=== PATIENT | female | born 1950 | race Caucasian/White ===

== ENCOUNTER 2017-02-18 12:37 | Inpatient (IN) | payer OTHER ==
[~2017-02-18] VITALS: Ht 157.5 cm; Wt 62.0 kg
[2017-02-18 13:55] LABS: URINE APPEARANCE CLOUDY (CLEAR); URINE BILIRUBIN NEG (NEG); URINE COLOR YELLOW; URINE EPITHELIAL CELL AUTO 0-5 /lpf (0-5); URINE NITRITE NEG (NEG); URINE SPECIFIC GRAVITY 1.014 (1.000-1.030); UROBILINOGEN NEG (NEG)
[2017-02-18 13:56] LABS: MANUAL MICROSCOPIC REQUIRED? NO; REVIEW REQ? NO
[2017-02-18 14:12] LABS: BASO % 0.3 %; BASO ABS # 0.02 K/uL (0-0.2); COMPLETE YES; EOS % 0.8 %; HEMATOCRIT 42.9 % (37-47); IG% 0.2 %; LYMPH % 23.5 %; LYMPH ABS # 1.54 K/uL (1.2-3.4); MEAN CELL VOLUME 95.1 fL (80-100); MEAN CORPUSCULAR HEMOGLOBIN 31.3 pg (25-34); MEAN CORPUSCULAR HGB CONC 32.9 g/dl (32-36); MEAN PLATELET VOLUME 10.2 fL (7.4-10.4); MONO % 5.3 %; NEUT % 69.9 %; PLATELET COUNT 295 K/uL (130-400); RED BLOOD COUNT 4.51 M/uL (4.2-5.4); WHITE BLOOD COUNT 6.55 K/uL (4.8-10.8)
[2017-02-18] MEDS ORDERED: CEPHALEXIN MONOHYDRATE 250 MG CAP PO ONE (14:15)
--- NOTE | 2017-02-18 14:17 | DIAGNOSTIC IMAGING REPORT ---
CHEST ONE VIEW PORTABLE HISTORY: 66 years-old Female Mood Disorder no acute chest complaints reported. Initial exam. COMPARISON: None available TECHNIQUE: Portable upright AP view of the chest FINDINGS: There is increased lucency of the left chest, likely secondary to patient rotation to the left. Left lung apex is partially obscured by patient's chin. Cardiac silhouette is within normal limits. No pneumothorax, pleural effusion, focal airspace consolidation or overt pulmonary edema. Bones of the chest are grossly intact. IMPRESSION: 1. No acute cardiopulmonary process. 2. Increased lucency of the left hemithorax compared to the right is likely technical secondary to patient rotation. The above report was generated using voice recognition software. It may contain grammatical, syntax or spelling errors. Electronically signed by: Harvinder Browne M.D. 02/18/2017 2:16 PM Dictated Date/Time: 02/18/2017 2:13 PM
[2017-02-18] MEDS ORDERED: ZOLP5TAB PO (14:24)
[2017-02-18] MEDS ORDERED: CHOL2000 PO (14:24)
[2017-02-18] MEDS ORDERED: LAMO1TAB21 PO (14:24)
[2017-02-18] MEDS ORDERED: PRLSR20 PO (14:24)
[2017-02-18] MEDS ORDERED: CLON1TAB3 PO (14:24)
[2017-02-18] MEDS ORDERED: CARB25TA PO (14:24)
[2017-02-18] MEDS ORDERED: LEVO100T PO (14:24)
[2017-02-18] MEDS ORDERED: MIRT30TA2 PO (14:24)
[2017-02-18] MEDS ORDERED: SIMV20TA2 PO (14:24)
[2017-02-18 14:30] LABS: BENZODIAZEPINE, URINE NEG (NEG); COCAINE,URINE NEG (NEG); PHENCYCLIDINE, URINE NEG (NEG)
[2017-02-18 14:40] LABS: ALT/SGPT < 6 U/L (12-78); AST/SGOT 18 U/L (15-37); BLOOD UREA NITROGEN 8 mg/dl (7-18); BUN/CREATININE RATIO 9.3 (10-20); CALCIUM 10.9 mg/dl (8.5-10.1); CARBON DIOXIDE 27 mmol/L (21-32); CHLORIDE 104 mmol/L (98-107); CREATININE 0.83 mg/dl (0.60-1.20); GLUCOSE 86 mg/dl (70-99); POTASSIUM 3.1 mmol/L (3.5-5.1); SODIUM 141 mmol/L (136-145)
[2017-02-18 14:50] LABS: ALKALINE PHOSPHATASE 95 U/L (45-117); THYROID STIMULATING HORMONE 0.168 uIu/ml (0.300-4.500)
[2017-02-18] MEDS ORDERED: hydrOXYzine HCL 25 MG TAB PO PRN (16:30)
[2017-02-18] MEDS ORDERED: BISMUTH SUBSALICYLATE PER ML OMNICELL CHARGE PO PRN (16:30)
[2017-02-18] MEDS ORDERED: MAGNESIUM HYDROXIDE SUSP 30 ML UDC PO PRN (16:30)
[2017-02-18] MEDS ORDERED: SODIUM CHLORIDE 0.65% NA SOLN 45 ML (OCEAN) PRN (16:30)
[2017-02-18] MEDS ORDERED: ALUMINUM/MAGNESIUM SUSP 30 ML UDC PO PRN (16:30)
[2017-02-18] MEDS ORDERED: CLONAZEPAM 1 MG TAB PO ONE (17:00)
--- NOTE | 2017-02-18 17:24 | EMERGENCY ROOM VISIT NOTE ---
History Report prepared by Dena: Sami Magaña Under the Supervision of: Dr. Nash Mendez D.O. First contact with patient: 13:04 Chief Complaint: PSYCHIATRIC PROBLEMS Stated Complaint: PSYCHIATRIC EVALUATION, SENT BY History of Present Illness The patient is a 66 year old female who presents to the Emergency Room for a mental health evaluation due to constant auditory hallucinations and anxiety for the past week. The patient states that the voices are telling her to kill herself. The patient denies any current suicidal ideations, homicidal ideations , and visual hallucinations. The patient's states that the patient has been seen a [facility] two-three years ago and [facility], and she was getting shock therapy at [facility]. He states that the patient has been drinking well recently, though she has not been eating very well. The patient has a history of depression and anxiety. Pt denies headache, change in vision, fevers , chest pain, shortness of breath, nausea, vomiting, diarrhea, and pain with urination. Source of History: patient, spouse/significant other Onset: a week ago Position: other (global) Quality: other (hallucinations and anxiety) Timing: constant Review of Systems See HPI for pertinent positives & negatives. A total of 10 systems reviewed and were otherwise negative. Past Medical & Surgical Medical Problems: (1) Anxiety (2) Depression (3) Hallucinations Social History Smoking Status: Current Every Day Smoker Marital Status: Housing Status: lives with family Occupation Status: retired Current/Historical Medications Scheduled Carbidopa-Levodopa (Sinemet Cr 25MG/100MG), 1 TAB PO BID Cholecalciferol (Vitamin D3), 2,000 UNIT PO TID Lamotrigine (Lamotrigine), 100 MG PO HS Levothyroxine Sodium (Synthroid), 100 MCG PO DAILY Mirtazapine Soltab (Remeron Soltab), 30 MG PO HS Omeprazole (Prilosec), 20 MG PO DAILY Simvastatin (Zocor), 20 MG PO QAM Scheduled PRN Clonazepam (Klonopin), 1 MG PO TID PRN for Anxiety/Agitation Zolpidem Tartrate (Ambien), 5-10 MG PO HS PRN for Insomnia Allergies Coded Allergies: No Known Allergies (Unverified , 02/18/17) Physical Exam Vital Signs Date Time Temp Pulse Resp B/P (MAP) Pulse Ox O2 Delivery O2 Flow Rate FiO2 02/18/17 14:49 74 16 116/71 97 02/18/17 13:13 36.6 80 16 127/78 100 Room Air Physical Exam GENERAL: Sitting up in bed, disheveled, no acute distress EYE EXAM: normal conjunctiva OROPHARYNX: no exudate, no erythema, lips, buccal mucosa, and tongue normal and mucous membranes are moist NECK: supple, no nuchal rigidity, no adenopathy, non-tender LUNGS: Clear to auscultation. Normal chest wall mechanics HEART: no murmurs, S1 normal and S2 normal ABDOMEN: abdomen soft, non-tender, normo-active bowel sounds, no masses, no rebound or guarding. BACK: Back is symmetrical on inspection and there is no deformity, no midline tenderness, no CVA tenderness. SKIN: no rashes and no bruising UPPER EXTREMITIES: upper extremities are grossly normal. LOWER EXTREMITIES: No pitting edema. NEURO EXAM: Normal sensorium, cranial nerves II-XII grossly intact, normal speech, no gross weakness of arms, no gross weakness of legs. Gross sensation intact. PSYCH: No eye contact. Staring down at the floor. Flat affect. Admits to hearing voices instructing her to harm herself. Tearful when explaining. Medical Decision & Procedures ER Provider Diagnostic Interpretation: Radiology results as stated below per my review and the radiologist's interpretation: CHEST ONE VIEW PORTABLE HISTORY: 66 years-old Female Mood Disorder no acute chest complaints reported. Initial exam. COMPARISON: None available TECHNIQUE: Portable upright AP view of the chest FINDINGS: There is increased lucency of the left chest, likely secondary to patient rotation to the left. Left lung apex is partially obscured by patient's chin. Cardiac silhouette is within normal limits. No pneumothorax, pleural effusion, focal airspace consolidation or overt pulmonary edema. Bones of the chest are grossly intact. IMPRESSION: 1. No acute cardiopulmonary process. 2. Increased lucency of the left hemithorax compared to the right is likely technical secondary to patient rotation. The above report was generated using voice recognition software. It may contain grammatical, syntax or spelling errors. Electronically signed by: Harvinder Browne M.D. 02/18/2017 2:16 PM Dictated Date/Time: 02/18/2017 2:13 PM Laboratory Results 02/18/17 13:36 Red Blood Count 4.51, Mean Corpuscular Volume 95.1, Mean Corpuscular Hemoglobin 31.3, Mean Corpuscular Hemoglobin Concent 32.9, Mean Platelet Volume 10.2, Neutrophils (%) (Auto) 69.9, Lymphocytes (%) (Auto) 23.5, Monocytes (%) (Auto) 5.3, Eosinophils (%) (Auto) 0.8, Basophils (%) (Auto) 0.3, Neutrophils # (Auto) 4.58, Lymphocytes # (Auto) 1.54, Monocytes # (Auto) 0.35, Eosinophils # (Auto) 0.05, Basophils # (Auto) 0.02 02/18/17 13:36 Test 02/18/17 00:00 02/18/17 13:32 02/18/17 13:36 Urine Color YELLOW Urine Appearance CLOUDY (CLEAR) Urine pH 6.0 (4.5-7.5) Urine Specific [place] 1.014 (1.000-1.030) Urine Protein NEG (NEG) Urine Glucose (UA) NEG (NEG) Urine Ketones TRACE (NEG) Urine Occult Blood TRACE (NEG) Urine Nitrite NEG (NEG) Urine Bilirubin NEG (NEG) Urine Urobilinogen NEG (NEG) Urine Leukocyte Esterase LARGE (NEG) Urine WBC (Auto) >30 /hpf (0-5) Urine RBC (Auto) 5-10 /hpf (0-4) Urine Hyaline Casts (Auto) 1-5 /lpf (0-5) Urine Epithelial Cells (Auto) 0-5 /lpf (0-5) Urine Bacteria (Auto) 1+ (NEG) Urine Opiates Screen NEG (NEG) Urine Methadone, Qualitative NEG (NEG) Urine Barbiturates NEG (NEG) Urine Phencyclidine (PCP) Level NEG (NEG) Ur Amphetamine/Methamphetamine NEG (NEG) MDMA (Ecstasy) Screen NEG (NEG) Urine Benzodiazepines Screen NEG (NEG) Urine Cocaine Metabolite NEG (NEG) Urine Marijuana (THC) NEG (NEG) Bedside Glucose 82 mg/dl (70-90) White Blood Count 6.55 K/uL (4.8-10.8) Red Blood Count 4.51 M/uL (4.2-5.4) Hemoglobin 14.1 g/dL (12.0-16.0) Hematocrit 42.9 % (37-47) Mean Corpuscular Volume 95.1 fL (80-100) Mean Corpuscular Hemoglobin 31.3 pg (25-34) Mean Corpuscular Hemoglobin Concent 32.9 g/dl (32-36) Platelet Count 295 K/uL (130-400) Mean Platelet Volume 10.2 fL (7.4-10.4) Neutrophils (%) (Auto) 69.9 % Lymphocytes (%) (Auto) 23.5 % Monocytes (%) (Auto) 5.3 % Eosinophils (%) (Auto) 0.8 % Basophils (%) (Auto) 0.3 % Neutrophils # (Auto) 4.58 K/uL (1.4-6.5) Lymphocytes # (Auto) 1.54 K/uL (1.2-3.4) Monocytes # (Auto) 0.35 K/uL (0.11-0.59) Eosinophils # (Auto) 0.05 K/uL (0-0.5) Basophils # (Auto) 0.02 K/uL (0-0.2) RDW Standard Deviation 44.3 fL (36.4-46.3) RDW Coefficient of Variation 12.7 % (11.5-14.5) Immature Granulocyte % (Auto) 0.2 % Immature Granulocyte # (Auto) 0.01 K/uL (0.00-0.02) Anion Gap 10.0 mmol/L (3-11) Est Creatinine Clear Calc Drug Dose 57.0 ml/min Estimated GFR () 84.6 Estimated GFR (Non- 73.0 BUN/Creatinine Ratio 9.3 (10-20) Calcium Level 10.9 mg/dl (8.5-10.1) Total Bilirubin 0.5 mg/dl (0.2-1) Direct Bilirubin 0.2 mg/dl (0-0.2) Aspartate Amino Transf (AST/SGOT) 18 U/L (15-37) Alanine Aminotransferase (ALT/SGPT) < 6 U/L (12-78) Alkaline Phosphatase 95 U/L (45-117) Total Protein 7.1 gm/dl (6.4-8.2) Albumin 3.9 gm/dl (3.4-5.0) Thyroid Stimulating Hormone (TSH) 0.168 uIu/ml (0.300-4.500) Free Thyroxine 1.84 ng/dl (0.80-1.60) Ethyl Alcohol mg/dL < 3.0 mg/dl (0-3) Laboratory results per my review. Medications Administered Medications (Trade) Dose Ordered Sig/Jeison Route Start Time Stop Time Status Last Admin Dose Admin Cephalexin Monohydrate (Keflex Cap) 500 mg NOW ONCE PO 02/18/17 14:15 02/18/17 14:16 DC 02/18/17 14:12 500 MG ED Course ED COURSE: Vital signs were reviewed and showed normal vitals. The patients medical record was reviewed The above diagnostic studies were performed and reviewed. ED treatments and interventions as stated above. 1304: The patient was evaluated in room A6. A complete history and physical examination was performed. 1415: Keflex Cap 500mg PO 1600: [facility] has accepted the patient for further treatment. 1605: Upon reevaluation, the patient is resting comfortably.I discussed my findings with the patient and her , and they understand and agree with the treatment plan. Based on the patients age, coexisting illnesses, exam and lab findings the decision to treat as an inpatient was made. The patient remained stable while under my care. The patient will be evaluated for further management. Medical Decision Differential diagnosis: Etiologies such as mood disorder, infection, hypoglycemia, electrolyte abnormalities, cardiac sources, intracerebral event, toxicologic, neurologic, as well as others were entertained. Patient is a 66-year-old female who presents to ER for anxiety, not eating drinking and hearing voices in her head. These voices have been telling her to harm herself. She has been resisting search. CBC along with BMP, LFTs and TSH was remarkable for a slightly low TSH. Urine tox was negative. Patient was given Keflex for UA suggest a UTI. His x-ray was unremarkable. Patient was admitted to [address] [place] [address] with a UTI and mood disorder. Medication Reconcilliation Current Medication List: was personally reviewed by me Blood Pressure Screening Patient's blood pressure: Normal blood pressure Impression Primary Impression: Mood disorder Additional Impressions: Auditory hallucinations UTI (urinary tract infection) Thoughts of self harm Scribe Attestation The scribe's documentation has been prepared under my direction and personally reviewed by me in its entirety. I confirm that the note above accurately reflects all work, treatment, procedures, and medical decision making performed by me. Departure Information Dispostion Mental Health Acute Care Referrals Milind Barraza M.D. (PCP) Patient Instructions My [facility] Problem Qualifiers Additional Impressions: UTI (urinary tract infection) Urinary tract infection type: acute cystitis Hematuria presence: with hematuria Qualified Codes: N30.01 - Acute cystitis with hematuria
[2017-02-18 17:45] VITALS: O2SAT 97
[2017-02-18 18:29] VITALS: BP 116/76; PULSE 78; TEMP 36.8; BMI 25.0
[2017-02-18] MEDS ORDERED: NURSING VERBAL MED ORDER ONE ×3 (18:30→23:00)
[2017-02-18] MEDS ORDERED: ZOLPIDEM TARTRATE 5 MG TAB PO PRN (19:00)
[2017-02-18] MEDS ORDERED: CLONAZEPAM 1 MG TAB PO SCH (21:00)
[2017-02-18] MEDS: CEPHALEXIN MONOHYDRATE 500 MG CAP PO SCH (22:02)
[2017-02-18] MEDS: CHOLECALCIFEROL 1000 INTER.UNIT TAB PO SCH (22:03)
[2017-02-18] MEDS: MIRTAZAPINE TAB 15 MG TAB PO SCH (22:03)
[2017-02-18] MEDS: CARBIDOPA/LEVODOPA 25/100MG EXT REL TAB PO SCH (22:03)
[2017-02-18] MEDS ORDERED: OLANZAPINE 2.5 MG TAB PO STA (22:52)
[2017-02-19 07:07] VITALS: BP_SYST 122; BP_SYST 132; BP_DIAS 79; BP_DIAS 88; PULSE 87; PULSE 89; TEMP 36.8
[2017-02-19 07:12] VITALS: Ht 157.5 cm; Wt 62.0 kg
[2017-02-19] MEDS ORDERED: LEVOTHYROXINE 100 MCG TAB PO SCH (08:00)
[2017-02-19] MEDS: CARBIDOPA/LEVODOPA 25/100MG EXT REL TAB PO SCH ×2 (08:26→20:23)
[2017-02-19] MEDS: PANTOprazole SOD 40 MG TAB PO SCH (08:26)
[2017-02-19] MEDS: SIMVASTATIN 20 MG TAB PO SCH (08:26)
[2017-02-19] MEDS: CHOLECALCIFEROL 1000 INTER.UNIT TAB PO SCH ×3 (08:26→20:23)
[2017-02-19] MEDS: CEPHALEXIN MONOHYDRATE 500 MG CAP PO SCH ×3 (08:26→20:22)
[2017-02-19] MEDS: CLONAZEPAM 1 MG TAB PO PRN ×2 (08:47→20:34)
--- NOTE | 2017-02-19 09:59 | Psychiatric History & Physical ---
History Date of Service Feb 19, 2017. Identifying Data Shanna Hutson is a 66-year-old female who currently lives in [place] with her , has an unknown psychiatric history for which she sees Dr. Bashir, and presented with command auditory hallucinations to kill herself. She was admitted on a 201 voluntary commitment. Patient is admitted from home, and was brought to the ED by the family. Chief Complaint "Not good". History of Present Illness This is the patient's first episode of care at our facility. She presented to the emergency room yesterday with her , reporting worsening auditory hallucinations and anxiety for the past week, with voices telling her to kill herself. She was a limited historian, had thought blocking, and was unable to answer questions other than to shake or nod her head, so her provided much of the history. He said she has a history of depression and anxiety, but could not clarify any recent triggers. Sleep has been poor, 3-4 hours a night, with frequent awakening. She had been drinking fluids, but not eating very well. She was diagnosed with UTI and started on Keflex. She could not elaborate about what the voices were saying, or about her suicidal thoughts, but told staff on our unit that she was hearing both male and female voices telling her to kill herself. Her expressed concerns that she would act on these command hallucinations. Overnight, she reported feeling distraught about her auditory hallucinations, was trembling and tearful, reported feeling scared, and was given a one-time dose of olanzapine 2.5 mg. Today, the patient was seen with Micaela Kincaid MS3. She states she is "not good," saying "it's my insides...it's really hard to explain...it's really fast...feels like a ball." She says she feels a ball moving from side to side in her pelvis, it started at breakfast time. Cannot provide any further information about it, but feels distressed. Mood is "good," then says she has been depressed. She says she came in because "hearing voices," going on for 4 years, but worsening recently. Reports hearing "a lot" of different voices, both male and female, doesn't recognize them, which are telling her to hurt herself. The command hallucinations are new, started a couple months ago. She initially says she did not try a medication for hallucinations, then says she was given something in [place] 4 years ago. She doesn't know if she has had recent med changes. She expresses concern that she might act on the commands to hurt herself, but is not sure what she might do. She reports chronic insomnia, and thinks she takes something for sleep, but doesn't know the names of any of her meds. Her helps her with her meds. She is not sure what she has been diagnosed with, but denies a history of bipolar disorder or schizophrenia. She reports chronic anxiety, worries a lot, and has had panic; worse recently. She has been pacing a lot, says she likes to walk, but has had decreased interest recently. Past Psychiatric History Current OP Treatment: psychiatrist (Dr. Bashri in [place]; no therapist or case liner) Prior Psych Hospitalizations: [facility] (1 year ago), other ([facility] 2 years ago) Access to a Gun: Yes Suicide Attempts: No Past Medication Trials Patient cannot provide information about previous meds. H/o ECT at [facility]. Additional Notes Denies history of violence or self harm. Past Medical/Surgical History History of Concussion/Seizure: No (1) UTI (urinary tract infection) (2) Hypothyroid PCP Dr. Milind Barraza Allergies Allergies: Coded Allergies: No Known Allergies (Unverified , 02/18/17) Home Medications Scheduled Carbidopa-Levodopa (Sinemet Cr 25MG/100MG), 1 TAB PO BID Cholecalciferol (Vitamin D3), 2,000 UNIT PO TID Lamotrigine (Lamotrigine), 100 MG PO HS Levothyroxine Sodium (Synthroid), 100 MCG PO DAILY Mirtazapine Soltab (Remeron Soltab), 30 MG PO HS Omeprazole (Prilosec), 20 MG PO DAILY Simvastatin (Zocor), 20 MG PO QAM Scheduled PRN Clonazepam (Klonopin), 1 MG PO TID PRN for Anxiety/Agitation Zolpidem Tartrate (Ambien), 5-10 MG PO HS PRN for Insomnia Family History History of Suicide: No History of Substance Abuse: Yes (Father with drug and alcohol addiction) Psychiatric History: No Alcohol Use Alcohol Use In Past 12 Months: No AUDIT Total Score: 0 Smoking Use Smoking Status: Never Smoker Substance History Denies substance abuse. Personal History Lives in: [place] with Childhood: Grew up in [place], [place]. Youngest of 3 children, has 2 brothers. Father is , mother is still living. 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 Relationship History: (x 40 years) Children: one daughter who is , and living in [place]. Spiritual Affiliation: attends mosque and dial painter is supportive Legal History: none Psychological Trauma History: Denies Hx Traumatic Event Review of Systems 10 systems reviewed, positive for congestion, others negative except as stated above. Examination Physical Examination A physical exam was performed in the ER prior to admission to the unit by Dr. Mendez. I accept that physical as correct/medical clearance for the inpatient physical exam. Vital Signs Vital Signs Past 12 Hours Date Time Temp Pulse Resp B/P (MAP) Pulse Ox O2 Delivery O2 Flow Rate FiO2 02/19/17 07:07 36.8 87 18 122/79 89 132/88 Laboratory Results Last 24 Hours Test 02/18/17 13:32 02/18/17 13:36 Bedside Glucose 82 mg/dl White Blood Count 6.55 K/uL Red Blood Count 4.51 M/uL Hemoglobin 14.1 g/dL Hematocrit 42.9 % Mean Corpuscular Volume 95.1 fL Mean Corpuscular Hemoglobin 31.3 pg Mean Corpuscular Hemoglobin Concent 32.9 g/dl Platelet Count 295 K/uL Mean Platelet Volume 10.2 fL Neutrophils (%) (Auto) 69.9 % Lymphocytes (%) (Auto) 23.5 % Monocytes (%) (Auto) 5.3 % Eosinophils (%) (Auto) 0.8 % Basophils (%) (Auto) 0.3 % Neutrophils # (Auto) 4.58 K/uL Lymphocytes # (Auto) 1.54 K/uL Monocytes # (Auto) 0.35 K/uL Eosinophils # (Auto) 0.05 K/uL Basophils # (Auto) 0.02 K/uL RDW Standard Deviation 44.3 fL RDW Coefficient of Variation 12.7 % Immature Granulocyte % (Auto) 0.2 % Immature Granulocyte # (Auto) 0.01 K/uL Sodium Level 141 mmol/L Potassium Level 3.1 mmol/L Chloride Level 104 mmol/L Carbon Dioxide Level 27 mmol/L Anion Gap 10.0 mmol/L Blood Urea Nitrogen 8 mg/dl Creatinine 0.83 mg/dl Est Creatinine Clear Calc Drug Dose 57.0 ml/min Estimated GFR () 84.6 Estimated GFR (Non- 73.0 BUN/Creatinine Ratio 9.3 Random Glucose 86 mg/dl Calcium Level 10.9 mg/dl Total Bilirubin 0.5 mg/dl Direct Bilirubin 0.2 mg/dl Aspartate Amino Transf (AST/SGOT) 18 U/L Alanine Aminotransferase (ALT/SGPT) < 6 U/L Alkaline Phosphatase 95 U/L Total Protein 7.1 gm/dl Albumin 3.9 gm/dl Thyroid Stimulating Hormone (TSH) 0.168 uIu/ml Free Thyroxine 1.84 ng/dl Ethyl Alcohol mg/dL < 3.0 mg/dl Mental Examination During interview pt is: alert and oriented, cooperative Appearance: appropriately dressed, appropriately groomed Eye contact is: poor (looking down at floor) Motor behavior is: steady gait & station (slow), other (tremulous, wringing hands) Speech: normal in rate, rhythm & volume Affect: mood congruent, depressed, anxious, constricted Mood is: depressed, anxious Thought process: goal directed, blocking, concrete Thought content: reality based without delusions Suicidal thought are: present Homicidal thoughts are: denied Hallucinations: auditory (multiple voices telling her to harm herself) Cognition: language grossly intact, other (memory and attention impaired) Intelligence estimated to be: consistent with level of education Insight: impaired Judgement: impaired Impression / Recommendations Impression 66-year-old white female with a history of depression, anxiety, ? Parkinson's disease, and chronic auditory hallucinations who presents with worsening auditory hallucinations commanding her to harm herself. She had her expressed concerns for her safety, and she was admitted voluntarily. She is a very limited historian with respect to her medical and psychiatric history, past medications, and current medications, and we will need to get records from her PCP and psychiatrist to clarify her history and previous trials. She requires inpatient treatment due to the risk for suicide if discharged. Inventory Assets Strengths: Supportive , has psychiatrist, willing for treatment Risk Factors Assessment : Yes /single/: No Higher / Fall in social status: No Access to guns: Yes Health problems: Yes Mental Health Diagnoses: Yes Substance use disorders: No Previous attempt: No Family history of suicide: No Previous psychiatric stay: Yes Hopelessness: Yes Smoker: No Protective Factors Assessment Yazdanism beliefs: Yes : Yes Responsible for young children: No Employed: No Stable relationships: Yes Supportive family: Yes Good rapport with provider: Yes Recommendations (1) Depression - Continue home dose of lamotrigine 100 mg daily at bedtime, mirtazapine 30 mg daily at bedtime, and zolpidem 5 mg daily at bedtime when necessary for insomnia. - Patient reports that olanzapine 2.5 mg that she received last evening was helpful for the voices and for sleep, so will order this twice a day for now while obtaining records from her outpatient psychiatrist to clarify past medication trials. Will also order 2.5 mg every 8 hours when necessary psychosis. Reviewed risks, benefits, and side effects of the medication with the patient. Order fasting lipid profile and fasting glucose for tomorrow morning for monitoring on an atypical antipsychotic. - Get records from PCP regarding ? Parkinson's disease diagnosis, as she has Sinemet listed as a home medication. May need to consider a trial of quetiapine due to drug drug interactions with dopamine antagonists. - Encourage group attendance and participation. - Family meeting with . We'll review recommendations the guns be secured prior to discharge. (2) Anxiety - Continue home dose of clonazepam 1 mg 3 times a day when necessary anxiety. (3) Hypothyroid - Get PCP records, as TSH is low and free T4 is elevated. Hold levothyroxine, and get records from PCP to determine if the dose has been adjusted recently as she is currently hyperthyroid. (4) UTI (urinary tract infection) - Complete one week course of Keflex started in the emergency room. (5) Parkinson disease - Continue Sinemet for now, but get records from PCP to clarify diagnosis and treatment. If this medication was recently added or increased, this could account for worsening of her auditory hallucinations. CPT Code Initial Hospital Care: 81571 Problem Qualifiers (1) Depression: Depression Type: major depressive disorder Major depression recurrence: recurrent Major depression episode severity: severe Psychotic features: with psychotic features (2) UTI (urinary tract infection): Urinary tract infection type: acute cystitis Hematuria presence: with hematuria Qualified Codes: N30.01 - Acute cystitis with hematuria
[2017-02-19] MEDS ORDERED: OLANZAPINE ZYDIS 5 MG ORALLY DIS. TAB PO ONE (11:00)
[2017-02-19] MEDS ORDERED: ZOLP10TA6 PO (18:42)
[2017-02-19] MEDS ORDERED: KLN5 (18:42)
[2017-02-19] MEDS: MIRTAZAPINE TAB 15 MG TAB PO SCH (20:23)
[2017-02-19] MEDS: OLANZAPINE ZYDIS 5 MG ORALLY DIS. TAB PO SCH (20:24)
[2017-02-19] MEDS: ACETAMINOPHEN 325 MG TAB PO PRN (20:34)
[2017-02-20 06:48] VITALS: BP_SYST 103; BP_SYST 111; BP_DIAS 73; BP_DIAS 79; PULSE 76; PULSE 88; TEMP 36.6
[2017-02-20 07:50] LABS: CHOLESTEROL/HDL RATIO 2.4
--- NOTE | 2017-02-20 08:34 | Psychiatric Progress Notes ---
Progress Note Date of Service Feb 20, 2017. Interval History Shanna Hutson is a 66-year-old female who currently lives in [place] with her , has an unknown psychiatric history for which she sees Dr. Bashir, and presented with command auditory hallucinations to kill herself. She was admitted on a 201 voluntary commitment. Patient is admitted from home, and was brought to the ED by the family. Chief Complaint "Not good". Subjective Patient was seen & assessed interval progress reviewed with Treatment Team. Staff report she continues to hear voices, is responding to internal stimuli, and is very distraught and anxious. She has been thought blocked at times, and needed staff prompting to eat ice cream, as she would put the spoon up to her mouth, it did not seem to know what to do next. Her visited. She attended group, but had very limited participation, and left early. She received Tylenol for pain and Klonopin for anxiety. Today, the patient was seen with Micaela Kincaid MS3. She appears very anxious and distraught, states she is not doing well, but struggles to articulate that further. She states that she is in pain, as she has "something pushing me up," and indicates that there is something underneath her that feels as if it is bulging out and is painful. She rates her pain a 5 out of 10. She did receive Tylenol for this last evening , which was partially effective. On reviewing her PCP records, she was seen in October and they thought she had a vaginal prolapse, and she was referred to OB/ BIOLOGICAL SCIENCE AIDE. She cannot state if she followed up with ANIMAL CAREGIVER, or even who her ANIMAL CAREGIVER is. She denies auditory hallucinations today, and is very focused on her discomfort. At times, she is tearful and unable to answer questions, and they have to be repeated several times. Sleep Information Total Hours of Sleep: 6.00 Meal Information Percent of Breakfast Consumed: 100 Percent of Lunch Consumed: 75 Percent of Dinner Consumed: 90 Mental Status Exam During interview pt is: other (partially cooperative, but very distraught and a limited historian.) Appearance: appropriately dressed, appropriately groomed, other (appears older than stated age, sitting hunched over staring at the floor) Eye contact is: poor (looking down at floor) Motor behavior is: steady gait & station (slow), other (tremulous, wringing hands) Speech: other (minimal speech, nonspontaneous) Affect: mood congruent, depressed, anxious, constricted Mood is: depressed, anxious, other ("not good") Thought process: goal directed, blocking, concrete Thought content: preoccupation (with physical discomfort in her pelvic area), reality based without delusions Suicidal thought are: denied Homicidal thoughts are: denied Hallucinations: denies auditory Cognition: language grossly intact, other (memory and attention impaired) Intelligence estimated to be: consistent with level of education Insight: impaired Judgement: impaired Summary of Past History Records from her most recent PCP office visit were reviewed: She was seen Dr. Yolis Sanchez on 10/23/2016 for a routine exam. She reported worsening anxiety and depression, and her said her Ativan had been changed to Klonopin, and they were trying to discontinue Ambien. She complained of intermittent vaginal pain and pressure, and vaginal prolapse with suspected, so she was referred to ANIMAL CAREGIVER. Her Synthroid had been adjusted in April, and she was due for a repeat TSH. 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 Records from her outpatient psychiatrist, Dr. Bashir, were reviewed. He has diagnosed her with schizoaffective disorder, depressive type, panic disorder without agoraphobia, and insomnia. Past medication trials include benztropine, clonazepam, lamotrigine, mirtazapine, zolpidem, alprazolam, diazepam, lorazepam , Lunesta, gabapentin, hydroxyzine, citalopram, olanzapine (prescribed 5 mg daily at bedtime on 02/08/2017, but has been on up to 15 mg at bedtime within the past year), and trazodone up to 200 mg daily at bedtime. She was last seen on 02/08/2017, and reported she was having a very bad day and wanted to be seen before the weekend, but it does not appear that any medication changes were made, and she was instructed to follow-up in one month. There is no list of current medications in the note. Prior to that, she was seen on 01/25/2017, and reported she was doing well. She was continued on Lamictal, clonazepam, and olanzapine 5 mg daily at bedtime. Impression 66-year-old white female with a history of depression, anxiety, ? and chronic auditory hallucinations who presents with worsening auditory hallucinations commanding her to harm herself. She had her expressed concerns for her safety, and she was admitted voluntarily. She is a very limited historian with respect to her medical and psychiatric history, past medications, and current medications, and we have reviewed the most recent clinic note from her PCP, and are awaiting records from her outpatient psychiatrist to clarify her history and previous trials. She requires inpatient treatment due to the risk for suicide if discharged. Plan (1) Schizoaffective disorder, depressive type - Continue home dose of lamotrigine 100 mg daily at bedtime, mirtazapine 30 mg daily at bedtime, and zolpidem 5 mg daily at bedtime when necessary for insomnia. - Patient reports that olanzapine 2.5 mg that she received last evening was helpful for the voices and for sleep, so will order this twice a day for now while obtaining records from her outpatient psychiatrist to clarify past medication trials. Will also order 2.5 mg every 8 hours when necessary psychosis. Reviewed risks, benefits, and side effects of the medication with the patient. Order fasting lipid profile and fasting glucose for tomorrow morning for monitoring on an atypical antipsychotic. - Get records from PCP regarding ? Parkinson's disease diagnosis, as she has Sinemet listed as a home medication. May need to consider a trial of quetiapine due to drug drug interactions with dopamine antagonists. - Encourage group attendance and participation. - Family meeting with . We'll review recommendations the guns be secured prior to discharge. 02/20 - Records reviewed from Dr. Bashir's office, and staff contacted to clarify current medications, as admission medication reconciliation was incorrect. - Fasting lipid profile and glucose for monitoring on an atypical antipsychotic were performed today and results reviewed, and were normal. (2) Anxiety - Continue home dose of clonazepam 1 mg 3 times a day when necessary anxiety. (3) Hypothyroid - Get PCP records, as TSH is low and free T4 is elevated. Hold levothyroxine, and get records from PCP to determine if the dose has been adjusted recently as she is currently hyperthyroid. 02/20 - PCP records reviewed, per office staff her levothyroxine dose has not been adjusted since last April, and as she is over corrected on her current dose, we will decrease it to 88 g daily. This could be playing a role in her increased anxiety. She will need to follow-up with her PCP for ongoing monitoring. (4) UTI (urinary tract infection) - Complete one week course of Keflex started in the emergency room. (5) Vaginal pain 02/20 - patient continues to report pressure and pain in her pelvic area, and when she last saw her PCP, there was a concern for vaginal prolapse. As it is causing significant discomfort, and she cannot state if she ever followed up with her outpatient ANIMAL CAREGIVER, we will consult ANIMAL CAREGIVER here, and greatly appreciate any recommendations. Continue Tylenol as needed for pain and discomfort. (6) Hyperlipidemia Continue home dose of simvastatin. (7) GERD (gastroesophageal reflux disease) Continue home medication. Discharge / Aftercare Planning Primary Care Physician: Name: Dr Madi Layton office Psychiatrist: Name: Dr. Bashir Therapist: Name: None Field Recorder: Name: None Visit Code E&M Code: 32414 Inventory Assets Strengths: Supportive , has psychiatrist, willing for treatment Risk Factors Assessment : Yes /single/: No Higher / Fall in social status: No Health problems: Yes Mental Health Diagnoses: Yes Substance use disorders: No Previous attempt: No Family history of suicide: No Previous psychiatric stay: Yes Hopelessness: Yes Smoker: No Protective Factors Assessment Worship beliefs: Yes : Yes Responsible for young children: No Employed: No Stable relationships: Yes Supportive family: Yes Good rapport with provider: Yes Data Vital Signs Last 24 Hrs: Date Time Temp Pulse Resp B/P (MAP) Pulse Ox O2 Delivery O2 Flow Rate FiO2 02/20/17 06:48 36.6 76 16 103/73 88 111/79 Meds Administered Last 24 Hrs: Meds Administered (Past 24Hrs) Medications (Trade) Dose Ordered Sig/Jeison Route Start Time Stop Time Status Last Admin Dose Admin Cephalexin Monohydrate (Keflex Cap) 500 mg NOW ONCE PO 02/18/17 14:15 02/18/17 14:16 DC 02/18/17 14:12 500 MG Acetaminophen (Tylenol Tab) 650 mg Q4H PRN PO 02/18/17 16:30 03/20/17 16:29 02/19/17 20:34 650 MG Carbidopa/Levodopa (Sinemet Cr 25/ 100MG Tab) 1 tab BID PO 02/18/17 21:00 02/20/17 08:10 DC 02/19/17 20:23 1 TAB Levothyroxine Sodium (Synthroid Tab) 100 mcg DAILYBB PO 02/19/17 08:00 02/19/17 10:43 DC 02/19/17 07:49 100 MCG Simvastatin (Zocor Tab) 20 mg QAM PO 02/19/17 09:00 03/21/17 08:59 02/19/17 08:26 20 MG Cholecalciferol (Vitamin D Tab) 2,000 inter.unit TID PO 02/18/17 21:00 03/20/17 20:59 02/19/17 20:23 2,000 INTER.UNIT Pantoprazole Sodium (Protonix Tab) 40 mg QAM PO 02/19/17 09:00 03/21/17 08:59 02/19/17 08:26 40 MG Mirtazapine (Remeron Tab) 30 mg HS PO 02/18/17 21:00 03/20/17 20:59 02/19/17 20:23 30 MG Clonazepam (Klonopin Tab) 1 mg NOW ONCE PO 02/18/17 17:00 02/18/17 17:01 DC 02/18/17 17:03 1 MG Cephalexin Monohydrate (Keflex Cap) 500 mg TID PO 02/18/17 22:00 02/25/17 23:59 02/19/17 20:22 500 MG Clonazepam (Klonopin Tab) 1 mg TID PRN PO 02/18/17 19:00 03/20/17 18:59 02/19/17 20:34 1 MG Lamotrigine (Lamictal Tab) 100 mg HS PO 02/18/17 22:00 03/20/17 21:59 02/19/17 20:22 100 MG Olanzapine (Zyprexa Tab) 2.5 mg NOW STAT PO 02/18/17 22:52 02/18/17 22:53 DC 02/18/17 22:57 2.5 MG Olanzapine (Zyprexa Zydis Od Tab) 2.5 mg BID PO 02/19/17 22:00 03/21/17 21:59 02/19/17 20:24 2.5 MG Olanzapine (Zyprexa Zydis Od Tab) 2.5 mg NOW ONCE PO 02/19/17 11:00 02/19/17 11:01 DC 02/19/17 10:54 2.5 MG Lab Results Last 24 Hrs: Last 24 Hours Test 02/20/17 07:06 Fasting Glucose 92 mg/dl Triglycerides Level 79 mg/dl Cholesterol Level 133 mg/dl HDL Cholesterol 56 mg/dl LDL Cholesterol, Calculated 61 mg/dl VLDL Cholesterol, Calculated 16 mg/dl Cholesterol/HDL Ratio 2.4 Problem Qualifiers (1) UTI (urinary tract infection): Urinary tract infection type: acute cystitis Hematuria presence: with hematuria Qualified Codes: N30.01 - Acute cystitis with hematuria
[2017-02-20] MEDS: SIMVASTATIN 20 MG TAB PO SCH (08:45)
[2017-02-20] MEDS: PANTOprazole SOD 40 MG TAB PO SCH (08:45)
[2017-02-20] MEDS: CEPHALEXIN MONOHYDRATE 500 MG CAP PO SCH ×3 (08:45→20:27)
[2017-02-20] MEDS: CHOLECALCIFEROL 1000 INTER.UNIT TAB PO SCH ×3 (08:45→20:27)
[2017-02-20] MEDS: OLANZAPINE ZYDIS 5 MG ORALLY DIS. TAB PO SCH (08:46)
[2017-02-20] MEDS: CLONAZEPAM 1 MG TAB PO PRN (10:20)
[2017-02-20 10:22] VITALS: BP 112/77; PULSE 96
[2017-02-20] MEDS ORDERED: ZOLPIDEM TARTRATE 10 MG TAB PO PRN (11:45)
--- NOTE | 2017-02-20 13:03 | GYNECOLOGICAL CONSULTATION ---
DATE OF CONSULTATION: 02/20/2017 DATE OF CONSULTATION: 02/20/2017 REQUESTING PHYSICIAN: Dr. Rebecca Hahn. INDICATION: Pelvic pain. ADMISSION HISTORY: The patient is a 66-year-old G1, P1 postmenopausal female who has been admitted to the mental health unit for auditory hallucinations and suicidal watch. Apparently in the intake the patient was complaining of some pelvic pain or pressure and a gynecological consultation was requested. The patient states that she had 1 uneventful 37 years ago. No problems during that . She thinks she went through menopause somewhere in the last 10-15 years. She is not complaining of any vasomotor symptoms. When asked about any pelvic pain or pressure, the patient is nonresponsive and does not give any answers. PAST MEDICAL HISTORY: x1. DOG WARDEN as above. PHYSICAL EXAMINATION: Today deferred. IMPRESSION: A 66-year-old G1, P1 postmenopausal female with alleged pelvic pain. PLAN: Attempting to interview the patient today has been very difficult. The patient does not complain of any pelvic pressure or pain, but is somewhat nonresponsive in her answers. When asked about her and 1 delivery, the patient does give detailed answers, but anything gynecological after that there appears to be resistance. The patient just keeps saying, "I don't want to feel like this anymore" and when I asked her specifically, she says she does not want to feel anxious. At this point, I do not see any value in having the patient go through a pelvic examination. I am not sure informed consent is even possible at this time. However, I am happy to see the patient as an outpatient in my office once she has been discharged from the mental health unit. Gynecology will sign off for now, but if there are any other questions or concerns we can be contacted for reconsultation.
[2017-02-20] MEDS: CLONAZEPAM 0.5 MG TAB PO PRN ×2 (15:03→19:25)
[2017-02-20] MEDS: OLANZAPINE ZYDIS 5 MG ORALLY DIS. TAB PO PRN (18:20)
[2017-02-20] MEDS: MIRTAZAPINE TAB 15 MG TAB PO SCH (20:28)
[2017-02-20] MEDS ORDERED: OLANZAPINE 5 MG TAB PO SCH (22:00)
[2017-02-21 06:52] VITALS: BP_SYST 122; BP_SYST 126; BP_DIAS 80; BP_DIAS 85; PULSE 89; PULSE 96; TEMP 36.6
[2017-02-21] MEDS: CEPHALEXIN MONOHYDRATE 500 MG CAP PO SCH ×3 (08:55→21:12)
[2017-02-21] MEDS: LEVOTHYROXINE 88 MCG TAB PO SCH (08:55)
[2017-02-21] MEDS: CHOLECALCIFEROL 1000 INTER.UNIT TAB PO SCH ×3 (08:56→21:13)
[2017-02-21] MEDS: OLANZAPINE ZYDIS 5 MG ORALLY DIS. TAB PO SCH (08:56)
[2017-02-21] MEDS: SIMVASTATIN 20 MG TAB PO SCH (08:56)
[2017-02-21] MEDS: CLONAZEPAM 0.5 MG TAB PO PRN (08:56)
[2017-02-21] MEDS: PANTOprazole SOD 40 MG TAB PO SCH (08:56)
[2017-02-21] MEDS: OLANZAPINE ZYDIS 5 MG ORALLY DIS. TAB PO PRN (10:14)
[2017-02-21] MEDS ORDERED: RMR15 PO (10:23)
--- NOTE | 2017-02-21 10:26 | Psychiatric Progress Notes ---
Progress Note Date of Service Feb 21, 2017. Interval History Shanna Hutson is a 66-year-old female who currently lives in [place] with her , has an unknown psychiatric history for which she sees Dr. Bashir, and presented with command auditory hallucinations to kill herself. She was admitted on a 201 voluntary commitment. Patient is admitted from home, and was brought to the ED by the family. Chief Complaint "Not good". Subjective Patient was seen & assessed interval progress reviewed with Nursing. She told nursing staff she was hearing music in her head, "but it's not really music." Staff report Dr. Spicer came to see her yesterday, but she was very anxious and upset, and he did not feel she could consent to an exam. He recommended she follow up as an outpatient. Today she was seen with Susan Kincaid, MS3, and states she is "not good, something's moving down here in my vagina, feels like a ball. " She reports discomfort, pain at times, which she rates a 6/10. She says she feels "terrible, why do these things keep happening to me?" She often does not respond to questions, and they have to be repeated several times. She says her feet feel like they're moving back and forth, and like she is moving sideways, and feels dizzy and unsteady. She denies auditory hallucinations, HI, and SI. She is distraught. She endorses racing thoughts, feels confused, cannot express her thoughts well. When asked if anything she is doing here is helping to give her relief, she says "it keeps changing down here," gesturing to her vagina. Shortly after her assessment, she attempted to go to group therapy, but left early as she was reporting auditory hallucinations. She had already received a 2.5 mg dose of olanzapine within the past 4 hours, so a second dose was ordered. When nursing staff questioned her, she denied that she was having any vaginal symptoms. Sleep Information Total Hours of Sleep: 8.75 Meal Information Percent of Breakfast Consumed: 100 Percent of Lunch Consumed: 75 Percent of Dinner Consumed: 100 Mental Status Exam During interview pt is: cooperative, other (distraught and a limited historian. ) Appearance: appropriately dressed (dressed in jeans, a t-shirt, and sandals, same clothes as yesterday, but appear clean), appropriately groomed, other ( appears older than stated age, sitting hunched over staring at the floor) Eye contact is: poor (looking down at floor) Motor behavior is: steady gait & station (slow), psychomotor retardation (but feels like she is moving) Speech: other (minimal speech, nonspontaneous) Affect: mood congruent, depressed, anxious, constricted Mood is: depressed, anxious, other ("not good") Thought process: goal directed, blocking, looseness of associations, concrete Thought content: preoccupation (with physical discomfort/symptoms), reality based without delusions Suicidal thought are: denied Homicidal thoughts are: denied Hallucinations: denies auditory, other (tactile - feet moving, body moving sideways, sensations in vagina?) Cognition: language grossly intact, other (memory and attention impaired) Intelligence estimated to be: consistent with level of education Insight: impaired Judgement: impaired Summary of Past History Records from her most recent PCP office visit were reviewed: She was seen Dr. Yolis Sanchez on 10/23/2016 for a routine exam. She reported worsening anxiety and depression, and her said her Ativan had been changed to Klonopin, and they were trying to discontinue Ambien. She complained of intermittent vaginal pain and pressure, and vaginal prolapse with suspected, so she was referred to [facility]. Her Synthroid had been adjusted in April, and she was due for a repeat TSH. 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 Records from her outpatient psychiatrist, Dr. Bashir, were reviewed. He has diagnosed her with schizoaffective disorder, depressive type, panic disorder without agoraphobia, and insomnia. Past medication trials include benztropine, clonazepam, lamotrigine, mirtazapine, zolpidem, alprazolam, diazepam, lorazepam , Lunesta, gabapentin, hydroxyzine, citalopram, olanzapine (prescribed 5 mg daily at bedtime on 02/08/2017, but has been on up to 15 mg at bedtime within the past year), and trazodone up to 200 mg daily at bedtime. She was last seen on 02/08/2017, and reported she was having a very bad day and wanted to be seen before the weekend, but it does not appear that any medication changes were made, and she was instructed to follow-up in one month. There is no list of current medications in the note. Prior to that, she was seen on 01/25/2017, and reported she was doing well. She was continued on Lamictal, clonazepam, and olanzapine 5 mg daily at bedtime. Medication Trials (1) Past Psych Medications benztropine, clonazepam, lamotrigine, mirtazapine, zolpidem, alprazolam, diazepam, lorazepam, Lunesta, gabapentin, hydroxyzine, citalopram, olanzapine Last Edited By: Rebecca Hahn on Feb 21, 2017 10:26 Impression 66-year-old white female with a history of depression, anxiety, ? and chronic auditory hallucinations who presents with worsening auditory hallucinations commanding her to harm herself. She had her expressed concerns for her safety, and she was admitted voluntarily. She is a very limited historian with respect to her medical and psychiatric history, past medications, and current medications, and we have reviewed the most recent clinic note from her PCP, and are awaiting records from her outpatient psychiatrist to clarify her history and previous trials. She requires inpatient treatment due to the risk for suicide if discharged. Plan (1) Schizoaffective disorder, depressive type - Continue home dose of lamotrigine 100 mg daily at bedtime, mirtazapine 30 mg daily at bedtime, and zolpidem 5 mg daily at bedtime when necessary for insomnia. - Patient reports that olanzapine 2.5 mg that she received last evening was helpful for the voices and for sleep, so will order this twice a day for now while obtaining records from her outpatient psychiatrist to clarify past medication trials. Will also order 2.5 mg every 8 hours when necessary psychosis. Reviewed risks, benefits, and side effects of the medication with the patient. Order fasting lipid profile and fasting glucose for tomorrow morning for monitoring on an atypical antipsychotic. - Get records from PCP regarding ? Parkinson's disease diagnosis, as she has Sinemet listed as a home medication. May need to consider a trial of quetiapine due to drug drug interactions with dopamine antagonists. - Encourage group attendance and participation. - Family meeting with . We'll review recommendations the [facility] be secured prior to discharge. 02/20 - Records reviewed from Dr. Bashir's office, and staff contacted to clarify current medications, as admission medication reconciliation was incorrect. - Fasting lipid profile and glucose for monitoring on an atypical antipsychotic were performed today and results reviewed, and were normal. 02/21 - Decrease zolpidem to 5 mg daily at bedtime, which is her home dose, due to concerns for drug drug interactions, cognitive impairment, falls, and other negative side effects. - Increase olanzapine to 2.5 mg in the morning and 7.5 mg at bedtime to target racing thoughts and tactile hallucinations, and continue clonazepam 0.5 mg 3 times a day prn anxiety, lamotrigine 100 mg daily qhs, and mirtazapine 30 mg daily qhs. On reviewing her past medications from Dr. Bashir's records, she has been on up to 20 mg of olanzapine daily in the past, and his notes do not indicate why the dose was decreased. 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 - Attempt to get collateral information from her : Baseline, mental health history (when she first became ill, how she had responded to treatment over time, and when psychosis started), recent medications (there is some concern that she may not have been getting the correct medications at home), and gynecological history (has she seen her [facility] recently, been diagnosed with a gynecological problem, and who is her out patient [facility]?) (2) Anxiety 02/19 - Continue home dose of clonazepam 1 mg 3 times a day when necessary anxiety. 02/20 - Admission medication reconciliation was incorrect, and has been corrected to reflect home dose of clonazepam 0.5 mg 3 times a day when necessary. (3) Hypothyroid - Get PCP records, as TSH is low and free T4 is elevated. Hold levothyroxine, and get records from PCP to determine if the dose has been adjusted recently as she is currently hyperthyroid. 02/20 - PCP records reviewed, per office staff her levothyroxine dose has not been adjusted since last April, and as she is over corrected on her current dose, we will decrease it to 88 g daily. This could be playing a role in her increased anxiety. She will need to follow-up with her PCP for ongoing monitoring. (4) UTI (urinary tract infection) - Complete one week course of Keflex started in the emergency room. (5) Vaginal pain 02/20 - patient continues to report pressure and pain in her pelvic area, and when she last saw her PCP, there was a concern for vaginal prolapse. As it is causing significant discomfort, and she cannot state if she ever followed up with her outpatient [facility], we will consult [facility] here, and greatly appreciate any recommendations. Continue Tylenol as needed for pain and discomfort. 02/21 - appreciate Dr. Spicer seeing the patient. Unfortunately, she regressed, and was unable to consent for an exam. She continues to report vaginal symptoms , and we will need to ensure follow-up with her outpatient [facility]. (6) Hyperlipidemia Continue home dose of simvastatin. (7) GERD (gastroesophageal reflux disease) Continue home medication. Discharge / Aftercare Planning Primary Care Physician: Name: Dr Madi Layton office Psychiatrist: Name: Dr. Bashir Therapist: Name: None Livestock Nutritionist: Name: None Visit Code E&M Code: 52886 Inventory Assets Strengths: Supportive , has psychiatrist, willing for treatment Risk Factors Assessment : Yes /single/: No Higher / Fall in social status: No Access to guns: Yes Health problems: Yes Mental Health Diagnoses: Yes Substance use disorders: No Previous attempt: No Family history of suicide: No Previous psychiatric stay: Yes Hopelessness: Yes Smoker: No Protective Factors Assessment Jehovah'S Witness beliefs: Yes : Yes Responsible for young children: No Employed: No Stable relationships: Yes Supportive family: Yes Good rapport with provider: Yes Data Vital Signs Last 24 Hrs: Date Time Temp Pulse Resp B/P (MAP) Pulse Ox O2 Delivery O2 Flow Rate FiO2 02/21/17 06:52 36.6 89 16 126/80 96 122/85 Meds Administered Last 24 Hrs: Meds Administered (Past 24Hrs) Medications (Trade) Dose Ordered Sig/Jeison Route Start Time Stop Time Status Last Admin Dose Admin Olanzapine (Zyprexa Zydis Od Tab) 2.5 mg BID PO 02/19/17 22:00 02/20/17 11:40 DC 02/20/17 08:46 2.5 MG Olanzapine (Zyprexa Zydis Od Tab) 2.5 mg NOW ONCE PO 02/19/17 11:00 02/19/17 11:01 DC 02/19/17 10:54 2.5 MG Olanzapine (Zyprexa Zydis Od Tab) 2.5 mg Q8 PRN PO 02/19/17 10:45 03/21/17 10:44 02/21/17 10:14 2.5 MG Levothyroxine Sodium (Synthroid Tab) 88 mcg DAILYBB PO 02/21/17 08:00 03/23/17 07:59 02/21/17 08:55 88 MCG Olanzapine (Zyprexa Zydis Od Tab) 2.5 mg QAM PO 02/21/17 09:00 03/21/17 21:59 02/21/17 08:56 2.5 MG Clonazepam (Klonopin Tab) 0.5 mg TID PRN PO 02/20/17 11:45 03/22/17 11:44 02/21/17 08:56 0.5 MG Zolpidem Tartrate (Ambien Tab) 10 mg HS PRN PO 02/20/17 11:45 03/22/17 11:44 02/20/17 20:27 10 MG Olanzapine (Zyprexa Tab) 5 mg HS PO 02/20/17 22:00 03/22/17 21:59 02/20/17 20:29 5 MG Problem Qualifiers (1) UTI (urinary tract infection): Urinary tract infection type: acute cystitis Hematuria presence: with hematuria Qualified Codes: N30.01 - Acute cystitis with hematuria
[2017-02-21] MEDS ORDERED: ZOLP5TAB6 PO (10:30)
[2017-02-21] MEDS ORDERED: OLANZAPINE 2.5 MG TAB PO ONE (12:00)
[2017-02-21] MEDS ORDERED: OLAN10TA11 PO (12:06)
[2017-02-21] MEDS: ACETAMINOPHEN 325 MG TAB PO PRN (18:00)
[2017-02-21] MEDS ORDERED: NURSING VERBAL MED ORDER ONE ×2 (18:45→20:00)
[2017-02-21] MEDS ORDERED: QUETIAPINE FUMARATE 25 MG TAB PO ONE (19:00)
[2017-02-21] MEDS: LORAZEPAM 1 MG TAB PO ONE ×2 (20:12→20:49)
[2017-02-21] MEDS: QUETIAPINE FUMARATE 25 MG TAB PO ONE ×2 (20:12→20:49)
[2017-02-21] MEDS: ZOLPIDEM TARTRATE 5 MG TAB PO SCH (21:12)
[2017-02-21] MEDS: MIRTAZAPINE TAB 15 MG TAB PO SCH (21:13)
[2017-02-21] MEDS ORDERED: OLANZAPINE 5 MG TAB PO SCH (22:00)
[2017-02-22 06:47] VITALS: BP_SYST 106; BP_SYST 109; BP_DIAS 71; BP_DIAS 72; PULSE 73; PULSE 86; TEMP 36.4
[2017-02-22] MEDS: PANTOprazole SOD 40 MG TAB PO SCH (08:52)
[2017-02-22] MEDS: CLONAZEPAM 0.5 MG TAB PO PRN ×2 (08:52→14:17)
[2017-02-22] MEDS: CEPHALEXIN MONOHYDRATE 500 MG CAP PO SCH ×3 (08:52→21:05)
[2017-02-22] MEDS: LEVOTHYROXINE 88 MCG TAB PO SCH (08:52)
[2017-02-22] MEDS: OLANZAPINE ZYDIS 5 MG ORALLY DIS. TAB PO SCH (08:53)
[2017-02-22] MEDS: SIMVASTATIN 20 MG TAB PO SCH (08:53)
[2017-02-22] MEDS: CHOLECALCIFEROL 1000 INTER.UNIT TAB PO SCH ×3 (08:53→21:04)
[2017-02-22] MEDS: OLANZAPINE ZYDIS 5 MG ORALLY DIS. TAB PO PRN (10:52)
--- NOTE | 2017-02-22 12:07 | Psychiatric Progress Notes ---
Progress Note Date of Service Feb 22, 2017. Interval History Shanna Hutson is a 66-year-old female who currently lives in [place] with her , has an unknown psychiatric history for which she sees Dr. Bashir, and presented with command auditory hallucinations to kill herself. She was admitted on a 201 voluntary commitment. Patient is admitted from home, and was brought to the ED by the family. Chief Complaint "What's wrong with me?". Subjective Patient was seen & assessed interval progress reviewed with Treatment Team. She is struggling today with the questions "What's wrong with me?". She is focused on a physical sensation that there is something in her vaginal or very low abdomen area that is moving and today says that its moving faster and faster. She is sad, depressed, and still having thoughts of suicide. She rates her mood 2/10, and does not feel that the meds have been helpful. She took prns of both zyprexa and klonopin yesterday. She is denying that she is having aud or vis hallucinations today. She paces a lot during the day, looking to the ground with stooped posture. She does not think that she is any better than on admission, and says yes when we talk about her mental illness not being stable. She says that the last time she really felt good was about 4 years ago. She denies any side effects to meds. Review of Systems Constitutional: No fever, No chills, No sweats, No weight loss, No weakness, No fatigue, No problem reported ENT: No hearing loss, No unusual epistaxis, No nasal symptoms, No sore throat, No tinnitus, No dental problems, No trouble swallowing, No problem reported Respiratory: No cough, No sputum, No wheezing, No shortness of breath, No dyspnea on exertion, No dyspnea at rest, No hemoptysis, No problem reported Cardiovascular: No chest pain, No orthopnea, No PND, No edema, No claudication , No palpitations, No problem reported Abdomen: + problem reported (a sensation of something moving fast in her lower abd/vaginal area) Musculoskeletal: No joint pain, No muscle pain, No swelling, No calf pain, No problem reported Neurologic: No memory loss, No paralysis, No weakness, No numbness/tingling, No vertigo, No balance problems, No problem reported Psychiatric: + depression symptoms, + anxiety Integumentary: No rash, No itch, No new/changing skin lesions, No color change , No bleeding, No problem reported Sleep Information Total Hours of Sleep: 6.75 Meal Information Percent of Breakfast Consumed: 20 Percent of Lunch Consumed: 20 Percent of Dinner Consumed: 100 Mental Status Exam During interview pt is: cooperative, other (distraught and a limited historian. ) Appearance: appropriately dressed (dressed in jeans, a t-shirt, and sandals, same clothes as yesterday, but appear clean), appropriately groomed, other ( appears older than stated age, sitting hunched over staring at the floor) Eye contact is: poor (looking down at floor) Motor behavior is: steady gait & station, psychomotor retardation Speech: other (minimal speech, nonspontaneous) Affect: mood congruent, depressed, tearful, anxious Mood is: depressed, anxious, other ("not good") Thought process: goal directed, looseness of associations, concrete Thought content: preoccupation (with physical discomfort/symptoms), reality based without delusions Suicidal thought are: denied Homicidal thoughts are: denied Hallucinations: denies auditory, other (tactile - feet moving, body moving sideways, sensations in vagina?) Cognition: language grossly intact, other (memory and attention impaired) Intelligence estimated to be: consistent with level of education Insight: impaired Judgement: impaired Summary of Past History Records from her most recent PCP office visit were reviewed: She was seen Dr. Yolis Sanchez on 10/23/2016 for a routine exam. She reported worsening anxiety and depression, and her said her Ativan had been changed to Klonopin, and they were trying to discontinue Ambien. She complained of intermittent vaginal pain and pressure, and vaginal prolapse with suspected, so she was referred to [facility]. Her Synthroid had been adjusted in April, and she was due for a repeat TSH. 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 Records from her outpatient psychiatrist, Dr. Bashir, were reviewed. He has diagnosed her with schizoaffective disorder, depressive type, panic disorder without agoraphobia, and insomnia. Past medication trials include benztropine, clonazepam, lamotrigine, mirtazapine, zolpidem, alprazolam, diazepam, lorazepam , Lunesta, gabapentin, hydroxyzine, citalopram, olanzapine (prescribed 5 mg daily at bedtime on 02/08/2017, but has been on up to 15 mg at bedtime within the past year), and trazodone up to 200 mg daily at bedtime. She was last seen on 02/08/2017, and reported she was having a very bad day and wanted to be seen before the weekend, but it does not appear that any medication changes were made, and she was instructed to follow-up in one month. There is no list of current medications in the note. Prior to that, she was seen on 01/25/2017, and reported she was doing well. She was continued on Lamictal, clonazepam, and olanzapine 5 mg daily at bedtime. Medication Trials (1) Past Psych Medications benztropine, clonazepam, lamotrigine, mirtazapine, zolpidem, alprazolam, diazepam, lorazepam, Lunesta, gabapentin, hydroxyzine, citalopram, olanzapine Last Edited By: Rebecca Hahn on Feb 21, 2017 10:26 Impression Shanna remains focused on her abdominal symptoms. She is not clearly delusional about this, but is preoccupied. 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 Her mood remains depressed and her anxiety high. Her appetite is poor, but she reports good sleep. Will try using very low dose remeron 3.75 mg BID at 09 and 12 for its calming effects, in addition to her HS dose. If too sedating during the day will move to bedtime. She is utilizing zyprexa 2.5 mgprn daily so will increase her HS dose to 10 mg. Plan (1) Schizoaffective disorder, depressive type - Continue home dose of lamotrigine 100 mg daily at bedtime, mirtazapine 30 mg daily at bedtime, and zolpidem 5 mg daily at bedtime when necessary for insomnia. - Patient reports that olanzapine 2.5 mg that she received last evening was helpful for the voices and for sleep, so will order this twice a day for now while obtaining records from her outpatient psychiatrist to clarify past medication trials. Will also order 2.5 mg every 8 hours when necessary psychosis. Reviewed risks, benefits, and side effects of the medication with the patient. Order fasting lipid profile and fasting glucose for tomorrow morning for monitoring on an atypical antipsychotic. - Get records from PCP regarding ? Parkinson's disease diagnosis, as she has Sinemet listed as a home medication. May need to consider a trial of quetiapine due to drug drug interactions with dopamine antagonists. - Encourage group attendance and participation. - Family meeting with . We'll review recommendations the guns be secured prior to discharge. 02/20 - Records reviewed from Dr. Bashir's office, and staff contacted to clarify current medications, as admission medication reconciliation was incorrect. - Fasting lipid profile and glucose for monitoring on an atypical antipsychotic were performed today and results reviewed, and were normal. 02/21 - Decrease zolpidem to 5 mg daily at bedtime, which is her home dose, due to concerns for drug drug interactions, cognitive impairment, falls, and other negative side effects. - Increase olanzapine to 2.5 mg in the morning and 7.5 mg at bedtime to target racing thoughts and tactile hallucinations, and continue clonazepam 0.5 mg 3 times a day prn anxiety, lamotrigine 100 mg daily qhs, and mirtazapine 30 mg daily qhs. On reviewing her past medications from Dr. Bashir's records, she has been on up to 20 mg of olanzapine daily in the past, and his notes do not indicate why the dose was decreased. 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 - Attempt to get collateral information from her : Baseline, mental health history (when she first became ill, how she had responded to treatment over time, and when psychosis started), recent medications (there is some concern that she may not have been getting the correct medications at home), and gynecological history (has she seen her [facility] recently, been diagnosed with a gynecological problem, and who is her out patient [facility]?) 02/22 - Start Remeron 3.75 mg. BID - Increase Zyprexa to 10 mg. HS, and continue prn (2) Anxiety 02/19 - Continue home dose of clonazepam 1 mg 3 times a day when necessary anxiety. 02/20 - Admission medication reconciliation was incorrect, and has been corrected to reflect home dose of clonazepam 0.5 mg 3 times a day when necessary. (3) Hypothyroid - Get PCP records, as TSH is low and free T4 is elevated. Hold levothyroxine, and get records from PCP to determine if the dose has been adjusted recently as she is currently hyperthyroid. 02/20 - PCP records reviewed, per office staff her levothyroxine dose has not been adjusted since last April, and as she is over corrected on her current dose, we will decrease it to 88 g daily. This could be playing a role in her increased anxiety. She will need to follow-up with her PCP for ongoing monitoring. (4) UTI (urinary tract infection) - Complete one week course of Keflex started in the emergency room. (5) Vaginal pain 02/20 - patient continues to report pressure and pain in her pelvic area, and when she last saw her PCP, there was a concern for vaginal prolapse. As it is causing significant discomfort, and she cannot state if she ever followed up with her outpatient [facility], we will consult [facility] here, and greatly appreciate any recommendations. Continue Tylenol as needed for pain and discomfort. 02/21 - appreciate Dr. Spicer seeing the patient. Unfortunately, she regressed, and was unable to consent for an exam. She continues to report vaginal symptoms , and we will need to ensure follow-up with her outpatient [facility]. (6) Hyperlipidemia Continue home dose of simvastatin. (7) GERD (gastroesophageal reflux disease) Continue home medication. Discharge / Aftercare Planning Primary Care Physician: Name: Dr Madi Layton office Psychiatrist: Name: Dr. Bashir Therapist: Name: None Investment Banker: Name: None Visit Code E&M Code: 06564 Inventory Assets Strengths: Supportive , has psychiatrist, willing for treatment Risk Factors Assessment : Yes /single/: No Higher / Fall in social status: No Access to guns: Yes Health problems: Yes Mental Health Diagnoses: Yes Substance use disorders: No Previous attempt: No Family history of suicide: No Previous psychiatric stay: Yes Hopelessness: Yes Smoker: No Protective Factors Assessment Bahai beliefs: Yes : Yes Responsible for young children: No Employed: No Stable relationships: Yes Supportive family: Yes Good rapport with provider: Yes Data Vital Signs Last 24 Hrs: Date Time Temp Pulse Resp B/P (MAP) Pulse Ox O2 Delivery O2 Flow Rate FiO2 02/22/17 06:47 36.4 86 16 109/72 73 106/71 Meds Administered Last 24 Hrs: Meds Administered (Past 24Hrs) Medications (Trade) Dose Ordered Sig/Jeison Route Start Time Stop Time Status Last Admin Dose Admin Levothyroxine Sodium (Synthroid Tab) 88 mcg DAILYBB PO 02/21/17 08:00 03/23/17 07:59 02/22/17 08:52 88 MCG Olanzapine (Zyprexa Zydis Od Tab) 2.5 mg QAM PO 02/21/17 09:00 03/21/17 21:59 02/22/17 08:53 2.5 MG Olanzapine (Zyprexa Tab) 5 mg HS PO 02/20/17 22:00 02/21/17 12:07 DC 02/20/17 20:29 5 MG Zolpidem Tartrate (Ambien Tab) 5 mg HS PO 02/21/17 22:00 03/23/17 21:59 02/21/17 21:12 5 MG Olanzapine (Zyprexa Tab) 2.5 mg NOW ONCE PO 02/21/17 12:00 02/21/17 12:01 DC 02/21/17 11:36 2.5 MG Olanzapine (Zyprexa Tab) 7.5 mg HS PO 02/21/17 22:00 03/22/17 21:59 02/21/17 21:14 7.5 MG Quetiapine Fumarate (seroQUEL TAB) 50 mg ONE ONCE PO 02/21/17 19:00 02/21/17 19:01 DC 02/21/17 18:57 50 MG Quetiapine Fumarate (seroQUEL TAB) 25 mg 2030 ONCE PO 02/21/17 20:30 02/21/17 20:31 DC 02/21/17 20:49 25 MG Lorazepam (Ativan Tab) 1 mg 2030 ONCE PO 02/21/17 20:30 02/21/17 20:31 DC 02/21/17 20:49 1 MG Lab Results Last 24 Hrs: 02/18/17 13:36 Red Blood Count 4.51, Mean Corpuscular Volume 95.1, Mean Corpuscular Hemoglobin 31.3, Mean Corpuscular Hemoglobin Concent 32.9, Mean Platelet Volume 10.2, Neutrophils (%) (Auto) 69.9, Lymphocytes (%) (Auto) 23.5, Monocytes (%) (Auto) 5.3, Eosinophils (%) (Auto) 0.8, Basophils (%) (Auto) 0.3, Neutrophils # (Auto) 4.58, Lymphocytes # (Auto) 1.54, Monocytes # (Auto) 0.35, Eosinophils # (Auto) 0.05, Basophils # (Auto) 0.02 02/18/17 13:36 Test 02/18/17 00:00 02/18/17 13:32 02/18/17 13:36 02/20/17 07:06 Urine Color YELLOW Urine Appearance CLOUDY (CLEAR) Urine pH 6.0 (4.5-7.5) Urine Specific [place] 1.014 (1.000-1.030) Urine Protein NEG (NEG) Urine Glucose (UA) NEG (NEG) Urine Ketones TRACE (NEG) Urine Occult Blood TRACE (NEG) Urine Nitrite NEG (NEG) Urine Bilirubin NEG (NEG) Urine Urobilinogen NEG (NEG) Urine Leukocyte Esterase LARGE (NEG) Urine WBC (Auto) >30 /hpf (0-5) Urine RBC (Auto) 5-10 /hpf (0-4) Urine Hyaline Casts (Auto) 1-5 /lpf (0-5) Urine Epithelial Cells (Auto) 0-5 /lpf (0-5) Urine Bacteria (Auto) 1+ (NEG) Urine Opiates Screen NEG (NEG) Urine Methadone, Qualitative NEG (NEG) Urine Barbiturates NEG (NEG) Urine Phencyclidine (PCP) Level NEG (NEG) Ur Amphetamine/Methamphetamine NEG (NEG) MDMA (Ecstasy) Screen NEG (NEG) Urine Benzodiazepines Screen NEG (NEG) Urine Cocaine Metabolite NEG (NEG) Urine Marijuana (THC) NEG (NEG) Bedside Glucose 82 mg/dl (70-90) White Blood Count 6.55 K/uL (4.8-10.8) Red Blood Count 4.51 M/uL (4.2-5.4) Hemoglobin 14.1 g/dL (12.0-16.0) Hematocrit 42.9 % (37-47) Mean Corpuscular Volume 95.1 fL (80-100) Mean Corpuscular Hemoglobin 31.3 pg (25-34) Mean Corpuscular Hemoglobin Concent 32.9 g/dl (32-36) Platelet Count 295 K/uL (130-400) Mean Platelet Volume 10.2 fL (7.4-10.4) Neutrophils (%) (Auto) 69.9 % Lymphocytes (%) (Auto) 23.5 % Monocytes (%) (Auto) 5.3 % Eosinophils (%) (Auto) 0.8 % Basophils (%) (Auto) 0.3 % Neutrophils # (Auto) 4.58 K/uL (1.4-6.5) Lymphocytes # (Auto) 1.54 K/uL (1.2-3.4) Monocytes # (Auto) 0.35 K/uL (0.11-0.59) Eosinophils # (Auto) 0.05 K/uL (0-0.5) Basophils # (Auto) 0.02 K/uL (0-0.2) RDW Standard Deviation 44.3 fL (36.4-46.3) RDW Coefficient of Variation 12.7 % (11.5-14.5) Immature Granulocyte % (Auto) 0.2 % Immature Granulocyte # (Auto) 0.01 K/uL (0.00-0.02) Anion Gap 10.0 mmol/L (3-11) Est Creatinine Clear Calc Drug Dose 57.0 ml/min Estimated GFR () 84.6 Estimated GFR (Non- 73.0 BUN/Creatinine Ratio 9.3 (10-20) Calcium Level 10.9 mg/dl (8.5-10.1) Total Bilirubin 0.5 mg/dl (0.2-1) Direct Bilirubin 0.2 mg/dl (0-0.2) Aspartate Amino Transf (AST/SGOT) 18 U/L (15-37) Alanine Aminotransferase (ALT/SGPT) < 6 U/L (12-78) Alkaline Phosphatase 95 U/L (45-117) Total Protein 7.1 gm/dl (6.4-8.2) Albumin 3.9 gm/dl (3.4-5.0) Thyroid Stimulating Hormone (TSH) 0.168 uIu/ml (0.300-4.500) Free Thyroxine 1.84 ng/dl (0.80-1.60) Ethyl Alcohol mg/dL < 3.0 mg/dl (0-3) Fasting Glucose 92 mg/dl (70-99) Triglycerides Level 79 mg/dl (0-150) Cholesterol Level 133 mg/dl (0-200) HDL Cholesterol 56 mg/dl LDL Cholesterol, Calculated 61 mg/dl VLDL Cholesterol, Calculated 16 mg/dl Cholesterol/HDL Ratio 2.4 Problem Qualifiers (1) UTI (urinary tract infection): Urinary tract infection type: acute cystitis Hematuria presence: with hematuria Qualified Codes: N30.01 - Acute cystitis with hematuria
[2017-02-22] MEDS ORDERED: NURSING VERBAL MED ORDER ONE (17:15)
[2017-02-22] MEDS ORDERED: QUETIAPINE FUMARATE 25 MG TAB PO STA (18:06)
[2017-02-22] MEDS: MIRTAZAPINE TAB 15 MG TAB PO SCH (21:05)
[2017-02-22] MEDS: ZOLPIDEM TARTRATE 5 MG TAB PO SCH (21:06)
[2017-02-22] MEDS ORDERED: OLANZAPINE 10 MG TAB PO SCH (22:00)
[2017-02-23 07:00] VITALS: BP_SYST 110; BP_SYST 111; BP_DIAS 75; BP_DIAS 90; PULSE 105; PULSE 92; TEMP 36.6
[2017-02-23] MEDS: LEVOTHYROXINE 88 MCG TAB PO SCH (08:05)
[2017-02-23] MEDS: CEPHALEXIN MONOHYDRATE 500 MG CAP PO SCH ×3 (08:05→21:39)
[2017-02-23] MEDS: MIRTAZAPINE TAB 15 MG TAB PO SCH ×3 (08:06→21:40)
[2017-02-23] MEDS: PANTOprazole SOD 40 MG TAB PO SCH (08:06)
[2017-02-23] MEDS: SIMVASTATIN 20 MG TAB PO SCH (08:06)
[2017-02-23] MEDS: CHOLECALCIFEROL 1000 INTER.UNIT TAB PO SCH ×3 (08:06→21:40)
[2017-02-23] MEDS: OLANZAPINE ZYDIS 5 MG ORALLY DIS. TAB PO SCH (08:07)
[2017-02-23] MEDS: CLONAZEPAM 0.5 MG TAB PO PRN (08:10)
[2017-02-23 09:17] LABS: POTASSIUM 3.5 mmol/L (3.5-5.1)
[2017-02-23] MEDS: QUETIAPINE FUMARATE 25 MG TAB PO SCH ×2 (10:25→17:10)
[2017-02-23] MEDS: QUETIAPINE FUMARATE 25 MG TAB PO PRN (12:52)
--- NOTE | 2017-02-23 12:52 | Psychiatric Progress Notes ---
Progress Note Date of Service Feb 23, 2017. Interval History Shanna Hutson is a 66-year-old female who currently lives in [place] with her , has an unknown psychiatric history for which she sees Dr. Bashir, and presented with command auditory hallucinations to kill herself. She was admitted on a 201 voluntary commitment. Patient is admitted from home, and was brought to the ED by the family. Chief Complaint "Okay". Subjective Patient was seen & assessed interval progress reviewed with Nursing. Staff report she has been doing poorly, is frequently tearful, and was requesting when necessary's throughout the day yesterday for anxiety and hallucinations, receiving multiple doses of Klonopin and Zyprexa, which she did not think were helpful. In the evening, she was given Seroquel 50 mg, and reported that it was beneficial. She attempted to attend groups, but had to leave as she was restless and distraught. She rated her mood a 2 and said that she felt scared. She is willing to try quetiapine in place of olanzapine, and lorazepam in place of clonazepam, as she does not feel very helpful. Sleep Information Total Hours of Sleep: 6.75 Meal Information Percent of Breakfast Consumed: 50 Percent of Lunch Consumed: 90 Percent of Dinner Consumed: 30 Mental Status Exam During interview pt is: cooperative, other (distraught and a limited historian. ) Appearance: appropriately dressed, appropriately groomed, other (appears older than stated age, stands hunched over looking at the floor) Eye contact is: poor (looking down at floor) Motor behavior is: steady gait & station, psychomotor retardation Speech: other (minimal speech, nonspontaneous) Affect: mood congruent, depressed, anxious Mood is: depressed, anxious Thought process: goal directed, looseness of associations, concrete Thought content: preoccupation, reality based without delusions Suicidal thought are: denied Homicidal thoughts are: denied Hallucinations: denies auditory, other (tactile) Cognition: language grossly intact, other (memory and attention impaired) Intelligence estimated to be: consistent with level of education Insight: impaired Judgement: impaired Summary of Past History Records from her most recent PCP office visit were reviewed: She was seen Dr. Yolis Sanchez on 10/23/2016 for a routine exam. She reported worsening anxiety and depression, and her said her Ativan had been changed to Klonopin, and they were trying to discontinue Ambien. She complained of intermittent vaginal pain and pressure, and vaginal prolapse with suspected, so she was referred to [facility]. Her Synthroid had been adjusted in April, and she was due for a repeat TSH. 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 Records from her outpatient psychiatrist, Dr. Bashir, were reviewed. He has diagnosed her with schizoaffective disorder, depressive type, panic disorder without agoraphobia, and insomnia. Past medication trials include benztropine, clonazepam, lamotrigine, mirtazapine, zolpidem, alprazolam, diazepam, lorazepam , Lunesta, gabapentin, hydroxyzine, citalopram, olanzapine (prescribed 5 mg daily at bedtime on 02/08/2017, but has been on up to 15 mg at bedtime within the past year), and trazodone up to 200 mg daily at bedtime. She was last seen on 02/08/2017, and reported she was having a very bad day and wanted to be seen before the weekend, but it does not appear that any medication changes were made, and she was instructed to follow-up in one month. There is no list of current medications in the note. Prior to that, she was seen on 01/25/2017, and reported she was doing well. She was continued on Lamictal, clonazepam, and olanzapine 5 mg daily at bedtime. Medication Trials (1) Past Psych Medications benztropine, clonazepam, lamotrigine, mirtazapine, zolpidem, alprazolam, diazepam, lorazepam, Lunesta, gabapentin, hydroxyzine, citalopram, olanzapine Last Edited By: Rebecca Hahn on Feb 21, 2017 10:26 Impression Remains focused on her pelvic/abdominal symptoms. She is not clearly delusional about this, but is preoccupied. [facility] has said they will follow up as an OP, and will not proceed with physical exam while in the hospital. Her mood remains depressed and her anxiety high, with limited response to olanzapine and clonazepam. She had better response to lorazepam and quetiapine, so will change agents. Remeron was added 02/22 at 3.75 mg BID at 09 and 12 for its calming effects, in addition to her HS dose. If too sedating during the day will move to bedtime. Plan (1) Schizoaffective disorder, depressive type - Continue home dose of lamotrigine 100 mg daily at bedtime, mirtazapine 30 mg daily at bedtime, and zolpidem 5 mg daily at bedtime when necessary for insomnia. - Patient reports that olanzapine 2.5 mg that she received last evening was helpful for the voices and for sleep, so will order this twice a day for now while obtaining records from her outpatient psychiatrist to clarify past medication trials. Will also order 2.5 mg every 8 hours when necessary psychosis. Reviewed risks, benefits, and side effects of the medication with the patient. Order fasting lipid profile and fasting glucose for tomorrow morning for monitoring on an atypical antipsychotic. - Get records from PCP regarding ? Parkinson's disease diagnosis, as she has Sinemet listed as a home medication. May need to consider a trial of quetiapine due to drug drug interactions with dopamine antagonists. - Encourage group attendance and participation. - Family meeting with . We'll review recommendations the guns be secured prior to discharge. 02/20 - Records reviewed from Dr. Bashir's office, and staff contacted to clarify current medications, as admission medication reconciliation was incorrect. - Fasting lipid profile and glucose for monitoring on an atypical antipsychotic were performed today and results reviewed, and were normal. 02/21 - Decrease zolpidem to 5 mg daily at bedtime, which is her home dose, due to concerns for drug drug interactions, cognitive impairment, falls, and other negative side effects. - Increase olanzapine to 2.5 mg in the morning and 7.5 mg at bedtime to target racing thoughts and tactile hallucinations, and continue clonazepam 0.5 mg 3 times a day prn anxiety, lamotrigine 100 mg daily qhs, and mirtazapine 30 mg daily qhs. On reviewing her past medications from Dr. Bashir's records, she has been on up to 20 mg of olanzapine daily in the past, and his notes do not indicate why the dose was decreased. 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 - Attempt to get collateral information from her : Baseline, mental health history (when she first became ill, how she had responded to treatment over time, and when psychosis started), recent medications (there is some concern that she may not have been getting the correct medications at home), and gynecological history (has she seen her [facility] recently, been diagnosed with a gynecological problem, and who is her out patient [facility]?) 02/22 - Start Remeron 3.75 mg. BID - Increase Zyprexa to 10 mg. HS, and continue prn 02/23 - Poor response to olanzapine, so we will switch to quetiapine, which she has shown some response to. Taper olanzapine over the next 2 days. Start quetiapine 100 mg at bedtime tonight, and titrated up over the next couple of days to 300 mg. I will also order 25 mg twice a day, and 50 mg when necessary. - Try lorazepam 0.5 mg every 4 hours when necessary anxiety in place of clonazepam, which the patient states has not been very effective. (2) Anxiety 02/19 - Continue home dose of clonazepam 1 mg 3 times a day when necessary anxiety. 02/20 - Admission medication reconciliation was incorrect, and has been corrected to reflect home dose of clonazepam 0.5 mg 3 times a day when necessary. (3) Hypothyroid - Get PCP records, as TSH is low and free T4 is elevated. Hold levothyroxine, and get records from PCP to determine if the dose has been adjusted recently as she is currently hyperthyroid. 02/20 - PCP records reviewed, per office staff her levothyroxine dose has not been adjusted since last April, and as she is over corrected on her current dose, we will decrease it to 88 g daily. This could be playing a role in her increased anxiety. She will need to follow-up with her PCP for ongoing monitoring. (4) UTI (urinary tract infection) - Complete one week course of Keflex started in the emergency room. (5) Vaginal pain 02/20 - patient continues to report pressure and pain in her pelvic area, and when she last saw her PCP, there was a concern for vaginal prolapse. As it is causing significant discomfort, and she cannot state if she ever followed up with her outpatient [facility], we will consult [facility] here, and greatly appreciate any recommendations. Continue Tylenol as needed for pain and discomfort. 02/21 - appreciate Dr. Spicer seeing the patient. Unfortunately, she regressed, and was unable to consent for an exam. She continues to report vaginal symptoms , and we will need to ensure follow-up with her outpatient [facility]. (6) Hyperlipidemia Continue home dose of simvastatin. (7) GERD (gastroesophageal reflux disease) Continue home medication. Discharge / Aftercare Planning Primary Care Physician: Name: Dr Madi Layton office Psychiatrist: Name: Dr. Bashir Therapist: Name: None Platform Power Technician: Name: None Visit Code E&M Code: 51434 Inventory Assets Strengths: Supportive , has psychiatrist, willing for treatment Risk Factors Assessment : Yes /single/: No Higher / Fall in social status: No Access to guns: Yes Health problems: Yes Mental Health Diagnoses: Yes Substance use disorders: No Previous attempt: No Family history of suicide: No Previous psychiatric stay: Yes Hopelessness: Yes Smoker: No Protective Factors Assessment Buddhism beliefs: Yes : Yes Responsible for young children: No Employed: No Stable relationships: Yes Supportive family: Yes Good rapport with provider: Yes Data Vital Signs Last 24 Hrs: Date Time Temp Pulse Resp B/P (MAP) Pulse Ox O2 Delivery O2 Flow Rate FiO2 02/23/17 07:00 36.6 92 16 110/90 105 111/75 Meds Administered Last 24 Hrs: Meds Administered (Past 24Hrs) Medications (Trade) Dose Ordered Sig/Jeison Route Start Time Stop Time Status Last Admin Dose Admin Zolpidem Tartrate (Ambien Tab) 5 mg HS PO 02/21/17 22:00 03/23/17 21:59 02/22/17 21:06 5 MG Olanzapine (Zyprexa Tab) 7.5 mg HS PO 02/21/17 22:00 02/22/17 12:09 DC 02/21/17 21:14 7.5 MG Quetiapine Fumarate (seroQUEL TAB) 50 mg ONE ONCE PO 02/21/17 19:00 02/21/17 19:01 DC 02/21/17 18:57 50 MG Quetiapine Fumarate (seroQUEL TAB) 25 mg 2030 ONCE PO 02/21/17 20:30 02/21/17 20:31 DC 02/21/17 20:49 25 MG Lorazepam (Ativan Tab) 1 mg 2030 ONCE PO 02/21/17 20:30 02/21/17 20:31 DC 02/21/17 20:49 1 MG Mirtazapine (Remeron Tab) 3.75 mg BID@0900,1200 PO 02/23/17 09:00 03/25/17 08:59 02/23/17 08:06 3.75 MG Olanzapine (Zyprexa Tab) 10 mg HS PO 02/22/17 22:00 02/23/17 08:28 DC 02/22/17 21:06 10 MG Quetiapine Fumarate (seroQUEL TAB) 50 mg NOW STAT PO 02/22/17 18:06 02/22/17 18:07 DC 02/22/17 18:27 50 MG Quetiapine Fumarate (seroQUEL TAB) 25 mg BID17 PO 02/23/17 09:00 03/25/17 08:59 02/23/17 10:25 25 MG Lab Results Last 24 Hrs: Last 24 Hours Test 02/23/17 08:33 Sodium Level 145 mmol/L Potassium Level 3.5 mmol/L Chloride Level 108 mmol/L Carbon Dioxide Level 31 mmol/L Anion Gap 5.0 mmol/L Problem Qualifiers (1) UTI (urinary tract infection): Urinary tract infection type: acute cystitis Hematuria presence: with hematuria Qualified Codes: N30.01 - Acute cystitis with hematuria
[2017-02-23] MEDS: LORAZEPAM 0.5 MG TAB PO PRN (15:05)
[2017-02-23] MEDS: QUETIAPINE FUMARATE 100 MG TAB PO SCH (21:39)
[2017-02-23] MEDS: ZOLPIDEM TARTRATE 5 MG TAB PO SCH (21:39)
[2017-02-23] MEDS: OLANZAPINE 5 MG TAB PO SCH (21:41)
[2017-02-24 06:59] VITALS: BP_SYST 114; BP_SYST 115; BP_DIAS 70; BP_DIAS 71; PULSE 91; PULSE 98; TEMP 36.8
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
[2017-02-24] MEDS: LEVOTHYROXINE 88 MCG TAB PO SCH (08:29)
[2017-02-24] MEDS: QUETIAPINE FUMARATE 25 MG TAB PO SCH ×2 (08:30→17:25)
[2017-02-24] MEDS: CHOLECALCIFEROL 1000 INTER.UNIT TAB PO SCH ×3 (08:30→21:16)
[2017-02-24] MEDS: CEPHALEXIN MONOHYDRATE 500 MG CAP PO SCH ×3 (08:30→21:16)
[2017-02-24] MEDS: PANTOprazole SOD 40 MG TAB PO SCH (08:30)
[2017-02-24] MEDS: SIMVASTATIN 20 MG TAB PO SCH (08:30)
[2017-02-24] MEDS: MIRTAZAPINE TAB 15 MG TAB PO SCH ×3 (08:30→21:16)
[2017-02-24] MEDS: LORAZEPAM 0.5 MG TAB PO PRN (08:30)
[2017-02-24] MEDS: QUETIAPINE FUMARATE 25 MG TAB PO PRN (14:28)
[2017-02-24] MEDS: ZOLPIDEM TARTRATE 5 MG TAB PO SCH (21:16)
[2017-02-24] MEDS: QUETIAPINE FUMARATE 100 MG TAB PO SCH (21:17)
[2017-02-24] MEDS: OLANZAPINE 5 MG TAB PO SCH (21:17)
[2017-02-25 07:00] VITALS: BP_SYST 103; BP_SYST 96; BP_DIAS 61; BP_DIAS 68; PULSE 101; PULSE 93; TEMP 36.6
[2017-02-25] MEDS: LEVOTHYROXINE 88 MCG TAB PO SCH (08:38)
[2017-02-25] MEDS: CEPHALEXIN MONOHYDRATE 500 MG CAP PO SCH ×3 (08:38→21:46)
[2017-02-25] MEDS: PANTOprazole SOD 40 MG TAB PO SCH (08:38)
[2017-02-25] MEDS: MIRTAZAPINE TAB 15 MG TAB PO SCH ×3 (08:39→21:46)
[2017-02-25] MEDS: QUETIAPINE FUMARATE 25 MG TAB PO SCH ×2 (08:40→17:31)
[2017-02-25] MEDS: CHOLECALCIFEROL 1000 INTER.UNIT TAB PO SCH ×3 (08:40→21:45)
[2017-02-25] MEDS: SIMVASTATIN 20 MG TAB PO SCH (08:40)
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
[2017-02-25] MEDS: LORAZEPAM 0.5 MG TAB PO PRN (14:34)
[2017-02-25] MEDS: ZOLPIDEM TARTRATE 5 MG TAB PO SCH (21:45)
[2017-02-25] MEDS: QUETIAPINE FUMARATE 100 MG TAB PO SCH (21:46)
[2017-02-26 06:58] VITALS: BP_SYST 105; BP_SYST 123; BP_DIAS 63; BP_DIAS 72; PULSE 105; PULSE 94; TEMP 36.8
[2017-02-26] MEDS: LEVOTHYROXINE 88 MCG TAB PO SCH (08:24)
[2017-02-26] MEDS: PANTOprazole SOD 40 MG TAB PO SCH (08:24)
[2017-02-26] MEDS: MIRTAZAPINE TAB 15 MG TAB PO SCH ×3 (08:25→21:54)
[2017-02-26] MEDS: QUETIAPINE FUMARATE 25 MG TAB PO SCH ×2 (08:26→17:13)
[2017-02-26] MEDS: SIMVASTATIN 20 MG TAB PO SCH (08:27)
[2017-02-26] MEDS: CHOLECALCIFEROL 1000 INTER.UNIT TAB PO SCH ×3 (08:27→21:54)
[2017-02-26] MEDS: LORAZEPAM 0.5 MG TAB PO PRN ×3 (08:28→18:09)
--- NOTE | 2017-02-26 11:48 | Psychiatric Progress Notes ---
Progress Note Date of Service Feb 26, 2017. Interval History Shanna Hutson is a 66-year-old female who currently lives in [place] with her , has an unknown psychiatric history for which she sees Dr. Bashir, and presented with command auditory hallucinations to kill herself. She was admitted on a 201 voluntary commitment. Patient is admitted from home, and was brought to the ED by the family. Chief Complaint "A little better". Subjective Patient was seen & assessed interval progress reviewed with Nursing. Staff report she reported a slight improvement in mood yesterday, and she continues to endorse that today. She reports poor sleep however, stating her roommate was up all night making noise, and it kept her up. She continues to hear auditory hallucinations of a high-pitched sound which is distressing to her, and also continues to feel there is something "moving around down below my stomach." She denies suicidal thoughts and thoughts of harming others, and denies pain and GI symptoms. Her appetite has been poor, and she has to force herself to eat. She continues to feel very anxious and distraught. Sleep Information Total Hours of Sleep: 7.25 Meal Information Percent of Breakfast Consumed: 100 Percent of Lunch Consumed: 25 Percent of Dinner Consumed: 50 Mental Status Exam During interview pt is: cooperative Appearance: appropriately dressed, appropriately groomed, other (appears older than stated age, stands hunched over looking at the floor) Eye contact is: poor (but improved over last week, with brief moments of eye contact) Motor behavior is: steady gait & station, psychomotor retardation Speech: normal in rate, rhythm & volume (more spontaneous than last week. ) Affect: mood congruent, depressed, anxious, constricted Mood is: depressed, anxious Thought process: goal directed, concrete Thought content: preoccupation, delusions (? somatic) Suicidal thought are: denied Homicidal thoughts are: denied Hallucinations: auditory, other (tactile) Cognition: language grossly intact, other (impaired) Intelligence estimated to be: consistent with level of education Insight: impaired Judgement: impaired Summary of Past History Records from her most recent PCP office visit were reviewed: She was seen Dr. Yolis Sanchez on 10/23/2016 for a routine exam. She reported worsening anxiety and depression, and her said her Ativan had been changed to Klonopin, and they were trying to discontinue Ambien. She complained of intermittent vaginal pain and pressure, and vaginal prolapse with suspected, so she was referred to [facility]. Her Synthroid had been adjusted in April, and she was due for a repeat TSH. 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 Records from her outpatient psychiatrist, Dr. Bashir, were reviewed. He has diagnosed her with schizoaffective disorder, depressive type, panic disorder without agoraphobia, and insomnia. Past medication trials include benztropine, clonazepam, lamotrigine, mirtazapine, zolpidem, alprazolam, diazepam, lorazepam , Lunesta, gabapentin, hydroxyzine, citalopram, olanzapine (prescribed 5 mg daily at bedtime on 02/08/2017, but has been on up to 15 mg at bedtime within the past year), and trazodone up to 200 mg daily at bedtime. She was last seen on 02/08/2017, and reported she was having a very bad day and wanted to be seen before the weekend, but it does not appear that any medication changes were made, and she was instructed to follow-up in one month. There is no list of current medications in the note. Prior to that, she was seen on 01/25/2017, and reported she was doing well. She was continued on Lamictal, clonazepam, and olanzapine 5 mg daily at bedtime. Records from her psychiatric admission to [facility] in [place] were reviewed: Patient was admitted there in February 2015 on transfer from the [facility] for ECT. She had been admitted to the [facility] for psychotic depression , and despite multiple medication changes, continued to be symptomatic. Her psychiatric condition have been worsening for about 6 months, and she was hearing voices that were swearing. Sleep and appetite were decreased, and she lost 30 pounds. At the time of admission to the [facility], she was on Celexa 40 mg daily, trazodone, Valium, Lunesta, and Seroquel. While there, she was tried on Xanax, Zyprexa, Luvox, oxazepam, mirtazapine, and olanzapine. She also had prior medication trials of paroxetine, clonazepam, lorazepam, and alprazolam. She had reportedly been on benzodiazepines for about 20 years. She received 8 ECT treatments, right unilateral, and was discharged from the hospital on 2014. She was diagnosed with recurrent major depression with psychosis and generalized anxiety disorder. Outpatient neurology records reviewed: Seen at [facility] in [place] by Dr. Estefani Sauceda on referral from her PCP. The initial assessment was performed 10/06/2014 for headache. She reported history of headaches for many years, worsening since the fall of 2013. She was a poor historian, and reported taking butalbital about 40 times a month. She was diagnosed with drug- induced parkinsonism, and recommendations with the perphenazine be tapered off, as she was taking 8 mg daily at bedtime. They recommended a brain MRI, which was apparently done when she was hospitalized, the results were reviewed, and there were no infarctions or lesions, but the actual results are not included in only summarized in the next progress note. She was started on Topamax, and followed up in November 2016. She reported she only taken 1 dose of the Topamax, and then felt short of breath so went to the emergency room, where she was tachycardic, so the medication was discontinued. She had been tapered off of the butalbital and perphenazine, and her headaches had improved. She had more facial expression was less bradykinetic, but was still bradyphrenic, and head was drooping downward laboratory and plain films of the C-spine were ordered to look for fracture and instability. They showed a grade 1 subluxation of C4 on C5 and a limited range of flexion/extension motion, degenerative disc base narrowing at C5 to 6, and straightening or reversal of the normal cervical lordosis. She was seen again in December 2014, and she continued to do better, had not had recent falls, and gait was improved, no longer needing a cane. She was having upset stomach, and had been taken off of a PPI and H2 josey due to side effects and polypharmacy. Her exam was unchanged, and there were no new recommendations she was seen July 2016 due to an abnormal sensation in her chest, abdomen, and pelvis, that she described as rolling. She had an MRI of the cervical and thoracic spine which showed cervical stenosis without abnormal signal. Exam revealed mild facial masking, increased reflexes in the upper extremities, and mildly brisk reflexes in the lower extremities. They could not determine a neurological cause for the sensations in her abdomen. They noted cervical stenosis, which was asymptomatic, but with brisk reflexes. They discussed signs and symptoms of cervical myelopathy, including change in gait, strength, and sensation, and recommended a cervical flexion and extension series to rule out instability. Medication Trials (1) Past Psych Medications lamotrigine Luvox mirtazapine citalopram paroxetine alprazolam diazepam lorazepam clonazepam oxazepam Lunesta zolpidem gabapentin hydroxyzine olanzapine quetiapine trazodone benztropine Perphenazine/amitriptyline-on 8/100 mg daily at bedtime in 2014 Last Edited By : Rebecca Hahn on Feb 26, 2017 11:35 Impression Remains focused on her pelvic/abdominal symptoms. She is not clearly delusional about this, but is somatically preoccupied, thought blocked, and hallucinating. [employer] has said they will follow up as an OP, and will not proceed with physical exam while in the hospital. Her mood remains depressed and her anxiety high, with limited response to olanzapine and clonazepam. She had better response to lorazepam and quetiapine, so started a cross taper on 02/23. Remeron was added 02/22 at 3.75 mg BID at 09 and 12 for its calming effects, in addition to her HS dose. Overall seems less anxious, but only minimal improvement, and still distraught and unable to function. The questions is how much of her symptomatology can be attributed to a progressive dementing condition versus pseudo dementia 2/2 depression. Plan (1) Schizoaffective disorder, depressive type - Continue home dose of lamotrigine 100 mg daily at bedtime, mirtazapine 30 mg daily at bedtime, and zolpidem 5 mg daily at bedtime when necessary for insomnia. - Patient reports that olanzapine 2.5 mg that she received last evening was helpful for the voices and for sleep, so will order this twice a day for now while obtaining records from her outpatient psychiatrist to clarify past medication trials. Will also order 2.5 mg every 8 hours when necessary psychosis. Reviewed risks, benefits, and side effects of the medication with the patient. Order fasting lipid profile and fasting glucose for tomorrow morning for monitoring on an atypical antipsychotic. - Get records from PCP regarding ? Parkinson's disease diagnosis, as she has Sinemet listed as a home medication. May need to consider a trial of quetiapine due to drug drug interactions with dopamine antagonists. - Encourage group attendance and participation. - Family meeting with . We'll review recommendations the guns be secured prior to discharge. 02/20 - Records reviewed from Dr. Bashir's office, and staff contacted to clarify current medications, as admission medication reconciliation was incorrect. - Fasting lipid profile and glucose for monitoring on an atypical antipsychotic were performed today and results reviewed, and were normal. 02/21 - Decrease zolpidem to 5 mg daily at bedtime, which is her home dose, due to concerns for drug drug interactions, cognitive impairment, falls, and other negative side effects. - Increase olanzapine to 2.5 mg in the morning and 7.5 mg at bedtime to target racing thoughts and tactile hallucinations, and continue clonazepam 0.5 mg 3 times a day prn anxiety, lamotrigine 100 mg daily qhs, and mirtazapine 30 mg daily qhs. On reviewing her past medications from Dr. Bashir's records, she has been on up to 20 mg of olanzapine daily in the past, and his notes do not indicate why the dose was decreased. 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 - Attempt to get collateral information from her : Baseline, mental health history (when she first became ill, how she had responded to treatment over time, and when psychosis started), recent medications (there is some concern that she may not have been getting the correct medications at home), and gynecological history (has she seen her [facility] recently, been diagnosed with a gynecological problem, and who is her out patient [facility]?) 02/22 - Start Remeron 3.75 mg. BID - Increase Zyprexa to 10 mg. HS, and continue prn 02/23 - Poor response to olanzapine, so we will switch to quetiapine, which she has shown some response to. Taper olanzapine over the next 2 days. Start quetiapine 100 mg at bedtime tonight, and titrated up over the next couple of days to 300 mg. I will also order 25 mg twice a day, and 50 mg when necessary. - Try lorazepam 0.5 mg every 4 hours when necessary anxiety in place of clonazepam, which the patient states has not been very effective. 02/24 - Continue cross taper from olanzapine to quetiapine. - Contact for collateral information. - I am concerned that there could be a neurological process involved, given the late age of onset and clinical symptoms of dementia, such as LBD. Discussed with neurology as she has been seen by Dr. Saldana in the past in [place]. 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 02/25 - Continue cross over from zyprexa to Seroquel 02/26 - Off olanzapine, and on quetiapine 25mg bid, 300mg qhs, and 50mg prn. Last prn was 02/24. Continue for now and consider increasing qhs dose. - Neuro records reviewed as above. (2) Anxiety 02/19 - Continue home dose of clonazepam 1 mg 3 times a day when necessary anxiety. 02/20 - Admission medication reconciliation was incorrect, and has been corrected to reflect home dose of clonazepam 0.5 mg 3 times a day when necessary. (3) Hypothyroid - Get PCP records, as TSH is low and free T4 is elevated. Hold levothyroxine, and get records from PCP to determine if the dose has been adjusted recently as she is currently hyperthyroid. 02/20 - PCP records reviewed, per office staff her levothyroxine dose has not been adjusted since last April, and as she is over corrected on her current dose, we will decrease it to 88 g daily. This could be playing a role in her increased anxiety. She will need to follow-up with her PCP for ongoing monitoring. (4) UTI (urinary tract infection) - Complete one week course of Keflex started in the emergency room. (5) Vaginal pain 02/20 - patient continues to report pressure and pain in her pelvic area, and when she last saw her PCP, there was a concern for vaginal prolapse. As it is causing significant discomfort, and she cannot state if she ever followed up with her outpatient [facility], we will consult [facility] here, and greatly appreciate any recommendations. Continue Tylenol as needed for pain and discomfort. 02/21 - appreciate Dr. Spicer seeing the patient. Unfortunately, she regressed, and was unable to consent for an exam. She continues to report vaginal symptoms , and we will need to ensure follow-up with her outpatient [facility]. (6) Hyperlipidemia Continue home dose of simvastatin. (7) GERD (gastroesophageal reflux disease) Continue home medication. Discharge / Aftercare Planning Primary Care Physician: Name: Dr Madi Layton office Psychiatrist: Name: Dr. Bashir Therapist: Name: None Eclectic Doctor: Name: None Neurologist: Name: Young Saldana Visit Code E&M Code: 94566 Inventory Assets Strengths: Supportive , has psychiatrist, willing for treatment Risk Factors Assessment : Yes /single/: No Higher / Fall in social status: No Access to guns: Yes Health problems: Yes Mental Health Diagnoses: Yes Substance use disorders: No Previous attempt: No Family history of suicide: No Previous psychiatric stay: Yes Hopelessness: Yes Smoker: No Protective Factors Assessment Moravian beliefs: Yes : Yes Responsible for young children: No Employed: No Stable relationships: Yes Supportive family: Yes Good rapport with provider: Yes Data Vital Signs Last 24 Hrs: Date Time Temp Pulse Resp B/P (MAP) Pulse Ox O2 Delivery O2 Flow Rate FiO2 02/26/17 06:58 36.8 94 16 105/63 105 123/72 Problem Qualifiers (1) UTI (urinary tract infection): Urinary tract infection type: acute cystitis Hematuria presence: with hematuria Qualified Codes: N30.01 - Acute cystitis with hematuria
[2017-02-26] MEDS: QUETIAPINE FUMARATE 25 MG TAB PO PRN (12:29)
[2017-02-26] MEDS: ZOLPIDEM TARTRATE 5 MG TAB PO SCH (21:54)
[2017-02-26] MEDS: QUETIAPINE FUMARATE 100 MG TAB PO SCH (21:54)
[2017-02-27 06:47] VITALS: BP_SYST 101; BP_SYST 112; BP_DIAS 64; BP_DIAS 72; PULSE 83; PULSE 97; TEMP 36.9
[2017-02-27] MEDS: MIRTAZAPINE TAB 15 MG TAB PO SCH ×3 (08:51→21:59)
[2017-02-27] MEDS: PANTOprazole SOD 40 MG TAB PO SCH (08:51)
[2017-02-27] MEDS: LEVOTHYROXINE 88 MCG TAB PO SCH (08:51)
[2017-02-27] MEDS: QUETIAPINE FUMARATE 25 MG TAB PO SCH ×2 (08:52→17:03)
[2017-02-27] MEDS: SIMVASTATIN 20 MG TAB PO SCH (08:53)
[2017-02-27] MEDS: LORAZEPAM 0.5 MG TAB PO PRN ×3 (08:53→18:28)
[2017-02-27] MEDS: CHOLECALCIFEROL 1000 INTER.UNIT TAB PO SCH ×3 (08:53→22:00)
--- NOTE | 2017-02-27 11:09 | Psychiatric Progress Notes ---
Progress Note Date of Service Feb 27, 2017. Interval History Shanna Hutson is a 66-year-old female who currently lives in [place] with her , has an unknown psychiatric history for which she sees Dr. Bashir, and presented with command auditory hallucinations to kill herself. She was admitted on a 201 voluntary commitment. Patient is admitted from home, and was brought to the ED by the family. Chief Complaint "OK". Subjective Patient was seen & assessed interval progress reviewed with Treatment Team. The patient says that she did not have a good day yesterday, and today is only a little better. She remains worried about her physical sensations, and rates her mood only a 3/10. She denies hearing voices or having visual experiences, but says that she is hearing a high pitched noise in both ears, a noise she hears before when getting shock treatments. 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 When asked if she has things she wants to discuss today, she looks to the floor and doesn't answer. I ask again and there is a long delay but says "I guess not.". She says that her sleep is good, but remains anxious during the day. Review of Systems Constitutional: No fever, No chills, No sweats, No weight loss, No weakness, No fatigue, No problem reported ENT: No hearing loss, No unusual epistaxis, No nasal symptoms, No sore throat, No tinnitus, No dental problems, No trouble swallowing, No problem reported Respiratory: No cough, No sputum, No wheezing, No shortness of breath, No dyspnea on exertion, No dyspnea at rest, No hemoptysis, No problem reported Cardiovascular: No chest pain, No orthopnea, No PND, No edema, No claudication , No palpitations, No problem reported Abdomen: + problem reported (reports moving sensations in lower abd) Musculoskeletal: + problem reported (stooped posture) Neurologic: No memory loss, No paralysis, No weakness, No numbness/tingling, No vertigo, No balance problems, No problem reported Psychiatric: + anxiety, + problem reported (hears high pitched ringing noise) Integumentary: No rash, No itch, No new/changing skin lesions, No color change , No bleeding, No problem reported Sleep Information Total Hours of Sleep: 6.00 Meal Information Percent of Breakfast Consumed: 100 Percent of Lunch Consumed: 100 Percent of Dinner Consumed: 90 Mental Status Exam During interview pt is: cooperative Appearance: appropriately dressed, appropriately groomed, other (appears older than stated age, stands hunched over looking at the floor) Eye contact is: poor (but improved over last week, with brief moments of eye contact) Motor behavior is: steady gait & station, psychomotor retardation Speech: normal in rate, rhythm & volume (more spontaneous than last week. ) Affect: mood congruent, depressed, flat, anxious Mood is: depressed, anxious Thought process: goal directed, concrete Thought content: preoccupation, delusions (? somatic) Suicidal thought are: denied Homicidal thoughts are: denied Hallucinations: auditory, other (tactile) Cognition: language grossly intact, other (impaired) Intelligence estimated to be: consistent with level of education Insight: impaired Judgement: impaired Summary of Past History Records from her most recent PCP office visit were reviewed: She was seen Dr. Yolis Sanchez on 10/23/2016 for a routine exam. She reported worsening anxiety and depression, and her said her Ativan had been changed to Klonopin, and they were trying to discontinue Ambien. She complained of intermittent vaginal pain and pressure, and vaginal prolapse with suspected, so she was referred to [facility]. Her Synthroid had been adjusted in April, and she was due for a repeat TSH. 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 Records from her outpatient psychiatrist, Dr. Bashir, were reviewed. He has diagnosed her with schizoaffective disorder, depressive type, panic disorder without agoraphobia, and insomnia. Past medication trials include benztropine, clonazepam, lamotrigine, mirtazapine, zolpidem, alprazolam, diazepam, lorazepam , Lunesta, gabapentin, hydroxyzine, citalopram, olanzapine (prescribed 5 mg daily at bedtime on 02/08/2017, but has been on up to 15 mg at bedtime within the past year), and trazodone up to 200 mg daily at bedtime. She was last seen on 02/08/2017, and reported she was having a very bad day and wanted to be seen before the weekend, but it does not appear that any medication changes were made, and she was instructed to follow-up in one month. There is no list of current medications in the note. Prior to that, she was seen on 01/25/2017, and reported she was doing well. She was continued on Lamictal, clonazepam, and olanzapine 5 mg daily at bedtime. Records from her psychiatric admission to [facility] in [place] were reviewed: Patient was admitted there in February 2015 on transfer from the [facility] for ECT. She had been admitted to the [facility] for psychotic depression , and despite multiple medication changes, continued to be symptomatic. Her psychiatric condition have been worsening for about 6 months, and she was hearing voices that were swearing. Sleep and appetite were decreased, and she lost 30 pounds. At the time of admission to the [facility], she was on Celexa 40 mg daily, trazodone, Valium, Lunesta, and Seroquel. While there, she was tried on Xanax, Zyprexa, Luvox, oxazepam, mirtazapine, and olanzapine. She also had prior medication trials of paroxetine, clonazepam, lorazepam, and alprazolam. She had reportedly been on benzodiazepines for about 20 years. She received 8 ECT treatments, right unilateral, and was discharged from the hospital on 2014. She was diagnosed with recurrent major depression with psychosis and generalized anxiety disorder. Outpatient neurology records reviewed: Seen at [facility] in [place] by Dr. Estefani Sauceda on referral from her PCP. The initial assessment was performed 10/06/2014 for headache. She reported history of headaches for many years, worsening since the fall of 2013. She was a poor historian, and reported taking butalbital about 40 times a month. She was diagnosed with drug- induced parkinsonism, and recommendations with the perphenazine be tapered off, as she was taking 8 mg daily at bedtime. They recommended a brain MRI, which was apparently done when she was hospitalized, the results were reviewed, and there were no infarctions or lesions, but the actual results are not included in only summarized in the next progress note. She was started on Topamax, and followed up in November 2016. She reported she only taken 1 dose of the Topamax, and then felt short of breath so went to the emergency room, where she was tachycardic, so the medication was discontinued. She had been tapered off of the butalbital and perphenazine, and her headaches had improved. She had more facial expression was less bradykinetic, but was still bradyphrenic, and head was drooping downward laboratory and plain films of the C-spine were ordered to look for fracture and instability. They showed a grade 1 subluxation of C4 on C5 and a limited range of flexion/extension motion, degenerative disc base narrowing at C5 to 6, and straightening or reversal of the normal cervical lordosis. She was seen again in December 2014, and she continued to do better, had not had recent falls, and gait was improved, no longer needing a cane. She was having upset stomach, and had been taken off of a PPI and H2 josey due to side effects and polypharmacy. Her exam was unchanged, and there were no new recommendations she was seen July 2016 due to an abnormal sensation in her chest, abdomen, and pelvis, that she described as rolling. She had an MRI of the cervical and thoracic spine which showed cervical stenosis without abnormal signal. Exam revealed mild facial masking, increased reflexes in the upper extremities, and mildly brisk reflexes in the lower extremities. They could not determine a neurological cause for the sensations in her abdomen. They noted cervical stenosis, which was asymptomatic, but with brisk reflexes. They discussed signs and symptoms of cervical myelopathy, including change in gait, strength, and sensation, and recommended a cervical flexion and extension series to rule out instability. Medication Trials (1) Past Psych Medications lamotrigine Luvox mirtazapine citalopram paroxetine alprazolam diazepam lorazepam clonazepam oxazepam Lunesta zolpidem gabapentin hydroxyzine olanzapine quetiapine trazodone benztropine Perphenazine/amitriptyline-on 8/100 mg daily at bedtime in 2014 Last Edited By : Rebecca Hahn on Feb 26, 2017 11:35 Impression Remains focused on her pelvic/abdominal symptoms. She is not clearly delusional about this, but is somatically preoccupied, thought blocked, and hallucinating. [employer] has said they will follow up as an OP, and will not proceed with physical exam while in the hospital. Her mood remains depressed and her anxiety high, but with mild improvement on Seroquel and Remeron. I am concerned about the patient being on Ambien and her age and she agrees to try sleeping without it, so will DC. Will plan on having a meeting with she and her . Plan (1) Schizoaffective disorder, depressive type - Continue home dose of lamotrigine 100 mg daily at bedtime, mirtazapine 30 mg daily at bedtime, and zolpidem 5 mg daily at bedtime when necessary for insomnia. - Patient reports that olanzapine 2.5 mg that she received last evening was helpful for the voices and for sleep, so will order this twice a day for now while obtaining records from her outpatient psychiatrist to clarify past medication trials. Will also order 2.5 mg every 8 hours when necessary psychosis. Reviewed risks, benefits, and side effects of the medication with the patient. Order fasting lipid profile and fasting glucose for tomorrow morning for monitoring on an atypical antipsychotic. - Get records from PCP regarding ? Parkinson's disease diagnosis, as she has Sinemet listed as a home medication. May need to consider a trial of quetiapine due to drug drug interactions with dopamine antagonists. - Encourage group attendance and participation. - Family meeting with . We'll review recommendations the guns be secured prior to discharge. 02/20 - Records reviewed from Dr. Bashir's office, and staff contacted to clarify current medications, as admission medication reconciliation was incorrect. - Fasting lipid profile and glucose for monitoring on an atypical antipsychotic were performed today and results reviewed, and were normal. 02/21 - Decrease zolpidem to 5 mg daily at bedtime, which is her home dose, due to concerns for drug drug interactions, cognitive impairment, falls, and other negative side effects. - Increase olanzapine to 2.5 mg in the morning and 7.5 mg at bedtime to target racing thoughts and tactile hallucinations, and continue clonazepam 0.5 mg 3 times a day prn anxiety, lamotrigine 100 mg daily qhs, and mirtazapine 30 mg daily qhs. On reviewing her past medications from Dr. Bashir's records, she has been on up to 20 mg of olanzapine daily in the past, and his notes do not indicate why the dose was decreased. 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 - Attempt to get collateral information from her : Baseline, mental health history (when she first became ill, how she had responded to treatment over time, and when psychosis started), recent medications (there is some concern that she may not have been getting the correct medications at home), and gynecological history (has she seen her [facility] recently, been diagnosed with a gynecological problem, and who is her out patient [facility]?) 02/22 - Start Remeron 3.75 mg. BID - Increase Zyprexa to 10 mg. HS, and continue prn 02/23 - Poor response to olanzapine, so we will switch to quetiapine, which she has shown some response to. Taper olanzapine over the next 2 days. Start quetiapine 100 mg at bedtime tonight, and titrated up over the next couple of days to 300 mg. I will also order 25 mg twice a day, and 50 mg when necessary. - Try lorazepam 0.5 mg every 4 hours when necessary anxiety in place of clonazepam, which the patient states has not been very effective. 02/24 - Continue cross taper from olanzapine to quetiapine. - Contact for collateral information. - I am concerned that there could be a neurological process involved, given the late age of onset and clinical symptoms of dementia, such as LBD. Discussed with neurology as she has been seen by Dr. Saldana in the past in [place]. 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 02/25 - Continue cross over from zyprexa to Seroquel 02/26 - Off olanzapine, and on quetiapine 25mg bid, 300mg qhs, and 50mg prn. Last prn was 02/24. Continue for now and consider increasing qhs dose. - Neuro records reviewed as above. 02/27 - DC Ambien due to concerns for cognitive impairment - Will obtain a MoCA for baseline (2) Anxiety 02/19 - Continue home dose of clonazepam 1 mg 3 times a day when necessary anxiety. 02/20 - Admission medication reconciliation was incorrect, and has been corrected to reflect home dose of clonazepam 0.5 mg 3 times a day when necessary. (3) Hypothyroid - Get PCP records, as TSH is low and free T4 is elevated. Hold levothyroxine, and get records from PCP to determine if the dose has been adjusted recently as she is currently hyperthyroid. 02/20 - PCP records reviewed, per office staff her levothyroxine dose has not been adjusted since last April, and as she is over corrected on her current dose, we will decrease it to 88 g daily. This could be playing a role in her increased anxiety. She will need to follow-up with her PCP for ongoing monitoring. (4) UTI (urinary tract infection) - Complete one week course of Keflex started in the emergency room. (5) Vaginal pain 02/20 - patient continues to report pressure and pain in her pelvic area, and when she last saw her PCP, there was a concern for vaginal prolapse. As it is causing significant discomfort, and she cannot state if she ever followed up with her outpatient [facility], we will consult [facility] here, and greatly appreciate any recommendations. Continue Tylenol as needed for pain and discomfort. 02/21 - appreciate Dr. Spicer seeing the patient. Unfortunately, she regressed, and was unable to consent for an exam. She continues to report vaginal symptoms , and we will need to ensure follow-up with her outpatient [facility]. (6) Hyperlipidemia Continue home dose of simvastatin. (7) GERD (gastroesophageal reflux disease) Continue home medication. Discharge / Aftercare Planning Primary Care Physician: Name: Dr Madi Vidal [place] office Psychiatrist: Name: Dr. Bashir Therapist: Name: None [employer] Former: Name: None Neurologist: Name: [place] Visit Code E&M Code: 37404 Inventory Assets Strengths: Supportive , has psychiatrist, willing for treatment Risk Factors Assessment : Yes /single/: No Higher / Fall in social status: No Access to guns: Yes Health problems: Yes Mental Health Diagnoses: Yes Substance use disorders: No Previous attempt: No Family history of suicide: No Previous psychiatric stay: Yes Hopelessness: Yes Smoker: No Protective Factors Assessment Druze beliefs: Yes : Yes Responsible for young children: No Employed: No Stable relationships: Yes Supportive family: Yes Good rapport with provider: Yes Data Vital Signs Last 24 Hrs: Date Time Temp Pulse Resp B/P (MAP) Pulse Ox O2 Delivery O2 Flow Rate FiO2 02/27/17 06:47 36.9 83 16 101/64 97 112/72 Meds Administered Last 24 Hrs: Current Inpatient Medications Medications (Trade) Dose Ordered Sig/Jeison Route Start Time Stop Time Status Last Admin Dose Admin Acetaminophen (Tylenol Tab) 650 mg Q4H PRN PO 02/18/17 16:30 03/20/17 16:29 02/21/17 18:00 650 MG Bismuth Subsalicylate (Kaopectate Liqd) 15 ml PRN PRN PO 02/18/17 16:30 03/20/17 16:29 Al Hydroxide/Mg Hydroxide (Maalox Susp) 30 ml Q4H PRN PO 02/18/17 16:30 03/20/17 16:29 Magnesium Hydroxide (Milk Of Magnesia Susp) 30 ml DAILY PRN PO 02/18/17 16:30 03/20/17 16:29 Sodium Chloride ([place] Nasal [place]) PRN PRN NA 02/18/17 16:30 03/20/17 16:29 Hydroxyzine HCl (Vistaril Tab) 50 mg HSZ PRN PO 02/18/17 16:30 03/20/17 16:29 Hydroxyzine HCl (Vistaril Tab) 25 mg Q4H PRN PO 02/18/17 16:30 03/20/17 16:29 Simvastatin (Zocor Tab) 20 mg QAM PO 02/19/17 09:00 03/21/17 08:59 02/27/17 08:53 20 MG Cholecalciferol (Vitamin D Tab) 2,000 inter.unit TID PO 02/18/17 21:00 03/20/17 20:59 02/27/17 08:53 2,000 INTER.UNIT Pantoprazole Sodium (Protonix Tab) 40 mg QAM PO 02/19/17 09:00 03/21/17 08:59 02/27/17 08:51 40 MG Mirtazapine (Remeron Tab) 30 mg HS PO 02/18/17 21:00 03/20/17 20:59 02/26/17 21:54 30 MG Lamotrigine (Lamictal Tab) 100 mg HS PO 02/18/17 22:00 03/20/17 21:59 02/26/17 21:54 100 MG Levothyroxine Sodium (Synthroid Tab) 88 mcg DAILYBB PO 02/21/17 08:00 03/23/17 07:59 02/27/17 08:51 88 MCG Zolpidem Tartrate (Ambien Tab) 5 mg HS PO 02/21/17 22:00 03/23/17 21:59 02/26/17 21:54 5 MG Mirtazapine (Remeron Tab) 3.75 mg BID@0900,1200 PO 02/23/17 09:00 03/25/17 08:59 02/27/17 08:51 3.75 MG Quetiapine Fumarate (seroQUEL TAB) 25 mg BID17 PO 02/23/17 09:00 03/25/17 08:59 02/27/17 08:52 25 MG Quetiapine Fumarate (seroQUEL TAB) 50 mg Q4 PRN PO 02/23/17 08:30 03/25/17 08:29 02/26/17 12:29 50 MG Quetiapine Fumarate (seroQUEL TAB) 300 mg Taper HS PO 02/23/17 22:00 03/25/17 21:59 02/26/17 21:54 300 MG Lorazepam (Ativan Tab) 0.5 mg Q4 PRN PO 02/23/17 08:30 03/25/17 08:29 02/27/17 08:53 0.5 MG Lab Results Last 24 Hrs: 02/18/17 13:36 Red Blood Count 4.51, Mean Corpuscular Volume 95.1, Mean Corpuscular Hemoglobin 31.3, Mean Corpuscular Hemoglobin Concent 32.9, Mean Platelet Volume 10.2, Neutrophils (%) (Auto) 69.9, Lymphocytes (%) (Auto) 23.5, Monocytes (%) (Auto) 5.3, Eosinophils (%) (Auto) 0.8, Basophils (%) (Auto) 0.3, Neutrophils # (Auto) 4.58, Lymphocytes # (Auto) 1.54, Monocytes # (Auto) 0.35, Eosinophils # (Auto) 0.05, Basophils # (Auto) 0.02 02/18/17 13:36 02/23/17 08:33 Test 02/18/17 00:00 02/18/17 13:32 02/18/17 13:36 02/20/17 07:06 Urine Color YELLOW Urine Appearance CLOUDY (CLEAR) Urine pH 6.0 (4.5-7.5) Urine Specific [place] 1.014 (1.000-1.030) Urine Protein NEG (NEG) Urine Glucose (UA) NEG (NEG) Urine Ketones TRACE (NEG) Urine Occult Blood TRACE (NEG) Urine Nitrite NEG (NEG) Urine Bilirubin NEG (NEG) Urine Urobilinogen NEG (NEG) Urine Leukocyte Esterase LARGE (NEG) Urine WBC (Auto) >30 /hpf (0-5) Urine RBC (Auto) 5-10 /hpf (0-4) Urine Hyaline Casts (Auto) 1-5 /lpf (0-5) Urine Epithelial Cells (Auto) 0-5 /lpf (0-5) Urine Bacteria (Auto) 1+ (NEG) Urine Opiates Screen NEG (NEG) Urine Methadone, Qualitative NEG (NEG) Urine Barbiturates NEG (NEG) Urine Phencyclidine (PCP) Level NEG (NEG) Ur Amphetamine/Methamphetamine NEG (NEG) MDMA (Ecstasy) Screen NEG (NEG) Urine Benzodiazepines Screen NEG (NEG) Urine Cocaine Metabolite NEG (NEG) Urine Marijuana (THC) NEG (NEG) Bedside Glucose 82 mg/dl (70-90) White Blood Count 6.55 K/uL (4.8-10.8) Red Blood Count 4.51 M/uL (4.2-5.4) Hemoglobin 14.1 g/dL (12.0-16.0) Hematocrit 42.9 % (37-47) Mean Corpuscular Volume 95.1 fL (80-100) Mean Corpuscular Hemoglobin 31.3 pg (25-34) Mean Corpuscular Hemoglobin Concent 32.9 g/dl (32-36) Platelet Count 295 K/uL (130-400) Mean Platelet Volume 10.2 fL (7.4-10.4) Neutrophils (%) (Auto) 69.9 % Lymphocytes (%) (Auto) 23.5 % Monocytes (%) (Auto) 5.3 % Eosinophils (%) (Auto) 0.8 % Basophils (%) (Auto) 0.3 % Neutrophils # (Auto) 4.58 K/uL (1.4-6.5) Lymphocytes # (Auto) 1.54 K/uL (1.2-3.4) Monocytes # (Auto) 0.35 K/uL (0.11-0.59) Eosinophils # (Auto) 0.05 K/uL (0-0.5) Basophils # (Auto) 0.02 K/uL (0-0.2) RDW Standard Deviation 44.3 fL (36.4-46.3) RDW Coefficient of Variation 12.7 % (11.5-14.5) Immature Granulocyte % (Auto) 0.2 % Immature Granulocyte # (Auto) 0.01 K/uL (0.00-0.02) Est Creatinine Clear Calc Drug Dose 57.0 ml/min Estimated GFR () 84.6 Estimated GFR (Non- 73.0 BUN/Creatinine Ratio 9.3 (10-20) Calcium Level 10.9 mg/dl (8.5-10.1) Total Bilirubin 0.5 mg/dl (0.2-1) Direct Bilirubin 0.2 mg/dl (0-0.2) Aspartate Amino Transf (AST/SGOT) 18 U/L (15-37) Alanine Aminotransferase (ALT/SGPT) < 6 U/L (12-78) Alkaline Phosphatase 95 U/L (45-117) Total Protein 7.1 gm/dl (6.4-8.2) Albumin 3.9 gm/dl (3.4-5.0) Thyroid Stimulating Hormone (TSH) 0.168 uIu/ml (0.300-4.500) Free Thyroxine 1.84 ng/dl (0.80-1.60) Ethyl Alcohol mg/dL < 3.0 mg/dl (0-3) Fasting Glucose 92 mg/dl (70-99) Triglycerides Level 79 mg/dl (0-150) Cholesterol Level 133 mg/dl (0-200) HDL Cholesterol 56 mg/dl LDL Cholesterol, Calculated 61 mg/dl VLDL Cholesterol, Calculated 16 mg/dl Cholesterol/HDL Ratio 2.4 Test 02/23/17 08:33 Anion Gap 5.0 mmol/L (3-11) Problem Qualifiers (1) UTI (urinary tract infection): Urinary tract infection type: acute cystitis Hematuria presence: with hematuria Qualified Codes: N30.01 - Acute cystitis with hematuria
[2017-02-27] MEDS: QUETIAPINE FUMARATE 25 MG TAB PO PRN (16:19)
[2017-02-27] MEDS: QUETIAPINE FUMARATE 100 MG TAB PO SCH (22:00)
[2017-02-28 06:55] VITALS: BP_SYST 101; BP_SYST 116; BP_DIAS 64; BP_DIAS 80; PULSE 86; PULSE 94; TEMP 36.7
[2017-02-28] MEDS: PANTOprazole SOD 40 MG TAB PO SCH (08:25)
[2017-02-28] MEDS: CHOLECALCIFEROL 1000 INTER.UNIT TAB PO SCH ×3 (08:25→21:25)
[2017-02-28] MEDS: QUETIAPINE FUMARATE 25 MG TAB PO SCH ×2 (08:25→13:44)
[2017-02-28] MEDS: LEVOTHYROXINE 88 MCG TAB PO SCH (08:25)
[2017-02-28] MEDS: SIMVASTATIN 20 MG TAB PO SCH (08:25)
[2017-02-28] MEDS: MIRTAZAPINE TAB 15 MG TAB PO SCH ×3 (08:26→21:26)
--- NOTE | 2017-02-28 10:41 | Psychiatric Progress Notes ---
Progress Note Date of Service Feb 28, 2017. Interval History Shanna Hutson is a 66-year-old female who currently lives in [place] with her , has an unknown psychiatric history for which she sees Dr. Bashir, and presented with command auditory hallucinations to kill herself. She was admitted on a 201 voluntary commitment. Patient is admitted from home, and was brought to the ED by the family. Chief Complaint "These feeling started early this morning.". Subjective Patient was seen & assessed interval progress reviewed with Treatment Team. Shanna is worrying about her bodily sensations. She says that they began early this AM waking her from sleep, preventing her from falling back to sleep. She describes them as sometimes painful, worst when she is sitting still. She also says that she is having other tactile experiences in which she feels the couch and chair in the dayroom moving up and down when she is in them, and felt the the table she was sitting at with her yesterday was also moving up and down. She denies having any visual experiences here in the hospital but did while she was still at home (previously described big birds flying around her bedroom). Her mood is low again today, rated 3/10, although is attending and participating in groups. She slept for 8 hours last night despite Ambien being DC'd. Review of Systems Constitutional: + fatigue ENT: No hearing loss, No unusual epistaxis, No nasal symptoms, No sore throat, No tinnitus, No dental problems, No trouble swallowing, No problem reported Respiratory: No cough, No sputum, No wheezing, No shortness of breath, No dyspnea on exertion, No dyspnea at rest, No hemoptysis, No problem reported Cardiovascular: No chest pain, No orthopnea, No PND, No edema, No claudication , No palpitations, No problem reported Abdomen: + problem reported (something moving in her low abdomen) Musculoskeletal: + problem reported (walks with stooped posture) Neurologic: No memory loss, No paralysis, No weakness, No numbness/tingling, No vertigo, No balance problems, No problem reported Psychiatric: + depression symptoms, + anxiety Integumentary: No rash, No itch, No new/changing skin lesions, No color change , No bleeding, No problem reported Sleep Information Total Hours of Sleep: 8.00 Meal Information Percent of Breakfast Consumed: 100 Percent of Lunch Consumed: 90 Percent of Dinner Consumed: 90 Mental Status Exam During interview pt is: cooperative Appearance: appropriately dressed, appropriately groomed, other (appears older than stated age, stands hunched over looking at the floor) Eye contact is: poor (but improved over last week, with brief moments of eye contact) Motor behavior is: steady gait & station, psychomotor retardation Speech: normal in rate, rhythm & volume (more spontaneous than last week. ) Affect: mood congruent, depressed, flat, anxious Mood is: depressed, anxious Thought process: goal directed, concrete Thought content: preoccupation, delusions (? somatic) Suicidal thought are: denied Homicidal thoughts are: denied Hallucinations: auditory, other (tactile) Cognition: language grossly intact, other (impaired) Intelligence estimated to be: consistent with level of education Insight: impaired Judgement: impaired Summary of Past History Records from her most recent PCP office visit were reviewed: She was seen Dr. Yolis Sanchez on 10/23/2016 for a routine exam. She reported worsening anxiety and depression, and her said her Ativan had been changed to Klonopin, and they were trying to discontinue Ambien. She complained of intermittent vaginal pain and pressure, and vaginal prolapse with suspected, so she was referred to [facility]. Her Synthroid had been adjusted in April, and she was due for a repeat TSH. 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 Records from her outpatient psychiatrist, Dr. Bashir, were reviewed. He has diagnosed her with schizoaffective disorder, depressive type, panic disorder without agoraphobia, and insomnia. Past medication trials include benztropine, clonazepam, lamotrigine, mirtazapine, zolpidem, alprazolam, diazepam, lorazepam , Lunesta, gabapentin, hydroxyzine, citalopram, olanzapine (prescribed 5 mg daily at bedtime on 02/08/2017, but has been on up to 15 mg at bedtime within the past year), and trazodone up to 200 mg daily at bedtime. She was last seen on 02/08/2017, and reported she was having a very bad day and wanted to be seen before the weekend, but it does not appear that any medication changes were made, and she was instructed to follow-up in one month. There is no list of current medications in the note. Prior to that, she was seen on 01/25/2017, and reported she was doing well. She was continued on Lamictal, clonazepam, and olanzapine 5 mg daily at bedtime. Records from her psychiatric admission to [facility] in [place] were reviewed: Patient was admitted there in February 2015 on transfer from the [facility] for ECT. She had been admitted to the [facility] for psychotic depression , and despite multiple medication changes, continued to be symptomatic. Her psychiatric condition have been worsening for about 6 months, and she was hearing voices that were swearing. Sleep and appetite were decreased, and she lost 30 pounds. At the time of admission to the [facility], she was on Celexa 40 mg daily, trazodone, Valium, Lunesta, and Seroquel. While there, she was tried on Xanax, Zyprexa, Luvox, oxazepam, mirtazapine, and olanzapine. She also had prior medication trials of paroxetine, clonazepam, lorazepam, and alprazolam. She had reportedly been on benzodiazepines for about 20 years. She received 8 ECT treatments, right unilateral, and was discharged from the hospital on 2014. She was diagnosed with recurrent major depression with psychosis and generalized anxiety disorder. Outpatient neurology records reviewed: Seen at [facility] in [place] by Dr. Estefani Sauceda on referral from her PCP. The initial assessment was performed 10/06/2014 for headache. She reported history of headaches for many years, worsening since the fall of 2013. She was a poor historian, and reported taking butalbital about 40 times a month. She was diagnosed with drug- induced parkinsonism, and recommendations with the perphenazine be tapered off, as she was taking 8 mg daily at bedtime. They recommended a brain MRI, which was apparently done when she was hospitalized, the results were reviewed, and there were no infarctions or lesions, but the actual results are not included in only summarized in the next progress note. She was started on Topamax, and followed up in November 2016. She reported she only taken 1 dose of the Topamax, and then felt short of breath so went to the emergency room, where she was tachycardic, so the medication was discontinued. She had been tapered off of the butalbital and perphenazine, and her headaches had improved. She had more facial expression was less bradykinetic, but was still bradyphrenic, and head was drooping downward laboratory and plain films of the C-spine were ordered to look for fracture and instability. They showed a grade 1 subluxation of C4 on C5 and a limited range of flexion/extension motion, degenerative disc base narrowing at C5 to 6, and straightening or reversal of the normal cervical lordosis. She was seen again in December 2014, and she continued to do better, had not had recent falls, and gait was improved, no longer needing a cane. She was having upset stomach, and had been taken off of a PPI and H2 josey due to side effects and polypharmacy. Her exam was unchanged, and there were no new recommendations she was seen July 2016 due to an abnormal sensation in her chest, abdomen, and pelvis, that she described as rolling. She had an MRI of the cervical and thoracic spine which showed cervical stenosis without abnormal signal. Exam revealed mild facial masking, increased reflexes in the upper extremities, and mildly brisk reflexes in the lower extremities. They could not determine a neurological cause for the sensations in her abdomen. They noted cervical stenosis, which was asymptomatic, but with brisk reflexes. They discussed signs and symptoms of cervical myelopathy, including change in gait, strength, and sensation, and recommended a cervical flexion and extension series to rule out instability. 02/27 MoCA performed, scoring 9/30 with deficits in most areas except naming. Medication Trials (1) Past Psych Medications lamotrigine Luvox mirtazapine citalopram paroxetine alprazolam diazepam lorazepam clonazepam oxazepam Lunesta zolpidem gabapentin hydroxyzine olanzapine quetiapine trazodone benztropine Perphenazine/amitriptyline-on 8/100 mg daily at bedtime in 2014 Last Edited By : Rebecca Hahn on Feb 26, 2017 11:35 Impression Remains focused on her pelvic/abdominal symptoms. Having multiple tactile hallucinations including the furniture under her moving up and down. Previous MRI of the brain done at another facility was without structural abnormalities. If her symptoms were limited to her lower abd sensations, then I might encourage her to accept a medication specialist exam here to rule out a prolapse, but since her symptoms extend beyond that, we will pursue this after discharge. She tolerated DC of Ambien and would also like to see her off of BZD's. She is using a prn of Seroquel every afternoon and so will increase her scheduled dose to to 25-50 at noon- 300. Willl DC prn ativan. Is scheduled to have a meeting with her tomorrow. Plan (1) Schizoaffective disorder, depressive type - Continue home dose of lamotrigine 100 mg daily at bedtime, mirtazapine 30 mg daily at bedtime, and zolpidem 5 mg daily at bedtime when necessary for insomnia. - Patient reports that olanzapine 2.5 mg that she received last evening was helpful for the voices and for sleep, so will order this twice a day for now while obtaining records from her outpatient psychiatrist to clarify past medication trials. Will also order 2.5 mg every 8 hours when necessary psychosis. Reviewed risks, benefits, and side effects of the medication with the patient. Order fasting lipid profile and fasting glucose for tomorrow morning for monitoring on an atypical antipsychotic. - Get records from PCP regarding ? Parkinson's disease diagnosis, as she has Sinemet listed as a home medication. May need to consider a trial of quetiapine due to drug drug interactions with dopamine antagonists. - Encourage group attendance and participation. - Family meeting with . We'll review recommendations the guns be secured prior to discharge. 02/20 - Records reviewed from Dr. Bashir's office, and staff contacted to clarify current medications, as admission medication reconciliation was incorrect. - Fasting lipid profile and glucose for monitoring on an atypical antipsychotic were performed today and results reviewed, and were normal. 02/21 - Decrease zolpidem to 5 mg daily at bedtime, which is her home dose, due to concerns for drug drug interactions, cognitive impairment, falls, and other negative side effects. - Increase olanzapine to 2.5 mg in the morning and 7.5 mg at bedtime to target racing thoughts and tactile hallucinations, and continue clonazepam 0.5 mg 3 times a day prn anxiety, lamotrigine 100 mg daily qhs, and mirtazapine 30 mg daily qhs. On reviewing her past medications from Dr. Bashir's records, she has been on up to 20 mg of olanzapine daily in the past, and his notes do not indicate why the dose was decreased. 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 - Attempt to get collateral information from her : Baseline, mental health history (when she first became ill, how she had responded to treatment over time, and when psychosis started), recent medications (there is some concern that she may not have been getting the correct medications at home), and gynecological history (has she seen her [facility] recently, been diagnosed with a gynecological problem, and who is her out patient [facility]?) 02/22 - Start Remeron 3.75 mg. BID - Increase Zyprexa to 10 mg. HS, and continue prn 02/23 - Poor response to olanzapine, so we will switch to quetiapine, which she has shown some response to. Taper olanzapine over the next 2 days. Start quetiapine 100 mg at bedtime tonight, and titrated up over the next couple of days to 300 mg. I will also order 25 mg twice a day, and 50 mg when necessary. - Try lorazepam 0.5 mg every 4 hours when necessary anxiety in place of clonazepam, which the patient states has not been very effective. 02/24 - Continue cross taper from olanzapine to quetiapine. - Contact for collateral information. - I am concerned that there could be a neurological process involved, given the late age of onset and clinical symptoms of dementia, such as LBD. Discussed with neurology as she has been seen by Dr. Saldana in the past in [place]. 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 02/25 - Continue cross over from zyprexa to Seroquel 02/26 - Off olanzapine, and on quetiapine 25mg bid, 300mg qhs, and 50mg prn. Last prn was 02/24. Continue for now and consider increasing qhs dose. - Neuro records reviewed as above. 02/27 - DC Ambien due to concerns for cognitive impairment - Will obtain a MoCA for baseline 02/28 - MoCA 02/16 - Will DC all BZD - Increase Seroquel to 25-50-300 (2) Anxiety 02/19 - Continue home dose of clonazepam 1 mg 3 times a day when necessary anxiety. 02/20 - Admission medication reconciliation was incorrect, and has been corrected to reflect home dose of clonazepam 0.5 mg 3 times a day when necessary. 02/28 - DC BZD - Use prn Seroquel (3) Hypothyroid - Get PCP records, as TSH is low and free T4 is elevated. Hold levothyroxine, and get records from PCP to determine if the dose has been adjusted recently as she is currently hyperthyroid. 02/20 - PCP records reviewed, per office staff her levothyroxine dose has not been adjusted since last April, and as she is over corrected on her current dose, we will decrease it to 88 g daily. This could be playing a role in her increased anxiety. She will need to follow-up with her PCP for ongoing monitoring. (4) UTI (urinary tract infection) - Complete one week course of Keflex started in the emergency room. (5) Vaginal pain 02/20 - patient continues to report pressure and pain in her pelvic area, and when she last saw her PCP, there was a concern for vaginal prolapse. As it is causing significant discomfort, and she cannot state if she ever followed up with her outpatient [facility], we will consult [facility] here, and greatly appreciate any recommendations. Continue Tylenol as needed for pain and discomfort. 02/21 - appreciate Dr. Spicer seeing the patient. Unfortunately, she regressed, and was unable to consent for an exam. She continues to report vaginal symptoms , and we will need to ensure follow-up with her outpatient [facility]. (6) Hyperlipidemia Continue home dose of simvastatin. (7) GERD (gastroesophageal reflux disease) Continue home medication. Discharge / Aftercare Planning Primary Care Physician: Name: Dr Madi Layton office Psychiatrist: Name: Dr. Bashir Therapist: Name: None Computer Engineer: Name: None Neurologist: Name: Young Saldana Visit Code E&M Code: 34791 Inventory Assets Strengths: Supportive , has psychiatrist, willing for treatment Risk Factors Assessment : Yes /single/: No Higher / Fall in social status: No Access to guns: Yes Health problems: Yes Mental Health Diagnoses: Yes Substance use disorders: No Previous attempt: No Family history of suicide: No Previous psychiatric stay: Yes Hopelessness: Yes Smoker: No Protective Factors Assessment Yarsani beliefs: Yes : Yes Responsible for young children: No Employed: No Stable relationships: Yes Supportive family: Yes Good rapport with provider: Yes Data Vital Signs Last 24 Hrs: Date Time Temp Pulse Resp B/P (MAP) Pulse Ox O2 Delivery O2 Flow Rate FiO2 02/28/17 06:55 36.7 86 18 101/64 94 116/80 Meds Administered Last 24 Hrs: Current Inpatient Medications Medications (Trade) Dose Ordered Sig/Jeison Route Start Time Stop Time Status Last Admin Dose Admin Acetaminophen (Tylenol Tab) 650 mg Q4H PRN PO 02/18/17 16:30 03/20/17 16:29 02/21/17 18:00 650 MG Bismuth Subsalicylate (Kaopectate Liqd) 15 ml PRN PRN PO 02/18/17 16:30 03/20/17 16:29 Al Hydroxide/Mg Hydroxide (Maalox Susp) 30 ml Q4H PRN PO 02/18/17 16:30 03/20/17 16:29 Magnesium Hydroxide (Milk Of Magnesia Susp) 30 ml DAILY PRN PO 02/18/17 16:30 03/20/17 16:29 Sodium Chloride ([place] Nasal [place]) PRN PRN NA 02/18/17 16:30 03/20/17 16:29 Hydroxyzine HCl (Vistaril Tab) 50 mg HSZ PRN PO 02/18/17 16:30 03/20/17 16:29 Hydroxyzine HCl (Vistaril Tab) 25 mg Q4H PRN PO 02/18/17 16:30 03/20/17 16:29 Simvastatin (Zocor Tab) 20 mg QAM PO 02/19/17 09:00 03/21/17 08:59 02/28/17 08:25 20 MG Cholecalciferol (Vitamin D Tab) 2,000 inter.unit TID PO 02/18/17 21:00 03/20/17 20:59 02/28/17 08:25 2,000 INTER.UNIT Pantoprazole Sodium (Protonix Tab) 40 mg QAM PO 02/19/17 09:00 03/21/17 08:59 02/28/17 08:25 40 MG Mirtazapine (Remeron Tab) 30 mg HS PO 02/18/17 21:00 03/20/17 20:59 02/27/17 21:59 30 MG Lamotrigine (Lamictal Tab) 100 mg HS PO 02/18/17 22:00 03/20/17 21:59 02/27/17 21:59 100 MG Levothyroxine Sodium (Synthroid Tab) 88 mcg DAILYBB PO 02/21/17 08:00 03/23/17 07:59 02/28/17 08:25 88 MCG Mirtazapine (Remeron Tab) 3.75 mg BID@0900,1200 PO 02/23/17 09:00 03/25/17 08:59 02/28/17 08:26 3.75 MG Quetiapine Fumarate (seroQUEL TAB) 25 mg BID17 PO 02/23/17 09:00 03/25/17 08:59 02/28/17 08:25 25 MG Quetiapine Fumarate (seroQUEL TAB) 50 mg Q4 PRN PO 02/23/17 08:30 03/25/17 08:29 02/27/17 16:19 50 MG Quetiapine Fumarate (seroQUEL TAB) 300 mg Taper HS PO 02/23/17 22:00 03/25/17 21:59 02/27/17 22:00 300 MG Lab Results Last 24 Hrs: 02/18/17 13:36 Red Blood Count 4.51, Mean Corpuscular Volume 95.1, Mean Corpuscular Hemoglobin 31.3, Mean Corpuscular Hemoglobin Concent 32.9, Mean Platelet Volume 10.2, Neutrophils (%) (Auto) 69.9, Lymphocytes (%) (Auto) 23.5, Monocytes (%) (Auto) 5.3, Eosinophils (%) (Auto) 0.8, Basophils (%) (Auto) 0.3, Neutrophils # (Auto) 4.58, Lymphocytes # (Auto) 1.54, Monocytes # (Auto) 0.35, Eosinophils # (Auto) 0.05, Basophils # (Auto) 0.02 02/18/17 13:36 02/23/17 08:33 Test 02/18/17 00:00 02/18/17 13:32 02/18/17 13:36 02/20/17 07:06 Urine Color YELLOW Urine Appearance CLOUDY (CLEAR) Urine pH 6.0 (4.5-7.5) Urine Specific [place] 1.014 (1.000-1.030) Urine Protein NEG (NEG) Urine Glucose (UA) NEG (NEG) Urine Ketones TRACE (NEG) Urine Occult Blood TRACE (NEG) Urine Nitrite NEG (NEG) Urine Bilirubin NEG (NEG) Urine Urobilinogen NEG (NEG) Urine Leukocyte Esterase LARGE (NEG) Urine WBC (Auto) >30 /hpf (0-5) Urine RBC (Auto) 5-10 /hpf (0-4) Urine Hyaline Casts (Auto) 1-5 /lpf (0-5) Urine Epithelial Cells (Auto) 0-5 /lpf (0-5) Urine Bacteria (Auto) 1+ (NEG) Urine Opiates Screen NEG (NEG) Urine Methadone, Qualitative NEG (NEG) Urine Barbiturates NEG (NEG) Urine Phencyclidine (PCP) Level NEG (NEG) Ur Amphetamine/Methamphetamine NEG (NEG) MDMA (Ecstasy) Screen NEG (NEG) Urine Benzodiazepines Screen NEG (NEG) Urine Cocaine Metabolite NEG (NEG) Urine Marijuana (THC) NEG (NEG) Bedside Glucose 82 mg/dl (70-90) White Blood Count 6.55 K/uL (4.8-10.8) Red Blood Count 4.51 M/uL (4.2-5.4) Hemoglobin 14.1 g/dL (12.0-16.0) Hematocrit 42.9 % (37-47) Mean Corpuscular Volume 95.1 fL (80-100) Mean Corpuscular Hemoglobin 31.3 pg (25-34) Mean Corpuscular Hemoglobin Concent 32.9 g/dl (32-36) Platelet Count 295 K/uL (130-400) Mean Platelet Volume 10.2 fL (7.4-10.4) Neutrophils (%) (Auto) 69.9 % Lymphocytes (%) (Auto) 23.5 % Monocytes (%) (Auto) 5.3 % Eosinophils (%) (Auto) 0.8 % Basophils (%) (Auto) 0.3 % Neutrophils # (Auto) 4.58 K/uL (1.4-6.5) Lymphocytes # (Auto) 1.54 K/uL (1.2-3.4) Monocytes # (Auto) 0.35 K/uL (0.11-0.59) Eosinophils # (Auto) 0.05 K/uL (0-0.5) Basophils # (Auto) 0.02 K/uL (0-0.2) RDW Standard Deviation 44.3 fL (36.4-46.3) RDW Coefficient of Variation 12.7 % (11.5-14.5) Immature Granulocyte % (Auto) 0.2 % Immature Granulocyte # (Auto) 0.01 K/uL (0.00-0.02) Est Creatinine Clear Calc Drug Dose 57.0 ml/min Estimated GFR () 84.6 Estimated GFR (Non- 73.0 BUN/Creatinine Ratio 9.3 (10-20) Calcium Level 10.9 mg/dl (8.5-10.1) Total Bilirubin 0.5 mg/dl (0.2-1) Direct Bilirubin 0.2 mg/dl (0-0.2) Aspartate Amino Transf (AST/SGOT) 18 U/L (15-37) Alanine Aminotransferase (ALT/SGPT) < 6 U/L (12-78) Alkaline Phosphatase 95 U/L (45-117) Total Protein 7.1 gm/dl (6.4-8.2) Albumin 3.9 gm/dl (3.4-5.0) Thyroid Stimulating Hormone (TSH) 0.168 uIu/ml (0.300-4.500) Free Thyroxine 1.84 ng/dl (0.80-1.60) Ethyl Alcohol mg/dL < 3.0 mg/dl (0-3) Fasting Glucose 92 mg/dl (70-99) Triglycerides Level 79 mg/dl (0-150) Cholesterol Level 133 mg/dl (0-200) HDL Cholesterol 56 mg/dl LDL Cholesterol, Calculated 61 mg/dl VLDL Cholesterol, Calculated 16 mg/dl Cholesterol/HDL Ratio 2.4 Test 02/23/17 08:33 Anion Gap 5.0 mmol/L (3-11) Problem Qualifiers (1) UTI (urinary tract infection): Urinary tract infection type: acute cystitis Hematuria presence: with hematuria Qualified Codes: N30.01 - Acute cystitis with hematuria
[2017-02-28] MEDS: QUETIAPINE FUMARATE 25 MG TAB PO PRN ×2 (10:57→16:06)
[2017-02-28] MEDS: ACETAMINOPHEN 325 MG TAB PO PRN (15:51)
[2017-02-28] MEDS: QUETIAPINE FUMARATE 100 MG TAB PO SCH (21:26)
[2017-03-01 06:52] VITALS: BP_SYST 107; BP_SYST 99; BP_DIAS 63; PULSE 96; PULSE 99; TEMP 36.8
[2017-03-01] MEDS: LEVOTHYROXINE 88 MCG TAB PO SCH (08:30)
[2017-03-01] MEDS: PANTOprazole SOD 40 MG TAB PO SCH (08:47)
[2017-03-01] MEDS: MIRTAZAPINE TAB 15 MG TAB PO SCH ×3 (08:48→21:20)
[2017-03-01] MEDS: QUETIAPINE FUMARATE 25 MG TAB PO SCH ×2 (08:51→11:48)
[2017-03-01] MEDS: SIMVASTATIN 20 MG TAB PO SCH (08:52)
[2017-03-01] MEDS: CHOLECALCIFEROL 1000 INTER.UNIT TAB PO SCH ×3 (08:52→21:20)
[2017-03-01] MEDS: hydrOXYzine HCL 25 MG TAB PO PRN ×2 (08:56→16:07)
--- NOTE | 2017-03-01 13:49 | Psychiatric Progress Notes ---
Progress Note Date of Service Mar 01, 2017. Interval History Shanna Hutson is a 66-year-old female who currently lives in [place] with her , has an unknown psychiatric history for which she sees Dr. Bashir, and presented with command auditory hallucinations to kill herself. She was admitted on a 201 voluntary commitment. Patient is admitted from home, and was brought to the ED by the family. Chief Complaint "I don't feel good down there.". Subjective Patient was seen & assessed interval progress reviewed with Treatment Team. the patient is having another difficult day worrying about her multiple bodily sensations. She says that the sensations in her lower abd/genital area are "bad " today and she is constantly focused on them. She also says that she still perceives the furniture to be moving underneath her. She denies that the increase in Seroquel yesterday was helpful to her in any way, and still took 2 doses of prn seroquel. She denies having any SI. At night she says that when her eyes are closed she "sees people who are spinning.", but denies voices when no one is in the room. Her was in for a family meeting and I met with him briefly to address his medical concerns. Shanna thinks that the meeting went well and calls her "a great yue". Review of Systems Constitutional: No fever, No chills, No sweats, No weight loss, No weakness, No fatigue, No problem reported ENT: No hearing loss, No unusual epistaxis, No nasal symptoms, No sore throat, No tinnitus, No dental problems, No trouble swallowing, No problem reported Respiratory: No cough, No sputum, No wheezing, No shortness of breath, No dyspnea on exertion, No dyspnea at rest, No hemoptysis, No problem reported Cardiovascular: No chest pain, No orthopnea, No PND, No edema, No claudication , No palpitations, No problem reported Abdomen: + problem reported (complains of a moving sensation in lower abd/ genital area) Musculoskeletal: + problem reported (walks with stooped posture) Neurologic: No memory loss, No paralysis, No weakness, No numbness/tingling, No vertigo, No balance problems, No problem reported Psychiatric: + depression symptoms, + anxiety, + problem reported (tactile hallucinations) Integumentary: No rash, No itch, No new/changing skin lesions, No color change , No bleeding, No problem reported Sleep Information Total Hours of Sleep: 8.00 Meal Information Percent of Breakfast Consumed: 50 Percent of Lunch Consumed: 50 Percent of Dinner Consumed: 80 Mental Status Exam During interview pt is: cooperative Appearance: appropriately dressed, appropriately groomed, other (appears older than stated age, stands hunched over looking at the floor) Eye contact is: poor (but improved over last week, with brief moments of eye contact) Motor behavior is: steady gait & station, psychomotor agitation (can only sit for short periods, then getting up to move around) Speech: normal in rate, rhythm & volume Affect: mood congruent, depressed, flat, anxious Mood is: depressed, anxious Thought process: goal directed, concrete Thought content: preoccupation, delusions (? somatic) Suicidal thought are: denied Homicidal thoughts are: denied Hallucinations: tactile (of furniture moving and something in her body moving) Cognition: language grossly intact Intelligence estimated to be: consistent with level of education Insight: impaired Judgement: impaired Summary of Past History Records from her most recent PCP office visit were reviewed: She was seen Dr. Yolis Sanchez on 10/23/2016 for a routine exam. She reported worsening anxiety and depression, and her said her Ativan had been changed to Klonopin, and they were trying to discontinue Ambien. She complained of intermittent vaginal pain and pressure, and vaginal prolapse with suspected, so she was referred to [facility]. Her Synthroid had been adjusted in April, and she was due for a repeat TSH. 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 Records from her outpatient psychiatrist, Dr. Bashir, were reviewed. He has diagnosed her with schizoaffective disorder, depressive type, panic disorder without agoraphobia, and insomnia. Past medication trials include benztropine, clonazepam, lamotrigine, mirtazapine, zolpidem, alprazolam, diazepam, lorazepam , Lunesta, gabapentin, hydroxyzine, citalopram, olanzapine (prescribed 5 mg daily at bedtime on 02/08/2017, but has been on up to 15 mg at bedtime within the past year), and trazodone up to 200 mg daily at bedtime. She was last seen on 02/08/2017, and reported she was having a very bad day and wanted to be seen before the weekend, but it does not appear that any medication changes were made, and she was instructed to follow-up in one month. There is no list of current medications in the note. Prior to that, she was seen on 01/25/2017, and reported she was doing well. She was continued on Lamictal, clonazepam, and olanzapine 5 mg daily at bedtime. Records from her psychiatric admission to [facility] in [place] were reviewed: Patient was admitted there in February 2015 on transfer from the [facility] for ECT. She had been admitted to the [facility] for psychotic depression , and despite multiple medication changes, continued to be symptomatic. Her psychiatric condition have been worsening for about 6 months, and she was hearing voices that were swearing. Sleep and appetite were decreased, and she lost 30 pounds. At the time of admission to the [facility], she was on Celexa 40 mg daily, trazodone, Valium, Lunesta, and Seroquel. While there, she was tried on Xanax, Zyprexa, Luvox, oxazepam, mirtazapine, and olanzapine. She also had prior medication trials of paroxetine, clonazepam, lorazepam, and alprazolam. She had reportedly been on benzodiazepines for about 20 years. She received 8 ECT treatments, right unilateral, and was discharged from the hospital on 2014. She was diagnosed with recurrent major depression with psychosis and generalized anxiety disorder. Outpatient neurology records reviewed: Seen at [facility] in [place] by Dr. Estefani Sauceda on referral from her PCP. The initial assessment was performed 10/06/2014 for headache. She reported history of headaches for many years, worsening since the fall of 2013. She was a poor historian, and reported taking butalbital about 40 times a month. She was diagnosed with drug- induced parkinsonism, and recommendations with the perphenazine be tapered off, as she was taking 8 mg daily at bedtime. They recommended a brain MRI, which was apparently done when she was hospitalized, the results were reviewed, and there were no infarctions or lesions, but the actual results are not included in only summarized in the next progress note. She was started on Topamax, and followed up in November 2016. She reported she only taken 1 dose of the Topamax, and then felt short of breath so went to the emergency room, where she was tachycardic, so the medication was discontinued. She had been tapered off of the butalbital and perphenazine, and her headaches had improved. She had more facial expression was less bradykinetic, but was still bradyphrenic, and head was drooping downward laboratory and plain films of the C-spine were ordered to look for fracture and instability. They showed a grade 1 subluxation of C4 on C5 and a limited range of flexion/extension motion, degenerative disc base narrowing at C5 to 6, and straightening or reversal of the normal cervical lordosis. She was seen again in December 2014, and she continued to do better, had not had recent falls, and gait was improved, no longer needing a cane. She was having upset stomach, and had been taken off of a PPI and H2 josey due to side effects and polypharmacy. Her exam was unchanged, and there were no new recommendations she was seen July 2016 due to an abnormal sensation in her chest, abdomen, and pelvis, that she described as rolling. She had an MRI of the cervical and thoracic spine which showed cervical stenosis without abnormal signal. Exam revealed mild facial masking, increased reflexes in the upper extremities, and mildly brisk reflexes in the lower extremities. They could not determine a neurological cause for the sensations in her abdomen. They noted cervical stenosis, which was asymptomatic, but with brisk reflexes. They discussed signs and symptoms of cervical myelopathy, including change in gait, strength, and sensation, and recommended a cervical flexion and extension series to rule out instability. 02/27 MoCA performed, scoring 9/30 with deficits in most areas except naming. Medication Trials (1) Past Psych Medications lamotrigine Luvox mirtazapine citalopram paroxetine alprazolam diazepam lorazepam clonazepam oxazepam Lunesta zolpidem gabapentin hydroxyzine olanzapine quetiapine trazodone benztropine Perphenazine/amitriptyline-on 8/100 mg daily at bedtime in 2014 Last Edited By : Rebecca Hahn on Feb 26, 2017 11:35 Impression Remains focused on her pelvic/abdominal symptoms. Having multiple tactile hallucinations including the furniture under her moving up and down. Previous MRI of the brain done at another facility was without structural abnormalities. If her symptoms were limited to her lower abd sensations, then I might encourage her to accept a staffing executive exam here to rule out a prolapse, but since her symptoms extend beyond that, we will pursue this after discharge. Increase in Seroquel no effective, still requiring prns. I am concerned that Seroquel may not be potent enough to address her symptoms, but has had trials of zyprexa, risperdal in the past. Dr. Jacobs, geropsychiatrist, is electronics scale tester this weekend and will ask his opinion of current treatment plan. Plan (1) Schizoaffective disorder, depressive type - Continue home dose of lamotrigine 100 mg daily at bedtime, mirtazapine 30 mg daily at bedtime, and zolpidem 5 mg daily at bedtime when necessary for insomnia. - Patient reports that olanzapine 2.5 mg that she received last evening was helpful for the voices and for sleep, so will order this twice a day for now while obtaining records from her outpatient psychiatrist to clarify past medication trials. Will also order 2.5 mg every 8 hours when necessary psychosis. Reviewed risks, benefits, and side effects of the medication with the patient. Order fasting lipid profile and fasting glucose for tomorrow morning for monitoring on an atypical antipsychotic. - Get records from PCP regarding ? Parkinson's disease diagnosis, as she has Sinemet listed as a home medication. May need to consider a trial of quetiapine due to drug drug interactions with dopamine antagonists. - Encourage group attendance and participation. - Family meeting with . We'll review recommendations the guns be secured prior to discharge. 02/20 - Records reviewed from Dr. Bashir's office, and staff contacted to clarify current medications, as admission medication reconciliation was incorrect. - Fasting lipid profile and glucose for monitoring on an atypical antipsychotic were performed today and results reviewed, and were normal. 02/21 - Decrease zolpidem to 5 mg daily at bedtime, which is her home dose, due to concerns for drug drug interactions, cognitive impairment, falls, and other negative side effects. - Increase olanzapine to 2.5 mg in the morning and 7.5 mg at bedtime to target racing thoughts and tactile hallucinations, and continue clonazepam 0.5 mg 3 times a day prn anxiety, lamotrigine 100 mg daily qhs, and mirtazapine 30 mg daily qhs. On reviewing her past medications from Dr. Bashir's records, she has been on up to 20 mg of olanzapine daily in the past, and his notes do not indicate why the dose was decreased. 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 - Attempt to get collateral information from her : Baseline, mental health history (when she first became ill, how she had responded to treatment over time, and when psychosis started), recent medications (there is some concern that she may not have been getting the correct medications at home), and gynecological history (has she seen her [facility] recently, been diagnosed with a gynecological problem, and who is her out patient [facility]?) 02/22 - Start Remeron 3.75 mg. BID - Increase Zyprexa to 10 mg. HS, and continue prn 02/23 - Poor response to olanzapine, so we will switch to quetiapine, which she has shown some response to. Taper olanzapine over the next 2 days. Start quetiapine 100 mg at bedtime tonight, and titrated up over the next couple of days to 300 mg. I will also order 25 mg twice a day, and 50 mg when necessary. - Try lorazepam 0.5 mg every 4 hours when necessary anxiety in place of clonazepam, which the patient states has not been very effective. 02/24 - Continue cross taper from olanzapine to quetiapine. - Contact for collateral information. - I am concerned that there could be a neurological process involved, given the late age of onset and clinical symptoms of dementia, such as LBD. Discussed with neurology as she has been seen by Dr. Saldana in the past in [place]. 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 02/25 - Continue cross over from zyprexa to Seroquel 02/26 - Off olanzapine, and on quetiapine 25mg bid, 300mg qhs, and 50mg prn. Last prn was 02/24. Continue for now and consider increasing qhs dose. - Neuro records reviewed as above. 02/27 - MARY Perera due to concerns for cognitive impairment - Will obtain a MoCA for baseline 02/28 - MoCA 02/16 - Will DC all BZD - Increase Seroquel to 25-50-300 03/01 - Continue current meds for now (2) Anxiety 02/19 - Continue home dose of clonazepam 1 mg 3 times a day when necessary anxiety. 02/20 - Admission medication reconciliation was incorrect, and has been corrected to reflect home dose of clonazepam 0.5 mg 3 times a day when necessary. 02/28 - DC BZD - Use prn Seroquel (3) Hypothyroid - Get PCP records, as TSH is low and free T4 is elevated. Hold levothyroxine, and get records from PCP to determine if the dose has been adjusted recently as she is currently hyperthyroid. 02/20 - PCP records reviewed, per office staff her levothyroxine dose has not been adjusted since last April, and as she is over corrected on her current dose, we will decrease it to 88 g daily. This could be playing a role in her increased anxiety. She will need to follow-up with her PCP for ongoing monitoring. (4) UTI (urinary tract infection) - Complete one week course of Keflex started in the emergency room. (5) Vaginal pain 02/20 - patient continues to report pressure and pain in her pelvic area, and when she last saw her PCP, there was a concern for vaginal prolapse. As it is causing significant discomfort, and she cannot state if she ever followed up with her outpatient [facility], we will consult [facility] here, and greatly appreciate any recommendations. Continue Tylenol as needed for pain and discomfort. 02/21 - appreciate Dr. Spicer seeing the patient. Unfortunately, she regressed, and was unable to consent for an exam. She continues to report vaginal symptoms , and we will need to ensure follow-up with her outpatient [facility]. (6) Hyperlipidemia Continue home dose of simvastatin. (7) GERD (gastroesophageal reflux disease) Continue home medication. Discharge / Aftercare Planning Primary Care Physician: Name: Dr Madi Layton office Psychiatrist: Name: Dr. Bashir Therapist: Name: None Coin Machine Operator: Name: None Neurologist: Name: Young Saldana Visit Code E&M Code: 79243 Inventory Assets Strengths: Supportive , has psychiatrist, willing for treatment Risk Factors Assessment : Yes /single/: No Higher / Fall in social status: No Access to guns: Yes Health problems: Yes Mental Health Diagnoses: Yes Substance use disorders: No Previous attempt: No Family history of suicide: No Previous psychiatric stay: Yes Hopelessness: Yes Smoker: No Protective Factors Assessment Presybeterian beliefs: Yes : Yes Responsible for young children: No Employed: No Stable relationships: Yes Supportive family: Yes Good rapport with provider: Yes Data Vital Signs Last 24 Hrs: Date Time Temp Pulse Resp B/P (MAP) Pulse Ox O2 Delivery O2 Flow Rate FiO2 03/01/17 06:52 36.8 96 18 99/63 99 107/63 Meds Administered Last 24 Hrs: Meds Administered (Past 24Hrs) Medications (Trade) Dose Ordered Sig/Jeison Route Start Time Stop Time Status Last Admin Dose Admin Quetiapine Fumarate (seroQUEL TAB) 25 mg QAM PO 03/01/17 09:00 03/31/17 08:59 03/01/17 08:51 25 MG Quetiapine Fumarate (seroQUEL TAB) 50 mg DAILY@1200 PO 02/28/17 12:00 03/30/17 11:59 03/01/17 11:48 50 MG Lab Results Last 24 Hrs: 02/18/17 13:36 Red Blood Count 4.51, Mean Corpuscular Volume 95.1, Mean Corpuscular Hemoglobin 31.3, Mean Corpuscular Hemoglobin Concent 32.9, Mean Platelet Volume 10.2, Neutrophils (%) (Auto) 69.9, Lymphocytes (%) (Auto) 23.5, Monocytes (%) (Auto) 5.3, Eosinophils (%) (Auto) 0.8, Basophils (%) (Auto) 0.3, Neutrophils # (Auto) 4.58, Lymphocytes # (Auto) 1.54, Monocytes # (Auto) 0.35, Eosinophils # (Auto) 0.05, Basophils # (Auto) 0.02 02/18/17 13:36 02/23/17 08:33 Test 02/18/17 00:00 02/18/17 13:32 02/18/17 13:36 02/20/17 07:06 Urine Color YELLOW Urine Appearance CLOUDY (CLEAR) Urine pH 6.0 (4.5-7.5) Urine Specific [place] 1.014 (1.000-1.030) Urine Protein NEG (NEG) Urine Glucose (UA) NEG (NEG) Urine Ketones TRACE (NEG) Urine Occult Blood TRACE (NEG) Urine Nitrite NEG (NEG) Urine Bilirubin NEG (NEG) Urine Urobilinogen NEG (NEG) Urine Leukocyte Esterase LARGE (NEG) Urine WBC (Auto) >30 /hpf (0-5) Urine RBC (Auto) 5-10 /hpf (0-4) Urine Hyaline Casts (Auto) 1-5 /lpf (0-5) Urine Epithelial Cells (Auto) 0-5 /lpf (0-5) Urine Bacteria (Auto) 1+ (NEG) Urine Opiates Screen NEG (NEG) Urine Methadone, Qualitative NEG (NEG) Urine Barbiturates NEG (NEG) Urine Phencyclidine (PCP) Level NEG (NEG) Ur Amphetamine/Methamphetamine NEG (NEG) MDMA (Ecstasy) Screen NEG (NEG) Urine Benzodiazepines Screen NEG (NEG) Urine Cocaine Metabolite NEG (NEG) Urine Marijuana (THC) NEG (NEG) Bedside Glucose 82 mg/dl (70-90) White Blood Count 6.55 K/uL (4.8-10.8) Red Blood Count 4.51 M/uL (4.2-5.4) Hemoglobin 14.1 g/dL (12.0-16.0) Hematocrit 42.9 % (37-47) Mean Corpuscular Volume 95.1 fL (80-100) Mean Corpuscular Hemoglobin 31.3 pg (25-34) Mean Corpuscular Hemoglobin Concent 32.9 g/dl (32-36) Platelet Count 295 K/uL (130-400) Mean Platelet Volume 10.2 fL (7.4-10.4) Neutrophils (%) (Auto) 69.9 % Lymphocytes (%) (Auto) 23.5 % Monocytes (%) (Auto) 5.3 % Eosinophils (%) (Auto) 0.8 % Basophils (%) (Auto) 0.3 % Neutrophils # (Auto) 4.58 K/uL (1.4-6.5) Lymphocytes # (Auto) 1.54 K/uL (1.2-3.4) Monocytes # (Auto) 0.35 K/uL (0.11-0.59) Eosinophils # (Auto) 0.05 K/uL (0-0.5) Basophils # (Auto) 0.02 K/uL (0-0.2) RDW Standard Deviation 44.3 fL (36.4-46.3) RDW Coefficient of Variation 12.7 % (11.5-14.5) Immature Granulocyte % (Auto) 0.2 % Immature Granulocyte # (Auto) 0.01 K/uL (0.00-0.02) Est Creatinine Clear Calc Drug Dose 57.0 ml/min Estimated GFR () 84.6 Estimated GFR (Non- 73.0 BUN/Creatinine Ratio 9.3 (10-20) Calcium Level 10.9 mg/dl (8.5-10.1) Total Bilirubin 0.5 mg/dl (0.2-1) Direct Bilirubin 0.2 mg/dl (0-0.2) Aspartate Amino Transf (AST/SGOT) 18 U/L (15-37) Alanine Aminotransferase (ALT/SGPT) < 6 U/L (12-78) Alkaline Phosphatase 95 U/L (45-117) Total Protein 7.1 gm/dl (6.4-8.2) Albumin 3.9 gm/dl (3.4-5.0) Thyroid Stimulating Hormone (TSH) 0.168 uIu/ml (0.300-4.500) Free Thyroxine 1.84 ng/dl (0.80-1.60) Ethyl Alcohol mg/dL < 3.0 mg/dl (0-3) Fasting Glucose 92 mg/dl (70-99) Triglycerides Level 79 mg/dl (0-150) Cholesterol Level 133 mg/dl (0-200) HDL Cholesterol 56 mg/dl LDL Cholesterol, Calculated 61 mg/dl VLDL Cholesterol, Calculated 16 mg/dl Cholesterol/HDL Ratio 2.4 Test 02/23/17 08:33 Anion Gap 5.0 mmol/L (3-11) Problem Qualifiers (1) UTI (urinary tract infection): Urinary tract infection type: acute cystitis Hematuria presence: with hematuria Qualified Codes: N30.01 - Acute cystitis with hematuria
[2017-03-01] MEDS: QUETIAPINE FUMARATE 25 MG TAB PO PRN (17:04)
[2017-03-01] MEDS: QUETIAPINE FUMARATE 100 MG TAB PO SCH (21:20)
[2017-03-02 06:51] VITALS: BP_SYST 100; BP_SYST 95; BP_DIAS 57; BP_DIAS 61; PULSE 87; PULSE 96; TEMP 37
[2017-03-02] MEDS: LEVOTHYROXINE 88 MCG TAB PO SCH (07:55)
[2017-03-02] MEDS: MIRTAZAPINE TAB 15 MG TAB PO SCH ×3 (08:04→21:07)
[2017-03-02] MEDS: PANTOprazole SOD 40 MG TAB PO SCH (08:04)
[2017-03-02] MEDS: CHOLECALCIFEROL 1000 INTER.UNIT TAB PO SCH ×2 (08:06→13:36)
[2017-03-02] MEDS: hydrOXYzine HCL 25 MG TAB PO PRN ×2 (08:06→19:41)
[2017-03-02] MEDS: QUETIAPINE FUMARATE 25 MG TAB PO SCH ×2 (08:06→11:46)
[2017-03-02] MEDS: SIMVASTATIN 20 MG TAB PO SCH (08:06)
--- NOTE | 2017-03-02 11:03 | Psychiatric Progress Notes ---
Progress Note Date of Service Mar 02, 2017. Interval History Shanna Hutson is a 66-year-old female who currently lives in [place] with her , has an unknown psychiatric history for which she sees Dr. Bashir, and presented with command auditory hallucinations to kill herself. She was admitted on a 201 voluntary commitment. Patient is admitted from home, and was brought to the ED by the family. Chief Complaint "I guess it's a little better than it was". Subjective Patient was seen & assessed interval progress reviewed with Treatment Team. This is a complicated patient. Reviewed treatment course with nursing staff and hospital records were reviewed. She filled recent olanzapine retrial and appears she has previously been treated with up to 20 mg in the past. Appearing a little less anxious with upward titration of Seroquel but remains highly somatically preoccupied with complaints that sound likely psychotically driven. Ativan when necessary was recently discontinued in favor of the Seroquel. Sinemet has been discontinued. She does appear less nervous and she is able to appreciate some improvement in that regard. She does remain quite restless and has difficulty sitting still for the interview. She complains of nonspecific feelings throughout her body, primarily in her abdomen, suprapubic, and genital area which she describes as both sharpened all, like something is moving. She reports she experiences the same quality of pain in her head. The pain has not been as active today. She reports screeching noises in her head but denies auditory hallucinations the form of voices or command hallucinations which she had previously experienced. She describes her mood as "sort of depressed." She is oriented to the fact that she is in the hospital, has been here for about 2 weeks. Review of Systems Neurologic: + problem reported (denies dizziness) Psychiatric: + problem reported (somatic complaints persist) Sleep Information Total Hours of Sleep: 7.00 Meal Information Percent of Breakfast Consumed: 100 Percent of Lunch Consumed: 50 Percent of Dinner Consumed: 90 Mental Status Exam During interview pt is: cooperative Appearance: appropriately dressed, appropriately groomed, other (appears older than stated age, stands hunched over looking at the floor) Eye contact is: fair Motor behavior is: steady gait & station, psychomotor agitation (can only sit for short periods, then getting up to move around) Speech: normal in rate, rhythm & volume Affect: mood congruent, depressed, blunted, anxious Mood is: depressed, anxious Thought process: goal directed, concrete Thought content: preoccupation, delusions (? somatic) Suicidal thought are: denied Homicidal thoughts are: denied Hallucinations: tactile (of floor/furniture moving and something in her body moving) Cognition: language grossly intact Intelligence estimated to be: consistent with level of education Insight: impaired Judgement: impaired Summary of Past History Records from her most recent PCP office visit were reviewed: She was seen Dr. Yolis Sanchez on 10/23/2016 for a routine exam. She reported worsening anxiety and depression, and her said her Ativan had been changed to Klonopin, and they were trying to discontinue Ambien. She complained of intermittent vaginal pain and pressure, and vaginal prolapse with suspected, so she was referred to [facility]. Her Synthroid had been adjusted in April, and she was due for a repeat TSH. 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 Records from her outpatient psychiatrist, Dr. Bashir, were reviewed. He has diagnosed her with schizoaffective disorder, depressive type, panic disorder without agoraphobia, and insomnia. Past medication trials include benztropine, clonazepam, lamotrigine, mirtazapine, zolpidem, alprazolam, diazepam, lorazepam , Lunesta, gabapentin, hydroxyzine, citalopram, olanzapine (prescribed 5 mg daily at bedtime on 02/08/2017, but has been on up to 15 mg at bedtime within the past year), and trazodone up to 200 mg daily at bedtime. She was last seen on 02/08/2017, and reported she was having a very bad day and wanted to be seen before the weekend, but it does not appear that any medication changes were made, and she was instructed to follow-up in one month. There is no list of current medications in the note. Prior to that, she was seen on 01/25/2017, and reported she was doing well. She was continued on Lamictal, clonazepam, and olanzapine 5 mg daily at bedtime. Records from her psychiatric admission to [facility] in [place] were reviewed: Patient was admitted there in February 2015 on transfer from the [facility] for ECT. She had been admitted to the [facility] for psychotic depression , and despite multiple medication changes, continued to be symptomatic. Her psychiatric condition have been worsening for about 6 months, and she was hearing voices that were swearing. Sleep and appetite were decreased, and she lost 30 pounds. At the time of admission to the [facility], she was on Celexa 40 mg daily, trazodone, Valium, Lunesta, and Seroquel. While there, she was tried on Xanax, Zyprexa, Luvox, oxazepam, mirtazapine, and olanzapine. She also had prior medication trials of paroxetine, clonazepam, lorazepam, and alprazolam. She had reportedly been on benzodiazepines for about 20 years. She received 8 ECT treatments, right unilateral, and was discharged from the hospital on 2014. She was diagnosed with recurrent major depression with psychosis and generalized anxiety disorder. Outpatient neurology records reviewed: Seen at [facility] in [place] by Dr. Estefani Sauceda on referral from her PCP. The initial assessment was performed 10/06/2014 for headache. She reported history of headaches for many years, worsening since the fall of 2013. She was a poor historian, and reported taking butalbital about 40 times a month. She was diagnosed with drug- induced parkinsonism, and recommendations with the perphenazine be tapered off, as she was taking 8 mg daily at bedtime. They recommended a brain MRI, which was apparently done when she was hospitalized, the results were reviewed, and there were no infarctions or lesions, but the actual results are not included in only summarized in the next progress note. She was started on Topamax, and followed up in November 2016. She reported she only taken 1 dose of the Topamax, and then felt short of breath so went to the emergency room, where she was tachycardic, so the medication was discontinued. She had been tapered off of the butalbital and perphenazine, and her headaches had improved. She had more facial expression was less bradykinetic, but was still bradyphrenic, and head was drooping downward laboratory and plain films of the C-spine were ordered to look for fracture and instability. They showed a grade 1 subluxation of C4 on C5 and a limited range of flexion/extension motion, degenerative disc base narrowing at C5 to 6, and straightening or reversal of the normal cervical lordosis. She was seen again in December 2014, and she continued to do better, had not had recent falls, and gait was improved, no longer needing a cane. She was having upset stomach, and had been taken off of a PPI and H2 josey due to side effects and polypharmacy. Her exam was unchanged, and there were no new recommendations she was seen July 2016 due to an abnormal sensation in her chest, abdomen, and pelvis, that she described as rolling. She had an MRI of the cervical and thoracic spine which showed cervical stenosis without abnormal signal. Exam revealed mild facial masking, increased reflexes in the upper extremities, and mildly brisk reflexes in the lower extremities. They could not determine a neurological cause for the sensations in her abdomen. They noted cervical stenosis, which was asymptomatic, but with brisk reflexes. They discussed signs and symptoms of cervical myelopathy, including change in gait, strength, and sensation, and recommended a cervical flexion and extension series to rule out instability. 02/27 MoCA performed, scoring 9/30 with deficits in most areas except naming. Medication Trials (1) Past Psych Medications lamotrigine Luvox mirtazapine citalopram paroxetine alprazolam diazepam lorazepam clonazepam oxazepam Lunesta zolpidem gabapentin hydroxyzine olanzapine quetiapine trazodone benztropine Perphenazine/amitriptyline-on 8/100 mg daily at bedtime in 2014 Last Edited By : Rebecca Hahn on Feb 26, 2017 11:35 Plan (1) Schizoaffective disorder, depressive type - Continue home dose of lamotrigine 100 mg daily at bedtime, mirtazapine 30 mg daily at bedtime, and zolpidem 5 mg daily at bedtime when necessary for insomnia. - Patient reports that olanzapine 2.5 mg that she received last evening was helpful for the voices and for sleep, so will order this twice a day for now while obtaining records from her outpatient psychiatrist to clarify past medication trials. Will also order 2.5 mg every 8 hours when necessary psychosis. Reviewed risks, benefits, and side effects of the medication with the patient. Order fasting lipid profile and fasting glucose for tomorrow morning for monitoring on an atypical antipsychotic. - Get records from PCP regarding ? Parkinson's disease diagnosis, as she has Sinemet listed as a home medication. May need to consider a trial of quetiapine due to drug drug interactions with dopamine antagonists. - Encourage group attendance and participation. - Family meeting with . We'll review recommendations the guns be secured prior to discharge. 02/20 - Records reviewed from Dr. Bashir's office, and staff contacted to clarify current medications, as admission medication reconciliation was incorrect. - Fasting lipid profile and glucose for monitoring on an atypical antipsychotic were performed today and results reviewed, and were normal. 02/21 - Decrease zolpidem to 5 mg daily at bedtime, which is her home dose, due to concerns for drug drug interactions, cognitive impairment, falls, and other negative side effects. - Increase olanzapine to 2.5 mg in the morning and 7.5 mg at bedtime to target racing thoughts and tactile hallucinations, and continue clonazepam 0.5 mg 3 times a day prn anxiety, lamotrigine 100 mg daily qhs, and mirtazapine 30 mg daily qhs. On reviewing her past medications from Dr. Bashir's records, she has been on up to 20 mg of olanzapine daily in the past, and his notes do not indicate why the dose was decreased. 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 - Attempt to get collateral information from her : Baseline, mental health history (when she first became ill, how she had responded to treatment over time, and when psychosis started), recent medications (there is some concern that she may not have been getting the correct medications at home), and gynecological history (has she seen her BE[facility] recently, been diagnosed with a gynecological problem, and who is her out patient BEH[facility]IOR[facility] HEALTH PROFESSIONAL?) 02/22 - Start Remeron 3.75 mg. BID - Increase Zyprexa to 10 mg. HS, and continue prn 02/23 - Poor response to olanzapine, so we will switch to quetiapine, which she has shown some response to. Taper olanzapine over the next 2 days. Start quetiapine 100 mg at bedtime tonight, and titrated up over the next couple of days to 300 mg. I will also order 25 mg twice a day, and 50 mg when necessary. - Try lorazepam 0.5 mg every 4 hours when necessary anxiety in place of clonazepam, which the patient states has not been very effective. 02/24 - Continue cross taper from olanzapine to quetiapine. - Contact for collateral information. - I am concerned that there could be a neurological process involved, given the late age of onset and clinical symptoms of dementia, such as LBD. Discussed with neurology as she has been seen by Dr. Saldana in the past in [place]. 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 02/25 - Continue cross over from zyprexa to Seroquel 02/26 - Off olanzapine, and on quetiapine 25mg bid, 300mg qhs, and 50mg prn. Last prn was 02/24. Continue for now and consider increasing qhs dose. - Neuro records reviewed as above. 02/27 - DC Ambien due to concerns for cognitive impairment - Will obtain a MoCA for baseline 02/28 - MoCA 02/16 - Will DC all BZD - Increase Seroquel to 25-50-300 03/01 - Continue current meds for now 03/02 - Somatic symptoms and associated anxiety have been difficult to treat and possibly driven by underlying psychosis. Question underlying mood d/o as origin of psychosis. Parkinson's spectrum d/o felt to be unlikely root cause. She appears to be tolerating the Seroquel and further upward titration could be considered, however in the absence of significant bradykinesia, a retrial of a more potent D2 josey at low dose in combination with the Seroquel may be of quicker benefit, such as adding low dose Risperdal. Unfortunately she is already akathetic and this may get worse with that type of intervention which may also further decompensate or anxiety. We could also consider a clozapine trial as an alternative to the Seroquel if she fails to respond adequately which would be lower risk for exacerbating parkinsonism. Secondary to history of depression responsive to ECT which suggests possible benefit from more aggressive antidepressant tx, will first attempt to utilize an snri, Cymbalta 30 mg daily to start with plan to titrate as tolerated, chosen for therapeutic effect regarding potential neuropathic component of her somatic complaints and is noradrenergic at low doses. If this intervention fails, a retrial of gabapentin or Lyrica may also be considered. Will watch for s/o serotonin excess in combination with Remeron. (2) Anxiety 02/19 - Continue home dose of clonazepam 1 mg 3 times a day when necessary anxiety. 02/20 - Admission medication reconciliation was incorrect, and has been corrected to reflect home dose of clonazepam 0.5 mg 3 times a day when necessary. 02/28 - DC BZD - Use prn Seroquel 03/02 - We'll need to watch for rebound anxiety or increased restlessness off of the benzodiazepine. So far she appears to be tolerating adequately. (3) Hypothyroid - Get PCP records, as TSH is low and free T4 is elevated. Hold levothyroxine, and get records from PCP to determine if the dose has been adjusted recently as she is currently hyperthyroid. 02/20 - PCP records reviewed, per office staff her levothyroxine dose has not been adjusted since last April, and as she is over corrected on her current dose, we will decrease it to 88 g daily. This could be playing a role in her increased anxiety. She will need to follow-up with her PCP for ongoing monitoring. (4) UTI (urinary tract infection) - Complete one week course of Keflex started in the emergency room. (5) Vaginal pain 02/20 - patient continues to report pressure and pain in her pelvic area, and when she last saw her PCP, there was a concern for vaginal prolapse. As it is causing significant discomfort, and she cannot state if she ever followed up with her outpatient [facility], we will consult BEH[facility]IOR[facility] HEALTH PROFESSION[facility] here, and greatly appreciate any recommendations. Continue Tylenol as needed for pain and discomfort. 02/21 - appreciate Dr. Spicer seeing the patient. Unfortunately, she regressed, and was unable to consent for an exam. She continues to report vaginal symptoms , and we will need to ensure follow-up with her outpatient [facility]. (6) Hyperlipidemia Continue home dose of simvastatin. (7) GERD (gastroesophageal reflux disease) Continue home medication. Discharge / Aftercare Planning Primary Care Physician: Name: Dr Madi Layton office Psychiatrist: Name: Dr. Bashir Therapist: Name: None Service Sprinkler Helper: Name: None Neurologist: Name: Young Saldana Visit Code E&M Code: 44844 Inventory Assets Strengths: Supportive , has psychiatrist, willing for treatment Risk Factors Assessment : Yes /single/: No Higher / Fall in social status: No Access to guns: Yes Health problems: Yes Mental Health Diagnoses: Yes Substance use disorders: No Previous attempt: No Family history of suicide: No Previous psychiatric stay: Yes Hopelessness: Yes Smoker: No Protective Factors Assessment Sabianist beliefs: Yes : Yes Responsible for young children: No Employed: No Stable relationships: Yes Supportive family: Yes Good rapport with provider: Yes Data Vital Signs Last 24 Hrs: Date Time Temp Pulse Resp B/P (MAP) Pulse Ox O2 Delivery O2 Flow Rate FiO2 03/02/17 06:51 37.0 87 16 95/61 96 100/57 Meds Administered Last 24 Hrs: Meds Administered (Past 24Hrs) Medications (Trade) Dose Ordered Sig/Jeison Route Start Time Stop Time Status Last Admin Dose Admin Quetiapine Fumarate (seroQUEL TAB) 25 mg QAM PO 03/01/17 09:00 03/31/17 08:59 03/02/17 08:06 25 MG Quetiapine Fumarate (seroQUEL TAB) 50 mg DAILY@1200 PO 02/28/17 12:00 03/30/17 11:59 03/01/17 11:48 50 MG Problem Qualifiers (1) UTI (urinary tract infection): Urinary tract infection type: acute cystitis Hematuria presence: with hematuria Qualified Codes: N30.01 - Acute cystitis with hematuria
[2017-03-02] MEDS: QUETIAPINE FUMARATE 25 MG TAB PO PRN (16:17)
[2017-03-02] MEDS ORDERED: DULOXETINE (CYMBALTA) 30 MG CAP PO ONE (17:00)
[2017-03-02 19:39] VITALS: BP 130/72; PULSE 87
[2017-03-02] MEDS: QUETIAPINE FUMARATE 100 MG TAB PO SCH (21:07)
[2017-03-03 07:01] VITALS: BP_SYST 105; BP_SYST 112; BP_DIAS 65; BP_DIAS 70; PULSE 93; PULSE 98; TEMP 37.1
[2017-03-03] MEDS: PANTOprazole SOD 40 MG TAB PO SCH (08:49)
[2017-03-03] MEDS: LEVOTHYROXINE 88 MCG TAB PO SCH (08:49)
[2017-03-03] MEDS: DULOXETINE (CYMBALTA) 30 MG CAP PO SCH (08:49)
[2017-03-03] MEDS: MIRTAZAPINE TAB 15 MG TAB PO SCH ×3 (08:51→21:33)
[2017-03-03] MEDS: SIMVASTATIN 20 MG TAB PO SCH (08:51)
[2017-03-03] MEDS: QUETIAPINE FUMARATE 25 MG TAB PO SCH ×2 (08:51→12:13)
--- NOTE | 2017-03-03 12:20 | Psychiatric Progress Notes ---
Progress Note Date of Service Mar 03, 2017. Interval History Shanna Hutson is a 66-year-old female who currently lives in [place] with her , has an unknown psychiatric history for which she sees Dr. Bashir, and presented with command auditory hallucinations to kill herself. She was admitted on a 201 voluntary commitment. Patient is admitted from home, and was brought to the ED by the family. Chief Complaint "I think I feel a little better today". Subjective Patient was seen & assessed interval progress reviewed with Treatment Team. Per staff, no acute events overnight. Patient signed a release for Dr. Van from neurology and records are being pursued. Yesterday, after discussion with nursing staff, considered possibility that high dose vitamin D supplementation may be contributing to some of her restless complaints and it was discontinued. Vitamin D level was checked and found to be well within the normal range at 68.7. This morning on interview, the patient reports feeling a little less restless and a little less anxious. She denies feeling more lightheaded. She acknowledges that her mood is slowly improving here. Review of Systems Denies feeling more lightheaded or dizzy. Denies increased tremor Sleep Information Total Hours of Sleep: 7.00 Meal Information Percent of Breakfast Consumed: 75 Percent of Lunch Consumed: 100 Percent of Dinner Consumed: 50 Mental Status Exam During interview pt is: cooperative Appearance: appropriately dressed, appropriately groomed Eye contact is: fair Motor behavior is: steady gait & station, psychomotor agitation (psychomotor restlessness less evident this morning however she was interviewed following a period of exercise) Speech: normal in rate, rhythm & volume Affect: depressed, anxious Mood is: other (maybe a little better) Thought process: goal directed, concrete Thought content: preoccupation, delusions (? somatic) Suicidal thought are: denied Homicidal thoughts are: denied Hallucinations: tactile (of floor/furniture moving and something in her body moving) Cognition: language grossly intact Intelligence estimated to be: consistent with level of education Insight: impaired Judgement: impaired Summary of Past History Records from her most recent PCP office visit were reviewed: She was seen Dr. Yolis Sanchez on 10/23/2016 for a routine exam. She reported worsening anxiety and depression, and her said her Ativan had been changed to Klonopin, and they were trying to discontinue Ambien. She complained of intermittent vaginal pain and pressure, and vaginal prolapse with suspected, so she was referred to [facility]. Her Synthroid had been adjusted in April, and she was due for a repeat TSH. 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 Records from her outpatient psychiatrist, Dr. Bashir, were reviewed. He has diagnosed her with schizoaffective disorder, depressive type, panic disorder without agoraphobia, and insomnia. Past medication trials include benztropine, clonazepam, lamotrigine, mirtazapine, zolpidem, alprazolam, diazepam, lorazepam , Lunesta, gabapentin, hydroxyzine, citalopram, olanzapine (prescribed 5 mg daily at bedtime on 02/08/2017, but has been on up to 15 mg at bedtime within the past year), and trazodone up to 200 mg daily at bedtime. She was last seen on 02/08/2017, and reported she was having a very bad day and wanted to be seen before the weekend, but it does not appear that any medication changes were made, and she was instructed to follow-up in one month. There is no list of current medications in the note. Prior to that, she was seen on 01/25/2017, and reported she was doing well. She was continued on Lamictal, clonazepam, and olanzapine 5 mg daily at bedtime. Records from her psychiatric admission to [facility] in [place] were reviewed: Patient was admitted there in February [address] the [facility] for ECT. She had been admitted to the [facility] for psychotic depression , and despite multiple medication changes, continued to be symptomatic. Her psychiatric condition have been worsening for about 6 months, and she was hearing voices that were swearing. Sleep and appetite were decreased, and she lost 30 pounds. At the time of admission to the [facility], she was on Celexa 40 mg daily, trazodone, Valium, Lunesta, and Seroquel. While there, she was tried on Xanax, Zyprexa, Luvox, oxazepam, mirtazapine, and olanzapine. She also had prior medication trials of paroxetine, clonazepam, lorazepam, and alprazolam. She had reportedly been on benzodiazepines for about 20 years. She received 8 ECT treatments, right unilateral, and was discharged from the hospital on 2014. She was diagnosed with recurrent major depression with psychosis and generalized anxiety disorder. Outpatient neurology records reviewed: Seen at [facility] in [place] by Dr. Estefani Sauceda on referral from her PCP. The initial assessment was performed 10/06/2014 for headache. She reported history of headaches for many years, worsening since the fall of 2013. She was a poor historian, and reported taking butalbital about 40 times a month. She was diagnosed with drug- induced parkinsonism, and recommendations with the perphenazine be tapered off, as she was taking 8 mg daily at bedtime. They recommended a brain MRI, which was apparently done when she was hospitalized, the results were reviewed, and there were no infarctions or lesions, but the actual results are not included in only summarized in the next progress note. She was started on Topamax, and followed up in November 2016. She reported she only taken 1 dose of the Topamax, and then felt short of breath so went to the emergency room, where she was tachycardic, so the medication was discontinued. She had been tapered off of the butalbital and perphenazine, and her headaches had improved. She had more facial expression was less bradykinetic, but was still bradyphrenic, and head was drooping downward laboratory and plain films of the C-spine were ordered to look for fracture and instability. They showed a grade 1 subluxation of C4 on C5 and a limited range of flexion/extension motion, degenerative disc base narrowing at C5 to 6, and straightening or reversal of the normal cervical lordosis. She was seen again in December 2014, and she continued to do better, had not had recent falls, and gait was improved, no longer needing a cane. She was having upset stomach, and had been taken off of a PPI and H2 josey due to side effects and polypharmacy. Her exam was unchanged, and there were no new recommendations she was seen July 2016 due to an abnormal sensation in her chest, abdomen, and pelvis, that she described as rolling. She had an MRI of the cervical and thoracic spine which showed cervical stenosis without abnormal signal. Exam revealed mild facial masking, increased reflexes in the upper extremities, and mildly brisk reflexes in the lower extremities. They could not determine a neurological cause for the sensations in her abdomen. They noted cervical stenosis, which was asymptomatic, but with brisk reflexes. They discussed signs and symptoms of cervical myelopathy, including change in gait, strength, and sensation, and recommended a cervical flexion and extension series to rule out instability. 02/27 MoCA performed, scoring 9/30 with deficits in most areas except naming. Medication Trials (1) Past Psych Medications lamotrigine Luvox mirtazapine citalopram paroxetine alprazolam diazepam lorazepam clonazepam oxazepam Lunesta zolpidem gabapentin hydroxyzine olanzapine quetiapine trazodone benztropine Perphenazine/amitriptyline-on 8/100 mg daily at bedtime in 2014 Last Edited By : Rebecca Hahn on Feb 26, 2017 11:35 Plan (1) Schizoaffective disorder, depressive type - Continue home dose of lamotrigine 100 mg daily at bedtime, mirtazapine 30 mg daily at bedtime, and zolpidem 5 mg daily at bedtime when necessary for insomnia. - Patient reports that olanzapine 2.5 mg that she received last evening was helpful for the voices and for sleep, so will order this twice a day for now while obtaining records from her outpatient psychiatrist to clarify past medication trials. Will also order 2.5 mg every 8 hours when necessary psychosis. Reviewed risks, benefits, and side effects of the medication with the patient. Order fasting lipid profile and fasting glucose for tomorrow morning for monitoring on an atypical antipsychotic. - Get records from PCP regarding ? Parkinson's disease diagnosis, as she has Sinemet listed as a home medication. May need to consider a trial of quetiapine due to drug drug interactions with dopamine antagonists. - Encourage group attendance and participation. - Family meeting with . We'll review recommendations the guns be secured prior to discharge. 02/20 - Records reviewed from Dr. Bashir's office, and staff contacted to clarify current medications, as admission medication reconciliation was incorrect. - Fasting lipid profile and glucose for monitoring on an atypical antipsychotic were performed today and results reviewed, and were normal. 02/21 - Decrease zolpidem to 5 mg daily at bedtime, which is her home dose, due to concerns for drug drug interactions, cognitive impairment, falls, and other negative side effects. - Increase olanzapine to 2.5 mg in the morning and 7.5 mg at bedtime to target racing thoughts and tactile hallucinations, and continue clonazepam 0.5 mg 3 times a day prn anxiety, lamotrigine 100 mg daily qhs, and mirtazapine 30 mg daily qhs. On reviewing her past medications from Dr. Bashir's records, she has been on up to 20 mg of olanzapine daily in the past, and his notes do not indicate why the dose was decreased. 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 - Attempt to get collateral information from her : Baseline, mental health history (when she first became ill, how she had responded to treatment over time, and when psychosis started), recent medications (there is some concern that she may not have been getting the correct medications at home), and gynecological history (has she seen her [facility]ULT [facility] CLINICAL NURSE SPECIALIST recently, been diagnosed with a gynecological problem, and who is her out patient ADULT HEALTH CLINICAL NURSE SPECIALIST?) 02/22 - Start Remeron 3.75 mg. BID - Increase Zyprexa to 10 mg. HS, and continue prn 02/23 - Poor response to olanzapine, so we will switch to quetiapine, which she has shown some response to. Taper olanzapine over the next 2 days. Start quetiapine 100 mg at bedtime tonight, and titrated up over the next couple of days to 300 mg. I will also order 25 mg twice a day, and 50 mg when necessary. - Try lorazepam 0.5 mg every 4 hours when necessary anxiety in place of clonazepam, which the patient states has not been very effective. 02/24 - Continue cross taper from olanzapine to quetiapine. - Contact for collateral information. - I am concerned that there could be a neurological process involved, given the late age of onset and clinical symptoms of dementia, such as LBD. Discussed with neurology as she has been seen by Dr. Saldana in the past in [place]. 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 02/25 - Continue cross over from zyprexa to Seroquel 02/26 - Off olanzapine, and on quetiapine 25mg bid, 300mg qhs, and 50mg prn. Last prn was 02/24. Continue for now and consider increasing qhs dose. - Neuro records reviewed as above. 02/27 - DC Ambien due to concerns for cognitive impairment - Will obtain a MoCA for baseline 02/28 - MoCA 02/16 - Will DC all BZD - Increase Seroquel to 25-50-300 03/01 - Continue current meds for now 03/02 - Somatic symptoms and associated anxiety have been difficult to treat and possibly driven by underlying psychosis. Question underlying mood d/o as origin of psychosis. Parkinson's spectrum d/o felt to be unlikely root cause. She appears to be tolerating the Seroquel and further upward titration could be considered, however in the absence of significant bradykinesia, a retrial of a more potent D2 josey at low dose in combination with the Seroquel may be of quicker benefit, such as adding low dose Risperdal. Unfortunately she is already akathetic and this may get worse with that type of intervention which may also further decompensate or anxiety. We could also consider a clozapine trial as an alternative to the Seroquel if she fails to respond adequately which would be lower risk for exacerbating parkinsonism. Secondary to history of depression responsive to ECT which suggests possible benefit from more aggressive antidepressant tx, will first attempt to utilize an snri, Cymbalta 30 mg daily to start with plan to titrate as tolerated, chosen for therapeutic effect regarding potential neuropathic component of her somatic complaints and is noradrenergic at low doses. If this intervention fails, a retrial of gabapentin or Lyrica may also be considered. Will watch for s/o serotonin excess in combination with Remeron. 03/03 - Appears to be tolerating the Cymbalta adequately so far and describing a little interval improvement in anxiety and restlessness. We'll defer further medication changes today and watch. (2) Anxiety 02/19 - Continue home dose of clonazepam 1 mg 3 times a day when necessary anxiety. 02/20 - Admission medication reconciliation was incorrect, and has been corrected to reflect home dose of clonazepam 0.5 mg 3 times a day when necessary. 02/28 - DC BZD - Use prn Seroquel 03/02 - We'll need to watch for rebound anxiety or increased restlessness off of the benzodiazepine. So far she appears to be tolerating adequately. (3) Hypothyroid - Get PCP records, as TSH is low and free T4 is elevated. Hold levothyroxine, and get records from PCP to determine if the dose has been adjusted recently as she is currently hyperthyroid. 02/20 - PCP records reviewed, per office staff her levothyroxine dose has not been adjusted since last April, and as she is over corrected on her current dose, we will decrease it to 88 g daily. This could be playing a role in her increased anxiety. She will need to follow-up with her PCP for ongoing monitoring. (4) UTI (urinary tract infection) - Complete one week course of Keflex started in the emergency room. (5) Vaginal pain 02/20 - patient continues to report pressure and pain in her pelvic area, and when she last saw her PCP, there was a concern for vaginal prolapse. As it is causing significant discomfort, and she cannot state if she ever followed up with her outpatient [facility]INICAL NURSE SPECIALIST, we will consult ADULT HEALTH CLINICAL NURSE SPECIALIST here, and greatly appreciate any recommendations. Continue Tylenol as needed for pain and discomfort. 02/21 - appreciate Dr. Spicer seeing the patient. Unfortunately, she regressed, and was unable to consent for an exam. She continues to report vaginal symptoms , and we will need to ensure follow-up with her outpatient [facility] HE[facility] CLINICAL NURSE SPECIALIST. (6) Hyperlipidemia Continue home dose of simvastatin. (7) GERD (gastroesophageal reflux disease) Continue home medication. Discharge / Aftercare Planning Primary Care Physician: Name: Dr Madi Vidal [place] office Psychiatrist: Name: Dr. Bashir Therapist: Name: None Project Management Professional: Name: None Neurologist: Name: Young Saldana Visit Code E&M Code: 12113 Inventory Assets Strengths: Supportive , has psychiatrist, willing for treatment Risk Factors Assessment : Yes /single/: No Higher / Fall in social status: No Access to guns: Yes Health problems: Yes Mental Health Diagnoses: Yes Substance use disorders: No Previous attempt: No Family history of suicide: No Previous psychiatric stay: Yes Hopelessness: Yes Smoker: No Protective Factors Assessment Muslim beliefs: Yes : Yes Responsible for young children: No Employed: No Stable relationships: Yes Supportive family: Yes Good rapport with provider: Yes Data Vital Signs Last 24 Hrs: Date Time Temp Pulse Resp B/P (MAP) Pulse Ox O2 Delivery O2 Flow Rate FiO2 03/03/17 07:01 37.1 93 16 112/70 98 105/65 03/02/17 19:39 87 18 130/72 Meds Administered Last 24 Hrs: Meds Administered (Past 24Hrs) Medications (Trade) Dose Ordered Sig/Jeison Route Start Time Stop Time Status Last Admin Dose Admin Duloxetine HCl (Cymbalta Cap) 30 mg QAM PO 03/03/17 09:00 04/02/17 08:59 03/03/17 08:49 30 MG Duloxetine HCl (Cymbalta Cap) 30 mg 1700 ONCE PO 03/02/17 17:00 03/02/17 17:01 DC 03/02/17 16:33 30 MG Lab Results Last 24 Hrs: Last 24 Hours Test 03/02/17 16:58 25-Hydroxy Vitamin D Total 68.7 ng/ml Problem Qualifiers (1) UTI (urinary tract infection): Urinary tract infection type: acute cystitis Hematuria presence: with hematuria Qualified Codes: N30.01 - Acute cystitis with hematuria
[2017-03-03] MEDS: hydrOXYzine HCL 25 MG TAB PO PRN (21:03)
[2017-03-03] MEDS: QUETIAPINE FUMARATE 100 MG TAB PO SCH (21:34)
[2017-03-04 06:22] VITALS: BP_SYST 124; BP_SYST 96; BP_DIAS 65; BP_DIAS 75; PULSE 80; PULSE 87; TEMP 36.8
[2017-03-04] MEDS: LEVOTHYROXINE 88 MCG TAB PO SCH (08:13)
[2017-03-04] MEDS: SIMVASTATIN 20 MG TAB PO SCH (08:46)
[2017-03-04] MEDS: DULOXETINE (CYMBALTA) 30 MG CAP PO SCH (08:46)
[2017-03-04] MEDS: PANTOprazole SOD 40 MG TAB PO SCH (08:46)
[2017-03-04] MEDS: QUETIAPINE FUMARATE 25 MG TAB PO SCH ×2 (08:46→12:16)
[2017-03-04] MEDS: MIRTAZAPINE TAB 15 MG TAB PO SCH ×3 (08:46→21:41)
--- NOTE | 2017-03-04 10:23 | Psychiatric Progress Notes ---
Progress Note Date of Service Mar 04, 2017. Interval History Shanna Hutson is a 66-year-old female who currently lives in [place] with her , has an unknown psychiatric history for which she sees Dr. Bashir, and presented with command auditory hallucinations to kill herself. She was admitted on a 201 voluntary commitment. Patient is admitted from home, and was brought to the ED by the family. Chief Complaint "OK". Subjective Patient was seen & assessed interval progress reviewed with Treatment Team. The patient says that she is having a good day so far today. She denies experiences that moving sensations in her abd. She slept well although woke early today agian, but NOT because of the bodily sensations. She had visitors last evening, her and brother. She agreed that her brother thought she looked better than when he last saw her several months ago. She denies any side effects to the cymbalta started over the weekend. She moves her legs frequently during the interview, but denies that she is experiencing pain or restlessness. She believes that she might feel ready to go home in the next several days. Review of Systems Constitutional: No fever, No chills, No sweats, No weight loss, No weakness, No fatigue, No problem reported ENT: No hearing loss, No unusual epistaxis, No nasal symptoms, No sore throat, No tinnitus, No dental problems, No trouble swallowing, No problem reported Respiratory: No cough, No sputum, No wheezing, No shortness of breath, No dyspnea on exertion, No dyspnea at rest, No hemoptysis, No problem reported Cardiovascular: No chest pain, No orthopnea, No PND, No edema, No claudication , No palpitations, No problem reported Abdomen: No pain, No nausea, No vomiting, No diarrhea, No constipation, No GI bleeding, No problem reported Musculoskeletal: No joint pain, No muscle pain, No swelling, No calf pain, No problem reported Neurologic: No memory loss, No paralysis, No weakness, No numbness/tingling, No vertigo, No balance problems, No problem reported Psychiatric: + anxiety (improved today) Integumentary: No rash, No itch, No new/changing skin lesions, No color change , No bleeding, No problem reported Sleep Information Total Hours of Sleep: 6.75 Meal Information Percent of Breakfast Consumed: 100 Percent of Lunch Consumed: 100 Percent of Dinner Consumed: 100 Mental Status Exam During interview pt is: cooperative Appearance: appropriately dressed, appropriately groomed Eye contact is: fair Motor behavior is: steady gait & station, psychomotor agitation (psychomotor restlessness less evident this morning however she was interviewed following a period of exercise) Speech: normal in rate, rhythm & volume Affect: depressed, anxious Mood is: other ("OK") Thought process: goal directed, concrete Thought content: preoccupation, delusions (? somatic) Suicidal thought are: denied Homicidal thoughts are: denied Hallucinations: tactile (of floor/furniture moving and something in her body moving) Cognition: language grossly intact Intelligence estimated to be: consistent with level of education Insight: impaired Judgement: impaired Summary of Past History Records from her most recent PCP office visit were reviewed: She was seen Dr. Yolis Sanchez on 10/23/2016 for a routine exam. She reported worsening anxiety and depression, and her said her Ativan had been changed to Klonopin, and they were trying to discontinue Ambien. She complained of intermittent vaginal pain and pressure, and vaginal prolapse with suspected, so she was referred to LEARNING ADMINISTRATOR. Her Synthroid had been adjusted in April, and she was due for a repeat TSH. 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 Records from her outpatient psychiatrist, Dr. Bashir, were reviewed. He has diagnosed her with schizoaffective disorder, depressive type, panic disorder without agoraphobia, and insomnia. Past medication trials include benztropine, clonazepam, lamotrigine, mirtazapine, zolpidem, alprazolam, diazepam, lorazepam , Lunesta, gabapentin, hydroxyzine, citalopram, olanzapine (prescribed 5 mg daily at bedtime on 02/08/2017, but has been on up to 15 mg at bedtime within the past year), and trazodone up to 200 mg daily at bedtime. She was last seen on 02/08/2017, and reported she was having a very bad day and wanted to be seen before the weekend, but it does not appear that any medication changes were made, and she was instructed to follow-up in one month. There is no list of current medications in the note. Prior to that, she was seen on 01/25/2017, and reported she was doing well. She was continued on Lamictal, clonazepam, and olanzapine 5 mg daily at bedtime. Records from her psychiatric admission to [facility] in [place] were reviewed: Patient was admitted there in February 2015 on transfer from [facility] for ECT. She had been admitted to the [facility] for psychotic depression , and despite multiple medication changes, continued to be symptomatic. Her psychiatric condition have been worsening for about 6 months, and she was hearing voices that were swearing. Sleep and appetite were decreased, and she lost 30 pounds. At the time of admission to the [facility], she was on Celexa 40 mg daily, trazodone, Valium, Lunesta, and Seroquel. While there, she was tried on Xanax, Zyprexa, Luvox, oxazepam, mirtazapine, and olanzapine. She also had prior medication trials of paroxetine, clonazepam, lorazepam, and alprazolam. She had reportedly been on benzodiazepines for about 20 years. She received 8 ECT treatments, right unilateral, and was discharged from the hospital on 2014. She was diagnosed with recurrent major depression with psychosis and generalized anxiety disorder. Outpatient neurology records reviewed: Seen at [facility] in [place] by Dr. Estefani Sauceda on referral from her PCP. The initial assessment was performed 10/06/2014 for headache. She reported history of headaches for many years, worsening since the fall of 2013. She was a poor historian, and reported taking butalbital about 40 times a month. She was diagnosed with drug- induced parkinsonism, and recommendations with the perphenazine be tapered off, as she was taking 8 mg daily at bedtime. They recommended a brain MRI, which was apparently done when she was hospitalized, the results were reviewed, and there were no infarctions or lesions, but the actual results are not included in only summarized in the next progress note. She was started on Topamax, and followed up in November 2016. She reported she only taken 1 dose of the Topamax, and then felt short of breath so went to the emergency room, where she was tachycardic, so the medication was discontinued. She had been tapered off of the butalbital and perphenazine, and her headaches had improved. She had more facial expression was less bradykinetic, but was still bradyphrenic, and head was drooping downward laboratory and plain films of the C-spine were ordered to look for fracture and instability. They showed a grade 1 subluxation of C4 on C5 and a limited range of flexion/extension motion, degenerative disc base narrowing at C5 to 6, and straightening or reversal of the normal cervical lordosis. She was seen again in December 2014, and she continued to do better, had not had recent falls, and gait was improved, no longer needing a cane. She was having upset stomach, and had been taken off of a PPI and H2 josey due to side effects and polypharmacy. Her exam was unchanged, and there were no new recommendations she was seen July 2016 due to an abnormal sensation in her chest, abdomen, and pelvis, that she described as rolling. She had an MRI of the cervical and thoracic spine which showed cervical stenosis without abnormal signal. Exam revealed mild facial masking, increased reflexes in the upper extremities, and mildly brisk reflexes in the lower extremities. They could not determine a neurological cause for the sensations in her abdomen. They noted cervical stenosis, which was asymptomatic, but with brisk reflexes. They discussed signs and symptoms of cervical myelopathy, including change in gait, strength, and sensation, and recommended a cervical flexion and extension series to rule out instability. 02/27 MoCA performed, scoring 9/30 with deficits in most areas except naming. Medication Trials (1) Past Psych Medications lamotrigine Luvox mirtazapine citalopram paroxetine alprazolam diazepam lorazepam clonazepam oxazepam Lunesta zolpidem gabapentin hydroxyzine olanzapine quetiapine trazodone benztropine Perphenazine/amitriptyline-on 8/100 mg daily at bedtime in 2014 Last Edited By : Rebecca Hahn on Feb 26, 2017 11:35 Impression Having a good day so far today. Cymbalta ordered over the weekend, and has had 2 doses. If tolerated will increase to 60 mg. in the next day or two. Dr. Jacobs has suggested considering a trial of neurontin or lyrica if cymbalta ineffective to target possible neuropathic origins to sensations. Today she looks better so will continue with meds as they are. Plan (1) Schizoaffective disorder, depressive type - Continue home dose of lamotrigine 100 mg daily at bedtime, mirtazapine 30 mg daily at bedtime, and zolpidem 5 mg daily at bedtime when necessary for insomnia. - Patient reports that olanzapine 2.5 mg that she received last evening was helpful for the voices and for sleep, so will order this twice a day for now while obtaining records from her outpatient psychiatrist to clarify past medication trials. Will also order 2.5 mg every 8 hours when necessary psychosis. Reviewed risks, benefits, and side effects of the medication with the patient. Order fasting lipid profile and fasting glucose for tomorrow morning for monitoring on an atypical antipsychotic. - Get records from PCP regarding ? Parkinson's disease diagnosis, as she has Sinemet listed as a home medication. May need to consider a trial of quetiapine due to drug drug interactions with dopamine antagonists. - Encourage group attendance and participation. - Family meeting with . We'll review recommendations the guns be secured prior to discharge. 02/20 - Records reviewed from Dr. Bashir's office, and staff contacted to clarify current medications, as admission medication reconciliation was incorrect. - Fasting lipid profile and glucose for monitoring on an atypical antipsychotic were performed today and results reviewed, and were normal. 02/21 - Decrease zolpidem to 5 mg daily at bedtime, which is her home dose, due to concerns for drug drug interactions, cognitive impairment, falls, and other negative side effects. - Increase olanzapine to 2.5 mg in the morning and 7.5 mg at bedtime to target racing thoughts and tactile hallucinations, and continue clonazepam 0.5 mg 3 times a day prn anxiety, lamotrigine 100 mg daily qhs, and mirtazapine 30 mg daily qhs. On reviewing her past medications from Dr. Bashir's records, she has been on up to 20 mg of olanzapine daily in the past, and his notes do not indicate why the dose was decreased. 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 - Attempt to get collateral information from her : Baseline, mental health history (when she first became ill, how she had responded to treatment over time, and when psychosis started), recent medications (there is some concern that she may not have been getting the correct medications at home), and gynecological history (has she seen her LEARNING ADMINISTRATOR recently, been diagnosed with a gynecological problem, and who is her out patient LEARNING ADMINISTRATOR?) 02/22 - Start Remeron 3.75 mg. BID - Increase Zyprexa to 10 mg. HS, and continue prn 02/23 - Poor response to olanzapine, so we will switch to quetiapine, which she has shown some response to. Taper olanzapine over the next 2 days. Start quetiapine 100 mg at bedtime tonight, and titrated up over the next couple of days to 300 mg. I will also order 25 mg twice a day, and 50 mg when necessary. - Try lorazepam 0.5 mg every 4 hours when necessary anxiety in place of clonazepam, which the patient states has not been very effective. 02/24 - Continue cross taper from olanzapine to quetiapine. - Contact for collateral information. - I am concerned that there could be a neurological process involved, given the late age of onset and clinical symptoms of dementia, such as LBD. Discussed with neurology as she has been seen by Dr. Saldana in the past in [place]. 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 02/25 - Continue cross over from zyprexa to Seroquel 02/26 - Off olanzapine, and on quetiapine 25mg bid, 300mg qhs, and 50mg prn. Last prn was 02/24. Continue for now and consider increasing qhs dose. - Neuro records reviewed as above. 02/27 - DC Ambien due to concerns for cognitive impairment - Will obtain a MoCA for baseline 02/28 - MoCA 02/16 - Will DC all BZD - Increase Seroquel to 25-50-300 03/01 - Continue current meds for now 03/02 - Somatic symptoms and associated anxiety have been difficult to treat and possibly driven by underlying psychosis. Question underlying mood d/o as origin of psychosis. Parkinson's spectrum d/o felt to be unlikely root cause. She appears to be tolerating the Seroquel and further upward titration could be considered, however in the absence of significant bradykinesia, a retrial of a more potent D2 josey at low dose in combination with the Seroquel may be of quicker benefit, such as adding low dose Risperdal. Unfortunately she is already akathetic and this may get worse with that type of intervention which may also further decompensate or anxiety. We could also consider a clozapine trial as an alternative to the Seroquel if she fails to respond adequately which would be lower risk for exacerbating parkinsonism. Secondary to history of depression responsive to ECT which suggests possible benefit from more aggressive antidepressant tx, will first attempt to utilize an snri, Cymbalta 30 mg daily to start with plan to titrate as tolerated, chosen for therapeutic effect regarding potential neuropathic component of her somatic complaints and is noradrenergic at low doses. If this intervention fails, a retrial of gabapentin or Lyrica may also be considered. Will watch for s/o serotonin excess in combination with Remeron. 03/03 - Appears to be tolerating the Cymbalta adequately so far and describing a little interval improvement in anxiety and restlessness. We'll defer further medication changes today and watch. 03/04 - Continue current meds. - As per Dr. Jacobs's suggestions, consider trial of neurontin or lyrica if no response. (2) Anxiety 02/19 - Continue home dose of clonazepam 1 mg 3 times a day when necessary anxiety. 02/20 - Admission medication reconciliation was incorrect, and has been corrected to reflect home dose of clonazepam 0.5 mg 3 times a day when necessary. 02/28 - DC BZD - Use prn Seroquel 03/02 - We'll need to watch for rebound anxiety or increased restlessness off of the benzodiazepine. So far she appears to be tolerating adequately. (3) Hypothyroid - Get PCP records, as TSH is low and free T4 is elevated. Hold levothyroxine, and get records from PCP to determine if the dose has been adjusted recently as she is currently hyperthyroid. 02/20 - PCP records reviewed, per office staff her levothyroxine dose has not been adjusted since last April, and as she is over corrected on her current dose, we will decrease it to 88 g daily. This could be playing a role in her increased anxiety. She will need to follow-up with her PCP for ongoing monitoring. (4) UTI (urinary tract infection) - Complete one week course of Keflex started in the emergency room. (5) Vaginal pain 02/20 - patient continues to report pressure and pain in her pelvic area, and when she last saw her PCP, there was a concern for vaginal prolapse. As it is causing significant discomfort, and she cannot state if she ever followed up with her outpatient LEARNING ADMINISTRATOR, we will consult LEARNING ADMINISTRATOR here, and greatly appreciate any recommendations. Continue Tylenol as needed for pain and discomfort. 02/21 - appreciate Dr. Spicer seeing the patient. Unfortunately, she regressed, and was unable to consent for an exam. She continues to report vaginal symptoms , and we will need to ensure follow-up with her outpatient LEARNING ADMINISTRATOR. (6) Hyperlipidemia Continue home dose of simvastatin. (7) GERD (gastroesophageal reflux disease) Continue home medication. Discharge / Aftercare Planning Primary Care Physician: Name: Dr Madi Layton office Psychiatrist: Name: Dr. Bashir Therapist: Name: None Drug Purchaser: Name: None Neurologist: Name: Young Saldana Visit Code E&M Code: 85112 Inventory Assets Strengths: Supportive , has psychiatrist, willing for treatment Risk Factors Assessment : Yes /single/: No Higher / Fall in social status: No Access to guns: Yes Health problems: Yes Mental Health Diagnoses: Yes Substance use disorders: No Previous attempt: No Family history of suicide: No Previous psychiatric stay: Yes Hopelessness: Yes Smoker: No Protective Factors Assessment Roman Catholic beliefs: Yes : Yes Responsible for young children: No Employed: No Stable relationships: Yes Supportive family: Yes Good rapport with provider: Yes Data Vital Signs Last 24 Hrs: Date Time Temp Pulse Resp B/P (MAP) Pulse Ox O2 Delivery O2 Flow Rate FiO2 03/04/17 06:22 36.8 80 17 124/75 87 96/65 Meds Administered Last 24 Hrs: Meds Administered (Past 24Hrs) Medications (Trade) Dose Ordered Sig/Jeison Route Start Time Stop Time Status Last Admin Dose Admin Duloxetine HCl (Cymbalta Cap) 30 mg QAM PO 03/03/17 09:00 04/02/17 08:59 03/04/17 08:46 30 MG Duloxetine HCl (Cymbalta Cap) 30 mg 1700 ONCE PO 03/02/17 17:00 03/02/17 17:01 DC 03/02/17 16:33 30 MG Lab Results Last 24 Hrs: 02/18/17 13:36 Red Blood Count 4.51, Mean Corpuscular Volume 95.1, Mean Corpuscular Hemoglobin 31.3, Mean Corpuscular Hemoglobin Concent 32.9, Mean Platelet Volume 10.2, Neutrophils (%) (Auto) 69.9, Lymphocytes (%) (Auto) 23.5, Monocytes (%) (Auto) 5.3, Eosinophils (%) (Auto) 0.8, Basophils (%) (Auto) 0.3, Neutrophils # (Auto) 4.58, Lymphocytes # (Auto) 1.54, Monocytes # (Auto) 0.35, Eosinophils # (Auto) 0.05, Basophils # (Auto) 0.02 02/18/17 13:36 02/23/17 08:33 Test 02/18/17 00:00 02/18/17 13:32 02/18/17 13:36 02/20/17 07:06 Urine Color YELLOW Urine Appearance CLOUDY (CLEAR) Urine pH 6.0 (4.5-7.5) Urine Specific [place] 1.014 (1.000-1.030) Urine Protein NEG (NEG) Urine Glucose (UA) NEG (NEG) Urine Ketones TRACE (NEG) Urine Occult Blood TRACE (NEG) Urine Nitrite NEG (NEG) Urine Bilirubin NEG (NEG) Urine Urobilinogen NEG (NEG) Urine Leukocyte Esterase LARGE (NEG) Urine WBC (Auto) >30 /hpf (0-5) Urine RBC (Auto) 5-10 /hpf (0-4) Urine Hyaline Casts (Auto) 1-5 /lpf (0-5) Urine Epithelial Cells (Auto) 0-5 /lpf (0-5) Urine Bacteria (Auto) 1+ (NEG) Urine Opiates Screen NEG (NEG) Urine Methadone, Qualitative NEG (NEG) Urine Barbiturates NEG (NEG) Urine Phencyclidine (PCP) Level NEG (NEG) Ur Amphetamine/Methamphetamine NEG (NEG) MDMA (Ecstasy) Screen NEG (NEG) Urine Benzodiazepines Screen NEG (NEG) Urine Cocaine Metabolite NEG (NEG) Urine Marijuana (THC) NEG (NEG) Bedside Glucose 82 mg/dl (70-90) White Blood Count 6.55 K/uL (4.8-10.8) Red Blood Count 4.51 M/uL (4.2-5.4) Hemoglobin 14.1 g/dL (12.0-16.0) Hematocrit 42.9 % (37-47) Mean Corpuscular Volume 95.1 fL (80-100) Mean Corpuscular Hemoglobin 31.3 pg (25-34) Mean Corpuscular Hemoglobin Concent 32.9 g/dl (32-36) Platelet Count 295 K/uL (130-400) Mean Platelet Volume 10.2 fL (7.4-10.4) Neutrophils (%) (Auto) 69.9 % Lymphocytes (%) (Auto) 23.5 % Monocytes (%) (Auto) 5.3 % Eosinophils (%) (Auto) 0.8 % Basophils (%) (Auto) 0.3 % Neutrophils # (Auto) 4.58 K/uL (1.4-6.5) Lymphocytes # (Auto) 1.54 K/uL (1.2-3.4) Monocytes # (Auto) 0.35 K/uL (0.11-0.59) Eosinophils # (Auto) 0.05 K/uL (0-0.5) Basophils # (Auto) 0.02 K/uL (0-0.2) RDW Standard Deviation 44.3 fL (36.4-46.3) RDW Coefficient of Variation 12.7 % (11.5-14.5) Immature Granulocyte % (Auto) 0.2 % Immature Granulocyte # (Auto) 0.01 K/uL (0.00-0.02) Est Creatinine Clear Calc Drug Dose 57.0 ml/min Estimated GFR () 84.6 Estimated GFR (Non- 73.0 BUN/Creatinine Ratio 9.3 (10-20) Calcium Level 10.9 mg/dl (8.5-10.1) Total Bilirubin 0.5 mg/dl (0.2-1) Direct Bilirubin 0.2 mg/dl (0-0.2) Aspartate Amino Transf (AST/SGOT) 18 U/L (15-37) Alanine Aminotransferase (ALT/SGPT) < 6 U/L (12-78) Alkaline Phosphatase 95 U/L (45-117) Total Protein 7.1 gm/dl (6.4-8.2) Albumin 3.9 gm/dl (3.4-5.0) Thyroid Stimulating Hormone (TSH) 0.168 uIu/ml (0.300-4.500) Free Thyroxine 1.84 ng/dl (0.80-1.60) Ethyl Alcohol mg/dL < 3.0 mg/dl (0-3) Fasting Glucose 92 mg/dl (70-99) Triglycerides Level 79 mg/dl (0-150) Cholesterol Level 133 mg/dl (0-200) HDL Cholesterol 56 mg/dl LDL Cholesterol, Calculated 61 mg/dl VLDL Cholesterol, Calculated 16 mg/dl Cholesterol/HDL Ratio 2.4 Test 02/23/17 08:33 03/02/17 16:58 Anion Gap 5.0 mmol/L (3-11) 25-Hydroxy Vitamin D Total 68.7 ng/ml (30-100) Problem Qualifiers (1) UTI (urinary tract infection): Urinary tract infection type: acute cystitis Hematuria presence: with hematuria Qualified Codes: N30.01 - Acute cystitis with hematuria
[2017-03-04] MEDS: hydrOXYzine HCL 25 MG TAB PO PRN (12:16)
[2017-03-04] MEDS: QUETIAPINE FUMARATE 100 MG TAB PO SCH (21:41)
[2017-03-05 06:26] VITALS: BP_SYST 101; BP_SYST 140; BP_DIAS 67; BP_DIAS 86; PULSE 101; PULSE 99; TEMP 36.9
[2017-03-05] MEDS: QUETIAPINE FUMARATE 25 MG TAB PO SCH ×2 (08:41→12:59)
[2017-03-05] MEDS: SIMVASTATIN 20 MG TAB PO SCH (08:41)
[2017-03-05] MEDS: LEVOTHYROXINE 88 MCG TAB PO SCH (08:41)
[2017-03-05] MEDS: PANTOprazole SOD 40 MG TAB PO SCH (08:41)
[2017-03-05] MEDS: DULOXETINE (CYMBALTA) 30 MG CAP PO SCH (08:42)
[2017-03-05] MEDS: MIRTAZAPINE TAB 15 MG TAB PO SCH ×3 (08:42→21:51)
[2017-03-05] MEDS ORDERED: TRIHEXYPHENIDYL HCL 2 MG TAB PO ONE (13:45)
--- NOTE | 2017-03-05 14:05 | Psychiatric Progress Notes ---
Progress Note Date of Service Mar 05, 2017. Interval History Shanna Hutson is a 66-year-old female who currently lives in [place] with her , has an unknown psychiatric history for which she sees Dr. Bashir, and presented with command auditory hallucinations to kill herself. She was admitted on a 201 voluntary commitment. Patient is admitted from home, and was brought to the ED by the family. Chief Complaint "OK". Subjective Patient was seen & assessed interval progress reviewed with Treatment Team. Sharlene Leroy PA-C observes with patient permission. The patient says that so far today she is "OK". She reports that she is "getting better" but is hard for her to express how. Today there are long latencies to most question responses and when we explore what's going on she says that she is thinking, and that she gets nervous making it hard for her to express herself. She also moves her legs back and forth more during these periods of silence/thinking. She denies any SI. Today she denies hearing any voices or having any visual experiences. She also denies having the physical experiences of something in her abd moving or furniture moving under her. Nursing reports that she had a good day yesterday, but in the evening was more visibly anxious, pacing, worse after her left. She also reported to nursing staff that she heard music in the hallway when there was none. Review of Systems Constitutional: No fever, No chills, No sweats, No weight loss, No weakness, No fatigue, No problem reported ENT: No hearing loss, No unusual epistaxis, No nasal symptoms, No sore throat, No tinnitus, No dental problems, No trouble swallowing, No problem reported Respiratory: No cough, No sputum, No wheezing, No shortness of breath, No dyspnea on exertion, No dyspnea at rest, No hemoptysis, No problem reported Cardiovascular: No chest pain, No orthopnea, No PND, No edema, No claudication , No palpitations, No problem reported Abdomen: No pain, No nausea, No vomiting, No diarrhea, No constipation, No GI bleeding, No problem reported Sleep Information Total Hours of Sleep: 4.75 Meal Information Percent of Breakfast Consumed: 100 Percent of Lunch Consumed: 100 Percent of Dinner Consumed: 75 Mental Status Exam During interview pt is: cooperative Appearance: appropriately dressed, appropriately groomed Eye contact is: fair Motor behavior is: steady gait & station, psychomotor agitation (psychomotor restlessness less evident this morning however she was interviewed following a period of exercise) Speech: normal in rate, rhythm & volume Affect: depressed, anxious Mood is: other ("OK") Thought process: goal directed, concrete Thought content: reality based without delusions Suicidal thought are: denied Homicidal thoughts are: denied Hallucinations: denies auditory, denies visual Cognition: language grossly intact Intelligence estimated to be: consistent with level of education Insight: limited Judgement: limited Summary of Past History Records from her most recent PCP office visit were reviewed: She was seen Dr. Yolis Sanchez on 10/23/2016 for a routine exam. She reported worsening anxiety and depression, and her said her Ativan had been changed to Klonopin, and they were trying to discontinue Ambien. She complained of intermittent vaginal pain and pressure, and vaginal prolapse with suspected, so she was referred to [facility]. Her Synthroid had been adjusted in April, and she was due for a repeat TSH. 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 Records from her outpatient psychiatrist, Dr. Bashir, were reviewed. He has diagnosed her with schizoaffective disorder, depressive type, panic disorder without agoraphobia, and insomnia. Past medication trials include benztropine, clonazepam, lamotrigine, mirtazapine, zolpidem, alprazolam, diazepam, lorazepam , Lunesta, gabapentin, hydroxyzine, citalopram, olanzapine (prescribed 5 mg daily at bedtime on 02/08/2017, but has been on up to 15 mg at bedtime within the past year), and trazodone up to 200 mg daily at bedtime. She was last seen on 02/08/2017, and reported she was having a very bad day and wanted to be seen before the weekend, but it does not appear that any medication changes were made, and she was instructed to follow-up in one month. There is no list of current medications in the note. Prior to that, she was seen on 01/25/2017, and reported she was doing well. She was continued on Lamictal, clonazepam, and olanzapine 5 mg daily at bedtime. Records from her psychiatric admission to [facility] in [place] were reviewed: Patient was admitted there in February 2015 on transfer from the [facility] for ECT. She had been admitted to the [facility] for psychotic depression , and despite multiple medication changes, continued to be symptomatic. Her psychiatric condition have been worsening for about 6 months, and she was hearing voices that were swearing. Sleep and appetite were decreased, and she lost 30 pounds. At the time of admission to the [facility], she was on Celexa 40 mg daily, trazodone, Valium, Lunesta, and Seroquel. While there, she was tried on Xanax, Zyprexa, Luvox, oxazepam, mirtazapine, and olanzapine. She also had prior medication trials of paroxetine, clonazepam, lorazepam, and alprazolam. She had reportedly been on benzodiazepines for about 20 years. She received 8 ECT treatments, right unilateral, and was discharged from the hospital on 2014. She was diagnosed with recurrent major depression with psychosis and generalized anxiety disorder. Outpatient neurology records reviewed: Seen at [facility] in [place] by Dr. Estefani Sauceda on referral from her PCP. The initial assessment was performed 10/06/2014 for headache. She reported history of headaches for many years, worsening since the fall of 2013. She was a poor historian, and reported taking butalbital about 40 times a month. She was diagnosed with drug- induced parkinsonism, and recommendations with the perphenazine be tapered off, as she was taking 8 mg daily at bedtime. They recommended a brain MRI, which was apparently done when she was hospitalized, the results were reviewed, and there were no infarctions or lesions, but the actual results are not included in only summarized in the next progress note. She was started on Topamax, and followed up in November 2016. She reported she only taken 1 dose of the Topamax, and then felt short of breath so went to the emergency room, where she was tachycardic, so the medication was discontinued. She had been tapered off of the butalbital and perphenazine, and her headaches had improved. She had more facial expression was less bradykinetic, but was still bradyphrenic, and head was drooping downward laboratory and plain films of the C-spine were ordered to look for fracture and instability. They showed a grade 1 subluxation of C4 on C5 and a limited range of flexion/extension motion, degenerative disc base narrowing at C5 to 6, and straightening or reversal of the normal cervical lordosis. She was seen again in December 2014, and she continued to do better, had not had recent falls, and gait was improved, no longer needing a cane. She was having upset stomach, and had been taken off of a PPI and H2 josey due to side effects and polypharmacy. Her exam was unchanged, and there were no new recommendations she was seen July 2016 due to an abnormal sensation in her chest, abdomen, and pelvis, that she described as rolling. She had an MRI of the cervical and thoracic spine which showed cervical stenosis without abnormal signal. Exam revealed mild facial masking, increased reflexes in the upper extremities, and mildly brisk reflexes in the lower extremities. They could not determine a neurological cause for the sensations in her abdomen. They noted cervical stenosis, which was asymptomatic, but with brisk reflexes. They discussed signs and symptoms of cervical myelopathy, including change in gait, strength, and sensation, and recommended a cervical flexion and extension series to rule out instability. 02/27 MoCA performed, scoring 9/30 with deficits in most areas except naming. Medication Trials (1) Past Psych Medications lamotrigine Luvox mirtazapine citalopram paroxetine alprazolam diazepam lorazepam clonazepam oxazepam Lunesta zolpidem gabapentin hydroxyzine olanzapine quetiapine trazodone benztropine Perphenazine/amitriptyline-on 8/100 mg daily at bedtime in 2014 Last Edited By : Rebecca Hahn on Feb 26, 2017 11:35 Impression Pattern emerging in which she does better in the day and worse in the evening. Today denies the tactile hallucinations, and mood is good again. Although she says her leg movements are anxiety related, we wonder about akathisia so will give a one time dose of Artane to see if it helps. She also demonstrated a more prominent pattern of mouth movements today than seen previously, leading me to wonder about TD. Will prepare that she will likely be considered ready for discharge within the next few days. Plan (1) Schizoaffective disorder, depressive type - Continue home dose of lamotrigine 100 mg daily at bedtime, mirtazapine 30 mg daily at bedtime, and zolpidem 5 mg daily at bedtime when necessary for insomnia. - Patient reports that olanzapine 2.5 mg that she received last evening was helpful for the voices and for sleep, so will order this twice a day for now while obtaining records from her outpatient psychiatrist to clarify past medication trials. Will also order 2.5 mg every 8 hours when necessary psychosis. Reviewed risks, benefits, and side effects of the medication with the patient. Order fasting lipid profile and fasting glucose for tomorrow morning for monitoring on an atypical antipsychotic. - Get records from PCP regarding ? Parkinson's disease diagnosis, as she has Sinemet listed as a home medication. May need to consider a trial of quetiapine due to drug drug interactions with dopamine antagonists. - Encourage group attendance and participation. - Family meeting with . We'll review recommendations the guns be secured prior to discharge. 02/20 - Records reviewed from Dr. Bashir's office, and staff contacted to clarify current medications, as admission medication reconciliation was incorrect. - Fasting lipid profile and glucose for monitoring on an atypical antipsychotic were performed today and results reviewed, and were normal. 02/21 - Decrease zolpidem to 5 mg daily at bedtime, which is her home dose, due to concerns for drug drug interactions, cognitive impairment, falls, and other negative side effects. - Increase olanzapine to 2.5 mg in the morning and 7.5 mg at bedtime to target racing thoughts and tactile hallucinations, and continue clonazepam 0.5 mg 3 times a day prn anxiety, lamotrigine 100 mg daily qhs, and mirtazapine 30 mg daily qhs. On reviewing her past medications from Dr. Bashir's records, she has been on up to 20 mg of olanzapine daily in the past, and his notes do not indicate why the dose was decreased. 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 - Attempt to get collateral information from her : Baseline, mental health history (when she first became ill, how she had responded to treatment over time, and when psychosis started), recent medications (there is some concern that she may not have been getting the correct medications at home), and gynecological history (has she seen her [facility] recently, been diagnosed with a gynecological problem, and who is her out patient [facility]?) 02/22 - Start Remeron 3.75 mg. BID - Increase Zyprexa to 10 mg. HS, and continue prn 02/23 - Poor response to olanzapine, so we will switch to quetiapine, which she has shown some response to. Taper olanzapine over the next 2 days. Start quetiapine 100 mg at bedtime tonight, and titrated up over the next couple of days to 300 mg. I will also order 25 mg twice a day, and 50 mg when necessary. - Try lorazepam 0.5 mg every 4 hours when necessary anxiety in place of clonazepam, which the patient states has not been very effective. 02/24 - Continue cross taper from olanzapine to quetiapine. - Contact for collateral information. - I am concerned that there could be a neurological process involved, given the late age of onset and clinical symptoms of dementia, such as LBD. Discussed with neurology as she has been seen by Dr. Saldana in the past in [place]. 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 02/25 - Continue cross over from zyprexa to Seroquel 02/26 - Off olanzapine, and on quetiapine 25mg bid, 300mg qhs, and 50mg prn. Last prn was 02/24. Continue for now and consider increasing qhs dose. - Neuro records reviewed as above. 02/27 - DC Ambien due to concerns for cognitive impairment - Will obtain a MoCA for baseline 02/28 - MoCA 02/16 - Will DC all BZD - Increase Seroquel to 25-50-300 03/01 - Continue current meds for now 03/02 - Somatic symptoms and associated anxiety have been difficult to treat and possibly driven by underlying psychosis. Question underlying mood d/o as origin of psychosis. Parkinson's spectrum d/o felt to be unlikely root cause. She appears to be tolerating the Seroquel and further upward titration could be considered, however in the absence of significant bradykinesia, a retrial of a more potent D2 josey at low dose in combination with the Seroquel may be of quicker benefit, such as adding low dose Risperdal. Unfortunately she is already akathetic and this may get worse with that type of intervention which may also further decompensate or anxiety. We could also consider a clozapine trial as an alternative to the Seroquel if she fails to respond adequately which would be lower risk for exacerbating parkinsonism. Secondary to history of depression responsive to ECT which suggests possible benefit from more aggressive antidepressant tx, will first attempt to utilize an snri, Cymbalta 30 mg daily to start with plan to titrate as tolerated, chosen for therapeutic effect regarding potential neuropathic component of her somatic complaints and is noradrenergic at low doses. If this intervention fails, a retrial of gabapentin or Lyrica may also be considered. Will watch for s/o serotonin excess in combination with Remeron. 03/03 - Appears to be tolerating the Cymbalta adequately so far and describing a little interval improvement in anxiety and restlessness. We'll defer further medication changes today and watch. 03/04 - Continue current meds. - As per Dr. Jacobs's suggestions, consider trial of neurontin or lyrica if no response. 03/05 - Increase Cymbalta to 60 mg. daily - Trial Artance 5 mg. X 1 to see if improves restlessness (2) Anxiety 02/19 - Continue home dose of clonazepam 1 mg 3 times a day when necessary anxiety. 02/20 - Admission medication reconciliation was incorrect, and has been corrected to reflect home dose of clonazepam 0.5 mg 3 times a day when necessary. 02/28 - DC BZD - Use prn Seroquel 03/02 - We'll need to watch for rebound anxiety or increased restlessness off of the benzodiazepine. So far she appears to be tolerating adequately. (3) Hypothyroid - Get PCP records, as TSH is low and free T4 is elevated. Hold levothyroxine, and get records from PCP to determine if the dose has been adjusted recently as she is currently hyperthyroid. 02/20 - PCP records reviewed, per office staff her levothyroxine dose has not been adjusted since last April, and as she is over corrected on her current dose, we will decrease it to 88 g daily. This could be playing a role in her increased anxiety. She will need to follow-up with her PCP for ongoing monitoring. (4) UTI (urinary tract infection) - Complete one week course of Keflex started in the emergency room. (5) Vaginal pain 02/20 - patient continues to report pressure and pain in her pelvic area, and when she last saw her PCP, there was a concern for vaginal prolapse. As it is causing significant discomfort, and she cannot state if she ever followed up with her outpatient [facility], we will consult [facility] here, and greatly appreciate any recommendations. Continue Tylenol as needed for pain and discomfort. 02/21 - appreciate Dr. Spicer seeing the patient. Unfortunately, she regressed, and was unable to consent for an exam. She continues to report vaginal symptoms , and we will need to ensure follow-up with her outpatient [facility]. (6) Hyperlipidemia Continue home dose of simvastatin. (7) GERD (gastroesophageal reflux disease) Continue home medication. Discharge / Aftercare Planning Primary Care Physician: Name: Dr Madi Layton office Psychiatrist: Name: Dr. Bashir Therapist: Name: None Business Continuity Consultant: Name: None Neurologist: Name: Young Saldana Visit Code E&M Code: 65501 Inventory Assets Strengths: Supportive , has psychiatrist, willing for treatment Risk Factors Assessment : Yes /single/: No Higher / Fall in social status: No Access to guns: Yes Health problems: Yes Mental Health Diagnoses: Yes Substance use disorders: No Previous attempt: No Family history of suicide: No Previous psychiatric stay: Yes Hopelessness: Yes Smoker: No Protective Factors Assessment Congregational beliefs: Yes : Yes Responsible for young children: No Employed: No Stable relationships: Yes Supportive family: Yes Good rapport with provider: Yes Data Vital Signs Last 24 Hrs: Date Time Temp Pulse Resp B/P (MAP) Pulse Ox O2 Delivery O2 Flow Rate FiO2 03/05/17 06:26 36.9 99 16 140/86 101 101/67 Meds Administered Last 24 Hrs: Current Inpatient Medications Medications (Trade) Dose Ordered Sig/Jeison Route Start Time Stop Time Status Last Admin Dose Admin Acetaminophen (Tylenol Tab) 650 mg Q4H PRN PO 02/18/17 16:30 03/20/17 16:29 02/28/17 15:51 650 MG Bismuth Subsalicylate (Kaopectate Liqd) 15 ml PRN PRN PO 02/18/17 16:30 03/20/17 16:29 Al Hydroxide/Mg Hydroxide (Maalox Susp) 30 ml Q4H PRN PO 02/18/17 16:30 03/20/17 16:29 Magnesium Hydroxide (Milk Of Magnesia Susp) 30 ml DAILY PRN PO 02/18/17 16:30 03/20/17 16:29 Sodium Chloride ([place] Nasal [place]) PRN PRN NA 02/18/17 16:30 03/20/17 16:29 Hydroxyzine HCl (Vistaril Tab) 50 mg HSZ PRN PO 02/18/17 16:30 03/20/17 16:29 Hydroxyzine HCl (Vistaril Tab) 25 mg Q4H PRN PO 02/18/17 16:30 03/20/17 16:29 03/04/17 12:16 25 MG Simvastatin (Zocor Tab) 20 mg QAM PO 02/19/17 09:00 03/21/17 08:59 03/05/17 08:41 20 MG Pantoprazole Sodium (Protonix Tab) 40 mg QAM PO 02/19/17 09:00 03/21/17 08:59 03/05/17 08:41 40 MG Mirtazapine (Remeron Tab) 30 mg HS PO 02/18/17 21:00 03/20/17 20:59 03/04/17 21:41 30 MG Lamotrigine (Lamictal Tab) 100 mg HS PO 02/18/17 22:00 03/20/17 21:59 03/04/17 21:41 100 MG Levothyroxine Sodium (Synthroid Tab) 88 mcg DAILYBB PO 02/21/17 08:00 03/23/17 07:59 03/05/17 08:41 88 MCG Mirtazapine (Remeron Tab) 3.75 mg BID@0900,1200 PO 02/23/17 09:00 03/25/17 08:59 03/05/17 13:00 3.75 MG Quetiapine Fumarate (seroQUEL TAB) 50 mg Q4 PRN PO 02/23/17 08:30 03/25/17 08:29 03/02/17 16:17 50 MG Quetiapine Fumarate (seroQUEL TAB) 300 mg Taper HS PO 02/23/17 22:00 03/25/17 21:59 03/04/17 21:41 300 MG Quetiapine Fumarate (seroQUEL TAB) 25 mg QAM PO 03/01/17 09:00 03/31/17 08:59 03/05/17 08:41 25 MG Quetiapine Fumarate (seroQUEL TAB) 50 mg DAILY@1200 PO 02/28/17 12:00 03/30/17 11:59 03/05/17 12:59 50 MG Duloxetine HCl (Cymbalta Cap) 30 mg QAM PO 03/03/17 09:00 04/02/17 08:59 03/05/17 08:42 30 MG Lab Results Last 24 Hrs: 02/18/17 13:36 Red Blood Count 4.51, Mean Corpuscular Volume 95.1, Mean Corpuscular Hemoglobin 31.3, Mean Corpuscular Hemoglobin Concent 32.9, Mean Platelet Volume 10.2, Neutrophils (%) (Auto) 69.9, Lymphocytes (%) (Auto) 23.5, Monocytes (%) (Auto) 5.3, Eosinophils (%) (Auto) 0.8, Basophils (%) (Auto) 0.3, Neutrophils # (Auto) 4.58, Lymphocytes # (Auto) 1.54, Monocytes # (Auto) 0.35, Eosinophils # (Auto) 0.05, Basophils # (Auto) 0.02 02/18/17 13:36 02/23/17 08:33 Test 02/18/17 00:00 02/18/17 13:32 02/18/17 13:36 02/20/17 07:06 Urine Color YELLOW Urine Appearance CLOUDY (CLEAR) Urine pH 6.0 (4.5-7.5) Urine Specific Alpha 1.014 (1.000-1.030) Urine Protein NEG (NEG) Urine Glucose (UA) NEG (NEG) Urine Ketones TRACE (NEG) Urine Occult Blood TRACE (NEG) Urine Nitrite NEG (NEG) Urine Bilirubin NEG (NEG) Urine Urobilinogen NEG (NEG) Urine Leukocyte Esterase LARGE (NEG) Urine WBC (Auto) >30 /hpf (0-5) Urine RBC (Auto) 5-10 /hpf (0-4) Urine Hyaline Casts (Auto) 1-5 /lpf (0-5) Urine Epithelial Cells (Auto) 0-5 /lpf (0-5) Urine Bacteria (Auto) 1+ (NEG) Urine Opiates Screen NEG (NEG) Urine Methadone, Qualitative NEG (NEG) Urine Barbiturates NEG (NEG) Urine Phencyclidine (PCP) Level NEG (NEG) Ur Amphetamine/Methamphetamine NEG (NEG) MDMA (Ecstasy) Screen NEG (NEG) Urine Benzodiazepines Screen NEG (NEG) Urine Cocaine Metabolite NEG (NEG) Urine Marijuana (THC) NEG (NEG) Bedside Glucose 82 mg/dl (70-90) White Blood Count 6.55 K/uL (4.8-10.8) Red Blood Count 4.51 M/uL (4.2-5.4) Hemoglobin 14.1 g/dL (12.0-16.0) Hematocrit 42.9 % (37-47) Mean Corpuscular Volume 95.1 fL (80-100) Mean Corpuscular Hemoglobin 31.3 pg (25-34) Mean Corpuscular Hemoglobin Concent 32.9 g/dl (32-36) Platelet Count 295 K/uL (130-400) Mean Platelet Volume 10.2 fL (7.4-10.4) Neutrophils (%) (Auto) 69.9 % Lymphocytes (%) (Auto) 23.5 % Monocytes (%) (Auto) 5.3 % Eosinophils (%) (Auto) 0.8 % Basophils (%) (Auto) 0.3 % Neutrophils # (Auto) 4.58 K/uL (1.4-6.5) Lymphocytes # (Auto) 1.54 K/uL (1.2-3.4) Monocytes # (Auto) 0.35 K/uL (0.11-0.59) Eosinophils # (Auto) 0.05 K/uL (0-0.5) Basophils # (Auto) 0.02 K/uL (0-0.2) RDW Standard Deviation 44.3 fL (36.4-46.3) RDW Coefficient of Variation 12.7 % (11.5-14.5) Immature Granulocyte % (Auto) 0.2 % Immature Granulocyte # (Auto) 0.01 K/uL (0.00-0.02) Est Creatinine Clear Calc Drug Dose 57.0 ml/min Estimated GFR () 84.6 Estimated GFR (Non- 73.0 BUN/Creatinine Ratio 9.3 (10-20) Calcium Level 10.9 mg/dl (8.5-10.1) Total Bilirubin 0.5 mg/dl (0.2-1) Direct Bilirubin 0.2 mg/dl (0-0.2) Aspartate Amino Transf (AST/SGOT) 18 U/L (15-37) Alanine Aminotransferase (ALT/SGPT) < 6 U/L (12-78) Alkaline Phosphatase 95 U/L (45-117) Total Protein 7.1 gm/dl (6.4-8.2) Albumin 3.9 gm/dl (3.4-5.0) Thyroid Stimulating Hormone (TSH) 0.168 uIu/ml (0.300-4.500) Free Thyroxine 1.84 ng/dl (0.80-1.60) Ethyl Alcohol mg/dL < 3.0 mg/dl (0-3) Fasting Glucose 92 mg/dl (70-99) Triglycerides Level 79 mg/dl (0-150) Cholesterol Level 133 mg/dl (0-200) HDL Cholesterol 56 mg/dl LDL Cholesterol, Calculated 61 mg/dl VLDL Cholesterol, Calculated 16 mg/dl Cholesterol/HDL Ratio 2.4 Test 02/23/17 08:33 03/02/17 16:58 Anion Gap 5.0 mmol/L (3-11) 25-Hydroxy Vitamin D Total 68.7 ng/ml (30-100) Problem Qualifiers (1) UTI (urinary tract infection): Urinary tract infection type: acute cystitis Hematuria presence: with hematuria Qualified Codes: N30.01 - Acute cystitis with hematuria
[2017-03-05] MEDS: TRIHEXYPHENIDYL HCL 2 MG TAB PO SCH (21:50)
[2017-03-05] MEDS: QUETIAPINE FUMARATE 100 MG TAB PO SCH (21:52)
[2017-03-06 07:00] VITALS: BP_SYST 108; BP_SYST 121; BP_DIAS 59; BP_DIAS 71; PULSE 103; PULSE 93; TEMP 37.2
[2017-03-06] MEDS: LEVOTHYROXINE 88 MCG TAB PO SCH (08:22)
[2017-03-06] MEDS: PANTOprazole SOD 40 MG TAB PO SCH (08:22)
[2017-03-06] MEDS: DULOXETINE HCL 60 MG CAP PO SCH (08:22)
[2017-03-06] MEDS: TRIHEXYPHENIDYL HCL 2 MG TAB PO SCH ×2 (08:22→21:59)
[2017-03-06] MEDS: MIRTAZAPINE TAB 15 MG TAB PO SCH ×3 (08:23→21:58)
[2017-03-06] MEDS: SIMVASTATIN 20 MG TAB PO SCH (08:23)
[2017-03-06] MEDS: QUETIAPINE FUMARATE 25 MG TAB PO SCH ×2 (08:23→12:02)
[2017-03-06] MEDS: hydrOXYzine HCL 25 MG TAB PO PRN (12:37)
--- NOTE | 2017-03-06 13:12 | Psychiatric Progress Notes ---
Progress Note Date of Service Mar 06, 2017. Interval History Shanna Hutson is a 66-year-old female who currently lives in [place] with her , has an unknown psychiatric history for which she sees Dr. Bashir, and presented with command auditory hallucinations to kill herself. She was admitted on a 201 voluntary commitment. Patient is admitted from home, and was brought to the ED by the family. Chief Complaint "Okay". Subjective Patient was seen & assessed interval progress reviewed with Treatment Team. The patient reports she continues to improve, mood and anxiety are better, although sleep is "not too good." She says she wakes up and cannot fall back asleep. Appetite is improving. She denies SI and AH, and is hopeful she will be able to go home later this week. Sleep Information Total Hours of Sleep: 6.50 Meal Information Percent of Breakfast Consumed: 100 Percent of Lunch Consumed: 100 Percent of Dinner Consumed: 100 Mental Status Exam During interview pt is: alert and oriented, cooperative Appearance: appropriately dressed, appropriately groomed, other (posture improved - sitting straight up and looking ahead, rather than down as previously ) Eye contact is: fair Motor behavior is: steady gait & station, psychomotor agitation (psychomotor restlessness less evident this morning however she was interviewed following a period of exercise) Speech: normal in rate, rhythm & volume Affect: mood congruent, euthymic, other (brighter, reactive) Mood is: other ("OK") Thought process: goal directed, concrete Thought content: reality based without delusions Suicidal thought are: denied Homicidal thoughts are: denied Hallucinations: denies auditory, denies visual Cognition: language grossly intact Intelligence estimated to be: consistent with level of education Insight: limited Judgement: limited Summary of Past History Records from her most recent PCP office visit were reviewed: She was seen Dr. Yolis Sanchez on 10/23/2016 for a routine exam. She reported worsening anxiety and depression, and her said her Ativan had been changed to Klonopin, and they were trying to discontinue Ambien. She complained of intermittent vaginal pain and pressure, and vaginal prolapse with suspected, so she was referred to TRA[facility]IC [facility]ERATOR. Her Synthroid had been adjusted in April, and she was due for a repeat TSH. 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 Records from her outpatient psychiatrist, Dr. Bashir, were reviewed. He has diagnosed her with schizoaffective disorder, depressive type, panic disorder without agoraphobia, and insomnia. Past medication trials include benztropine, clonazepam, lamotrigine, mirtazapine, zolpidem, alprazolam, diazepam, lorazepam , Lunesta, gabapentin, hydroxyzine, citalopram, olanzapine (prescribed 5 mg daily at bedtime on 02/08/2017, but has been on up to 15 mg at bedtime within the past year), and trazodone up to 200 mg daily at bedtime. She was last seen on 02/08/2017, and reported she was having a very bad day and wanted to be seen before the weekend, but it does not appear that any medication changes were made, and she was instructed to follow-up in one month. There is no list of current medications in the note. Prior to that, she was seen on 01/25/2017, and reported she was doing well. She was continued on Lamictal, clonazepam, and olanzapine 5 mg daily at bedtime. Records from her psychiatric admission to [facility] in [place] were reviewed: Patient was admitted there in February 2015 on transfer from the [facility] for ECT. She had been admitted to the [facility] for psychotic depression , and despite multiple medication changes, continued to be symptomatic. Her psychiatric condition have been worsening for about 6 months, and she was hearing voices that were swearing. Sleep and appetite were decreased, and she lost 30 pounds. At the time of admission to the [facility], she was on Celexa 40 mg daily, trazodone, Valium, Lunesta, and Seroquel. While there, she was tried on Xanax, Zyprexa, Luvox, oxazepam, mirtazapine, and olanzapine. She also had prior medication trials of paroxetine, clonazepam, lorazepam, and alprazolam. She had reportedly been on benzodiazepines for about 20 years. She received 8 ECT treatments, right unilateral, and was discharged from the hospital on 2014. She was diagnosed with recurrent major depression with psychosis and generalized anxiety disorder. Outpatient neurology records reviewed: Seen at [facility] in [place] by Dr. Estefani Sauceda on referral from her PCP. The initial assessment was performed 10/06/2014 for headache. She reported history of headaches for many years, worsening since the fall of 2013. She was a poor historian, and reported taking butalbital about 40 times a month. She was diagnosed with drug- induced parkinsonism, and recommendations with the perphenazine be tapered off, as she was taking 8 mg daily at bedtime. They recommended a brain MRI, which was apparently done when she was hospitalized, the results were reviewed, and there were no infarctions or lesions, but the actual results are not included in only summarized in the next progress note. She was started on Topamax, and followed up in November 2016. She reported she only taken 1 dose of the Topamax, and then felt short of breath so went to the emergency room, where she was tachycardic, so the medication was discontinued. She had been tapered off of the butalbital and perphenazine, and her headaches had improved. She had more facial expression was less bradykinetic, but was still bradyphrenic, and head was drooping downward laboratory and plain films of the C-spine were ordered to look for fracture and instability. They showed a grade 1 subluxation of C4 on C5 and a limited range of flexion/extension motion, degenerative disc base narrowing at C5 to 6, and straightening or reversal of the normal cervical lordosis. She was seen again in December 2014, and she continued to do better, had not had recent falls, and gait was improved, no longer needing a cane. She was having upset stomach, and had been taken off of a PPI and H2 josey due to side effects and polypharmacy. Her exam was unchanged, and there were no new recommendations she was seen July 2016 due to an abnormal sensation in her chest, abdomen, and pelvis, that she described as rolling. She had an MRI of the cervical and thoracic spine which showed cervical stenosis without abnormal signal. Exam revealed mild facial masking, increased reflexes in the upper extremities, and mildly brisk reflexes in the lower extremities. They could not determine a neurological cause for the sensations in her abdomen. They noted cervical stenosis, which was asymptomatic, but with brisk reflexes. They discussed signs and symptoms of cervical myelopathy, including change in gait, strength, and sensation, and recommended a cervical flexion and extension series to rule out instability. 02/27 MoCA performed, scoring 9/30 with deficits in most areas except naming. Medication Trials (1) Past Psych Medications lamotrigine Luvox mirtazapine citalopram paroxetine alprazolam diazepam lorazepam clonazepam oxazepam Lunesta zolpidem gabapentin hydroxyzine olanzapine quetiapine trazodone benztropine Perphenazine/amitriptyline-on 8/100 mg daily at bedtime in 2014 Last Edited By : Rebecca Hahn on Feb 26, 2017 11:35 Impression Pattern emerging in which she does better in the day and worse in the evening. Mood, anxiety and SI are improving. Will prepare that she will likely be considered ready for discharge within the next few days. Plan (1) Schizoaffective disorder, depressive type - Continue home dose of lamotrigine 100 mg daily at bedtime, mirtazapine 30 mg daily at bedtime, and zolpidem 5 mg daily at bedtime when necessary for insomnia. - Patient reports that olanzapine 2.5 mg that she received last evening was helpful for the voices and for sleep, so will order this twice a day for now while obtaining records from her outpatient psychiatrist to clarify past medication trials. Will also order 2.5 mg every 8 hours when necessary psychosis. Reviewed risks, benefits, and side effects of the medication with the patient. Order fasting lipid profile and fasting glucose for tomorrow morning for monitoring on an atypical antipsychotic. - Get records from PCP regarding ? Parkinson's disease diagnosis, as she has Sinemet listed as a home medication. May need to consider a trial of quetiapine due to drug drug interactions with dopamine antagonists. - Encourage group attendance and participation. - Family meeting with . We'll review recommendations the guns be secured prior to discharge. 02/20 - Records reviewed from Dr. Bashir's office, and staff contacted to clarify current medications, as admission medication reconciliation was incorrect. - Fasting lipid profile and glucose for monitoring on an atypical antipsychotic were performed today and results reviewed, and were normal. 02/21 - Decrease zolpidem to 5 mg daily at bedtime, which is her home dose, due to concerns for drug drug interactions, cognitive impairment, falls, and other negative side effects. - Increase olanzapine to 2.5 mg in the morning and 7.5 mg at bedtime to target racing thoughts and tactile hallucinations, and continue clonazepam 0.5 mg 3 times a day prn anxiety, lamotrigine 100 mg daily qhs, and mirtazapine 30 mg daily qhs. On reviewing her past medications from Dr. Bashir's records, she has been on up to 20 mg of olanzapine daily in the past, and his notes do not indicate why the dose was decreased. 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 - Attempt to get collateral information from her : Baseline, mental health history (when she first became ill, how she had responded to treatment over time, and when psychosis started), recent medications (there is some concern that she may not have been getting the correct medications at home), and gynecological history (has she seen her TRAFFIC ENUMERATOR recently, been diagnosed with a gynecological problem, and who is her out patient TRAFFIC ENUMERATOR?) 02/22 - Start Remeron 3.75 mg. BID - Increase Zyprexa to 10 mg. HS, and continue prn 02/23 - Poor response to olanzapine, so we will switch to quetiapine, which she has shown some response to. Taper olanzapine over the next 2 days. Start quetiapine 100 mg at bedtime tonight, and titrated up over the next couple of days to 300 mg. I will also order 25 mg twice a day, and 50 mg when necessary. - Try lorazepam 0.5 mg every 4 hours when necessary anxiety in place of clonazepam, which the patient states has not been very effective. 02/24 - Continue cross taper from olanzapine to quetiapine. - Contact for collateral information. - I am concerned that there could be a neurological process involved, given the late age of onset and clinical symptoms of dementia, such as LBD. Discussed with neurology as she has been seen by Dr. Saldana in the past in [place]. 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 02/25 - Continue cross over from zyprexa to Seroquel 02/26 - Off olanzapine, and on quetiapine 25mg bid, 300mg qhs, and 50mg prn. Last prn was 02/24. Continue for now and consider increasing qhs dose. - Neuro records reviewed as above. 02/27 - DC Ambien due to concerns for cognitive impairment - Will obtain a MoCA for baseline 02/28 - MoCA 02/16 - Will DC all BZD - Increase Seroquel to 25-50-300 03/01 - Continue current meds for now 03/02 - Somatic symptoms and associated anxiety have been difficult to treat and possibly driven by underlying psychosis. Question underlying mood d/o as origin of psychosis. Parkinson's spectrum d/o felt to be unlikely root cause. She appears to be tolerating the Seroquel and further upward titration could be considered, however in the absence of significant bradykinesia, a retrial of a more potent D2 josey at low dose in combination with the Seroquel may be of quicker benefit, such as adding low dose Risperdal. Unfortunately she is already akathetic and this may get worse with that type of intervention which may also further decompensate or anxiety. We could also consider a clozapine trial as an alternative to the Seroquel if she fails to respond adequately which would be lower risk for exacerbating parkinsonism. Secondary to history of depression responsive to ECT which suggests possible benefit from more aggressive antidepressant tx, will first attempt to utilize an snri, Cymbalta 30 mg daily to start with plan to titrate as tolerated, chosen for therapeutic effect regarding potential neuropathic component of her somatic complaints and is noradrenergic at low doses. If this intervention fails, a retrial of gabapentin or Lyrica may also be considered. Will watch for s/o serotonin excess in combination with Remeron. 03/03 - Appears to be tolerating the Cymbalta adequately so far and describing a little interval improvement in anxiety and restlessness. We'll defer further medication changes today and watch. 03/04 - Continue current meds. - As per Dr. Jacobs's suggestions, consider trial of neurontin or lyrica if no response. 03/05 - Increase Cymbalta to 60 mg. daily - Trial Artance 5 mg. X 1 to see if improves restlessness (2) Anxiety 02/19 - Continue home dose of clonazepam 1 mg 3 times a day when necessary anxiety. 02/20 - Admission medication reconciliation was incorrect, and has been corrected to reflect home dose of clonazepam 0.5 mg 3 times a day when necessary. 02/28 - DC BZD - Use prn Seroquel 03/02 - We'll need to watch for rebound anxiety or increased restlessness off of the benzodiazepine. So far she appears to be tolerating adequately. (3) Hypothyroid - Get PCP records, as TSH is low and free T4 is elevated. Hold levothyroxine, and get records from PCP to determine if the dose has been adjusted recently as she is currently hyperthyroid. 02/20 - PCP records reviewed, per office staff her levothyroxine dose has not been adjusted since last April, and as she is over corrected on her current dose, we will decrease it to 88 g daily. This could be playing a role in her increased anxiety. She will need to follow-up with her PCP for ongoing monitoring. (4) UTI (urinary tract infection) - Complete one week course of Keflex started in the emergency room. (5) Vaginal pain 02/20 - patient continues to report pressure and pain in her pelvic area, and when she last saw her PCP, there was a concern for vaginal prolapse. As it is causing significant discomfort, and she cannot state if she ever followed up with her outpatient TRAFFIC ENUMERATOR, we will consult TRAFFIC ENUMERATOR here, and greatly appreciate any recommendations. Continue Tylenol as needed for pain and discomfort. 02/21 - appreciate Dr. Spicer seeing the patient. Unfortunately, she regressed, and was unable to consent for an exam. She continues to report vaginal symptoms , and we will need to ensure follow-up with her outpatient TRAFFIC ENUMERATOR. (6) Hyperlipidemia Continue home dose of simvastatin. (7) GERD (gastroesophageal reflux disease) Continue home medication. Discharge / Aftercare Planning Primary Care Physician: Name: Dr Madi Vidal [place] office Psychiatrist: Name: Dr. Bashir Therapist: Name: None Racing Secretary And Handicapper: Name: None Neurologist: Name: Young Saldana Visit Code E&M Code: 30224 Inventory Assets Strengths: Supportive , has psychiatrist, willing for treatment Risk Factors Assessment : Yes /single/: No Higher / Fall in social status: No Access to guns: Yes Health problems: Yes Mental Health Diagnoses: Yes Substance use disorders: No Previous attempt: No Family history of suicide: No Previous psychiatric stay: Yes Hopelessness: Yes Smoker: No Protective Factors Assessment Taoism beliefs: Yes : Yes Responsible for young children: No Employed: No Stable relationships: Yes Supportive family: Yes Good rapport with provider: Yes Data Vital Signs Last 24 Hrs: Date Time Temp Pulse Resp B/P (MAP) Pulse Ox O2 Delivery O2 Flow Rate FiO2 03/06/17 07:00 37.2 93 16 108/59 103 121/71 Meds Administered Last 24 Hrs: Meds Administered (Past 24Hrs) Medications (Trade) Dose Ordered Sig/Jeison Route Start Time Stop Time Status Last Admin Dose Admin Trihexyphenidyl HCl (Artane Tab) 5 mg ONE ONCE PO 03/05/17 13:45 03/05/17 13:46 DC 03/05/17 14:20 5 MG Duloxetine HCl (Cymbalta Cap) 60 mg QAM PO 03/06/17 09:00 04/05/17 08:59 03/06/17 08:22 60 MG Trihexyphenidyl HCl (Artane Tab) 2 mg BID PO 03/05/17 22:00 04/04/17 21:59 03/06/17 08:22 2 MG Problem Qualifiers (1) UTI (urinary tract infection): Urinary tract infection type: acute cystitis Hematuria presence: with hematuria Qualified Codes: N30.01 - Acute cystitis with hematuria
[2017-03-06] MEDS: QUETIAPINE FUMARATE 100 MG TAB PO SCH (21:57)
[2017-03-07 07:11] VITALS: BP_SYST 123; BP_SYST 127; BP_DIAS 67; BP_DIAS 72; PULSE 102; PULSE 110; TEMP 36.8
[2017-03-07] MEDS: DULOXETINE HCL 60 MG CAP PO SCH (08:37)
[2017-03-07] MEDS: TRIHEXYPHENIDYL HCL 2 MG TAB PO SCH (08:37)
[2017-03-07] MEDS: LEVOTHYROXINE 88 MCG TAB PO SCH (08:37)
[2017-03-07] MEDS: QUETIAPINE FUMARATE 25 MG TAB PO SCH (08:38)
[2017-03-07] MEDS: PANTOprazole SOD 40 MG TAB PO SCH (08:38)
[2017-03-07] MEDS: MIRTAZAPINE TAB 15 MG TAB PO SCH (08:39)
[2017-03-07] MEDS: SIMVASTATIN 20 MG TAB PO SCH (08:39)
[2017-03-07] MEDS ORDERED: RMR15 PO (08:43)
[2017-03-07] MEDS ORDERED: QUET1TAB11 PO (08:43)
[2017-03-07] MEDS ORDERED: TRIH2TAB3 PO (08:43)
[2017-03-07] MEDS ORDERED: LEVO88TA PO (08:43)
[2017-03-07] MEDS ORDERED: CYM60 PO (08:43)
[2017-03-07] MEDS ORDERED: SRQ25 PO (08:43)
--- NOTE | 2017-03-07 09:14 | Discharge Instructions ---
Discharge Information Report Includes Report will include the: Discharge Instructions & Summary Admission Admission Date / Time: Feb 18, 2017 at 16:23 Reason for Admission: Hallucinations Discharge Discharge Diagnosis / Problem: schizoaffective disorder, depressed type. Anxiety Condition at Discharge: Fair Discharge Goals Goal(s): Decrease discomfort, Improve function, Prevent Disease Progression Activity Recommendations Activity Limitations: resume your previous activity . Instructions / Follow-Up Instructions / Follow-Up . SPECIAL CARE INSTRUCTIONS: 1. Follow through with your scheduled aftercare appointments. If unable to keep an appointment, please call to reschedule. 2. Take your medication only as prescribed. Medication should not be changed or stopped without the approval of your doctor. In the event of worsening symptoms or concerns about side effects, contact your doctor immediately. 3. Utilize new healthy coping skills, anger management skills, and stress management skills learned during your hospitalization. Journal feelings and process them with a support person. Identify stressors or situations that may result in relapse, deterioration or inappropriate behaviors and develop a plan to deal with those issues. 4. If your coping skills are ineffective and you are in crisis, contact your outpatient providers for direction. If unable to reach your providers, please call the CAN HELP LINE AT or go to the closest Emergency Room. 5. Avoid alcohol and un-prescribed drugs. 6. You have been provided with the Mental Health Advance Directives Pamphlet for your review. AFTERCARE APPOINTMENTS: * Please call your insurance company prior to your scheduled appointment to confirm your aftercare providers are covered. Take your insurance information to your appointments. . Discharge / Aftercare Planning Primary Care Physician: Name: Dr Madi Vidal [place] office Date of Appointment: Mar 14, 2017 Time of Appointment: 12:45 Psychiatrist: Name: Dr. Bashir Date of Appointment: Mar 13, 2017 Time of Appointment: 3:30 pm Appointment Notes: they are aware that you have an appt at 2:[address] Van Therapist: Name Of Therapist: None Rail Switchman: Name: None Home Health Services: Home Health Services: none Neurologist: Name: Young Saldana Date of Appointment: Mar 13, 2017 Time of Appointment: 2:00 pm . Follow-Up Care Plan for Follow-Up Care: Will have prompt follow up with her OP psychiatrist, neurologist and her PCP Current Hospital Diet Patient's current hospital diet: Regular Diet Discharge Diet Recommended Diet: Regular Diet Procedures Procedures Performed: No Pending Studies Pending Studies at Discharge: No Medical Emergencies . Who to Call and When: Medical Emergencies: For questions or emergencies related to your hospital stay, please contact the Inpatient Behavioral Health Unit at [phone]. A substance abuse clinician is on-call 10/12 for the Behavioral Health Unit for emergencies At any time you feel your situation is an emergency, you may also call 911 immediately. . Non-Emergent Contact Non-Emergency issues call your: Primary Care Provider, Psychiatrist Advance Directives Existing Advance Directive: No Do You Have an Existing Mental: No Existing Living Will: No Existing Power of Soap Mixer: No Advance Directives Info Given: To Pt/S.O. Advance Directives Reason: Declines as Mental Health Visit. Discharge Summary Admission HPI Per the Admitting provider: This is the patient's first episode of care at our facility. She presented to the emergency room yesterday with her , reporting worsening auditory hallucinations and anxiety for the past week, with voices telling her to kill herself. She was a limited historian, had thought blocking, and was unable to answer questions other than to shake or nod her head, so her provided much of the history. He said she has a history of depression and anxiety, but could not clarify any recent triggers. Sleep has been poor, 3-4 hours a night, with frequent awakening. She had been drinking fluids, but not eating very well. She was diagnosed with UTI and started on Keflex. She could not elaborate about what the voices were saying, or about her suicidal thoughts, but told staff on our unit that she was hearing both male and female voices telling her to kill herself. Her expressed concerns that she would act on these command hallucinations. Overnight, she reported feeling distraught about her auditory hallucinations, was trembling and tearful, reported feeling scared, and was given a one-time dose of olanzapine 2.5 mg. Today, the patient was seen with Micaela Kincaid, MS3. She states she is "not good," saying "it's my insides...it's really hard to explain...it's really fast...feels like a ball." She says she feels a ball moving from side to side in her pelvis, it started at breakfast time. Cannot provide any further information about it, but feels distressed. Mood is "good," then says she has been depressed. She says she came in because "hearing voices," going on for 4 years, but worsening recently. Reports hearing "a lot" of different voices, both male and female, doesn't recognize them, which are telling her to hurt herself. The command hallucinations are new, started a couple months ago. She initially says she did not try a medication for hallucinations, then says she was given something in [place] 4 years ago. She doesn't know if she has had recent med changes. She expresses concern that she might act on the commands to hurt herself, but is not sure what she might do. She reports chronic insomnia, and thinks she takes something for sleep, but doesn't know the names of any of her meds. Her helps her with her meds. She is not sure what she has been diagnosed with, but denies a history of bipolar disorder or schizophrenia. She reports chronic anxiety, worries a lot, and has had panic; worse recently. She has been pacing a lot, says she likes to walk, but has had decreased interest recently. Hospital Course (1) Schizoaffective disorder, depressive type - Continue home dose of lamotrigine 100 mg daily at bedtime, mirtazapine 30 mg daily at bedtime, and zolpidem 5 mg daily at bedtime when necessary for insomnia. - Patient reports that olanzapine 2.5 mg that she received last evening was helpful for the voices and for sleep, so will order this twice a day for now while obtaining records from her outpatient psychiatrist to clarify past medication trials. Will also order 2.5 mg every 8 hours when necessary psychosis. Reviewed risks, benefits, and side effects of the medication with the patient. Order fasting lipid profile and fasting glucose for tomorrow morning for monitoring on an atypical antipsychotic. - Get records from PCP regarding ? Parkinson's disease diagnosis, as she has Sinemet listed as a home medication. May need to consider a trial of quetiapine due to drug drug interactions with dopamine antagonists. - Encourage group attendance and participation. - Family meeting with . We'll review recommendations the guns be secured prior to discharge. 02/20 - Records reviewed from Dr. Bashir's office, and staff contacted to clarify current medications, as admission medication reconciliation was incorrect. - Fasting lipid profile and glucose for monitoring on an atypical antipsychotic were performed today and results reviewed, and were normal. 02/21 - Decrease zolpidem to 5 mg daily at bedtime, which is her home dose, due to concerns for drug drug interactions, cognitive impairment, falls, and other negative side effects. - Increase olanzapine to 2.5 mg in the morning and 7.5 mg at bedtime to target racing thoughts and tactile hallucinations, and continue clonazepam 0.5 mg 3 times a day prn anxiety, lamotrigine 100 mg daily qhs, and mirtazapine 30 mg daily qhs. On reviewing her past medications from Dr. Bashir's records, she has been on up to 20 mg of olanzapine daily in the past, and his notes do not indicate why the dose was decreased. 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 - Attempt to get collateral information from her : Baseline, mental health history (when she first became ill, how she had responded to treatment over time, and when psychosis started), recent medications (there is some concern that she may not have been getting the correct medications at home), and gynecological history (has she seen her MANUFACTURING QUALITY MANAGER recently, been diagnosed with a gynecological problem, and who is her out patient MANUFACTURING QUALITY MANAGER?) 02/22 - Start Remeron 3.75 mg. BID - Increase Zyprexa to 10 mg. HS, and continue prn 02/23 - Poor response to olanzapine, so we will switch to quetiapine, which she has shown some response to. Taper olanzapine over the next 2 days. Start quetiapine 100 mg at bedtime tonight, and titrated up over the next couple of days to 300 mg. I will also order 25 mg twice a day, and 50 mg when necessary. - Try lorazepam 0.5 mg every 4 hours when necessary anxiety in place of clonazepam, which the patient states has not been very effective. 02/24 - Continue cross taper from olanzapine to quetiapine. - Contact for collateral information. - I am concerned that there could be a neurological process involved, given the late age of onset and clinical symptoms of dementia, such as LBD. Discussed with neurology as she has been seen by Dr. Saldana in the past in [place]. 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 02/25 - Continue cross over from zyprexa to Seroquel 02/26 - Off olanzapine, and on quetiapine 25mg bid, 300mg qhs, and 50mg prn. Last prn was 02/24. Continue for now and consider increasing qhs dose. - Neuro records reviewed as above. 02/27 - DC Ambien due to concerns for cognitive impairment - Will obtain a MoCA for baseline 02/28 - MoCA 02/16 - Will DC all BZD - Increase Seroquel to 25-50-300 03/01 - Continue current meds for now 03/02 - Somatic symptoms and associated anxiety have been difficult to treat and possibly driven by underlying psychosis. Question underlying mood d/o as origin of psychosis. Parkinson's spectrum d/o felt to be unlikely root cause. She appears to be tolerating the Seroquel and further upward titration could be considered, however in the absence of significant bradykinesia, a retrial of a more potent D2 josey at low dose in combination with the Seroquel may be of quicker benefit, such as adding low dose Risperdal. Unfortunately she is already akathetic and this may get worse with that type of intervention which may also further decompensate or anxiety. We could also consider a clozapine trial as an alternative to the Seroquel if she fails to respond adequately which would be lower risk for exacerbating parkinsonism. Secondary to history of depression responsive to ECT which suggests possible benefit from more aggressive antidepressant tx, will first attempt to utilize an snri, Cymbalta 30 mg daily to start with plan to titrate as tolerated, chosen for therapeutic effect regarding potential neuropathic component of her somatic complaints and is noradrenergic at low doses. If this intervention fails, a retrial of gabapentin or Lyrica may also be considered. Will watch for s/o serotonin excess in combination with Remeron. 03/03 - Appears to be tolerating the Cymbalta adequately so far and describing a little interval improvement in anxiety and restlessness. We'll defer further medication changes today and watch. 03/04 - Continue current meds. - As per Dr. Jacobs's suggestions, consider trial of neurontin or lyrica if no response. 03/05 - Increase Cymbalta to 60 mg. daily - Trial Artance 5 mg. X 1 to see if improves restlessness (2) Anxiety 02/19 - Continue home dose of clonazepam 1 mg 3 times a day when necessary anxiety. 02/20 - Admission medication reconciliation was incorrect, and has been corrected to reflect home dose of clonazepam 0.5 mg 3 times a day when necessary. 02/28 - DC BZD - Use prn Seroquel 03/02 - We'll need to watch for rebound anxiety or increased restlessness off of the benzodiazepine. So far she appears to be tolerating adequately. (3) Hypothyroid - Get PCP records, as TSH is low and free T4 is elevated. Hold levothyroxine, and get records from PCP to determine if the dose has been adjusted recently as she is currently hyperthyroid. 02/20 - PCP records reviewed, per office staff her levothyroxine dose has not been adjusted since last April, and as she is over corrected on her current dose, we will decrease it to 88 g daily. This could be playing a role in her increased anxiety. She will need to follow-up with her PCP for ongoing monitoring. (4) UTI (urinary tract infection) - Complete one week course of Keflex started in the emergency room. (5) Vaginal pain 02/20 - patient continues to report pressure and pain in her pelvic area, and when she last saw her PCP, there was a concern for vaginal prolapse. As it is causing significant discomfort, and she cannot state if she ever followed up with her outpatient MANUFACTURING QUALITY MANAGER, we will consult MANUFACTURING QUALITY MANAGER here, and greatly appreciate any recommendations. Continue Tylenol as needed for pain and discomfort. 02/21 - appreciate Dr. Spicer seeing the patient. Unfortunately, she regressed, and was unable to consent for an exam. She continues to report vaginal symptoms , and we will need to ensure follow-up with her outpatient MANUFACTURING QUALITY MANAGER. (6) Hyperlipidemia Continue home dose of simvastatin. (7) GERD (gastroesophageal reflux disease) Continue home medication. Risk Factors Assessment : Yes /single/: No Higher / Fall in social status: No Access to guns: Yes Health problems: Yes Mental Health Diagnoses: Yes Substance use disorders: No Previous attempt: No Family history of suicide: No Previous psychiatric stay: Yes Hopelessness: Yes Smoker: No Protective Factors Assessment Muslim beliefs: Yes : Yes Responsible for young children: No Employed: No Stable relationships: Yes Supportive family: Yes Good rapport with provider: Yes Day of Discharge Assessment COURSE OF HOSPITALIZATION: The patient was on our unit for 17 days. She was admitted voluntarily after her family brought her to our emergency department with complaints of depression, auditory hallucinations of multiple voices telling her to kill herself. She also had multiple tactile hallucinations including a sensation in her lower abdomen/pelvic area that something was moving. She also felt furniture such as chairs and tables moving underneath her. During her stay she was started on Zyprexa but showed very little benefit and so was switched to Seroquel. We had little information in the beginning about diagnosis and past treatment as the patient was thought blocked and unable to participate in conversation. We did obtain outpatient records from her neurologist and psychiatrist. We eventually switched her from Zyprexa to Seroquel after which she did it appear to be more relaxed and more affective. She did intermittently continue to experience the sensation of chairs moving underneath her and tables moving but these became less frequent by day of discharge. We had consulted MANUFACTURING QUALITY MANAGER, Dr. Spicer to rule out a uterine prolapse as the origin of her pelvic sensations. He did consult but felt due to her psychiatric condition, this was not the time to pursue a pelvic exam and so she has been deferred to outpatient. Throughout her stay she experience periods of thought blocking. There were be long latencies to her responses to questions during which she describes feeling anxious thinking about the answer. She also demonstrated some mouth movements, more pronounced when she was anxious. These appeared as opening and closing movements of her mouth. She experienced some leg movements predictably ends says that she associated it with anxiety. We gave her a trial of Artane which she felt was helpful leading us to the conclusion she was experiencing some degree of akathisia. She was started on Artane 2 mg twice a day with some degree of relief. Her was actively involved in her treatment, attending meetings and visiting regularly. He had high concern for her level of anxiety interfering with her ability to manage herself outside of the hospital. She was also started on low-dose Cymbalta during her stay at the suggestion of our geropsychiatric psychiatrist. This got to 60 mg which she felt didn't help to improve her mood and anxiety. He also suggested consideration of a trial of Neurontin or lyrica if no benefit. Consideration was given to a diagnosis of Lewy body dementia in view of her hallucinations as well. DAY OF DISCHARGE ASSESSMENT: Today the patient feels that she is ready for discharge. She reports that her anxiety and restlessness is improved although she remains anxious about whether or not her progress will continue at home. She will return to her regular outpatient providers and will have prompt follow- up with her outpatient psychiatrist and PCP. She plans to return to [place] where she has felt comfortable and enjoyed the group activities. Today she is denying any auditory or visual hallucinations and she is also denying any bodily sensations. She denies suicidal or homicidal ideation and wishes to be discharged. Her visited last night and is agreeable to picking her up today. Today she is casually and appropriately dressed in her steal her pajamas. Gait and station are within normal limits. Eye contact is good, had been not staring at the floor. Affect is anxious. Speech is limited but with less thought blocking then last week. Thoughts are organized, goal directed in response to questions. Recent and remote memory is intact per conversation. Intelligence is estimated average. Insight and judgment are improved over admission. Laboratory Test 02/18/17 00:00 02/18/17 13:32 02/18/17 13:36 02/20/17 07:06 Urine Color YELLOW Urine Appearance CLOUDY Urine pH 6.0 Urine Specific [place] 1.014 Urine Protein NEG Urine Glucose (UA) NEG Urine Ketones TRACE Urine Occult Blood TRACE Urine Nitrite NEG Urine Bilirubin NEG Urine Urobilinogen NEG Urine Leukocyte Esterase LARGE Urine WBC (Auto) >30 Urine RBC (Auto) 5-10 Urine Hyaline Casts (Auto) 1-5 Urine Epithelial Cells (Auto) 0-5 Urine Bacteria (Auto) 1+ Urine Opiates Screen NEG Urine Methadone, Qualitative NEG Urine Barbiturates NEG Urine Phencyclidine (PCP) Level NEG Ur Amphetamine/Methamphetamine NEG MDMA (Ecstasy) Screen NEG Urine Benzodiazepines Screen NEG Urine Cocaine Metabolite NEG Urine Marijuana (THC) NEG POC Glucose 82 White Blood Count 6.55 Red Blood Count 4.51 Hemoglobin 14.1 Hematocrit 42.9 Mean Corpuscular Volume 95.1 Mean Corpuscular Hemoglobin 31.3 Mean Corpuscular Hemoglobin Concent 32.9 Platelet Count 295 Mean Platelet Volume 10.2 Neutrophils (%) (Auto) 69.9 Lymphocytes (%) (Auto) 23.5 Monocytes (%) (Auto) 5.3 Eosinophils (%) (Auto) 0.8 Basophils (%) (Auto) 0.3 Neutrophils # (Auto) 4.58 Lymphocytes # (Auto) 1.54 Monocytes # (Auto) 0.35 Eosinophils # (Auto) 0.05 Basophils # (Auto) 0.02 RDW Standard Deviation 44.3 RDW Coefficient of Variation 12.7 Immature Granulocyte % (Auto) 0.2 Immature Granulocyte # (Auto) 0.01 Sodium Level 141 Potassium Level 3.1 Chloride Level 104 Carbon Dioxide Level 27 Anion Gap 10.0 Blood Urea Nitrogen 8 Creatinine 0.83 Est Creatinine Clear Calc Drug Dose 57.0 Estimated GFR () 84.6 Estimated GFR (Non- 73.0 BUN/Creatinine Ratio 9.3 Random Glucose 86 Calcium Level 10.9 Total Bilirubin 0.5 Direct Bilirubin 0.2 Aspartate Amino Transferase (AST) 18 Alanine Aminotransferase (ALT) < 6 Alkaline Phosphatase 95 Total Protein 7.1 Albumin 3.9 Thyroid Stimulating Hormone (TSH) 0.168 Free Thyroxine 1.84 Ethyl Alcohol mg/dL < 3.0 Fasting Glucose 92 Triglycerides Level 79 Cholesterol Level 133 HDL Cholesterol 56 LDL Cholesterol, Calculated 61 VLDL Cholesterol, Calculated 16 Cholesterol/HDL Ratio 2.4 Test 02/23/17 08:33 03/02/17 16:58 Sodium Level 145 Potassium Level 3.5 Chloride Level 108 Carbon Dioxide Level 31 Anion Gap 5.0 25-Hydroxy Vitamin D Total 68.7 Total Time Total Time Spent (min): Greater than 30 minutes Total Time Included: examination of the patient, discharge planning, medication reconciliation, communication with other providers Tobacco Cessation at Discharge Smoking Status: Never Smoker FDA approved Prescription: non-smoker Problem Qualifiers (1) UTI (urinary tract infection): Urinary tract infection type: acute cystitis Hematuria presence: with hematuria Qualified Codes: N30.01 - Acute cystitis with hematuria
[2017-03-07] MEDS ORDERED: DESTROY THIS MEDICATION ONE ×2 (10:00→12:30)
== END 2017-03-07 11:19 | disposition home or self-care (01) | DRG 885 ==
LOC: C.EDB 12:39 → C.MHU 16:23 → ENRESERV 16:53 → C.MHU 03-06 14:15
PROVIDERS: ADMIT Psychiatry & Neurology Psychiatry; ATTEND Psychiatry & Neurology Psychiatry
DX: F25.1 Schizoaffective disorder, depressive type (principal); N30.01 Acute cystitis with hematuria; F17.200 Nicotine dependence, unspecified, uncomplicated; E03.9 Hypothyroidism, unspecified; G20 Parkinson's disease; F41.9 Anxiety disorder, unspecified; E78.5 Hyperlipidemia, unspecified

== ENCOUNTER 2017-04-12 14:58 | Inpatient (IN) | payer OTHER ==
[~2017-04-12] VITALS: Ht 157.5 cm; Wt 61.1 kg
[~2017-04-12 14:58] MED LIST: CYM60 PO; LAMO1TAB21 PO; LEVO88TA PO; PRLSR20 PO; RMR15 PO; SIMV20TA2 PO; SRQ25 PO; TRIH2TAB3 PO
[2017-04-12] MEDS ORDERED: LORAZEPAM 0.5 MG TAB SL STA (15:38)
[2017-04-12 16:09] LABS: HEMATOCRIT 40.5 % (37-47); MEAN CELL VOLUME 93.8 fL (80-100); MEAN CORPUSCULAR HEMOGLOBIN 32.2 pg (25-34); MEAN CORPUSCULAR HGB CONC 34.3 g/dl (32-36); MEAN PLATELET VOLUME 10.4 fL (7.4-10.4); PLATELET COUNT 236 K/uL (130-400); RED BLOOD COUNT 4.32 M/uL (4.2-5.4); WHITE BLOOD COUNT 8.78 K/uL (4.8-10.8)
[2017-04-12 16:32] LABS: CALCIUM 10.1 mg/dl (8.5-10.1); CREATININE 0.98 mg/dl (0.60-1.20); POTASSIUM 2.9 mmol/L (3.5-5.1)
[2017-04-12 16:37] LABS: ACETAMINOPHEN < 2 ug/ml (10-30)
[2017-04-12 16:43] LABS: THYROID STIMULATING HORMONE 3.63 uIu/ml (0.300-4.500)
[2017-04-12] MEDS ORDERED: POTASSIUM CHLORIDE 10 MEQ TABCR PO STA (16:51)
[2017-04-12] MEDS ORDERED: QUET1TAB30 PO (16:57)
[2017-04-12] MEDS ORDERED: CHOL2000 PO (16:57)
[2017-04-12] MEDS ORDERED: MIRT15TA2 PO (16:57)
[2017-04-12] MEDS ORDERED: CLON0.5T3 PO (16:57)
[2017-04-12] MEDS ORDERED: ZOLP10TA PO (16:57)
[2017-04-12] MEDS ORDERED: QUET1TAB37 PO (16:57)
[2017-04-12 17:12] LABS: URINE APPEARANCE CLEAR (CLEAR); URINE BILIRUBIN NEG (NEG); URINE COLOR YELLOW; URINE NITRITE NEG (NEG); URINE PH 7.5 (4.5-7.5); URINE SPECIFIC GRAVITY 1.013 (1.000-1.030); UROBILINOGEN NEG (NEG)
[2017-04-12 17:14] LABS: MANUAL MICROSCOPIC REQUIRED? NO; REVIEW REQ? NO
[2017-04-12 17:39] LABS: BENZODIAZEPINE, URINE NEG (NEG); COCAINE,URINE NEG (NEG); PHENCYCLIDINE, URINE NEG (NEG)
[2017-04-12] MEDS ORDERED: LAMO25TA PO (19:16)
[2017-04-12] MEDS ORDERED: MIRT45TA PO (19:16)
[2017-04-12] MEDS ORDERED: BENZ2TAB6 PO (19:16)
[2017-04-12] MEDS ORDERED: MOML PO (19:16)
[2017-04-12] MEDS ORDERED: BISA10SU7 PR (19:16)
[2017-04-12] MEDS ORDERED: SODIENE PR (19:16)
[2017-04-12] MEDS ORDERED: LAMO100T16 PO (19:16)
[2017-04-12] MEDS ORDERED: ACET325T96 PO (19:16)
--- NOTE | 2017-04-12 19:38 | EMERGENCY ROOM VISIT NOTE ---
History Report prepared by Dena: Cynthia Alvarado Under the Supervision of: Dr. Ilia Wolff M.D. First contact with patient: 15:24 Chief Complaint: PSYCHIATRIC PROBLEMS Stated Complaint: PSYCHIATRIC PROBLEMS History of Present Illness The patient is a 66 year old female who presents to the Emergency Room with complaints of worsening anxiety. She is accompanied by her . She states she currently feels like the bed she is sitting on "is moving" and she is experiencing auditory hallucinations. She reports the voices she hears are not currently telling her anything. The patient was seen here in the hospital in early February for auditory hallucinations and anxiety. She was then treated in [facility] for 2 weeks and was released to [place] for "therapy with walking", which her believes is from the medications she is on. Her states he also believes she was sent home too soon. Her reports he is unsure of what medications she is currently taking as they have been changed recently. He notes the patient shuffling her feet is new and started while she was in [facility]. The patient denies any suicidal or homicidal ideations. She denies any pain. She states "I just have anxiety really bad". She is unable to pinpoint any known triggers for her anxiety. She denies any dysuria or increased frequency. Her reports she does occasionally experience constipation, which is usually treated with a suppository. The patient denies any recent nausea or vomiting. Source of History: patient, spouse/significant other () Onset: [employer] Position: other (global) Symptom Intensity: severe Quality: other (anxiety) Timing: worsening Associated Symptoms: No nausea, No vomiting, No urinary symptoms Review of Systems See HPI for pertinent positives & negatives. A total of 10 systems reviewed and were otherwise negative. Past Medical & Surgical Medical Problems: (1) Anxiety (2) GERD (gastroesophageal reflux disease) (3) Hyperlipidemia (4) Hypothyroid (5) Past Psych Medications (6) Schizoaffective disorder, depressive type (7) Vaginal pain Social History Smoking Status: Never Smoker Alcohol Use: none Drug Use: none Marital Status: Housing Status: lives with family Occupation Status: retired Current/Historical Medications Scheduled Benztropine Mesylate (Benztropine Mesylate), 2 MG PO TID Duloxetine HCl (Duloxetine HCl), 60 MG PO QAM Lamotrigine (Lamictal), 25 MG PO HS Lamotrigine (Lamictal), 100 MG PO HS Levothyroxine Sodium (Synthroid), 1 TAB PO DAILY Mirtazapine (Remeron), 1 TAB PO HS Omeprazole (Prilosec), 20 MG PO DAILY Simvastatin (Zocor), 20 MG PO QAM Trihexyphenidyl HCl (Trihexyphenidyl HCl), 2 MG PO BID Zolpidem Tartrate (Ambien), 10 MG PO HS Scheduled PRN Acetaminophen Tab (Tylenol), 650 MG PO Q4 PRN for Pain or Fever Bisacodyl (Bisac-Evac), 1 SUPP OR UD PRN for Constipation Magnesium Hydroxide (Milk Of Magnesia), 30 ML PO UD PRN for Constipation Sodium Phosphate/Biphosphate (Fleet Enema), 1 EA OR DAILY PRN for Constipation Allergies Coded Allergies: No Known Allergies (Unverified , 04/12/17) Physical Exam Vital Signs Date Time Temp Pulse Resp B/P (MAP) Pulse Ox O2 Delivery O2 Flow Rate FiO2 04/12/17 18:40 85 18 117/67 97 Room Air 04/12/17 16:59 68 18 133/82 98 Room Air 04/12/17 15:01 36.7 91 18 108/68 97 Room Air Physical Exam Constitutional: Vital signs reviewed. Eyes: Pupils are dilated and reactive to light. Conjunctiva are noninjected. ENT: Pharynx is clear without erythema or exudate. Mucous membranes are moist. Neck supple without meningeal signs. Respiratory: Clear to auscultation bilaterally. Breath sounds are equal bilaterally. Cardiovascular: Regular rate and rhythm. No rubs or gallops. GI: Soft, nondistended and nontender. Bowel sounds are present. Musculoskeletal: No peripheral edema. No lower extremity tenderness. Integumentary: No cyanosis. Neurological: The patient is awake and alert. She is restless. Mild tremor in all extremities. Cranial nerves II-XII are intact. Motor is 5 out of 5 all extremities. No tongue darting or lip smacking. Sensation is intact to light touch all extremities. Normal speech. No pronator drift. No limb ataxia. Psychiatric: Anxious affect. Medical Decision & Procedures Laboratory Results 04/12/17 15:48 04/12/17 15:48 Test 04/12/17 15:00 04/12/17 15:48 Urine Color YELLOW Urine Appearance CLEAR (CLEAR) Urine pH 7.5 (4.5-7.5) Urine Specific [place] 1.013 (1.000-1.030) Urine Protein NEG (NEG) Urine Glucose (UA) NEG (NEG) Urine Ketones TRACE (NEG) Urine Occult Blood NEG (NEG) Urine Nitrite NEG (NEG) Urine Bilirubin NEG (NEG) Urine Urobilinogen NEG (NEG) Urine Leukocyte Esterase TRACE (NEG) Urine WBC (Auto) 1-5 /hpf (0-5) Urine RBC (Auto) 0-4 /hpf (0-4) Urine Hyaline Casts (Auto) 0 /lpf (0-5) Urine Epithelial Cells (Auto) 5-10 /lpf (0-5) Urine Bacteria (Auto) NEG (NEG) Urine Opiates Screen NEG (NEG) Urine Methadone, Qualitative NEG (NEG) Urine Barbiturates NEG (NEG) Urine Phencyclidine (PCP) Level NEG (NEG) Ur Amphetamine/Methamphetamine NEG (NEG) MDMA (Ecstasy) Screen NEG (NEG) Urine Benzodiazepines Screen NEG (NEG) Urine Cocaine Metabolite NEG (NEG) Urine Marijuana (THC) NEG (NEG) Red Blood Count 4.32 M/uL (4.2-5.4) Mean Corpuscular Volume 93.8 fL (80-100) Mean Corpuscular Hemoglobin 32.2 pg (25-34) Mean Corpuscular Hemoglobin Concent 34.3 g/dl (32-36) RDW Standard Deviation 46.0 fL (36.4-46.3) RDW Coefficient of Variation 13.3 % (11.5-14.5) Mean Platelet Volume 10.4 fL (7.4-10.4) Anion Gap 8.0 mmol/L (3-11) Est Creatinine Clear Calc Drug Dose 47.9 ml/min Estimated GFR () 69.2 Estimated GFR (Non- 59.7 BUN/Creatinine Ratio 11.0 (10-20) Calcium Level 10.1 mg/dl (8.5-10.1) Total Bilirubin 0.6 mg/dl (0.2-1) Direct Bilirubin 0.1 mg/dl (0-0.2) Aspartate Amino Transf (AST/SGOT) 18 U/L (15-37) Alanine Aminotransferase (ALT/SGPT) 16 U/L (12-78) Alkaline Phosphatase 89 U/L (45-117) Total Protein 6.9 gm/dl (6.4-8.2) Albumin 3.4 gm/dl (3.4-5.0) Thyroid Stimulating Hormone (TSH) 3.630 uIu/ml (0.300-4.500) Salicylates Level < 1.7 mg/dl (2.8-20) Acetaminophen Level < 2 ug/ml (10-30) Ethyl Alcohol mg/dL < 3.0 mg/dl (0-3) Laboratory results as reviewed by me. Medications Administered Medications (Trade) Dose Ordered Sig/Jeison Route Start Time Stop Time Status Last Admin Dose Admin Lorazepam (Ativan Tab) 0.5 mg NOW STAT SL 04/12/17 15:38 04/12/17 15:39 DC 04/12/17 15:54 0.5 MG Potassium Chloride (Klor-Con M10) 40 meq NOW STAT PO 04/12/17 16:51 04/12/17 16:53 DC 04/12/17 17:08 40 MEQ ED Course 1528: The patient was evaluated in room A7. A complete history and physical exam was performed. 1538: Ativan 0.5 mg SL. 1651: Potassium Chloride 40 meq PO. 1737: The patient has been medically cleared. Case Management is referring her for inpatient care to [address] [place] [address]'s Psychiatric Care floor. 1940: Psychiatric Case Management informed me the patient has been accepted by [address] [place] [address]. She will be further evaluated. Medical Decision This is a 66-year-old female who presents for mental health evaluation. I did perform a limited focused review of portions of the patient's old chart on the electronic medical record. The patient was admitted here on February 19 for worsening auditory hallucinations and anxiety. She was diagnosed with schizoaffective disorder and was placed on Seroquel. I did evaluate the patient as noted above. I did obtain history from the patient as well as her . She is very anxious. Per his to be very restless as well which may be due to her psych meds. We will obtain a list from [place] to ascertain what medications she is currently on. Her states that they changed all her meds at [facility] when she was admitted. I did treat patient with Ativan 0.5 mg sublingually for her anxiety. I did order and review the patient's blood work as noted in the electronic medical record. She does have mild hypokalemia. She was given oral potassium. I did medically clear the patient. The patient was evaluated by the mental health worker. The patient was accepted to [address] [place] [address] for inpatient psychiatric care. Medication Reconcilliation Current Medication List: was personally reviewed by me Blood Pressure Screening Patient's blood pressure: Normal blood pressure Blood pressure disposition: Did not require urgent referral Impression Primary Impression: Schizoaffective disorder, depressive type Additional Impressions: Anxiety Hypokalemia Scribe Attestation The scribe's documentation has been prepared under my direct and personally reviewed by me in its entirety. I confirm that the note above accurately reflects all work, treatment, procedures, and medical decision making performed by me. Departure Information Dispostion [facility] Acute Care (The patient will be further evaluated by [address] [place] [address]) Referrals Milind Barraza M.D. (PCP) Patient Instructions My [facility] Problem Qualifiers
[2017-04-12] MEDS ORDERED: BISMUTH SUBSALICYLATE PER ML OMNICELL CHARGE PO PRN (20:15)
[2017-04-12] MEDS ORDERED: BENZTROPINE MESYLATE 1 MG TAB PO PRN (20:15)
[2017-04-12] MEDS ORDERED: SOD PHOSPHATE/SOD BIPHOSPHATE ENEMA 132 ML BTL PR PRN (20:15)
[2017-04-12] MEDS ORDERED: BISACODYL 10 MG SUPP PR PRN (20:15)
[2017-04-12] MEDS ORDERED: MAGNESIUM HYDROXIDE SUSP 30 ML UDC PO PRN (20:15)
[2017-04-12] MEDS ORDERED: ALUMINUM/MAGNESIUM SUSP 30 ML UDC PO PRN (20:15)
[2017-04-12] MEDS ORDERED: SODIUM CHLORIDE 0.65% NA SOLN 45 ML (OCEAN) PRN (20:15)
[2017-04-12] MEDS ORDERED: ZOLPIDEM TARTRATE 10 MG TAB PO SCH (21:00)
[2017-04-12 21:35] VITALS: O2SAT 96
[2017-04-12 22:47] VITALS: BP 121/69; PULSE 87; TEMP 36.7; BMI 24.6
[2017-04-13] MEDS: MIRTAZAPINE TAB 15 MG TAB PO SCH ×2 (00:09→21:05)
[2017-04-13 06:56] VITALS: BP_SYST 105; BP_SYST 116; BP_DIAS 67; BP_DIAS 77; PULSE 83; PULSE 88; TEMP 36.8
[2017-04-13 07:05] VITALS: Ht 157.5 cm; Wt 61.1 kg
[2017-04-13] MEDS ORDERED: INFLUENZA VACCINE HIGH DOSE 65+ 0.5 ML SYR IM. ONE (08:00)
[2017-04-13] MEDS ORDERED: INFLUENZA ADMINISTRATION CHARGE ONE (08:00)
[2017-04-13] MEDS: LEVOTHYROXINE 88 MCG TAB PO SCH (08:09)
[2017-04-13] MEDS: SIMVASTATIN 20 MG TAB PO SCH (08:53)
[2017-04-13] MEDS: DULOXETINE HCL 60 MG CAP PO SCH (08:53)
[2017-04-13] MEDS: PANTOprazole SOD 40 MG TAB PO SCH (08:53)
[2017-04-13] MEDS: QUETIAPINE FUMARATE 25 MG TAB PO PRN (13:30)
--- NOTE | 2017-04-13 15:19 | Psychiatric History & Physical ---
History Date of Service Apr 13, 2017. Identifying Data Shanna Hutson is a 66-year-old female who presents from [facility] where she was living temporarily for rehab due to unsteady gate. Her spouse brought her to the [facility] ER for worsening of her psychosis, and anxiety. Shanna Hutson was admitted on a 201 voluntary commitment. . Information provided by the patient is considered somewhat reliable but majority of information is taken from the [facility] record and her 's report in the ER on 04/12/17. Chief Complaint "I am anxious". 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 Per neurology notes she was taken off those medications with some improvement in her movement symptoms, but ongoing Headaches and feeling that her insides were moving with no clear obvious physical etiology identified by GI or neurology at that time. MRI brain result is referred to in a 2015 neuro note showed no obvious pathology (see neurology notes scanned in other records from her 02/2017 admission) She had MRI of C-spine and thoracic spine In 2014 she became depressed and was hospitalized at [facility] and transferred to [facility] where she was given ECT for depression with psychotic features. She recollects she was seeing things at that time and that the ECT helped her. Per her prior [facility] record from 02/2017 admission: At that times she had worsening auditory hallucinations and anxiety for the week prior to admission with command hallucinations male and female telling her to kill herself. She had thought blocking at that time and much of the history was gathered by her . She was having poor sleeping 3-4hours/night with frequent waking. She described chronic anxiety and chronic insomnia. MOCA . She was treated for UTI and also levothyroxine was reduced due to elevated T4 and low TSH. Fasting lipids on 02/20/17 WNL. She was given a trial of zyprexa titrated to 10mg/hs with little response and changed to seroquel titrated to 25mg/AM, 50mg mid day and 300mg/hs. Benzodiazepines and ambien were discontinued. Remeron 30mg/hs was continued as was lamictal 100mg/hs. She was started on cymbalta 30mg/d titrated to 60mg/d to target mood, anxiety and comorbid neuropathy. (consideration was given for adjunctive risperdal but due to ongoing akathisia was not trialed, consideration was given for gabapentin and lyrica for anxiety) She was given artane 5mg x1 (unclear response) SHe was discharge and denied AVH, restlessness and anxiety were ongoing but improved. She was planning to return [facility] to enjoy group activities. She denies safety concerns. Diagnosis at discharge was schizoaffective disorder depressed type, and anxiety. After that discharge patient was then admitted to [facility] inpatient psychiatry for 2.5 weeks, records and course of treatment unavailable at this time. SHe was discharged to [facility] for physical rehabilitation due to unsteady gait. The medication reconciliation is reportedly taken from a list from [facility], and of note includes no antipsychotic and does include both cogentin 2mg po tid, and artane 2mg po bid. The patient was brought to the [facility] ER on 04/12/17 from [facility] due to worsening ofr her status. She was seeing shadows "figures of boys and birds" with auditory hallucinations and expressing paranoia to her spouse. She had poor reality testing and he was concernsed that hse was again decompensating. In the ER the patient confirmed the above symptoms of AH, and VH and paranoia. She reported feeling the room was spinning and felt restless. SHe was noted to sway and appear restless. She reports she perceived the floor, vargas and bed were moving. She was showing some evidence of slow thinking and difficulty communicating. Her spouse provided most of her history in the ER. Due to decompensation and poor reality testing and inability to care for self she was admitted for further evaluation and treatment. The patient on the unit is grossly anxious. SHe is restless and unable to sit still. She however despite use of a walker is grossly unsteady nearing fall on two occasions. She started to have high anxiety that was not amenable to staff verbal redirection. SHe was seen prior to receiving prn doses of medication. She is somewhat disjointed in her thinking at first providing brief snippets of thoughts that are disjointed. However wtih time she becomes more relaxed and linear. SHe states, "I was fine, I thought I was better until I ate lunch then it started....I had not done it in awhile" referring to her anxiety. She notes "because you were coming up to go to that thing to go to town....where you were going She persistently pushes her toes in rythmic bilateral fashion into the floor. She licks her lips repeatedly as well She states that she feels restless, walking makes it better. She feels that seats move underneath her and this has not subsided since it started worsening she estimates about 6months ago.. I am not sleeping well. She is going to bed at 10pm taking awhile going to sleep sees "visions" describes seeing a man who had a gun and was shooting and other visions such as a man in her room with birds all around her. These visions seem real to her. She denies having VH in the day. She is sleeping until waking at 3-4am not feeling restless per say at that time but not able to return to sleep. She feels upset when she cannot return to sleep and then this will worsen her mood and anxiety. She does feel anxious "all the time" but can get panic like. SHe rated her anxiety at a 5/10 in the dayroom prior to this meeting, and a 3/10 since entering this evaluation. She has heard voices before, prior to ECT which helped her. Today in interview she denies hearing voices, but hears noises replayed in her head. She worries about what others think about her when asked about paranoia, but denies other paranoid concerns at this time. She reports low mood with low interest. She feels hopeless and helpless. She has SI "sometimes" but "I would never do it." She has previously enjoyed reading but feels so restless that she cannot sit still to do so, and if she does sit she cannot concentrate to remember what she read. She has good appetite but has trouble sitting and eating despite feeling hungry. She can have times when her mood feels energetic and increased activity but on clarification she denies euphoria, "no just normal good." She denies feeling good during sleepless phases but rather "I feel lousy" denies indiscretions. 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 Zyprexa 20 mg outpatient, retrial milligrams February 2017 with limited response , change to Seroquel Lamictal 100 mg at bedtime and Remeron 30 mg at bedtime Ambien at bedtime discontinued February 2017 admission because of poor cognition\\ Cymbalta started February 2017 depression, anxiety and neuropathic pain 60 mg a day Artane 2 mg twice a day Cogentin Klonopin 0.5 3 times a day Luvox 150 mg at bedtime Serax 30 mg at bedtime Trazodone 300 mg Paxil Xanax Valium Celexa Lunesta Topamax- short of breath , from neurology for headaches Fioricet- using to frequently tapered vistaril neurontin 05/28/2016 100mg tid carbidopa-levaodopa 25-100 rasagaline 0.5mg stopped 02/13/17 Dr Van Past Medical/Surgical History History of Concussion/Seizure: No Per remote [facility] record problem list but not yet validated: Fibromyalgia, tension headaches, carpal tunnel, ganglion cyst removal, stage III kidney disease, asthma Allergies Allergies: Coded Allergies: No Known Allergies (Unverified , 04/12/17) Home Medications Scheduled Benztropine Mesylate (Benztropine Mesylate), 2 MG PO TID Duloxetine HCl (Duloxetine HCl), 60 MG PO QAM Lamotrigine (Lamictal), 25 MG PO HS Lamotrigine (Lamictal), 100 MG PO HS Levothyroxine Sodium (Synthroid), 1 TAB PO DAILY Mirtazapine (Remeron), 1 TAB PO HS Omeprazole (Prilosec), 20 MG PO DAILY Simvastatin (Zocor), 20 MG PO QAM Trihexyphenidyl HCl (Trihexyphenidyl HCl), 2 MG PO BID Zolpidem Tartrate (Ambien), 10 MG PO HS Scheduled PRN Acetaminophen Tab (Tylenol), 650 MG PO Q4 PRN for Pain or Fever Bisacodyl (Bisac-Evac), 1 SUPP W[place] UD PRN for Constipation Magnesium Hydroxide (Milk Of Magnesia), 30 ML PO UD PRN for Constipation Sodium Phosphate/Biphosphate (Fleet Enema), 1 EA [place] DAILY PRN for Constipation Family History History of Suicide: No History of Substance Abuse: Yes (father with drug and alcohol addiction) Psychiatric History: No Alcohol Use Alcohol Use In Past 12 Months: No AUDIT Total Score: 0 Smoking Use Smoking Status: Never Smoker Personal History Lives in: [place] with Education: graduated from high school Children: one daughter who is , and living in [place]. Spiritual Affiliation: attends congregation and nanny/household manager is supportive Psychological Trauma History: Denies Hx Traumatic Event Additional Comments: Patient lives in a [place] with her she grew up in [place] is the youngest of 3 children and has 2 brothers. They are in their 70s and she has a good relationship. Her mother has dementia, her father is . She graduated from high school in 1967 denied a history of learning disabilities. 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 She's been for greater than 40 years. She has 1 daughter who is and living in [place]. The patient has a history of attending the [employer] and more recently the [employer] however states she has not been in what she estimates to 6 months due to feeling so poorly. She denies a legal history. She denies a history of physical emotional sexual or verbal trauma. Review of Systems The patient describes feeling physically restless having trouble sitting still. She describes sense of her stomach "being in a ball" she describes feeling anxious. She describes feeling depressed. She seems unaware of her unsteady gait. She denies other physical concerns on 10 symptom review of systems at this time. Examination Physical Examination A physical exam was performed in the ER prior to admission to the unit by Dr Wolff. I accept that physical as correct/medical clearance for the inpatient physical exam. Of note during her focal physical evaluation it was apparent she may have had incontinence of bladder at some point in the day which she seemed grossly unaware of Additional focal neurologic exam performed today. She is alert and oriented to person time place and situation She has gross movements of her tongue to include appearance of her tongue rolling in her mouth as well as looking limits at times. On tongue protrusion she has both difficulty sustaining the protruded tongue motion as well as some what appear to be writhing movements like fasciculations She has marketed psychomotor agitation sitting in the chair with legs dangling pressing her toes to the floor and rhythmic unison movements. On passive range of motion when she is attentive to the examiner's actions she resists. When she is distracted she is able to purchase patent passive range of motion with right arm unremarkable. Left arm shows some stiffening no cogwheeling. pen light not available so cranial nerve II not tested. Patient does have large bilateral pupils that are equal in size. Her extraocular movements are grossly intact. Cranial nerves III through XII grossly intact. She has 5 out of 5 motor strength on upper extremity flexion and extension and lower extremity flexion and extension at proximal and distal joints. Reflexes are 2+ normal throughout Finger to nose is grossly intact. Rapid alternating movements are present with some mild discoordination meaning she is able to do it but when speeding up struggles. Two-step Luria hand sequence is intact, three-step Luria hand motion she is not able to do independently for more than 2 cycles. We did not have her perform tandem gait, heel walking or toe walking. We did not have her perform Romberg Vital Signs Vital Signs Past 12 Hours Date Time Temp Pulse Resp B/P (MAP) Pulse Ox O2 Delivery O2 Flow Rate FiO2 04/13/17 06:56 36.8 83 16 105/67 88 116/77 Laboratory Results Last 24 Hours Test 04/12/17 15:00 04/12/17 15:48 Urine Color YELLOW Urine Appearance CLEAR Urine pH 7.5 Urine Specific [place] 1.013 Urine Protein NEG Urine Glucose (UA) NEG Urine Ketones TRACE Urine Occult Blood NEG Urine Nitrite NEG Urine Bilirubin NEG Urine Urobilinogen NEG Urine Leukocyte Esterase TRACE Urine WBC (Auto) 1-5 /hpf Urine RBC (Auto) 0-4 /hpf Urine Hyaline Casts (Auto) 0 /lpf Urine Epithelial Cells (Auto) 5-10 /lpf Urine Bacteria (Auto) NEG Urine Opiates Screen NEG Urine Methadone, Qualitative NEG Urine Barbiturates NEG Urine Phencyclidine (PCP) Level NEG Ur Amphetamine/Methamphetamine NEG MDMA (Ecstasy) Screen NEG Urine Benzodiazepines Screen NEG Urine Cocaine Metabolite NEG Urine Marijuana (THC) NEG White Blood Count 8.78 K/uL Red Blood Count 4.32 M/uL Hemoglobin 13.9 g/dL Hematocrit 40.5 % Mean Corpuscular Volume 93.8 fL Mean Corpuscular Hemoglobin 32.2 pg Mean Corpuscular Hemoglobin Concent 34.3 g/dl RDW Standard Deviation 46.0 fL RDW Coefficient of Variation 13.3 % Platelet Count 236 K/uL Mean Platelet Volume 10.4 fL Sodium Level 136 mmol/L Potassium Level 2.9 mmol/L Chloride Level 104 mmol/L Carbon Dioxide Level 25 mmol/L Anion Gap 8.0 mmol/L Blood Urea Nitrogen 11 mg/dl Creatinine 0.98 mg/dl Est Creatinine Clear Calc Drug Dose 47.9 ml/min Estimated GFR () 69.2 Estimated GFR (Non- 59.7 BUN/Creatinine Ratio 11.0 Random Glucose 97 mg/dl Calcium Level 10.1 mg/dl Total Bilirubin 0.6 mg/dl Direct Bilirubin 0.1 mg/dl Aspartate Amino Transf (AST/SGOT) 18 U/L Alanine Aminotransferase (ALT/SGPT) 16 U/L Alkaline Phosphatase 89 U/L Total Protein 6.9 gm/dl Albumin 3.4 gm/dl Thyroid Stimulating Hormone (TSH) 3.630 uIu/ml Salicylates Level < 1.7 mg/dl Acetaminophen Level < 2 ug/ml Ethyl Alcohol mg/dL < 3.0 mg/dl Mental Examination During interview pt is: alert and oriented, cooperative Appearance: other (dressed and mismatched shirt, and pajama bottoms and tennis shoes hair is disheveled) Eye contact is: good (with notably large bilateral pupils) Motor behavior is: psychomotor agitation (tapping feet bilaterally and rhythmic flexing and extending at the ankles touching the floor; tardive dyskinesia movements of the tongue with rolling in her mouth and protrusions), EPS (stiffness in the left arm on passive range of motion when distracted; active resistance to passive range of motion when not distracted), akathisia, other (unsteady gait walking with a walker difficulty transitioning to chair needing assistance in lowering herself) Speech: other (speech begins as halting and disconnected sentences remberto are intelligible but do not fully make sense. As the interview goes on she is able to provide more sensible goal strings of information. She continues to have somewhat breathless manner with 3-5 word statements of regular rhythm and volume , minimal spontaneous speech.) Affect: flat, anxious Mood is: depressed, anxious Thought process: other (start as disjointed sentences that evolve into linear logical and goal directed brief sentences and answer to question) Thought content: hopelessness, other (preoccupied with sensation that the floor and chairs are moving, feeling anxious and restless) Suicidal thought are: present, Plan: denied, Intent: denied Homicidal thoughts are: denied Hallucinations: auditory (history of command hallucinations which she denies, history of male and female voices which she denies, currently hears repetitive sounds that others do not hear), visual (at night prior to bed sees generally figures in her bedroom content varies), tactile (perception of movement of the chairs and floor) Cognition: other (memory is intact for some details but limited globally not formally tested, attention appears to be intact) Intelligence estimated to be: average Insight: fair Judgement: fair Impression / Recommendations Impression The patient is a 66-year-old white female with clear evidence of psychosis to include presently vague auditory hallucinations, tactile hallucinations feeling the floor and the chairs move, at night visual hallucinations of figures in her room. She has in the past experienced auditory hallucinations of multiple voices with commands which she denies at present. Per prior history this started in her 60s however it is not clear when she was initially placed on perphenazine and Elavil and how long she was on those medications. It is possible she had prior psychotic depression that was well managed and revealed after she was taken off those medications due to narcoleptic induced parkinsonian symptoms. It is very clear that presently she has tardive dyskinesia of the mouth and lips. It is clear that she has akathisia it is unclear if she has what would be considered tardive akathisia, which may also explain the movements and sensations in her abdomen. The patient has been diagnosed with schizoaffective disorder depressed type. Differential for her current symptoms include her prior diagnosis of schizoaffective disorder depressed type, rule out underlying organic process such as Lewy body dementia, cannot rule out anticholinergic delirium contributing given she is allegedly on to anticholinergic medications at her rehabilitation facility. She has a long-standing history of anxiety which seems to be worsened by her mood, her psychosis and her movement disorders. Inventory Assets Strengths: Willingness for treatment Willingness to engage with inpatient staff and trial medication Supportive Needs: Stabilization of her mood, psychosis and anxiety. Increased support as an outpatient after discharge Risk Factors Assessment : Yes /single/: No Access to guns: Yes ('s rifle not locked) Health problems: Yes Mental Health Diagnoses: Yes Substance use disorders: No Previous psychiatric stay: Yes Hopelessness: Yes Smoker: No Protective Factors Assessment Taoist beliefs: Yes : Yes Responsible for young children: No Employed: No Stable relationships: Yes Supportive family: Yes Recommendations (1) Schizoaffective disorder, depressive type --We will request the recent psychiatric inpatient records from [facility]. --We will attempt to request her 2014 MRI result, and most recent neurology follow-up records if she had her March 13 follow-up appointment with Dr. Wynne. We will request the recent psychiatric inpatient records from [facility]. We will attempt to request her 2014 MRI result, and most recent neurology follow -up records if she had her March 13 follow-up appointment with Dr. Wynne. She did not have her glasses today and was unable to participate in the MOCA, but given her score at her February visit was in 9 out of 30 with like a comparison study. Furthermore would consider if MRI is indicated as a comparison study to identify a degenerative process given a poorly she is scoring. cannot rule out LBD, FTD, or NPH (given she has gait instability, incontinence and altered mental status) - will consider additional lab tests for reversible causes of cognitive sx -- she is on PPI so B12 deficiency (but MCV is normal), folate, and provider to review this topic and consider and order labs after looking at all the above data -- In the meantime we'll use Seroquel with plan to titrate to prior doses that seemed helpful at time of last discharge here in February 2017. She apparently was able to tolerate that medication and it is the least dopamine binding so the least provocative towards worsening akathisia or possible underlying degenerative brain disease such as Lewy body dementia. -- In the meantime we'll use Seroquel with plan to titrate to prior doses that seemed helpful at time of last discharge here in February 2017. She apparently was able to tolerate that medication and it is the least dopamine binding so the least provocative towards worsening akathisia, neuroleptic parkinsonianism or possible underlying degenerative brain disease such as Lewy body dementia. Fasting lipids and fasting blood sugars performed at the [facility] 02/20/2017 and are within normal limit -- We will attempt to limit the amount of anticholinergic medicine as they can worsen cognition and cause anticholinergic delirium as well as unsteadiness, and it is not 100% clear that they reduce tardive akathisia. They are not useful in the halfway for tardive dyskinesia either. I will hold Artane ( home med) and continue home med Cogentin but give when necessary rather than scheduled at this time. -- Continue Cymbalta 60 and Remeron 45 mg at this time watching for serotonin- based syndromes , continue Lamictal 125 mg at bedtime -- Reality testing, mejias milieu, group therapy as tolerated (2) Anxiety For now attempt to treat her psychotic process and mood as above Continue her Cymbalta and Remeron which may help with anxiety behavioral engagement and redirection Avoid benzodiazepine's given they have not shown predominant help in past hospitalization, her poor cognition and poor stability of gait (3) Movement disorder AIMS 3, provider will do research on treatments of tardive dyskinesia and akathisia. We will monitor for worsening of her left again induce parkinsonian symptoms titrate Seroquel (4) Hyperlipidemia Continue home dose of Zocor (5) GERD (gastroesophageal reflux disease) Continue Prilosec (6) Hypothyroid Review thyroid function tests and continue home dose of Synthroid (7) Vaginal pain We will need to assure patient has contact with OB gin as outpatient after discharge (see prior hospitalization in February 2017) (8) Constipation stop all stimulant laxatives Agree wtih fleets enema if needed will start miralax x3days, hold for loose bowels start colace today 100mg po bid to continue CPT Code Initial Hospital Care: [id number]
[2017-04-13] MEDS: DOCUSATE SODIUM 100 MG CAP PO SCH (21:04)
[2017-04-13] MEDS ORDERED: QUETIAPINE FUMARATE 100 MG TAB PO SCH (22:00)
[2017-04-14 06:56] VITALS: BP_SYST 119; BP_SYST 123; BP_DIAS 74; BP_DIAS 83; PULSE 101; PULSE 102; TEMP 36.6
[2017-04-14] MEDS: QUETIAPINE FUMARATE 25 MG TAB PO PRN (07:37)
[2017-04-14] MEDS: LEVOTHYROXINE 88 MCG TAB PO SCH (07:38)
--- NOTE | 2017-04-14 08:43 | Psychiatric Progress Notes ---
Progress Note Date of Service Apr 14, 2017. Interval History Shanna Hutson is a 66-year-old female known from a 02/2017 [facility] inpatient psychiatric admission who then had readmit to inpatient psychiatry at [place] for 2.5 weeks followed by discharge to [facility] where she was living temporarily for rehab due to unsteady gait. Her spouse brought her to the [facility] ER from her physical rehabilitation center for worsening of her psychosis, and anxiety. Shanna Hutson was admitted on a 201 voluntary commitment. . Information provided by the patient is considered somewhat reliable but majority of information is taken from the [facility] record and her 's report in the ER on 04/12/17. Chief Complaint "I am anxious". Subjective Patient was seen & assessed interval progress reviewed with Nursing Patient was distressed yesterday afternoon, walking laps upset after spouse did not answer phone despite reassurance he would be visiting in the evening. She continued to demonstrate confusion in locating needed items on the unit and required consistent staff assistance in attending to her needs, and ambulating unsteadily. She was checking the unit doors and it was unclear if she was confused or so anxious that she was thinking about her . She was givens sound machine of [employer] and did sleep in the night. 1. she has a right leaning gait and would fall if unassisted by staff consistently despite having walker to ambulate. 2. She does not have her glasses and so repeat MOCA is not advised given visual component. However she has waxing and waning mental status today, this AM she identified herself as "Shanna" with a different last name, that she was 53yo and that she was somewhere other than the hospital. Later she was oriented to this provider to her first and last name but thought she was at school. SHe knows who her is and that she feels anxious. 3. She has ongoing gross TD even when dosing in her chair in the day room and has extension of legs and feet setting on floor even while dozing. While sitting in provider office she has rythmic extension and relaxation of torso, legs and feet throughout the interview. She has been in distress all morning having short gasping breaths. She does have a cough with sound of congestion. She is tachycardic, she denies Chest pain. no calf swelling or tenderness on bilateral palpation 4. She denies having had VH last night, she states she slept well. She is not seeing figures this AM but is having tactile hallucinations of things moving such as the chair. She has AH of playing instruments today of note she has been in the dayroom where the TV was set to a music channel. She denies feeling paranoid. 5. She complains of pain in her "butt" when asked if it is a positional concern she says "no, something is in there." She states she had a BM recently and the the discomfort is different than stool but cannot meaningfully describe further. Review of Systems See description as above. She also has reduced eating stating she has an appetite but does not feel that she can sit and eat. Sleep Information Total Hours of Sleep: 8.50 Meal Information Percent of Breakfast Consumed: 50 Percent of Lunch Consumed: 100 Percent of Dinner Consumed: 75 Mental Status Exam During interview pt is: alert and oriented, cooperative Appearance: other (dressed and mismatched shirt, and pajama bottoms and tennis shoes hair is disheveled) Eye contact is: good (with notably large bilateral pupils) Motor behavior is: psychomotor agitation (tapping feet bilaterally and rhythmic flexing and extending at the ankles touching the floor; tardive dyskinesia movements of the tongue with rolling in her mouth and protrusions), EPS (stiffness in the left arm on passive range of motion when distracted; active resistance to passive range of motion when not distracted), akathisia, other (unsteady gait walking with a walker with right leaning, would fall if she did not have direct assistance) Speech: other (speech begins as halting and disconnected sentences remberto are intelligible but do not fully make sense. As the interview goes on she is able to provide more sensible goal strings of information. She continues to have somewhat breathless manner with 3-5 word statements of regular rhythm and volume , minimal spontaneous speech.) Affect: flat, anxious Mood is: depressed, anxious Thought process: other (start as disjointed sentences that evolve into linear logical and goal directed brief sentences and answer to question,) Thought content: hopelessness, other (preoccupied with sensation that the floor and chairs are moving, feeling anxious and restless) Suicidal thought are: present, Plan: denied, Intent: denied Homicidal thoughts are: denied Hallucinations: auditory (history of command hallucinations which she denies, history of male and female voices which she denies, currently hears repetitive sounds that others do not hear), visual (at night prior to bed sees generally figures in her bedroom content varies), tactile (perception of movement of the chairs and floor) Cognition: other (memory is intact for unpredictable aspects, not reliable, today she is only oriented to first name reliably and not place and situation) Intelligence estimated to be: average Insight: fair Judgement: fair Impression The patient is a 66-year-old white female with clear evidence of psychosis to include presently vague auditory hallucinations, tactile hallucinations feeling the floor and the chairs move, at night visual hallucinations of figures in her room. She has in the past experienced auditory hallucinations of multiple voices with commands which she denies at present. Per prior history this started in her 60s however it is not clear when she was initially placed on perphenazine and Elavil and how long she was on those medications. It is possible she had prior psychotic depression that was well managed and revealed after she was taken off those medications due to narcoleptic induced parkinsonian symptoms. It is very clear that presently she has tardive dyskinesia of the mouth and lips. It is clear that she has akathisia it is unclear if she has what would be considered tardive akathisia, which may also explain the movements and sensations in her abdomen. She has a long-standing history of anxiety which seems to be worsened by her mood, her psychosis and her movement disorders. Plan (1) Schizoaffective disorder, depressive type 04/13/17 --We will request the recent psychiatric inpatient records from [facility]. --We will attempt to request her 2014 MRI result, and most recent neurology follow-up records if she had her March 13 follow-up appointment with Dr. Wynne. We will request the recent psychiatric inpatient records from [facility]. We will attempt to request her 2014 MRI result, and most recent neurology follow -up records if she had her March 13 follow-up appointment with Dr. Wynne. She did not have her glasses today and was unable to participate in the MOCA, February 2017 Score 9 out of 30 with like a comparison study. Furthermore would consider if MRI is indicated as a comparison study to identify a degenerative process given a poorly she is scoring. cannot rule out LBD, FTD, or NPH (given she has gait instability, incontinence and altered mental status) - will consider additional lab tests for reversible causes of cognitive sx -- she is on PPI so B12 deficiency (but MCV is normal), folate, and provider to review this topic and consider and order labs after looking at all the above data -- Seroquel with plan to titrate to prior doses that seemed helpful at time of last discharge here in February 2017. Fasting lipids and fasting blood sugars performed at the [facility] 02/20/2017 and are within normal limit -- We will attempt to limit the amount of anticholinergic medicine as they can worsen cognition and cause anticholinergic delirium as well as unsteadiness, and it is not 100% clear that they reduce tardive akathisia. They are not useful in the penitentiary for tardive dyskinesia either. I will hold Artane ( home med) and continue home med Cogentin but give when necessary rather than scheduled at this time. -- Continue Cymbalta 60 and Remeron 45 mg at this time watching for serotonin- based syndromes , continue Lamictal 125 mg at bedtime -- Reality testing, mejias milieu, group therapy as tolerated 04/14/17 Discussion and Plan: Differential for her current psychiatric/movement symptoms include rule out underlying organic process: --Lewy body dementia (waxing sensorium, VH,AH,TH, parkinsonianism on prior neuroleptics, gait disturbance, incontinence) -NPH (psychosis, unstable gait, incontinence, gegenhalten (resistance on passive ROM)). - unlikely anticholinergic delirium She is no longer on anticholinergics ( artane held at admission) and no prn cogentin and provider will be discontinuing this today. - B12, CR WNL by records 2014; vitamin D 68 02/2017, Syphillis negative 02/2017 , TSH normalized as of 03/2017 - Although [facility] record states Kidney disease Stage III her EGFR and Cr appear WNL --CBC WNL so B12, folate def unlikely but will test for completeness sake as one can mask the other and she is on PPI -Vitamin E -Low risk of ester's ds given LFT WNL, will re-examine eyes for Jessica-Tania rings (could test ceruloplasmin) but she is also on the elder age of known diagnosis (per UpToDate as old as 70yo have been diagnosed) -Parathyroid (calcium in 02/2017 elevate, normal 03/2017) - she may have combined process of prior neuroleptic induced parkinsonianism and then when taken off perphenzine/elavil chronic TD and tardive akathesia may have been unmasked but that is not fully explanatory for the incontinence, the ataxia and waxing and waning mental status In regards to SOB and tachycardia - cough with congestion suggestive of URI,no fever and breath sounds in all sheikh mild wheeze in right middle lobe posteriorly and WBC WNL so pneumonia low; low probability for PE (Wells Score 1.5), 04/14/17 Plan: - considered Brain MRI imaging,but delayed due to : -- noted he has CD's from [facility] MRI contrast and non- contrast from 11/26/2016. This could be viewed on any [employer] capable [facility] computer, or sent to [facility] at phone number #[phone] in radiology to be collated into the record for radiology review and comparison - there is a CT apparently from [facility] stacie from 11/2016 on CD as well that indicates an abnormal finding in the buttocks per used the word "sewing needle" but said that was impossible because she had an MRI. Will examine patient's buttock and when radiologic study available will review - furthermore awaiting reading from [facility] for 2014 brain MRI for comparison - labs: PTH, B12, folate, thiamine, vitamin E for completing lab dementia work up, for SOB/r/o PE d-dimer and further test of liver function given normal LFT ordered coags - if this indeed is LBD then Ach Esterase inhibitors are recommended, and recommend against use of AAP (per UpToDate) as patient may be sensitive, for TD however seroquel may assist (possibly by masking but in a way that is less tightly binding than other AAP) therefore reducing her motion and physical distress and psychosis. It is difficult to know what to do until the above information is gathered, given she is in distress, cognition is poor and prior AAP but have not been fully restorative but has shown some partial benefit as documented in her 2016 admission here (discharged on seroquel appearing better than she appears at present) and may suppress some of her tardive akathisia, and tardive dyskinesia movements which are distressing to her - will continue seroquel hs titration but stop the prn doses - will presumptively start aricept titration given she clinically meets criteria for LBD and that is reported to reduce anxiety and distress for patients per UpToDate review - Benzos have been of short term utility for distress and was given when planning MRI today, but will not be used routinely for now given cognitive impairment, gait instability, elderly age and risk of disinhibition. (2) Anxiety 04/13/17 and 04/14/17 For now attempt to treat her psychotic process and mood as above Continue her Cymbalta and Remeron which may help with anxiety behavioral engagement and redirection Avoid benzodiazepine's given they have not shown predominant help in past hospitalization, her poor cognition and poor stability of gait (3) Movement disorder AIMS 3, provider will do research on treatments of tardive dyskinesia and akathisia. We will monitor for worsening of her left again induce parkinsonian symptoms titrate Seroquel (4) Hyperlipidemia Continue home dose of Zocor (5) GERD (gastroesophageal reflux disease) Continue Prilosec (6) Hypothyroid Review thyroid function tests and continue home dose of Synthroid (7) Vaginal pain We will need to assure patient has contact with OB gin as outpatient after discharge (see prior hospitalization in February 2017) (8) Constipation stop all stimulant laxatives Agree wtih fleets enema if needed will start miralax x3days, hold for loose bowels start colace today 100mg po bid to continue Discharge / Aftercare Planning Primary Care Physician: Name: Dr Madi Layton Crystalizer Operator: Name: None Visit Code E&M Code: 49897 (>90min spent in evaluation, coordinating care, reseraching differential and documenting plan) Inventory Assets Strengths: Willingness for treatment Willingness to engage with inpatient staff and trial medication Supportive Needs: Stabilization of her mood, psychosis and anxiety. Increased support as an outpatient after discharge Risk Factors Assessment : Yes /single/: No Health problems: Yes Mental Health Diagnoses: Yes Substance use disorders: No Previous psychiatric stay: Yes Hopelessness: Yes Smoker: No Protective Factors Assessment Amish beliefs: Yes : Yes Responsible for young children: No Employed: No Stable relationships: Yes Supportive family: Yes Data Vital Signs Last 24 Hrs: Date Time Temp Pulse Resp B/P (MAP) Pulse Ox O2 Delivery O2 Flow Rate FiO2 04/14/17 06:56 36.6 101 16 119/74 102 123/83 Meds Administered Last 24 Hrs: Meds Administered (Past 24Hrs) Medications (Trade) Dose Ordered Sig/Jeison Route Start Time Stop Time Status Last Admin Dose Admin Lorazepam (Ativan Tab) 0.5 mg NOW STAT SL 04/12/17 15:38 04/12/17 15:39 DC 04/12/17 15:54 0.5 MG Potassium Chloride (Klor-Con M10) 40 meq NOW STAT PO 04/12/17 16:51 04/12/17 16:53 DC 04/12/17 17:08 40 MEQ Duloxetine HCl (Cymbalta Cap) 60 mg QAM PO 04/13/17 09:00 05/13/17 08:59 04/13/17 08:53 60 MG Lamotrigine (Lamictal Tab) 25 mg HS PO 04/12/17 21:00 05/12/17 20:59 04/13/17 21:05 25 MG Lamotrigine (Lamictal Tab) 100 mg HS PO 04/12/17 21:00 05/12/17 20:59 04/13/17 21:05 100 MG Levothyroxine Sodium (Synthroid Tab) 88 mcg DAILYBB PO 04/13/17 07:00 05/13/17 06:59 04/14/17 07:38 88 MCG Simvastatin (Zocor Tab) 20 mg QAM PO 04/13/17 09:00 05/13/17 08:59 04/13/17 08:53 20 MG Zolpidem Tartrate (Ambien Tab) 10 mg HS PO 04/12/17 21:00 04/13/17 16:00 DC 04/13/17 00:08 10 MG Mirtazapine (Remeron Tab) 45 mg HS PO 04/12/17 21:00 05/12/17 20:59 04/13/17 21:05 45 MG Pantoprazole Sodium (Protonix Tab) 40 mg DAILY PO 04/13/17 09:00 05/13/17 08:59 04/13/17 08:53 40 MG Quetiapine Fumarate (seroQUEL TAB) 25 mg BID PRN PO 04/13/17 13:30 05/13/17 13:29 04/14/17 07:37 25 MG Quetiapine Fumarate (seroQUEL TAB) 50 mg Taper HS PO 04/13/17 22:00 05/13/17 21:59 04/13/17 21:05 50 MG Docusate Sodium (coLACE CAP) 100 mg BID PO 04/13/17 22:00 05/13/17 21:59 04/13/17 21:04 100 MG
[2017-04-14] MEDS ORDERED: POLYETHYLENE (MIRALAX) 17 GM PACK PO SCH (09:00)
[2017-04-14] MEDS: PANTOprazole SOD 40 MG TAB PO SCH (09:13)
[2017-04-14] MEDS: DOCUSATE SODIUM 100 MG CAP PO SCH (09:13)
[2017-04-14] MEDS: DULOXETINE HCL 60 MG CAP PO SCH (09:13)
[2017-04-14] MEDS: SIMVASTATIN 20 MG TAB PO SCH (09:13)
[2017-04-14] MEDS ORDERED: QUETIAPINE FUMARATE 25 MG TAB PO ONE (12:36)
[2017-04-14] MEDS ORDERED: QUETIAPINE FUMARATE 25 MG TAB PO PRN (12:45)
[2017-04-14] MEDS ORDERED: LORAZEPAM 1 MG TAB PO ONE (13:30)
[2017-04-14 14:52] LABS: BUN/CREATININE RATIO 8.8 (10-20); CALCIUM 10.7 mg/dl (8.5-10.1); CREATININE 1.2 mg/dl (0.60-1.20); POTASSIUM 3.4 mmol/L (3.5-5.1)
[2017-04-14 14:55] LABS: PROTHROMBIN TIME (PATIENT) 10.7 SECONDS (9.0-12.0)
[2017-04-14] MEDS ORDERED: ONDANSETRON INJ 2 MG/ML 2 ML VIAL IV PRN (15:45)
[2017-04-14] MEDS ORDERED: ACETAMINOPHEN 325 MG TAB PO PRN (15:45)
[2017-04-14] MEDS ORDERED: LORAZEPAM 2 MG/ML 1 ML VIAL IV STA (15:50)
[2017-04-14] MEDS ORDERED: LORAZEPAM 0.5 MG TAB ONE (15:51)
[2017-04-14] MEDS ORDERED: SODIUM CHLORIDE 0.9% 1000ML 1,000 ML IV SCH ×2 (16:00)
[2017-04-14] MEDS ORDERED: LORAZEPAM INJ 0.5 MG in SYRINGE 0.75 ML IV ONE (16:00)
[2017-04-14 16:02] LABS: ARTERIAL BLD GAS O2 SATURATION 98.8 % (90-95); ARTERIAL BLOOD GAS BASE EXCESS -3.6 mEq/L (-9-1.8); ARTERIAL BLOOD GAS HCO3 17 mmol/L (19-24); ARTERIAL BLOOD GAS PO2 115 mm/Hg (80-95)
[2017-04-14 16:03] LABS: BASO % 0.2 %; BASO ABS # 0.02 K/uL (0-0.2); EOS % 0.4 %; HEMATOCRIT 37.7 % (37-47); IG% 0.3 %; LYMPH % 10.7 %; LYMPH ABS # 1.15 K/uL (1.2-3.4); MEAN CORPUSCULAR HEMOGLOBIN 31.9 pg (25-34); MEAN PLATELET VOLUME 10.4 fL (7.4-10.4); MONO % 5.7 %; NEUT % 82.7 %; PLATELET COUNT 244 K/uL (130-400); RED BLOOD COUNT 4.01 M/uL (4.2-5.4)
[2017-04-14 16:04] VITALS: BP 123/83; PULSE 102; TEMP 36.6; O2SAT 96
[2017-04-14 16:11] LABS: ALLEN TEST POS (POS)
[2017-04-14 16:12] LABS: ARTERIAL BLOOD GAS pH 7.53 (7.35-7.45); O2 ADMINISTRATION 2L
[2017-04-14 16:13] LABS: COMPLETE YES
--- NOTE | 2017-04-14 16:25 | DIAGNOSTIC IMAGING REPORT ---
HEAD CT NONCONTRAST CT DOSE: 1695.14 mGy.cm HISTORY: gait disturbance, tachypnea TECHNIQUE: Multiaxial CT images of the head were performed without the use of intravenous contrast. Automated exposure control was utilized for this study. A dose lowering technique was utilized adhering to the principles of ALARA. Comparison: None. Findings: Trace fluid within the maxillary sinuses and ethmoid air cells. The mastoid air cells are clear. The calvarium and skull base are intact. The ventricles and sulci are within normal limits. There is no mass, hematoma, midline shift, or acute infarct. Impression: No acute intracranial abnormality. Electronically signed by: Suresh Howard M.D. 04/14/2017 4:23 PM Dictated Date/Time: 04/14/2017 4:12 PM
--- NOTE | 2017-04-14 16:36 | Discharge Instructions ---
Discharge Information Report Includes Report will include the: Discharge Instructions & Summary Admission Admission Date / Time: Apr 12, 2017 at 20:17 Reason for Admission: Schizoaffective Disorder, Depressive Type Discharge Discharge Diagnosis / Problem: Respiratory Distress, psychosis NOS, movement disorder unspecified Condition at Discharge: Poor Discharge Goals Goal(s): Specific goals (tranfer for medical stablization) Activity Recommendations Activity Limitations: as noted below Patient transferred to inpatient medicine due to decompensation of her respiratory status . Instructions / Follow-Up Instructions / Follow-Up . SPECIAL CARE INSTRUCTIONS: 1. Follow through with your scheduled aftercare appointments. If unable to keep an appointment, please call to reschedule. 2. Take your medication only as prescribed. Medication should not be changed or stopped without the approval of your doctor. In the event of worsening symptoms or concerns about side effects, contact your doctor immediately. 3. Utilize new healthy coping skills, anger management skills, and stress management skills learned during your hospitalization. Journal feelings and process them with a support person. Identify stressors or situations that may result in relapse, deterioration or inappropriate behaviors and develop a plan to deal with those issues. 4. If your coping skills are ineffective and you are in crisis, contact your outpatient providers for direction. If unable to reach your providers, please call the CAN HELP LINE AT or go to the closest Emergency Room. 5. Avoid alcohol and un-prescribed drugs. 6. You have been provided with the Mental Health Advance Directives Pamphlet for your review. AFTERCARE APPOINTMENTS: * Please call your insurance company prior to your scheduled appointment to confirm your aftercare providers are covered. Take your insurance information to your appointments. . Discharge / Aftercare Planning Primary Care Physician: Name: Dr Madi Layton Corporate Strategy Associate: Name: None . Follow-Up Care Plan for Follow-Up Care: Patient transferred to inpatient medicine due to decompensation of her respiratory status Current Hospital Diet Patient's current hospital diet: Regular Diet Discharge Diet Recommended Diet: Regular Diet Procedures Procedures Performed: No Pending Studies Pending Studies at Discharge: No Medical Emergencies . Who to Call and When: Medical Emergencies: For questions or emergencies related to your hospital stay, please contact the Inpatient Behavioral Health Unit at [phone]. A analytical manager is on-call 10/12 for the Behavioral Health Unit for emergencies At any time you feel your situation is an emergency, you may also call 911 immediately. . Non-Emergent Contact Non-Emergency issues call your: Hospital Doctor Past History Medical & Surgical History: (1) Schizoaffective disorder, depressive type (2) Movement disorder (3) Hyperlipidemia (4) GERD (gastroesophageal reflux disease) (5) Constipation (6) Hypothyroid Advance Directives Do You Have an Existing Mental: No Existing Living Will: No Existing Power of Records Management Director: No Advance Directives Info Given: To Pt/S.O. Advance Directives Reason: Declines as Mental Health Visit. 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 Per neurology notes she was taken off those medications with some improvement in her movement symptoms, but ongoing Headaches and feeling that her insides were moving with no clear obvious physical etiology identified by GI or neurology at that time. MRI brain result is referred to in a 2015 neuro note showed no obvious pathology (see neurology notes scanned in other records from her 02/2017 admission) She had MRI of C-spine and thoracic spine In 2014 she became depressed and was hospitalized at [place] and transferred to [facility] where she was given ECT for depression with psychotic features. She recollects she was seeing things at that time and that the ECT helped her. Per her prior [facility] record from 02/2017 admission: At that times she had worsening auditory hallucinations and anxiety for the week prior to admission with command hallucinations male and female telling her to kill herself. She had thought blocking at that time and much of the history was gathered by her . She was having poor sleeping 3-4hours/night with frequent waking. She described chronic anxiety and chronic insomnia. MOCA . She was treated for UTI and also levothyroxine was reduced due to elevated T4 and low TSH. Fasting lipids on 02/20/17 WNL. She was given a trial of zyprexa titrated to 10mg/hs with little response and changed to seroquel titrated to 25mg/AM, 50mg mid day and 300mg/hs. Benzodiazepines and ambien were discontinued. Remeron 30mg/hs was continued as was lamictal 100mg/hs. She was started on cymbalta 30mg/d titrated to 60mg/d to target mood, anxiety and comorbid neuropathy. (consideration was given for adjunctive risperdal but due to ongoing akathisia was not trialed, consideration was given for gabapentin and lyrica for anxiety) She was given artane 5mg x1 (unclear response) SHe was discharge and denied AVH, restlessness and anxiety were ongoing but improved. She was planning to return to the [facility] to enjoy group activities. She denies safety concerns. Diagnosis at discharge was schizoaffective disorder depressed type, and anxiety. After that discharge patient was then admitted to [facility] inpatient psychiatry for 2.5 weeks, records and course of treatment unavailable at this time. SHe was discharged to [facility] for physical rehabilitation due to unsteady gait. The medication reconciliation is reportedly taken from a list from [facility], and of note includes no antipsychotic and does include both cogentin 2mg po tid, and artane 2mg po bid. The patient was brought to the [facility] ER on 04/12/17 from [facility] due to worsening ofr her status. She was seeing shadows "figures of boys and birds" with auditory hallucinations and expressing paranoia to her spouse. She had poor reality testing and he was concernsed that hse was again decompensating. In the ER the patient confirmed the above symptoms of AH, and VH and paranoia. She reported feeling the room was spinning and felt restless. SHe was noted to sway and appear restless. She reports she perceived the floor, vargas and bed were moving. She was showing some evidence of slow thinking and difficulty communicating. Her spouse provided most of her history in the ER. Due to decompensation and poor reality testing and inability to care for self she was admitted for further evaluation and treatment. The patient on the unit is grossly anxious. SHe is restless and unable to sit still. She however despite use of a walker is grossly unsteady nearing fall on two occasions. She started to have high anxiety that was not amenable to staff verbal redirection. SHe was seen prior to receiving prn doses of medication. She is somewhat disjointed in her thinking at first providing brief snippets of thoughts that are disjointed. However wtih time she becomes more relaxed and linear. SHe states, "I was fine, I thought I was better until I ate lunch then it started....I had not done it in awhile" referring to her anxiety. She notes "because you were coming up to go to that thing to go to town....where you were going She persistently pushes her toes in rythmic bilateral fashion into the floor. She licks her lips repeatedly as well She states that she feels restless, walking makes it better. She feels that seats move underneath her and this has not subsided since it started worsening she estimates about 6months ago.. I am not sleeping well. She is going to bed at 10pm taking awhile going to sleep sees "visions" describes seeing a man who had a gun and was shooting and other visions such as a man in her room with birds all around her. These visions seem real to her. She denies having VH in the day. She is sleeping until waking at 3-4am not feeling restless per say at that time but not able to return to sleep. She feels upset when she cannot return to sleep and then this will worsen her mood and anxiety. She does feel anxious "all the time" but can get panic like. SHe rated her anxiety at a 5/10 in the dayroom prior to this meeting, and a 3/10 since entering this evaluation. She has heard voices before, prior to ECT which helped her. Today in interview she denies hearing voices, but hears noises replayed in her head. She worries about what others think about her when asked about paranoia, but denies other paranoid concerns at this time. She reports low mood with low interest. She feels hopeless and helpless. She has SI "sometimes" but "I would never do it." She has previously enjoyed reading but feels so restless that she cannot sit still to do so, and if she does sit she cannot concentrate to remember what she read. She has good appetite but has trouble sitting and eating despite feeling hungry. She can have times when her mood feels energetic and increased activity but on clarification she denies euphoria, "no just normal good." She denies feeling good during sleepless phases but rather "I feel lousy" denies indiscretions. Admission Exam Per the Admitting provider: Physical Examination A physical exam was performed in the ER prior to admission to the unit by Dr Wolff. I accept that physical as correct/medical clearance for the inpatient physical exam. Of note during her focal physical evaluation it was apparent she may have had incontinence of bladder at some point in the day which she seemed grossly unaware of Additional focal neurologic exam performed today. She is alert and oriented to person time place and situation She has gross movements of her tongue to include appearance of her tongue rolling in her mouth as well as looking limits at times. On tongue protrusion she has both difficulty sustaining the protruded tongue motion as well as some what appear to be writhing movements like fasciculations She has marketed psychomotor agitation sitting in the chair with legs dangling pressing her toes to the floor and rhythmic unison movements. On passive range of motion when she is attentive to the examiner's actions she resists. When she is distracted she is able to purchase patent passive range of motion with right arm unremarkable. Left arm shows some stiffening no cogwheeling. pen light not available so cranial nerve II not tested. Patient does have large bilateral pupils that are equal in size. Her extraocular movements are grossly intact. Cranial nerves III through XII grossly intact. She has 5 out of 5 motor strength on upper extremity flexion and extension and lower extremity flexion and extension at proximal and distal joints. Reflexes are 2+ normal throughout Finger to nose is grossly intact. Rapid alternating movements are present with some mild discoordination meaning she is able to do it but when speeding up struggles. Two-step Luria hand sequence is intact, three-step Luria hand motion she is not able to do independently for more than 2 cycles. We did not have her perform tandem gait, heel walking or toe walking. We did not have her perform Romberg Consultations stat medicine consult, prompting code purple and transfer to acute medical [facility] Hospital Course (1) Schizoaffective disorder, depressive type 04/13/17 --We will request the recent psychiatric inpatient records from [facility]. --We will attempt to request her 2014 MRI result, and most recent neurology follow-up records if she had her March 13 follow-up appointment with Dr. Wynne. We will request the recent psychiatric inpatient records from [facility]. We will attempt to request her 2014 MRI result, and most recent neurology follow -up records if she had her March 13 follow-up appointment with Dr. Wynne. She did not have her glasses today and was unable to participate in the MOCA, February 2017 Score 9 out of 30 with like a comparison study. Furthermore would consider if MRI is indicated as a comparison study to identify a degenerative process given a poorly she is scoring. cannot rule out LBD, FTD, or NPH (given she has gait instability, incontinence and altered mental status) - will consider additional lab tests for reversible causes of cognitive sx -- she is on PPI so B12 deficiency (but MCV is normal), folate, and provider to review this topic and consider and order labs after looking at all the above data -- Seroquel with plan to titrate to prior doses that seemed helpful at time of last discharge here in February 2017. Fasting lipids and fasting blood sugars performed at the [facility] 02/20/2017 and are within normal limit -- We will attempt to limit the amount of anticholinergic medicine as they can worsen cognition and cause anticholinergic delirium as well as unsteadiness, and it is not 100% clear that they reduce tardive akathisia. They are not useful in the intermediate teacher for tardive dyskinesia either. I will hold Artane ( home med) and continue home med Cogentin but give when necessary rather than scheduled at this time. -- Continue Cymbalta 60 and Remeron 45 mg at this time watching for serotonin- based syndromes , continue Lamictal 125 mg at bedtime -- Reality testing, mejias milieu, group therapy as tolerated 04/14/17 Discussion and Plan: Differential for her current psychiatric/movement symptoms include rule out underlying organic process: --Lewy body dementia (waxing sensorium, VH,AH,TH, parkinsonianism on prior neuroleptics, gait disturbance, incontinence) -NPH (psychosis, unstable gait, incontinence, gegenhalten (resistance on passive ROM)). - unlikely anticholinergic delirium She is no longer on anticholinergics ( artane held at admission) and no prn cogentin and provider will be discontinuing this today. - B12, CR WNL by records 2014; vitamin D 68 02/2017, Syphillis negative 02/2017 , TSH normalized as of 03/2017 - Although [facility] record states Kidney disease Stage III her EGFR and Cr appear WNL --CBC WNL so B12, folate def unlikely but will test for completeness sake as one can mask the other and she is on PPI -Vitamin E -Low risk of ester's ds given LFT WNL, will re-examine eyes for Jessica-Tania rings (could test ceruloplasmin) but she is also on the elder age of known diagnosis (per UpToDate as old as 70yo have been diagnosed) -Parathyroid (calcium in 02/2017 elevate, normal 03/2017) - she may have combined process of prior neuroleptic induced parkinsonianism and then when taken off perphenzine/elavil chronic TD and tardive akathesia may have been unmasked but that is not fully explanatory for the incontinence, the ataxia and waxing and waning mental status In regards to SOB and tachycardia - cough with congestion suggestive of URI,no fever and breath sounds in all sheikh mild wheeze in right middle lobe posteriorly and WBC WNL so pneumonia low; low probability for PE (Wells Score 1.5), 04/14/17 Plan: - considered Brain MRI imaging,but delayed due to : -- noted he has CD's from [facility] Brain MRI contrast and non- contrast from 11/26/2016. This could be viewed on any PAX capable [facility] computer, or sent to [facility] at phone number [phone] in radiology to be collated into the record for radiology review and comparison - there is a CT apparently from [facility] from 11/2016 on CD as well that indicates an abnormal finding in the buttocks per used the word "sewing needle" but said that was impossible because she had an MRI. Will examine patient's buttock and when radiologic study available will review - furthermore awaiting reading from [facility] for 2014 brain MRI for comparison - labs: PTH, B12, folate, thiamine, vitamin E for completing lab dementia work up, for SOB/r/o PE d-dimer and further test of liver function given normal LFT ordered coags - if this indeed is LBD then Ach Esterase inhibitors are recommended, and recommend against use of AAP (per UpToDate) as patient may be sensitive, for TD however seroquel may assist (possibly by masking but in a way that is less tightly binding than other AAP) therefore reducing her motion and physical distress and psychosis. It is difficult to know what to do until the above information is gathered, given she is in distress, cognition is poor and prior AAP but have not been fully restorative but has shown some partial benefit as documented in her 2016 admission here (discharged on seroquel appearing better than she appears at present) and may suppress some of her tardive akathisia, and tardive dyskinesia movements which are distressing to her - will continue seroquel hs titration but stop the prn doses - will presumptively start aricept titration given she clinically meets criteria for LBD and that is reported to reduce anxiety and distress for patients per UpToDate review - Benzos have been of short term utility for distress and was given when planning MRI today, but will not be used routinely for now given cognitive impairment, gait instability, elderly age and risk of disinhibition. (2) Anxiety 04/13/17 and 04/14/17 For now attempt to treat her psychotic process and mood as above Continue her Cymbalta and Remeron which may help with anxiety behavioral engagement and redirection Avoid benzodiazepine's given they have not shown predominant help in past hospitalization, her poor cognition and poor stability of gait (3) Movement disorder AIMS 3, provider will do research on treatments of tardive dyskinesia and akathisia. We will monitor for worsening of her left again induce parkinsonian symptoms titrate Seroquel (4) Hyperlipidemia Continue home dose of Zocor (5) GERD (gastroesophageal reflux disease) Continue Prilosec (6) Hypothyroid Review thyroid function tests and continue home dose of Synthroid (7) Vaginal pain We will need to assure patient has contact with OB gin as outpatient after discharge (see prior hospitalization in February 2017) (8) Constipation stop all stimulant laxatives Agree wtih fleets enema if needed will start miralax x3days, hold for loose bowels start colace today 100mg po bid to continue Risk Factors Assessment : Yes /single/: No Health problems: Yes Mental Health Diagnoses: Yes Substance use disorders: No Previous psychiatric stay: Yes Hopelessness: Yes Smoker: No Protective Factors Assessment Taoist beliefs: Yes : Yes Responsible for young children: No Employed: No Stable relationships: Yes Supportive family: Yes Day of Discharge Assessment Please see information as above under problems for complex constellation of symptoms, differential diagnosis and further plan for evaluation over the 2days hospitalization. See Admission H&P for full history. 04/14/17 subjective and assment and Plan prior to decompensation and transfer: Patient was distressed yesterday afternoon, walking laps upset after spouse did not answer phone despite reassurance he would be visiting in the evening. She continued to demonstrate confusion in locating needed items on the unit and required consistent staff assistance in attending to her needs, and ambulating unsteadily. She was checking the unit doors and it was unclear if she was confused or so anxious that she was thinking about her . She was givens sound machine of the [employer] and did sleep in the night. 1. she has a right leaning gait and would fall if unassisted by staff consistently despite having walker to ambulate. 2. She does not have her glasses and so repeat MOCA is not advised given visual component. However she has waxing and waning mental status today, this AM she identified herself as "Shanna" with a different last name, that she was 53yo and that she was somewhere other than the hospital. Later she was oriented to this provider to her first and last name but thought she was at school. SHe knows who her is and that she feels anxious. 3. She has ongoing gross TD even when dosing in her chair in the day room and has extension of legs and feet setting on floor even while dozing. While sitting in provider office she has rythmic extension and relaxation of torso, legs and feet throughout the interview. She has been in distress all morning having short gasping breaths. She does have a cough with sound of congestion. She is tachycardic, she denies Chest pain. no calf swelling or tenderness on bilateral palpation 4. She denies having had VH last night, she states she slept well. She is not seeing figures this AM but is having tactile hallucinations of things moving such as the chair. She has AH of playing instruments today of note she has been in the dayroom where the TV was set to a music channel. She denies feeling paranoid. 5. She complains of pain in her "butt" when asked if it is a positional concern she says "no, something is in there." She states she had a BM recently and the the discomfort is different than stool but cannot meaningfully describe further. Initial Mental Status Exam on 04/14/17: During interview pt is: alert and oriented, cooperative Appearance: other (dressed and mismatched shirt, and pajama bottoms and tennis shoes hair is disheveled) Eye contact is: good (with notably large bilateral pupils) Motor behavior is: psychomotor agitation (tapping feet bilaterally and rhythmic flexing and extending at the ankles touching the floor; tardive dyskinesia movements of the tongue with rolling in her mouth and protrusions), EPS (stiffness in the left arm on passive range of motion when distracted; active resistance to passive range of motion when not distracted), akathisia, other (unsteady gait walking with a walker with right leaning, would fall if she did not have direct assistance) Speech: other (speech begins as halting and disconnected sentences remberto are intelligible but do not fully make sense. As the interview goes on she is able to provide more sensible goal strings of information. She continues to have somewhat breathless manner with 3-5 word statements of regular rhythm and volume , minimal spontaneous speech.) Affect: flat, anxious Mood is: depressed, anxious Thought process: other (start as disjointed sentences that evolve into linear logical and goal directed brief sentences and answer to question,) Thought content: hopelessness, other (preoccupied with sensation that the floor and chairs are moving, feeling anxious and restless) Suicidal thought are: present, Plan: denied, Intent: denied Homicidal thoughts are: denied Hallucinations: auditory (history of command hallucinations which she denies, history of male and female voices which she denies, currently hears repetitive sounds that others do not hear), visual (at night prior to bed sees generally figures in her bedroom content varies), tactile (perception of movement of the chairs and floor) Cognition: other (memory is intact for unpredictable aspects, not reliable, today she is only oriented to first name reliably and not place and situation) Intelligence estimated to be: average Insight: fair Judgement: fair Later Assessment on 04/14/17: Patient was seen earlier today and was having some labored breathing is continued throughout the day. She was given Ativan 1 with limited benefit for her distress as we were considering brain MRI however that study was put on hold. She was having less rhythmic extension and dyskinesia type movements and increasing evidence of respiratory distress. Vitals showed that she was hypotensive and tacycardic and continuing to decompensate. Stat Medicine consult was requested which was converted to Code Purple and transfer to acute medical care. At time of transfer Provider did not transfer her seroquel given ambivalence regarding if she has LBD and consideration for AchE inhibitor such as aricept which she has not started. Once respiratory status stabilized and studies are reviewed from recent imaging further steps may be taken to clarify best course of action. All other medications continued as per discharge summary. Laboratory Test 04/12/17 15:00 04/12/17 15:48 04/14/17 13:11 04/14/17 14:17 Urine Color YELLOW Urine Appearance CLEAR Urine pH 7.5 Urine Specific [place] 1.013 Urine Protein NEG Urine Glucose (UA) NEG Urine Ketones TRACE Urine Occult Blood NEG Urine Nitrite NEG Urine Bilirubin NEG Urine Urobilinogen NEG Urine Leukocyte Esterase TRACE Urine WBC (Auto) 1-5 Urine RBC (Auto) 0-4 Urine Hyaline Casts (Auto) 0 Urine Epithelial Cells (Auto) 5-10 Urine Bacteria (Auto) NEG Urine Opiates Screen NEG Urine Methadone, Qualitative NEG Urine Barbiturates NEG Urine Phencyclidine (PCP) Level NEG Ur Amphetamine/Methamphetamine NEG MDMA (Ecstasy) Screen NEG Urine Benzodiazepines Screen NEG Urine Cocaine Metabolite NEG Urine Marijuana (THC) NEG White Blood Count 8.78 Red Blood Count 4.32 Hemoglobin 13.9 Hematocrit 40.5 Mean Corpuscular Volume 93.8 Mean Corpuscular Hemoglobin 32.2 Mean Corpuscular Hemoglobin Concent 34.3 RDW Standard Deviation 46.0 RDW Coefficient of Variation 13.3 Platelet Count 236 Mean Platelet Volume 10.4 Sodium Level 136 139 Potassium Level 2.9 3.4 Chloride Level 104 105 Carbon Dioxide Level 25 22 Anion Gap 8.0 13.0 Blood Urea Nitrogen 11 11 Creatinine 0.98 1.20 Est Creatinine Clear Calc Drug Dose 47.9 39.1 Estimated GFR () 69.2 54.2 Estimated GFR (Non- 59.7 46.7 BUN/Creatinine Ratio 11.0 8.8 Random Glucose 97 85 Calcium Level 10.1 10.7 Total Bilirubin 0.6 Direct Bilirubin 0.1 Aspartate Amino Transferase (AST) 18 Alanine Aminotransferase (ALT) 16 Alkaline Phosphatase 89 Total Protein 6.9 Albumin 3.4 Thyroid Stimulating Hormone (TSH) 3.630 Salicylates Level < 1.7 Acetaminophen Level < 2 Ethyl Alcohol mg/dL < 3.0 Vitamin B1 Level Pending Alpha-Tocopherol Level Pending Beta and Gamma Tocopherol Pending Prothrombin Time 10.7 Prothrombin Time INR 1.0 Vitamin B12 Level 801 Folate 17.29 Parathyroid Hormone (Intact) 88.9 Test 04/14/17 15:15 04/14/17 15:49 04/14/17 15:50 POC Glucose 77 Creatine Kinase MB Ratio White Blood Count 10.70 Red Blood Count 4.01 Hemoglobin 12.8 Hematocrit 37.7 Mean Corpuscular Volume 94.0 Mean Corpuscular Hemoglobin 31.9 Mean Corpuscular Hemoglobin Concent 34.0 Platelet Count 244 Mean Platelet Volume 10.4 Neutrophils (%) (Auto) 82.7 Lymphocytes (%) (Auto) 10.7 Monocytes (%) (Auto) 5.7 Eosinophils (%) (Auto) 0.4 Basophils (%) (Auto) 0.2 Neutrophils # (Auto) 8.85 Lymphocytes # (Auto) 1.15 Monocytes # (Auto) 0.61 Eosinophils # (Auto) 0.04 Basophils # (Auto) 0.02 RDW Standard Deviation 46.8 RDW Coefficient of Variation 13.5 Immature Granulocyte % (Auto) 0.3 Immature Granulocyte # (Auto) 0.03 D-Dimer 1060 Arterial Blood pH 7.53 Arterial Blood Partial Pressure CO2 21 Arterial Blood Partial Pressure O2 115 Arterial Blood HCO3 17 Arterial Blood Oxygen Saturation 98.8 Arterial Blood Base Excess -3.6 Arterial Blood Gas Delivery 2L Rambo Test POS Magnesium Level Pending Total Creatine Kinase Pending Creatine Kinase MB Pending Troponin I Pending Total Time Total Time Spent (min): Less than 30 minutes Total Time Included: discharge planning, medication reconciliation Tobacco Cessation at Discharge Smoking Status: Never Smoker FDA approved Prescription: non-smoker
[2017-04-14 16:44] LABS: CKMB/CK RATIO 2.3 (0-3.0); MAGNESIUM 1.8 mg/dl (1.8-2.4)
--- NOTE | 2017-04-14 18:29 | HISTORY & PHYSICAL EXAMINATION ---
DATE OF ADMISSION: 04/14/2017 CHIEF COMPLAINT: Tachypnea, respiratory rate up to 30, possible irregular heart beating and low blood pressure. HISTORY OF PRESENT ILLNESS: The patient is a 66-year-old white female admitted to psychiatry unit on 04/13/2017 because of worsening psychosis and anxiety. I was called to see the patient stat because of the above chief complaint. The nursing staff reported patient was admitted to the hospital because of worsening psychosis. She was admitted by 201 voluntary commitment. Per report, the patient has schizoaffective disorders depressive type, has anxiety and movement disorders. Other medical conditions include dyslipidemia, GERD, hypothyroidism, vaginal pain and constipation. Per report from nursing staff, she has been having the problem of anxiety and tachypnea since admission, but getting worse. The patient has been very anxious, respiratory rate up to 30s, this is new and the whole body has been leaning to the left side associated with shaky. Blood pressure was only able to be detected by manual , which is at 80s. The patient was mildly confused. I was called to evaluate the patient stat. When I arrived into the floor, patient obviously has tachypnea and labored breathing. Nursing staff reported she got 1 dose of Ativan 1 mg 1.5 hour ago but the patient still looks very uncomfortable in labored breathing. No cough, denied chest pain. Blood pressure have to be checked manually SBP at 80s. Heart rate was up to 100. The patient was able to talk, conversational, but speaks some broken sentence with mild lethargic sammi confused. Able to follow up commands, but the body mainly leaned to left side. Denied chest pain. Denied palpitation. Denied lower extremity swelling. Denied fever or chills. Denied cough, sputum. Denied nausea, vomiting, abdominal pain, diarrhea, or constipation. Denied dysuria, urgency and frequencies. Denies skin rashes. ALLERGIES: No known drug allergies. PAST MEDICAL HISTORY: Include anxiety, GERD, dyslipidemia, hypothyroidism, schizoaffective disorder, depressive type and vaginal pain. SOCIAL HISTORY: Never smoked. Denied alcohol abuse disorder, denied illicit drug abuse. The patient is and lives with family. MEDICATIONS: Currently taking in the psychiatry unit which include Tylenol 325 mg two tabs p.o. q. 4 hours p.r.n. for the pain or fever, bisacodyl 10 mg p.o. suppository use as directed p.r.n. for constipation, duloxetine 60 mg 1 tab p.o. daily, Lamictal 25 mg p.o. at bedtime, levothyroxine 88 mcg 1 tab p.o. daily, milk of magnesia 30 mL suspension p.o. use as directed for constipation, Remeron 45 mg 1 tab p.o. at bedtime, Prilosec 20 mg p.o. daily, Zocor 20 mg p.o. daily, fleet enema as needed. REVIEW OF SYSTEMS: Please see HPI, otherwise 14-point organ system review were negative. LAB STUDIES: Recent labs, WBC 10, hemoglobin 12, platelet 244. PT/INR 10/1. D-dimer 1060, potassium 3.4, chloride 139, BUN 11, creatinine 1.2. Total bilirubin 0.6, direct bilirubin normal. AST, ALT was normal. Cardiac enzyme troponin was negative x1 set. Liver function test was within normal limits. TSH was normal. PTH was high at 88.9. ABG was done, pH 7.53, pCO2 21, PaO2 115, bicarbonate 17. UA was not remarkable 2 days ago. Drug screening was not remarkable. EKG was ordered but not done yet. ASSESSMENT AND PLAN: A 66-year-old white female admitted to psychiatry unit having the problem: 1. Anxiety and possible schizoaffective disorder. Will continue current dose medications per psychiatry recommendation. We will have psychiatry consultation. Ativan as needed 2. For the significant tachypnea associated resp alkalosis in abg , probably from anxiety related, but the patient has tachypnea with a significant elevated D-dimers. We will do chest CT to rule out pulmonary embolism. 3. The patient has hypotensive and tachycardia. We will give regular diet, IV fluid. We will follow up EKG results and followup chest CT results. 4. possible new left side weakness, but no obvious deficit, is checking head Ct to rule out acute CVA I agreed patient to transfer to PCU for now because obviously the patient has so significant tachypnea that cannot be taken care of in psychiatry floor. We will give DVT prophylaxis and GI prophylaxis. The patient is full code. MTDD
[2017-04-14] MEDS ORDERED: DONEPEZIL HCL 5 MG TAB PO SCH (22:00)
--- NOTE | 2017-04-15 11:23 | History and Physical ---
History & Physical Date of Service Apr 15, 2017. History & Physical my H&P note will serve as "consultation H&P"
== END 2017-04-14 15:58 | disposition short-term general hospital (02) | DRG 885 ==
LOC: C.EDB 14:59 → CANBEDREQ 20:09 → C.MHU 20:17
PROVIDERS: ADMIT Psychiatry & Neurology Psychiatry; ATTEND Psychiatry & Neurology Psychiatry
DX: F25.1 Schizoaffective disorder, depressive type (principal); F41.9 Anxiety disorder, unspecified; K21.9 Gastro-esophageal reflux disease without esophagitis; K59.00 Constipation, unspecified; E78.5 Hyperlipidemia, unspecified; E03.9 Hypothyroidism, unspecified; E87.6 Hypokalemia

== ENCOUNTER 2017-04-14 15:58 | Inpatient (IN) | payer OTHER ==
[~2017-04-14] VITALS: Ht 157.5 cm; Wt 61.1 kg
[~2017-04-14 15:58] MED LIST changes: +ACET-1693 PO; +BENZ2TAB6 PO; +BISA10SU7 PR; +LAMO100T16 PO; -LAMO1TAB21 PO; +LAMO25TA PO; +MIRT45TA PO; +MOML PO; -RMR15 PO; +SODIENE PR; -SRQ25 PO; +ZOLP10TA PO
[2017-04-14] MEDS ORDERED: OPTIRAY 320 IV PRN (16:45)
[2017-04-14] MEDS ORDERED: POLYETHYLENE (MIRALAX) 17 GM PACK PO PRN (17:00)
[2017-04-14] MEDS ORDERED: ZOLPIDEM TARTRATE 5 MG TAB PO PRN (17:00)
[2017-04-14] MEDS ORDERED: ACETAMINOPHEN 325 MG TAB PO PRN (17:00)
[2017-04-14] MEDS ORDERED: ALUMINUM/MAGNESIUM/SIMETH (MAALOX MAX) 30 ML UDC PO PRN (17:00)
[2017-04-14] MEDS ORDERED: BISACODYL 10 MG SUPP PR PRN (17:00)
[2017-04-14] MEDS ORDERED: MAGNESIUM HYDROXIDE SUSP 30 ML UDC PO PRN ×2 (17:00)
[2017-04-14] MEDS: SODIUM CHLORIDE 0.9% 1000ML 1,000 ML IV SCH (17:12)
--- NOTE | 2017-04-14 17:14 | NUR ---
A: Pt arrived to room 244 via bed as direct admit. Pt confused, unable to answer questions at this time. Spoke with on phone, will be here in about an hour to answer questions. Initial assessment completed, pt reports "balls in my butt" unable to appreciate any defects/abnormalities to buttocks, wears incontinence brief per her request. Clean and dry at this time. NSR on case monitor, rate 90's. Respirations even and unlabored on room air. IV fluids at 100ml/hr per order. Will continue to monitor. Addendum: 04/14/17 at 1718 by Virginia Asencio RN Dr. Harris notified of abnormal lab values of dimer-1060 at 1620, pt transferred to CT scan per order.
--- NOTE | 2017-04-14 17:16 | DIAGNOSTIC IMAGING REPORT ---
CHEST CTA for PULMONARY ARTERIES CT DOSE: 293.04 mGy.cm HISTORY: Short of breath. TECHNIQUE: Multiaxial CT images of the chest were performed following the intravenous administration of contrast to evaluate the pulmonary arteries. Maximal intensity projection images were also obtained. A dose lowering technique was utilized adhering to the principles of ALARA. COMPARISON STUDY: Chest 02/18/2017. FINDINGS: The visualized liver, spleen, and adrenal glands are unremarkable. Small hiatus hernia. No pleural or pericardial effusions. No mediastinal or hilar lymphadenopathy. The heart is normal in size. No fractures within the visualized osseous structures. No pneumothorax. The left lung is essentially clear. Partial opacification of the left lower lobe anterior segmental bronchus. There are few partially opacified right lower lobe segmental bronchi. Focal patchy airspace opacity within the base of the right lower lobe posteriorly. Normal caliber thoracic aorta with no evidence for dissection. No filling defects seen within the posterior opacified main pulmonary arteries to suggest pulmonary embolus. The remaining pulmonary arteries are nondiagnostic due to the poor opacification and respiratory motion artifact. Nonspecific tubular density within the base of the right lower lobe posteriorly favors a distended and impacted bronchus. However, this is difficult to identify with certainty due to the motion artifact. IMPRESSION: 1. The main pulmonary arteries are poorly opacified but likely patent. The remaining pulmonary arteries are nondiagnostic due to the suboptimal opacification and respiratory motion artifact. 2. Focal patchy airspace opacity within the base the right lower lobe posteriorly. There is nonspecific small tubular density seen within the right lower lobe extending to this focal airspace opacity. This favors a distended and impacted bronchus but is difficult to definitively characterize due to the motion artifact. Therefore, this focal airspace opacity favors a pneumonia, possibly secondary to aspiration. Electronically signed by: Suresh Howard M.D. 04/14/2017 5:14 PM Dictated Date/Time: 04/14/2017 5:05 PM
--- NOTE | 2017-04-14 17:42 | History and Physical ---
History & Physical Date of Service Apr 14, 2017. History & Physical tachypnea , CT chest has no pe, but possible pna, however pt have have f/c, no leukocytosis, Osat 97% in RA, lungs are clear, onloy occasional cough, will sent blood culture, start augmentin for possibel aspiration for now, speech eval, and neb tx, may stop abx sooner if have no signs of pna
[2017-04-14] MEDS: AMPICILLIN/SULBACTAM SOD INJ 3,000 MG in SODIUM CHLORIDE 0.9% 100ML 100 ML IV SCH ×2 (18:53→23:40)
[2017-04-14 19:17] VITALS: PULSE 96; O2SAT 98
[2017-04-14] MEDS: ALBUT/IPRATROP 3MG/0.5MG NEB 3 ML VIAL INH SCH (19:17)
[2017-04-14 19:21] VITALS: Ht 157.5 cm; Wt 61.1 kg
--- NOTE | 2017-04-14 19:30 | NUR ---
awake, sitting in bed, at bedside, respirations remain rapid and shallow, oriented to self, knows the month and year but cannot say where she is, cooperative but very anxious, skin warm and dry, color pale, bilateral breath sounds clear, monitor shows ST, positive pulses, negative edema, abdomen soft, non-tender, positive bowel sounds
[2017-04-14 19:43] VITALS: BP 114/57; PULSE 104; TEMP 36.6; O2SAT 98
[2017-04-14 20:00] VITALS: O2SAT 98
[2017-04-14] MEDS ORDERED: MIRTAZAPINE TAB 15 MG TAB PO SCH (21:00)
--- NOTE | 2017-04-14 21:00 | NUR ---
awake anxious states she cannot breathe, states she is not taking any medicine from here, told patient that her said these are the medications she takes at home, explained they will help her rest and feel better, patient took pills
[2017-04-14] MEDS: HEPARIN SOD 5000 UNIT/0.5 ML CARP SQ SCH (21:33)
--- NOTE | 2017-04-14 22:30 | NUR ---
awake, anxious, states she cannot breathe, O2 applied at 2L/min. for comfort, reassurance given
[2017-04-14 23:50] VITALS: BP 98/60; PULSE 95; TEMP 37.2; O2SAT 100
[2017-04-15] VITALS (16 sets, daily range): BP systolic 89–130; BP diastolic 51–69; PULSE 79–120; TEMP 36.7–37; O2SAT 93–100
--- NOTE | 2017-04-15 | NUR ---
resting in bed awake, asked if she can go home now, explained that it is midnight, patient states then that clock is right, enc. patient to sleep and told that the doctor will be in in the morning to see her, lungs remain clear, O2 in place at 1L/min., denies discomfort at this time, will continue to monitor
[2017-04-15] MEDS: SODIUM CHLORIDE 0.9% 1000ML 1,000 ML IV SCH (02:28)
--- NOTE | 2017-04-15 03:00 | NUR ---
awake, sitting up, ambulated to BR with one assist, voided in toilet, kat-care done, clean brief applied per patient request, gait slightly unsteady but tolerates activity well
[2017-04-15] MEDS: AMPICILLIN/SULBACTAM SOD INJ 3,000 MG in SODIUM CHLORIDE 0.9% 100ML 100 ML IV SCH (06:13)
[2017-04-15] MEDS: LEVOTHYROXINE 88 MCG TAB PO SCH (06:13)
[2017-04-15 06:31] LABS: BASO % 0.1 %; BASO ABS # 0.01 K/uL (0-0.2); EOS ABS # 0.08 K/uL (0-0.5); HEMATOCRIT 38.4 % (37-47); HEMOGLOBIN 12.7 g/dL (12.0-16.0); IG# 0.02 K/uL (0.00-0.02); LYMPH ABS # 1.43 K/uL (1.2-3.4); MEAN CELL VOLUME 96.7 fL (80-100); MEAN CORPUSCULAR HGB CONC 33.1 g/dl (32-36); MEAN PLATELET VOLUME 10.5 fL (7.4-10.4); MONO ABS # 0.67 K/uL (0.11-0.59); NEUT % 73.7 %; NEUT ABS # 6.21 K/uL (1.4-6.5); PLATELET COUNT 234 K/uL (130-400); RED CELL DISTRIBUTION WIDTH CV 13.8 % (11.5-14.5); RED CELL DISTRIBUTION WIDTH SD 48.7 fL (36.4-46.3); WHITE BLOOD COUNT 8.42 K/uL (4.8-10.8)
[2017-04-15 06:59] LABS: CALCIUM 9.3 mg/dl (8.5-10.1); CREATININE 1.01 mg/dl (0.60-1.20); POTASSIUM 3.6 mmol/L (3.5-5.1)
[2017-04-15] MEDS: DULOXETINE HCL 60 MG CAP PO SCH (07:19)
[2017-04-15] MEDS: PANTOprazole SOD 40 MG TAB PO SCH (07:19)
[2017-04-15] MEDS: SIMVASTATIN 20 MG TAB PO SCH (07:19)
[2017-04-15] MEDS: HEPARIN SOD 5000 UNIT/0.5 ML CARP SQ SCH ×2 (07:24→20:25)
[2017-04-15] MEDS: ALBUT/IPRATROP 3MG/0.5MG NEB 3 ML VIAL INH SCH ×4 (07:30→19:25)
--- NOTE | 2017-04-15 07:48 | NUR ---
A: Awake, alert to person resting in bed curled into position in no acute distress. Respirations even and unlabored. Initial assessment completed, refer to EMR for details. NSR, rate 90's on director of cardiac rehabilitation. Assisted out of bed to high back chair with minimal assist of one, gait unsteady. Intermittent moist cough noted, spo2 96% on room air. Repetitive lip smacking noted along with rhythmic pulsating movement of upper body/extremities. Able to reduce with distraction and engaging in activity or conversation. Call son within easy reach. Will continue to monitor.
--- NOTE | 2017-04-15 08:30 | Psychiatric Consultation ---
Psychiatric Consultation Date of Service: Apr 15, 2017. Identifying Data Shanna Hutson is a 66-year-old female who initially presented for inpatient psychiatric hospitalization from [facility] on 04/12/17 where she was placed for rehab due to unsteady gate. Her spouse brought her to the [facility] ER for worsening of her psychosis, and anxiety and she was admitted on a 201. She was transferred to the medical floor on 04/14/17 following a code purple. Chief Complaint "I still can't breathe right". History of Present Illness The patient is a 66yo MWF with a history of longstanding depression previously managed on Perphenazine and elavil (for unclear duration) until ~2014 when she was diagnosed by neurology as neuroleptic induced movement disorder ( parkinsonism). Per neurology notes she was taken off those medications with some improvement in her movement symptoms, but ongoing Headaches and feeling that her insides were moving with no clear obvious physical etiology identified by GI or neurology at that time. MRI brain result is referred to in a 2014 neuro note showed no obvious pathology (see neurology notes scanned in other records from her 02/2017 admission). Soon after she was hospitalized at the [facility] and then transferred to [facility] where she was given ECT for depression with psychotic features. Per her prior [facility] record from 02/2017 admission: At that times she had worsening auditory hallucinations and anxiety for the week prior to admission with command hallucinations male and female telling her to kill herself. She had thought blocking at that time and much of the history was gathered by her . She was having poor sleeping 3-4hours/night with frequent waking. She described chronic anxiety and chronic insomnia. MOCA . She was treated for UTI and also levothyroxine was reduced due to elevated T4 and low TSH. Fasting lipids on 02/20/17 WNL. She was given a trial of zyprexa titrated to 10mg/hs with little response and changed to seroquel titrated to 25mg/AM, 50mg mid day and 300mg/hs. Benzodiazepines and ambien were discontinued. Remeron 30mg/hs was continued as was lamictal 100mg/hs. She was started on cymbalta 30mg/d titrated to 60mg/d to target mood, anxiety and comorbid neuropathy. (consideration was given for adjunctive risperdal but due to ongoing akathisia was not trialed, consideration was given for gabapentin and lyrica for anxiety) She was given artane 5mg x1 (unclear response) SHe was discharge and denied AVH, restlessness and anxiety were ongoing but improved. She was planning to return to the senior center to enjoy group activities. She denies safety concerns. Diagnosis at discharge was schizoaffective disorder depressed type, and anxiety. After that discharge patient was then admitted to [facility] inpatient psychiatry for 2.5 weeks, records and course of treatment unavailable. SHe was discharged to [facility] for physical rehabilitation due to unsteady gait. The medication reconciliation is reportedly taken from a list from [facility], and of note includes no antipsychotic and does include both cogentin 2mg po tid, and artane 2mg po bid. This admit she was seeing shadows "figures of boys and birds" with auditory hallucinations and expressing paranoia to her spouse. She had poor reality testing. In the ED she reported feeling the room was spinning and felt restless. She was showing some evidence of slow thinking and difficulty communicating. 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 She however despite use of a walker is grossly unsteady nearing fall on two occasions. She started to have high anxiety that was not amenable to staff verbal redirection. She persistently pushed her toes in rhythmic bilateral fashion into the floor. She licks her lips repeatedly as well per Dr. Guerra. Yesterday she became increasingly tachypneic, hypotensive with decline in gait. She was transferred to the floor for IVF and addition work up (chest CT). Past Psychiatric History Current OP Treatment: psychiatrist (Dr Bashir, it is possibly now Dr Van) Prior Psych Hospitalizations: [facility] (02/2017), [facility] (1 year ago), [facility] (02/2017 shortly after discharge from [facility]), other ([facility] [place] 2014 for ECT (s/p transfer from [place])) Access to a Gun: Yes ('s rifle not locked) Suicide Attempts: No Past Medication Trials 2014 due to drug-induced Parkinsonism Zyprexa 20 mg outpatient, retrial milligrams February 2017 with limited response , change to Seroquel Lamictal 100 mg at bedtime and Remeron 30 mg at bedtime Ambien at bedtime discontinued February 2017 admission because of poor cognition\\ Cymbalta started February 2017 depression, anxiety and neuropathic pain 60 mg a day Artane 2 mg twice a day Cogentin Klonopin 0.5 3 times a day Luvox 150 mg at bedtime Serax 30 mg at bedtime Trazodone 300 mg Paxil Xanax Valium Celexa Lunesta Topamax- short of breath , from neurology for headaches Fioricet- using to frequently tapered vistaril neurontin 05/28/2016 100mg tid carbidopa-levaodopa 25-100 rasagaline 0.5mg stopped 02/13/17 Dr Van Past Medical/Surgical History History of Concussion/Seizure: No Per remote [facility] record problem list but not yet validated: Fibromyalgia, tension headaches, carpal tunnel, ganglion cyst removal, stage III kidney disease, asthma Allergies Allergies: Coded Allergies: No Known Allergies (Unverified , 04/12/17) Current Inpatient Medications Medications (Trade) Dose Ordered Sig/Jeison Route Start Time Stop Time Status Last Admin Dose Admin Ioversol (Optiray 320) 100 ml UD PRN IV 04/14/17 16:45 04/18/17 16:44 Heparin Sodium (Porcine) (Heparin Sq 5000 Unit/0.5ml) 5,000 unit Q12 SQ 04/14/17 21:00 05/14/17 20:59 04/15/17 07:24 5,000 UNIT Sodium Chloride 1,000 ml @ 100 mls/hr Q10H IV 04/14/17 17:00 05/14/17 16:59 04/15/17 02:28 100 MLS/HR Acetaminophen (Tylenol Tab) 650 mg Q4H PRN PO 04/14/17 17:00 05/14/17 16:59 Al Hydrox/Mg Hydrox/Simethicone (Maalox Max Susp) 15 ml Q4H PRN PO 04/14/17 17:00 05/14/17 16:59 Magnesium Hydroxide (Milk Of Magnesia Susp) 30 ml Q12H PRN PO 04/14/17 17:00 05/14/17 16:59 Zolpidem Tartrate (Ambien Tab) 5 mg HSZ PRN PO 04/14/17 17:00 05/14/17 16:59 Ondansetron HCl (Zofran Inj) 4 mg Q6H PRN IV 04/14/17 17:00 05/14/17 16:59 Polyethylene (Miralax Powder Packet) 17 gm DAILY PRN PO 04/14/17 17:00 05/14/17 16:59 Bisacodyl (Dulcolax Supp) 10 mg DAILY PRN IL 04/14/17 17:00 05/14/17 16:59 Duloxetine HCl (Cymbalta Cap) 60 mg QAM PO 04/15/17 09:00 05/15/17 08:59 04/15/17 07:19 60 MG Lamotrigine (Lamictal Tab) 25 mg HS PO 04/14/17 21:00 05/14/17 20:59 04/14/17 21:27 25 MG Lamotrigine (Lamictal Tab) 100 mg HS PO 04/14/17 21:00 05/14/17 20:59 04/14/17 21:27 100 MG Levothyroxine Sodium (Synthroid Tab) 88 mcg DAILYBB PO 04/15/17 06:00 05/15/17 05:59 04/15/17 06:13 88 MCG Simvastatin (Zocor Tab) 20 mg QAM PO 04/15/17 09:00 05/15/17 08:59 04/15/17 07:19 20 MG Mirtazapine (Remeron Tab) 45 mg HS PO 04/14/17 21:00 05/14/17 20:59 04/14/17 21:28 45 MG Pantoprazole Sodium (Protonix Tab) 40 mg DAILY PO 04/15/17 09:00 05/15/17 08:59 04/15/17 07:19 40 MG Ampicillin Sodium/ Sulbactam Sodium 3000 mg/Sodium Chloride 108 ml @ 200 mls/hr Q6H IV 04/14/17 18:00 04/21/17 17:59 04/15/17 06:13 200 MLS/HR Albuterol/ Ipratropium (Duoneb) 3 ml QIDR INH 04/14/17 20:00 05/14/17 19:59 04/15/17 07:30 3 ML Family History History of Suicide: No History of Substance Abuse: Yes (father with drug and alcohol addiction) Psychiatric History: No Alcohol Use Alcohol Use In Past 12 Months: No Smoking Use Smoking Status: Never Smoker Personal History Lives in: [place] with Education: graduated from high school Children: one daughter who is , and living in [place]. Spiritual Affiliation: attends [employer] and humanities professor is supportive Psychological Trauma History: Denies Hx Traumatic Event Additional Comments: Patient lives in a small [place] called [address] near [place] with her she grew up in [place] is the youngest of 3 children and has 2 brothers. They are in their 70s and she has a good relationship. Her mother has dementia, her father is . She graduated from high school in 1967 denied a history of learning disabilities. 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 She's been for greater than 40 years. She has 1 daughter who is and living in [place]. The patient has a history of attending the [employer] and more recently the [employer] however states she has not been in what she estimates to 6 months due to feeling so poorly. She denies a legal history. She denies a history of physical emotional sexual or verbal trauma. Review of Systems The patient describes feeling physically restless having trouble sitting still. otherwise she is unable to complete Examination Vital Signs Last Vital Signs Documentation Date Time Temp Pulse Resp B/P (MAP) Pulse Ox O2 Delivery O2 Flow Rate FiO2 04/15/17 04:00 Room Air 04/15/17 03:30 37.0 98 18 108/68 (81) 96 04/15/17 00:01 1.0 Laboratory Results Last 24 Hours Test 04/14/17 18:00 04/15/17 05:14 Erythrocyte Sedimentation Rate 23 mm/hr C-Reactive Protein 4.30 mg/dl Procalcitonin < 0.05 ng/ml Hepatitis C Antibody Screen NEG White Blood Count 8.42 K/uL Red Blood Count 3.97 M/uL Hemoglobin 12.7 g/dL Hematocrit 38.4 % Mean Corpuscular Volume 96.7 fL Mean Corpuscular Hemoglobin 32.0 pg Mean Corpuscular Hemoglobin Concent 33.1 g/dl Platelet Count 234 K/uL Mean Platelet Volume 10.5 fL Neutrophils (%) (Auto) 73.7 % Lymphocytes (%) (Auto) 17.0 % Monocytes (%) (Auto) 8.0 % Eosinophils (%) (Auto) 1.0 % Basophils (%) (Auto) 0.1 % Neutrophils # (Auto) 6.21 K/uL Lymphocytes # (Auto) 1.43 K/uL Monocytes # (Auto) 0.67 K/uL Eosinophils # (Auto) 0.08 K/uL Basophils # (Auto) 0.01 K/uL RDW Standard Deviation 48.7 fL RDW Coefficient of Variation 13.8 % Immature Granulocyte % (Auto) 0.2 % Immature Granulocyte # (Auto) 0.02 K/uL Sodium Level 139 mmol/L Potassium Level 3.6 mmol/L Chloride Level 107 mmol/L Carbon Dioxide Level 24 mmol/L Anion Gap 8.0 mmol/L Blood Urea Nitrogen 8 mg/dl Creatinine 1.01 mg/dl Est Creatinine Clear Calc Drug Dose 46.5 ml/min Estimated GFR () 66.7 Estimated GFR (Non- 57.6 BUN/Creatinine Ratio 7.7 Random Glucose 88 mg/dl Calcium Level 9.3 mg/dl Magnesium Level 2.1 mg/dl Mental Examination During interview pt is: alert and oriented to self Appearance: disheveled and leaning toward the right Eye contact is: limited Motor behavior is: psychomotor agitation (tapping feet bilaterally and rhythmic flexing and extending at the ankles touching the floor; tardive dyskinesia movements of the tongue with rolling in her mouth and protrusions), breathing pattern also appears rhythmic Speech: nonspontaneous Affect: flat, anxious Mood is: depressed, anxious Thought process: other (start as disjointed sentences that evolve into linear logical and goal directed brief sentences and answer to question) Thought content: hopelessness, other (preoccupied with sensation that the floor and chairs are moving, feeling anxious and restless) Suicidal thought are: present, Plan: denied, Intent: denied Homicidal thoughts are: denied Hallucinations: denies gonzalez Cognition: other (memory is intact for some details but limited globally not formally tested, attention appears to be intact) Intelligence estimated to be: average Insight: limited Judgement: limited Impression / Recommendations Impression The patient is a 66-year-old white female with a history of schizoaffective disorder depressed type. She was admitted on no antipsychotic medication and 2 anticholinergics in high doses at the long term which likely caused worsening psychosis and delirium. She is exhibiting repetitive rocking movements and tremor that are impacting her respiration and there is possible evidence of aspiration. (1) Schizoaffective disorder, depressive type anticholinergics were held on admit but given her age it will take some time to clear and her movements may appear worse during that time. Given her unsteady gait and combo with Cymbalta, I can't exclude additional contribution of a serotonin like syndrome or at least she is at risk for falls at night with Remeron and I will decrease for now. Avoid benzodiazepine's given they have not shown predominant help in past hospitalization, her poor cognition and poor stability of gait. Patient likely appears more anxious due to her movement disorder. For additional questions/concerns please contact liaison and/or Dr. Hahn as I am assisting only briefly this am after holiday weekend. (2) anticholinergic delirium as above (3) movement disorder--would encourage neuro consult.
--- NOTE | 2017-04-15 11:02 | NUR ---
PSYCHIATRIC LIAISON NURSE: Called [facility] to follow up with records we requested, they have been faxed to our [facility] department. Also records from [facility] were scanned in to previous admission visit to [address] [place] [id number] Addendum: 04/17/17 at 1103 by Jayashree Busch RN We still have not yet gotten records, they stated they faxed them. Asked to fax to alternate number at [phone] after confirming with Aliza in medical records they have not been received. Addendum: 04/17/17 at 1109 by Jayashree Busch RN Called [facility] and left message to return call to obtain psychiatric progress notes
--- NOTE | 2017-04-15 11:17 | Hospitalist Progress Note ---
Hospitalist Progress Note Date of Service Apr 15, 2017. (Gris Abebe ., PA-C) Subjective Pt evaluation today including: conversation w/ patient, physical exam, lab review, review of studies, review of inpatient medication list Voiding: no voiding problems Patient lying in bed. No signs of acute distress. Admits SOB seems to be improving. At one point during talking to patient, she started to become visibly tachypneic w/ accessory muscle use- patient admitted to feeling anxious. Calmed down after about 1 minute of talking to patient. States her daughter, August, is currently going through health issues of her own and causing patient to worry. Admits to coughing sometimes after eating. +Cough w/ no sputum production. States she finds herself repeating others- encouraged to discuss w/ psychiatry. Patient denies any fever, chills, sweats, lightheadedness, dizziness, vision changes, CP, palpitations, edema, SOB, wheezing, abdominal pain, nausea, vomiting, diarrhea, urinary symptoms, melena, numbness/tingling, weakness, muscle/joint pain, active bleeding, or new skin discoloration/changes. (Gris Abebe ., PA-C) Medications Current Inpatient Medications Medications (Trade) Dose Ordered Sig/Jeison Route Start Time Stop Time Status Last Admin Dose Admin Ioversol (Optiray 320) 100 ml UD PRN IV 04/14/17 16:45 04/18/17 16:44 Heparin Sodium (Porcine) (Heparin Sq 5000 Unit/0.5ml) 5,000 unit Q12 SQ 04/14/17 21:00 05/14/17 20:59 04/15/17 07:24 5,000 UNIT Sodium Chloride 1,000 ml @ 100 mls/hr Q10H IV 04/14/17 17:00 05/14/17 16:59 04/15/17 02:28 100 MLS/HR Acetaminophen (Tylenol Tab) 650 mg Q4H PRN PO 04/14/17 17:00 05/14/17 16:59 Al Hydrox/Mg Hydrox/Simethicone (Maalox Max Susp) 15 ml Q4H PRN PO 04/14/17 17:00 05/14/17 16:59 Magnesium Hydroxide (Milk Of Magnesia Susp) 30 ml Q12H PRN PO 04/14/17 17:00 05/14/17 16:59 Zolpidem Tartrate (Ambien Tab) 5 mg HSZ PRN PO 04/14/17 17:00 05/14/17 16:59 Ondansetron HCl (Zofran Inj) 4 mg Q6H PRN IV 04/14/17 17:00 05/14/17 16:59 Polyethylene (Miralax Powder Packet) 17 gm DAILY PRN PO 04/14/17 17:00 05/14/17 16:59 Bisacodyl (Dulcolax Supp) 10 mg DAILY PRN ME 04/14/17 17:00 05/14/17 16:59 Duloxetine HCl (Cymbalta Cap) 60 mg QAM PO 04/15/17 09:00 05/15/17 08:59 04/15/17 07:19 60 MG Lamotrigine (Lamictal Tab) 25 mg HS PO 04/14/17 21:00 05/14/17 20:59 04/14/17 21:27 25 MG Lamotrigine (Lamictal Tab) 100 mg HS PO 04/14/17 21:00 05/14/17 20:59 04/14/17 21:27 100 MG Levothyroxine Sodium (Synthroid Tab) 88 mcg DAILYBB PO 04/15/17 06:00 05/15/17 05:59 04/15/17 06:13 88 MCG Simvastatin (Zocor Tab) 20 mg QAM PO 04/15/17 09:00 05/15/17 08:59 04/15/17 07:19 20 MG Pantoprazole Sodium (Protonix Tab) 40 mg DAILY PO 04/15/17 09:00 05/15/17 08:59 04/15/17 07:19 40 MG Ampicillin Sodium/ Sulbactam Sodium 3000 mg/Sodium Chloride 108 ml @ 200 mls/hr Q6H IV 04/14/17 18:00 04/21/17 17:59 04/15/17 06:13 200 MLS/HR Albuterol/ Ipratropium (Duoneb) 3 ml QIDR INH 04/14/17 20:00 05/14/17 19:59 04/15/17 07:30 3 ML Mirtazapine (Remeron Tab) 15 mg HS PO 04/15/17 21:00 04/17/17 23:30 (Gris Abebe, JASON-C) Objective Vital Signs Date Time Temp Pulse Resp B/P (MAP) Pulse Ox O2 Delivery O2 Flow Rate FiO2 04/15/17 08:00 Room Air 04/15/17 07:30 84 18 96 Room Air 04/15/17 07:26 36.7 84 20 108/67 (81) 96 Room Air 04/15/17 04:00 Room Air 04/15/17 03:30 37.0 98 18 108/68 (81) 96 Room Air 04/15/17 00:01 100 Nasal Cannula 1.0 04/14/17 23:50 37.2 95 26 98/60 (73) 100 Nasal Cannula 1.0 04/14/17 20:00 98 Room Air 04/14/17 19:43 36.6 104 24 114/57 (76) 98 Room Air 04/14/17 19:21 Room Air 04/14/17 19:17 96 18 98 Room Air (Gris Abebe, PA-C) Physical Exam General Appearance: no apparent distress Eyes: normal inspection, PERRL ENT: hearing grossly normal Neck: supple Respiratory/Chest: lungs clear, no respiratory distress, no accessory muscle use Cardiovascular: regular rate, rhythm Abdomen: normal bowel sounds, non tender, soft Extremities: no pedal edema, no calf tenderness Neurologic/Psychiatric: alert, oriented x 3, + pertinent finding (anxious ) Skin: normal color, warm/dry, no rash (Gris Abebe, PA-C) Laboratory Results Last 24 Hours Test 04/14/17 18:00 04/15/17 05:14 Erythrocyte Sedimentation Rate 23 mm/hr C-Reactive Protein 4.30 mg/dl Procalcitonin < 0.05 ng/ml Hepatitis C Antibody Screen NEG White Blood Count 8.42 K/uL Red Blood Count 3.97 M/uL Hemoglobin 12.7 g/dL Hematocrit 38.4 % Mean Corpuscular Volume 96.7 fL Mean Corpuscular Hemoglobin 32.0 pg Mean Corpuscular Hemoglobin Concent 33.1 g/dl Platelet Count 234 K/uL Mean Platelet Volume 10.5 fL Neutrophils (%) (Auto) 73.7 % Lymphocytes (%) (Auto) 17.0 % Monocytes (%) (Auto) 8.0 % Eosinophils (%) (Auto) 1.0 % Basophils (%) (Auto) 0.1 % Neutrophils # (Auto) 6.21 K/uL Lymphocytes # (Auto) 1.43 K/uL Monocytes # (Auto) 0.67 K/uL Eosinophils # (Auto) 0.08 K/uL Basophils # (Auto) 0.01 K/uL RDW Standard Deviation 48.7 fL RDW Coefficient of Variation 13.8 % Immature Granulocyte % (Auto) 0.2 % Immature Granulocyte # (Auto) 0.02 K/uL Sodium Level 139 mmol/L Potassium Level 3.6 mmol/L Chloride Level 107 mmol/L Carbon Dioxide Level 24 mmol/L Anion Gap 8.0 mmol/L Blood Urea Nitrogen 8 mg/dl Creatinine 1.01 mg/dl Est Creatinine Clear Calc Drug Dose 46.5 ml/min Estimated GFR () 66.7 Estimated GFR (Non- 57.6 BUN/Creatinine Ratio 7.7 Random Glucose 88 mg/dl Calcium Level 9.3 mg/dl Magnesium Level 2.1 mg/dl (Gris Abebe, PA-C) Assessment and Plan The patient is a 66-year-old white female admitted to psychiatry unit on 2016 because of worsening psychosis and anxiety. Patient transferred to tele on 04/14/17 due to tachypnea, hypotension, and ?irregular heart beat. Tachypnea w/ respiratory alkalosis, likely secondary to anxiety: - Admitted to tele for cardiac monitoring- no acute events, sinus tachycardia w / rates 90-100s- transfer to med/surg - Cardiac enzymes negative x1 - Elevated d-dimer- chest CTA suggesting possible aspiration PNA -- IV Unasyn- started on 04/14- transition to PO Augmentin BID x7 days on -- Speech therapy consulted, appreciate recommendations - DuoNeb QID and PRN for SOB/wheezing - BCx pending - UCx negative on 04/12 - Psychiatry consulted Schizoaffective disorder- depressive type, anxiety: - B12/folate, TSH- WNL; vitamin D pending - Psychiatry consulted, appreciate recommendations -- ?Anticholinergic toxicity and serotonin-like syndrome -- Avoid benzos -- Remeron 15 mg HS, Cymbalta 60 mg QAM, Lamictal 125 mg HS Hypotension- RESOLVED: Treated w/ IVF- d/c today Possible left-sided weakness: - Head CT negative for acute findings - No noticeable sensory/motor defects on today's exam HLD: Zocor 20 mg daily Hypothyroidism- recent TSH 3.63: Synthroid 88 mcg daily GERD: Protonix 40 mg daily DVT prophylaxis: Heparin SQ BID Code Status: LEVEL I, FULL Dispo: Transfer patient to med/surg- likely discharge back to [facility] tomorrow - Recommend chest CT f/u in 1-2 months and f/u w/ PCP after discharge (Gris Abebe, LENCHO) Reviewed: Pt Seen/Exam by Me (Sharlene Cintron MD) History Physician Refractory Mixer Supervision Note: I interviewed and examined the patient. Discussed with JASON Abebe and agree with findings and plan as documented in the note. Any exceptions or clarifications are listed here: When I saw the pt, she was having quite a bit of restlessness and reports she has trouble controlling her movements. Reports dry mouth, constipation in the last few weeks, but currently is having rhinorrhea and mild diaphoresis. tried to explain to me that she has had these shaky symptoms for a couple weeks now since her meds were changed during inpt Psych hospitalization. I discussed the case with Neuro and Psychiatry. Pt has c/o intermittent SOB that usually resolves with comforting measures. Vitals reviewed, tele was sinus tach at times prior to tx to medical today Restless, constantly moving all four limbs, lip smacking, tongue protruding continuously/repetitively Oropharynx with moist mucus membranes Pupils equally round and reactive to light but dilated, about 6mm in size, EOMI RRR no mgr CTAB no wcr Abd +BS, soft NT ND Ext no edema Neuro full strength throughout upper and lower extremities bilat, can stand and walk a few steps with assistance but very unsteady on feet 66 yo female with schizoaffective d/o and psychosis, hypothyroidism, here with tachypnea, akathisia, aspiration PNA, and probably withdrawal from anticholinergic drugs as well as tardive dyskinesia. ECG ok, tele ok, BPs improved. Aspiration PNA could be secondary to tardive dyskinesia causing aspiration--> ok to transition to Augmentin from Unasyn x 7 days total -Discussed with Denzel Saucedo on the phone, but it [facility]-will change consult to [facility] Neurology -Discussed case with Psychiatry on phone--> will start just low dose Cogentin 0.5mg po bid back for possible anticholinergic withdrawal and tardive dyskinesia symptoms. Will try to avoid benzos but can use if last resort for severe acute anxiety -awaiting records from Psych Hospitalization at [facility] for list of meds- seems that she was possibly on Cogentin 2mg tid as well as Artane? -Psych to manage other meds-reduced Remeron dose as well Documented By: Sharlene Cintron (Sharlene Cintron MD)
--- NOTE | 2017-04-15 11:24 | History and Physical ---
History & Physical Date of Service Apr 15, 2017. History & Physical DATE OF ADMISSION: 04/14/2017 CHIEF COMPLAINT: Tachypnea, respiratory rate up to 30, possible irregular heart beating and low blood pressure. HISTORY OF PRESENT ILLNESS: The patient is a 66-year-old white female admitted to psychiatry unit on 04/13/2017 because of worsening psychosis and anxiety. I was called to see the patient stat because of the above chief complaint. The nursing staff reported patient was admitted to the hospital because of worsening psychosis. She was admitted by 201 voluntary commitment. Per report, the patient has schizoaffective disorders depressive type, has anxiety and movement disorders. Other medical conditions include dyslipidemia, GERD, hypothyroidism, vaginal pain and constipation. Per report from nursing staff, she has been having the problem of anxiety and tachypnea since admission, but getting worse. The patient has been very anxious, respiratory rate up to 30s, this is new and the whole body has been leaning to the left side associated with shaky. Blood pressure was only able to be detected by manual , which is at 80s. The patient was mildly confused. I was called to evaluate the patient stat. When I arrived into the floor, patient obviously has tachypnea and labored breathing. Nursing staff reported she got 1 dose of Ativan 1 mg 1.5 hour ago but the patient still looks very uncomfortable in labored breathing. No cough, denied chest pain. Blood pressure have to be checked manually SBP at 80s. Heart rate was up to 100. The patient was able to talk, conversational, but speaks some broken sentence with mild lethargic sammi confused. Able to follow up commands, but the body mainly leaned to left side. Denied chest pain. Denied palpitation. Denied lower extremity swelling. Denied fever or chills. Denied cough, sputum. Denied nausea, vomiting, abdominal pain, diarrhea, or constipation. Denied dysuria, urgency and frequencies. Denies skin rashes. ALLERGIES: No known drug allergies. PAST MEDICAL HISTORY: Include anxiety, GERD, dyslipidemia, hypothyroidism, schizoaffective disorder, depressive type and vaginal pain. SOCIAL HISTORY: Never smoked. Denied alcohol abuse disorder, denied illicit drug abuse. The patient is and lives with family. MEDICATIONS: Currently taking in the psychiatry unit which include Tylenol 325 mg two tabs p.o. q. 4 hours p.r.n. for the pain or fever, bisacodyl 10 mg p.o. suppository use as directed p.r.n. for constipation, duloxetine 60 mg 1 tab p.o. daily, Lamictal 25 mg p.o. at bedtime, levothyroxine 88 mcg 1 tab p.o. daily, milk of magnesia 30 mL suspension p.o. use as directed for constipation, Remeron 45 mg 1 tab p.o. at bedtime, Prilosec 20 mg p.o. daily, Zocor 20 mg p.o. daily, fleet enema as needed. REVIEW OF SYSTEMS: Please see HPI, otherwise 14-point organ system review were negative. LAB STUDIES: Recent labs, WBC 10, hemoglobin 12, platelet 244. PT/INR 10/. D-dimer 1060, potassium 3.4, chloride 139, BUN 11, creatinine 1.2. Total bilirubin 0.6, direct bilirubin normal. AST, ALT was normal. Cardiac enzyme troponin was negative x1 set. Liver function test was within normal limits. TSH was normal. PTH was high at 88.9. ABG was done, pH 7.53, pCO2 21, PaO2 115, bicarbonate 17. UA was not remarkable 2 days ago. Drug screening was not remarkable. EKG was ordered but not done yet. ASSESSMENT AND PLAN: A 66-year-old white female admitted to psychiatry unit having the problem: 1. Anxiety and possible schizoaffective disorder. Will continue current dose medications per psychiatry recommendation. We will have psychiatry consultation. Ativan as needed 2. For the significant tachypnea associated resp alkalosis in abg , probably from anxiety related, but the patient has tachypnea with a significant elevated D-dimers. We will do chest CT to rule out pulmonary embolism. 3. The patient has hypotensive and tachycardia. We will give regular diet, IV fluid. We will follow up EKG results and followup chest CT results. 4. possible new left side weakness, but no obvious deficit, is checking head Ct to rule out acute CVA I agreed patient to transfer to PCU for now because obviously the patient has so significant tachypnea that cannot be taken care of in psychiatry floor. We will give DVT prophylaxis and GI prophylaxis. The patient is full code.
--- NOTE | 2017-04-15 12:09 | NUR ---
A: Pt laying in bed at this time. Refuses to sit in chair or have HOB elevated for lunch. "I don't want any. I keep hearing the same song. It is coming from inside me". Emotional support provided. property assessment monitor removed pending transfer order. Call son within easy reach. Will continue to monitor.
--- NOTE | 2017-04-15 12:24 | NUR ---
A: Report called to SHIMON Jauregui for transfer to bed 400. Opportunity given to ask/answer questions. forestry supervisor removed. Personal belongings/meds/chart gathered and transferred along with pt via bed in no acute distress.
--- NOTE | 2017-04-15 12:41 | NUR ---
A: Message left on "Alfie" Sai Hutson in reference to room change. Message left to return call.
[2017-04-15] MEDS ORDERED: AMOXICILLIN/CLAVULANATE TAB 875 MG TAB PO ONE (12:45)
[2017-04-15] MEDS ORDERED: BENZTROPINE MESYLATE 0.5 MG TAB PO ONE (15:15)
--- NOTE | 2017-04-15 15:53 | NUR ---
Case Management: Consulted for discharge planning. Met with pt who reports living with her , Amos. Pt uses a walker when ambulating outside of the home. Pt's provides transportation. When asked where she was prior to PCU pt states she doesn't remember much. On chart review, pt was at skilled rehab prior to being admitted to inpatient psych on 201 . Anticipate pt will need to return to inpatient psych when medically cleared to complete treatment. Case Management to follow.
--- NOTE | 2017-04-15 15:57 | NUR ---
A Note; notified regarding Pt tachypneic and very anxious at this time requesting something for anxiety however nothing ordered PRN to place new order
[2017-04-15] MEDS ORDERED: SODIUM CHLORIDE 0.9% 10ML FLUSH IV ONE (16:04)
--- NOTE | 2017-04-15 16:10 | NUR ---
A Note, MD Notified regarding stating he did not think medication worked for pts anxiety and tachypnea, vital signs= 130/69 BP, 98%, 93 HR, 84 RR, MD requesting O2 be placed on PT even though O2 sat wnl, O2 2 L placed on pt and breathing techniques reviewed with pt to breath through nose and out mouth pt educated to concentrate on breathing and to breath slowly
[2017-04-15] MEDS ORDERED: LORAZEPAM 0.5 MG TAB PO STA (16:19)
--- NOTE | 2017-04-15 16:19 | NUR ---
RD At Risk Screen completed d/t nursing nutrition trigger for malnutrition risk - see linked note for details. Level of care I. Addendum: 04/15/17 at [address] Amended: Links added.
[2017-04-15] MEDS: AMOXICILLIN/CLAVULANATE TAB 875 MG TAB PO SCH (17:19)
[2017-04-15] MEDS: BENZTROPINE MESYLATE 0.5 MG TAB PO SCH (20:19)
[2017-04-15] MEDS: MIRTAZAPINE TAB 15 MG TAB PO SCH (20:22)
[2017-04-16] VITALS (7 sets, daily range): BP systolic 92–122; BP diastolic 57–76; PULSE 73–91; TEMP 36.4–36.6; O2SAT 95–98
[2017-04-16] MEDS: LEVOTHYROXINE 88 MCG TAB PO SCH (06:16)
[2017-04-16] MEDS: ALBUT/IPRATROP 3MG/0.5MG NEB 3 ML VIAL INH SCH ×2 (07:39→11:42)
--- NOTE | 2017-04-16 08:16 | NUR ---
Case Management: Transferred to 400; handoff with unit Director Skills. Pt lives with her at baseline and uses a walker for ambulation. Pt has had multiple mental health stays and was most recently on [facility] 3S inpatient psych prior to code purple and being moved to PCU. Pt was admitted to on 201 voluntary commitment from [facility]. Anticipate pt will return to inpatient psych on discharge; psych liaison and providers following. Case Management to follow.
[2017-04-16] MEDS ORDERED: LORAZEPAM 0.5 MG TAB ONE (08:43)
[2017-04-16] MEDS ORDERED: NURSING VERBAL MED ORDER ONE (08:45)
[2017-04-16] MEDS: HEPARIN SOD 5000 UNIT/0.5 ML CARP SQ SCH ×2 (08:49→20:12)
--- NOTE | 2017-04-16 08:51 | NUR ---
A: Pt complaining of being anxious this AM. notified for prn anxiety medication. Upon entering to give anxiety medication patient resting with eyes closed. Breathing even and unlabored. After entering room and patient awakened, breathing became rapid. Pulse ox 96% on room air, heart rate 89. BP 120/76. Pt complaining of being anxious. Attempted to put PO ativan in cup for patient then to put in her mouth. Pt could not follow command to do so, this RN had to put medication in patients mouth. Will reassess.
[2017-04-16] MEDS: PANTOprazole SOD 40 MG TAB PO SCH (08:55)
[2017-04-16] MEDS: BENZTROPINE MESYLATE 0.5 MG TAB PO SCH ×2 (08:56→20:09)
[2017-04-16] MEDS: DULOXETINE HCL 60 MG CAP PO SCH (08:56)
[2017-04-16] MEDS: SIMVASTATIN 20 MG TAB PO SCH (08:56)
[2017-04-16] MEDS: AMOXICILLIN/CLAVULANATE TAB 875 MG TAB PO SCH ×2 (08:56→17:38)
[2017-04-16] MEDS ORDERED: LORAZEPAM INJ 0.5 MG in SYRINGE 0.75 ML IV PRN (09:00)
--- NOTE | 2017-04-16 09:03 | NUR ---
A: After a few minutes of emotional support, patient able to slow breathing. Pt then able to take PO morning medications without difficulty. However, patient then being anxious again. Emotional support offered. Chair alarm in place. Will continue to monitor.
--- NOTE | 2017-04-16 10:13 | NUR ---
PSYCHIATRIC LIAISON NURSE: Met with patient, she is very anxious today, with accessory muscle use for breathing and lip smacking. She rates her anxiety a 5 out of 10. She reports feeling "too nervous to eat" and pupils remain dilated. She states last night there was a radio in her head playing the same song over and over again last night but was finally able to go to sleep. We did some deep breathing and that did help her anxiety a bit. She states her should be coming to visit her today which does help comfort her. Will continue to follow.
--- NOTE | 2017-04-16 11:02 | Neurology Consultation ---
Neurology Consultation Date of Consultation: Apr 16, 2017. Attending Physician: Sharlene Cintron MD Primary Care Physician: Milind Barraza M.D. 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 Estefani Sauceda, [facility] neurology, and more recently Dr. Van, [facility] neurology. Her history is notable for depression with psychosis. She was admitted to the behavioral health unit on April 12 with worsening anxiety, auditory hallucinations, and akathisia. She appeared to exhibit some signs of respiratory distress potentially related to anxiety or perhaps an evolving pneumonia and was transferred to the hospitalist service for further care. The patient is an unreliable historian. She is unable to provide any specific information regarding her medical, neurological, or psychiatric care at this time. The medical records suggests that she began exhibiting signs of parkinsonism at least 2 years ago while being treated with perphenazine and amitriptyline. These medications were subsequently discontinued. Clinic notes from Dr. Alas, earlier this year, indicate the patient had been complaining of an abnormal rolling sensation in her chest abdomen and pelvis. Brain and spinal imaging were unremarkable. I'm unable to find a very good description in the medical record of what has been considered medication-induced parkinsonism in this patient. However, she clearly has been exposed to multiple antipsychotic medications and other treatments for regulation of mood and behavior including ECT previously. Currently, the patient is sitting up in a bedside chair. She appears moderately uncomfortable and exhibits some labored breathing. Nursing and the medical team is aware of this issue, treatment ongoing. The medical record also indicates the patient had recently been prescribed both Artane and Cogentin at the time of her presentation to the hospital on April 12. These medications were subsequently discontinued. Past Medical/Surgical History Medical Problems: (1) Hypokalemia Status: Acute (2) UTI (urinary tract infection) Status: Acute Family History The medical record indicates a family history of alcoholism in the father. Patient is unable to provide any specific details regarding her family history, however. Social History Drug Use: none Marital Status: Housing Status: lives with family Occupation Status: retired Allergies Coded Allergies: No Known Allergies (Unverified , 04/12/17) Current Inpatient Medications Current Inpatient Medications Medications (Trade) Dose Ordered Sig/Jeison Route Start Time Stop Time Status Last Admin Dose Admin Ioversol (Optiray 320) 100 ml UD PRN IV 04/14/17 16:45 04/18/17 16:44 Heparin Sodium (Porcine) (Heparin Sq 5000 Unit/0.5ml) 5,000 unit Q12 SQ 04/14/17 21:00 05/14/17 20:59 04/15/17 20:25 5,000 UNIT Acetaminophen (Tylenol Tab) 650 mg Q4H PRN PO 04/14/17 17:00 05/14/17 16:59 Al Hydrox/Mg Hydrox/Simethicone (Maalox Max Susp) 15 ml Q4H PRN PO 04/14/17 17:00 05/14/17 16:59 Magnesium Hydroxide (Milk Of Magnesia Susp) 30 ml Q12H PRN PO 04/14/17 17:00 05/14/17 16:59 Zolpidem Tartrate (Ambien Tab) 5 mg HSZ PRN PO 04/14/17 17:00 05/14/17 16:59 Ondansetron HCl (Zofran Inj) 4 mg Q6H PRN IV 04/14/17 17:00 05/14/17 16:59 Polyethylene (Miralax Powder Packet) 17 gm DAILY PRN PO 04/14/17 17:00 05/14/17 16:59 Bisacodyl (Dulcolax Supp) 10 mg DAILY PRN AK 04/14/17 17:00 05/14/17 16:59 Duloxetine HCl (Cymbalta Cap) 60 mg QAM PO 04/15/17 09:00 05/15/17 08:59 04/16/17 08:56 60 MG Lamotrigine (Lamictal Tab) 25 mg HS PO 04/14/17 21:00 05/14/17 20:59 04/15/17 20:20 25 MG Lamotrigine (Lamictal Tab) 100 mg HS PO 04/14/17 21:00 05/14/17 20:59 04/15/17 20:21 100 MG Levothyroxine Sodium (Synthroid Tab) 88 mcg DAILYBB PO 04/15/17 06:00 05/15/17 05:59 04/16/17 06:16 88 MCG Simvastatin (Zocor Tab) 20 mg QAM PO 04/15/17 09:00 05/15/17 08:59 04/16/17 08:56 20 MG Pantoprazole Sodium (Protonix Tab) 40 mg DAILY PO 04/15/17 09:00 05/15/17 08:59 04/16/17 08:55 40 MG Albuterol/ Ipratropium (Duoneb) 3 ml QIDR INH 04/14/17 20:00 05/14/17 19:59 04/16/17 07:39 3 ML Mirtazapine (Remeron Tab) 15 mg HS PO 04/15/17 21:00 04/17/17 23:30 04/15/17 20:22 15 MG Amoxicillin/ Clavulanate Potassium (Augmentin Tab) 875 mg BIDM PO 04/15/17 16:45 04/22/17 16:44 04/16/17 08:56 875 MG Benztropine Mesylate (Cogentin Tab) 0.5 mg BID PO 04/15/17 20:00 05/15/17 19:59 04/16/17 08:56 0.5 MG Lorazepam (Ativan Tab) 0.5 mg Q6H PRN PO 04/16/17 09:00 05/16/17 08:59 Review of Systems The patient does not participate with my interview and is unable to provide a meaningful review of systems. Physical Exam Vital Signs (Past 24 Hrs): Date Time Temp Pulse Resp B/P (MAP) Pulse Ox O2 Delivery O2 Flow Rate FiO2 04/16/17 09:00 96 Room Air 04/16/17 07:41 91 18 95 Room Air 04/16/17 07:31 36.6 87 18 106/69 (81) 98 04/16/17 00:00 Room Air 04/15/17 23:30 36.8 92 20 99/58 (72) 93 Room Air 04/15/17 19:27 79 18 100 Nasal Cannula 2.0 04/15/17 16:00 98 Room Air 04/15/17 16:00 93 84 130/69 (89) 98 Room Air 04/15/17 15:45 36.7 120 19 106/51 (69) 96 04/15/17 14:37 89 18 97 Room Air 04/15/17 13:00 Room Air 04/15/17 13:00 36.9 85 16 99/63 (75) 100 Room Air 04/15/17 12:21 36.9 87 20 99 04/15/17 12:10 36.9 87 20 98/67 (77) 99 Room Air 04/15/17 12:00 Room Air 04/15/17 11:30 89/52 (64) 04/15/17 11:22 86 18 98 Room Air 04/15/17 11:21 84 98 04/15/17 10:56 36.9 88 20 89/52 (64) 99 Room Air The examination is limited due to poor patient cooperation and lethargy. The patient is a well-developed, elderly female. She is sitting up in a bedside chair and appears moderately uncomfortable and appears to exhibit labored breathing. See history of present illness for further details regarding this issue. The patient is lethargic. She is oriented to self only. Memory cannot be adequately tested. Attention and concentration are impaired. Patient does not follow multistep commands. Patient exhibits minimal spontaneous speech. She responds to questions rarely with simple one-word answers. Fund of knowledge and vocabulary cannot be assessed. Visual sheikh full to threat. Pupils are enlarged bilaterally, 5 mm, round and minimally reactive to light. Eye movements intact. No nystagmus. Facial sensation intact bilaterally. There is normal facial symmetry and strength. Hearing intact bilaterally. Palate elevates to midline. Shoulder shrug intact. Tongue protrudes to midline. Sensation grossly intact to temperature, light touch, temperature, and proprioception in all 4 limbs. Deep tendon reflexes are 3+ for the arms and legs bilaterally. Plantar response is equivocal. There is no dysdiadochokinesia or dysmetria with finger to nose or heel to [place] bilaterally. Otoscopic examination reveals normal-appearing optic nerves and posterior segments. No papilledema or hemorrhages. Carotid pulses normal bilaterally, no bruits to auscultation. Gait and station could not be tested due to safety concerns. Muscle strength normal for the arms and legs bilaterally. Muscle tone diffusely increased. No atrophy. There is no resting tremor. There is a mild to moderate bilateral action tremor. There is no head tremor. Minimal, infrequent perioral movements observed. Imaging A CT of the head completed 04/14/2017 was unremarkable. Images and radiologist' s interpretation reviewed. 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 This patient's case is quite complex and involves psychiatric and neurological care at multiple institutions. 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 Her case does not seem consistent with idiopathic Parkinson's disease. Lewy body disease is possible although auditory hallucinations (a voice commanding her to kill herself) would be very unusual for this disorder which more characteristically is associated with non-distressing visual hallucinations. I suspect that the relatively recent use of two anticholinergic medications probably contribute to her delirium. Her current restlessness could be related to withdrawal of these medications. Plan I have discussed this patient's case with Dr. Cintron, yesterday afternoon. Agree with continuing a low dose of benztropine at this time to address any lingering akathisia. However, going forward, I would recommend limiting or discontinuing anticholinergic medications altogether in this patient. Clonidine may be useful to address her tardive dyskinesia and akathisia. Alternatively, clonazepam or gabapentin could be considered as well. Her tardive dyskinesia seems minimal, however and I would probably avoid tetrabenazine, [place], and other similar medications at this time. I would recommend against using dopamine agonists in this patient given her recent psychosis. Please contact me if I may be of further assistance.
--- NOTE | 2017-04-16 12:46 | Hospitalist Progress Note ---
Hospitalist Progress Note Date of Service Apr 16, 2017. (Gris Abebe ., PA-C) Subjective Pt evaluation today including: conversation w/ patient, physical exam, lab review, conversation w/ rural health consultant ([place]- psychiatry ), review of inpatient medication list Patient sitting in bedside chair. No acute distress. States she gets waves of feeling extremely anxious- had an episode this AM, given Ativan. During episodes admits to severe SOB. SOB improves after calming down. Psych liaison discussed breathing techniques with patient. Eating/drinking little per patient due to anxiety. States she feels "butterflies " in her stomach and loses her appetite. Encouraged good oral intake. Patient denies any fever, chills, sweats, lightheadedness, dizziness, vision changes, CP, palpitations, edema, wheezing, cough, abdominal pain, nausea, vomiting, diarrhea, urinary symptoms, melena, numbness/tingling, weakness, muscle/joint pain, depression, active bleeding, or new skin discoloration/ changes. (Gris Abebe ., JASON-C) Medications Current Inpatient Medications Medications (Trade) Dose Ordered Sig/Jeison Route Start Time Stop Time Status Last Admin Dose Admin Ioversol (Optiray 320) 100 ml UD PRN IV 04/14/17 16:45 04/18/17 16:44 Heparin Sodium (Porcine) (Heparin Sq 5000 Unit/0.5ml) 5,000 unit Q12 SQ 04/14/17 21:00 05/14/17 20:59 04/15/17 20:25 5,000 UNIT Acetaminophen (Tylenol Tab) 650 mg Q4H PRN PO 04/14/17 17:00 05/14/17 16:59 Al Hydrox/Mg Hydrox/Simethicone (Maalox Max Susp) 15 ml Q4H PRN PO 04/14/17 17:00 05/14/17 16:59 Magnesium Hydroxide (Milk Of Magnesia Susp) 30 ml Q12H PRN PO 04/14/17 17:00 05/14/17 16:59 Zolpidem Tartrate (Ambien Tab) 5 mg HSZ PRN PO 04/14/17 17:00 05/14/17 16:59 Ondansetron HCl (Zofran Inj) 4 mg Q6H PRN IV 04/14/17 17:00 05/14/17 16:59 Polyethylene (Miralax Powder Packet) 17 gm DAILY PRN PO 04/14/17 17:00 05/14/17 16:59 Bisacodyl (Dulcolax Supp) 10 mg DAILY PRN PA 04/14/17 17:00 05/14/17 16:59 Duloxetine HCl (Cymbalta Cap) 60 mg QAM PO 04/15/17 09:00 05/15/17 08:59 04/16/17 08:56 60 MG Lamotrigine (Lamictal Tab) 25 mg HS PO 04/14/17 21:00 05/14/17 20:59 04/15/17 20:20 25 MG Lamotrigine (Lamictal Tab) 100 mg HS PO 04/14/17 21:00 05/14/17 20:59 04/15/17 20:21 100 MG Levothyroxine Sodium (Synthroid Tab) 88 mcg DAILYBB PO 04/15/17 06:00 05/15/17 05:59 04/16/17 06:16 88 MCG Simvastatin (Zocor Tab) 20 mg QAM PO 04/15/17 09:00 05/15/17 08:59 04/16/17 08:56 20 MG Pantoprazole Sodium (Protonix Tab) 40 mg DAILY PO 04/15/17 09:00 05/15/17 08:59 04/16/17 08:55 40 MG Albuterol/ Ipratropium (Duoneb) 3 ml QIDR INH 04/14/17 20:00 05/14/17 19:59 04/16/17 07:39 3 ML Mirtazapine (Remeron Tab) 15 mg HS PO 04/15/17 21:00 04/17/17 23:30 04/15/17 20:22 15 MG Amoxicillin/ Clavulanate Potassium (Augmentin Tab) 875 mg BIDM PO 04/15/17 16:45 04/22/17 16:44 04/16/17 08:56 875 MG Benztropine Mesylate (Cogentin Tab) 0.5 mg BID PO 04/15/17 20:00 05/15/17 19:59 04/16/17 08:56 0.5 MG Lorazepam (Ativan Tab) 0.5 mg Q6H PRN PO 04/16/17 09:00 05/16/17 08:59 (Gris Abebe PA-C) Objective Vital Signs Date Time Temp Pulse Resp B/P (MAP) Pulse Ox O2 Delivery O2 Flow Rate FiO2 04/16/17 09:00 96 Room Air 04/16/17 08:50 89 32 120/76 (91) 96 04/16/17 07:41 91 18 95 Room Air 04/16/17 07:31 36.6 87 18 106/69 (81) 98 04/16/17 00:00 Room Air 04/15/17 23:30 36.8 92 20 99/58 (72) 93 Room Air 04/15/17 19:27 79 18 100 Nasal Cannula 2.0 04/15/17 16:00 98 Room Air 04/15/17 16:00 93 84 130/69 (89) 98 Room Air 04/15/17 15:45 36.7 120 19 106/51 (69) 96 04/15/17 14:37 89 18 97 Room Air 04/15/17 13:00 Room Air 04/15/17 13:00 36.9 85 16 99/63 (75) 100 Room Air 04/15/17 12:21 36.9 87 20 99 04/15/17 12:10 36.9 87 20 98/67 (77) 99 Room Air 04/15/17 12:00 Room Air 04/15/17 11:30 89/52 (64) 04/15/17 11:22 86 18 98 Room Air 04/15/17 11:21 84 98 04/15/17 10:56 36.9 88 20 89/52 (64) 99 Room Air (Gris Abebe PA-C) Physical Exam General Appearance: + mild distress (anxious) Eyes: + pertinent finding (dilated pupils ) ENT: hearing grossly normal Neck: supple Respiratory/Chest: lungs clear, no respiratory distress, + accessory muscle use Cardiovascular: regular rate, rhythm Abdomen: normal bowel sounds, non tender, soft Extremities: no pedal edema, no calf tenderness Neurologic/Psychiatric: alert, oriented x 3, + pertinent finding (restless, lip smacking, anxious appearing ) Skin: normal color, warm/dry, no rash (Gris Abebe PA-C) Assessment and Plan The patient is a 66-year-old white female admitted to psychiatry unit on 2016 because of worsening psychosis and anxiety. Patient transferred to tele on 04/14/17 due to tachypnea, hypotension, and ?irregular heart beat. Tachypnea w/ respiratory alkalosis, likely secondary to anxiety: - Admitted to tele for cardiac monitoring- no acute events, sinus tachycardia w / rates 90-100s- transfer to med/surg - Cardiac enzymes negative x1 - O2 protocol - Elevated d-dimer- chest CTA suggesting possible aspiration PNA -- IV Unasyn- started on 04/14- transition to PO Augmentin BID x7 days on -- Speech therapy consulted, appreciate recommendations - DuoNeb QID and PRN for SOB/wheezing - BCx- NGTD - UCx negative on 04/12 - Psychiatry consulted Schizoaffective disorder- depressive type, anxiety, movement disorder: - B12/folate, TSH- WNL; vitamin D pending - Psychiatry consulted, appreciate recommendations -- ?Anticholinergic toxicity and serotonin-like syndrome -- Avoid benzos if possible -- Remeron 15 mg HS, Cymbalta 60 mg QAM, Lamictal 125 mg HS - Ativan 0.5 mg QID PRN for severe anxiety- limit benzo use - Cogentin 0.5 mg BID for possible anticholinergic withdrawal and tardive dyskinesia symptoms - Neurology consulted, appreciate recommendations -- Suggest Gabapentin- discussed w/ psychiatry, agree- start Gabapentin 100 mg BID Hypotension- RESOLVED: Treated w/ IVF Possible left-sided weakness: - Head CT negative for acute findings - No noticeable sensory/motor defects on today's exam HLD: Zocor 20 mg daily Hypothyroidism- recent TSH 3.63: Synthroid 88 mcg daily GERD: Protonix 40 mg daily DVT prophylaxis: Heparin SQ BID Code Status: LEVEL I, FULL Dispo: Transfer to MHU when medically stable (Gris Abebe, LENCHO) Reviewed: Pt Seen/Exam by Me (Sharlene Cintron MD) History Physician Field Mechanical Meter Tester Supervision Note: I interviewed and examined the patient. Discussed with JASON Abebe and agree with findings and plan as documented in the note. Any exceptions or clarifications are listed here: I saw pt later in the day and she was much improved. At this point she had received gabapentin a couple hours prior. SHe was less anxious, was lying calmly in bed, not hyperventilating, and her akathisia is improved. Is coughing a bit, but otherwise says she feels better. Vitals reviewed Very minimal rhythmic movements today, some mild tongue pushing and lip smacking , rest of body is calm Pupils equally round and reactive to light but dilated, about 6mm in size, EOMI RRR no mgr CTAB no wcr Abd +BS, soft NT ND Ext no edema 66 yo female with schizoaffective d/o and psychosis, hypothyroidism, here with tachypnea, akathisia, aspiration PNA, and probably withdrawal from anticholinergic drugs (was on high doses of Artane and Cogentin prior to admission to Psych on 04/13) as well as recurrent tardive dyskinesia and akathisia and Neuroleptic disorder/Parkinsonism from previous Psych meds. ECG ok, tele ok, BPs improved, transferred to medical floor Aspiration PNA could be secondary to tardive dyskinesia causing aspiration--> transitioned to Augmentin from Unasyn x 7 days total -Discussed with Denzel Britt Neuro -plan to continue low dose COgentin 0.5mg bid and will start gabapentin low dose for extrapyramidal symptoms -ativan prn severe anxiety but d/w RN, to avoid use if possible Documented By: Sharlene Cintron (Sharlene Cintron MD)
[2017-04-16] MEDS ORDERED: GABAPENTIN 100 MG CAP PO ONE (13:15)
--- NOTE | 2017-04-16 13:59 | NUR ---
ID: Pt awake, alert to person. Pt stating she hears a song in her head. She is unable to tell me what song but she knows it is only in her head. Pt had episode where she said the chair was moving and she wanted out of it. Chair was not moving. Pt eventually sat back down. Chair alarm in place. Pt has periods of anxious behavior followed by lip smacking, tapping feet on floor and breathing tachypneic. MD aware. Pt improved after lunch. Pt was a feed for lunch. Unable to feed self. Ate 75% of lunch tray after being fed. D/C uncertain at present. Will continue to monitor.
[2017-04-16] MEDS: LORAZEPAM 0.5 MG TAB PO PRN (15:34)
[2017-04-16] MEDS: IPRATROPIUM BROMIDE/ALBUTEROL respimat INH INH SCH ×2 (17:39→20:06)
[2017-04-16] MEDS: MIRTAZAPINE TAB 15 MG TAB PO SCH (20:08)
[2017-04-16] MEDS: GABAPENTIN 100 MG CAP PO SCH (20:09)
[2017-04-17] MEDS: LEVOTHYROXINE 88 MCG TAB PO SCH (06:30)
[2017-04-17 07:27] LABS: CALCIUM 9.8 mg/dl (8.5-10.1); CREATININE 0.93 mg/dl (0.60-1.20)
[2017-04-17 08:40] VITALS: BP 115/69; PULSE 87; O2SAT 95
[2017-04-17] MEDS: IPRATROPIUM BROMIDE/ALBUTEROL respimat INH INH SCH ×4 (08:50→19:37)
[2017-04-17] MEDS: SIMVASTATIN 20 MG TAB PO SCH (08:50)
[2017-04-17] MEDS: AMOXICILLIN/CLAVULANATE TAB 875 MG TAB PO SCH ×2 (08:50→16:30)
[2017-04-17] MEDS: PANTOprazole SOD 40 MG TAB PO SCH (08:50)
[2017-04-17] MEDS: GABAPENTIN 100 MG CAP PO SCH ×2 (08:50→19:39)
[2017-04-17] MEDS: DULOXETINE HCL 60 MG CAP PO SCH (08:50)
[2017-04-17] MEDS: BENZTROPINE MESYLATE 0.5 MG TAB PO SCH ×2 (08:50→19:40)
[2017-04-17] MEDS: HEPARIN SOD 5000 UNIT/0.5 ML CARP SQ SCH ×2 (08:51→19:35)
[2017-04-17] MEDS: LORAZEPAM 0.5 MG TAB PO PRN (09:03)
--- NOTE | 2017-04-17 09:33 | NUR ---
PSYCHIATRIC LIAISON NURSE: Met with patient and although she continues to appear to be in a lot of distress (lying in bed, tachypnic and lip smacking) she reports she is less anxious today than she was yesterday. She feels the deep breathing helps her. She has not yet ate her breakfast, stating she is not hungry due to anxiety. Will continue to follow
--- NOTE | 2017-04-17 10:01 | NUR ---
A: Pt with increased anxiety over the last hour. Multiple medical personal in to see patient during this time which she feels caused her anxiety to increase. Ativan given, deep breathing exercises encouraged. Will continue to monitor.
--- NOTE | 2017-04-17 10:26 | Hospitalist Progress Note ---
Hospitalist Progress Note Date of Service Apr 17, 2017. (Gris Abebe ., LORNEC) Subjective Pt evaluation today including: conversation w/ patient, physical exam, lab review, review of inpatient medication list Voiding: no voiding problems Patient resting in bed. Movements/anxiety appear improved since yesterday- patient agrees. Sitting feeling anxious this AM w/ associated SOB. Discussed breathing technique with patient again. Didn't eat breakfast due to feeling anxious. Patient denies any fever, chills, sweats, lightheadedness, dizziness, vision changes, CP, palpitations, edema, wheezing, cough, abdominal pain, nausea, vomiting, diarrhea, urinary symptoms, melena, numbness/tingling, weakness, muscle/joint pain, depression, active bleeding, or new skin discoloration/ changes. (Gris Abebe ., LORNEC) Medications Current Inpatient Medications Medications (Trade) Dose Ordered Sig/Jeison Route Start Time Stop Time Status Last Admin Dose Admin Ioversol (Optiray 320) 100 ml UD PRN IV 04/14/17 16:45 04/18/17 16:44 Heparin Sodium (Porcine) (Heparin Sq 5000 Unit/0.5ml) 5,000 unit Q12 SQ 04/14/17 21:00 05/14/17 20:59 04/17/17 08:51 5,000 UNIT Acetaminophen (Tylenol Tab) 650 mg Q4H PRN PO 04/14/17 17:00 05/14/17 16:59 Al Hydrox/Mg Hydrox/Simethicone (Maalox Max Susp) 15 ml Q4H PRN PO 04/14/17 17:00 05/14/17 16:59 Magnesium Hydroxide (Milk Of Magnesia Susp) 30 ml Q12H PRN PO 04/14/17 17:00 05/14/17 16:59 04/16/17 15:34 30 ML Ondansetron HCl (Zofran Inj) 4 mg Q6H PRN IV 04/14/17 17:00 05/14/17 16:59 Polyethylene (Miralax Powder Packet) 17 gm DAILY PRN PO 04/14/17 17:00 05/14/17 16:59 Bisacodyl (Dulcolax Supp) 10 mg DAILY PRN MI 04/14/17 17:00 05/14/17 16:59 Duloxetine HCl (Cymbalta Cap) 60 mg QAM PO 04/15/17 09:00 05/15/17 08:59 04/17/17 08:50 60 MG Lamotrigine (Lamictal Tab) 25 mg HS PO 04/14/17 21:00 05/14/17 20:59 04/16/17 20:08 25 MG Lamotrigine (Lamictal Tab) 100 mg HS PO 04/14/17 21:00 05/14/17 20:59 04/16/17 20:07 100 MG Levothyroxine Sodium (Synthroid Tab) 88 mcg DAILYBB PO 04/15/17 06:00 05/15/17 05:59 04/17/17 06:30 88 MCG Simvastatin (Zocor Tab) 20 mg QAM PO 04/15/17 09:00 05/15/17 08:59 04/17/17 08:50 20 MG Pantoprazole Sodium (Protonix Tab) 40 mg DAILY PO 04/15/17 09:00 05/15/17 08:59 04/17/17 08:50 40 MG Mirtazapine (Remeron Tab) 15 mg HS PO 04/15/17 21:00 04/17/17 23:30 04/16/17 20:08 15 MG Amoxicillin/ Clavulanate Potassium (Augmentin Tab) 875 mg BIDM PO 04/15/17 16:45 04/22/17 16:44 04/17/17 08:50 875 MG Benztropine Mesylate (Cogentin Tab) 0.5 mg BID PO 04/15/17 20:00 05/15/17 19:59 04/17/17 08:50 0.5 MG Lorazepam (Ativan Tab) 0.5 mg Q6H PRN PO 04/16/17 09:00 05/16/17 08:59 04/17/17 09:03 0.5 MG Albuterol/ Ipratropium (Combivent Respimat Inh) 1 puffs QID INH 04/16/17 17:00 05/16/17 16:59 04/17/17 08:50 1 PUFFS Gabapentin (Neurontin Cap) 100 mg BID PO 04/16/17 20:00 05/16/17 19:59 04/17/17 08:50 100 MG (Gris Abebe PA-C) Objective Vital Signs Date Time Temp Pulse Resp B/P (MAP) Pulse Ox O2 Delivery O2 Flow Rate FiO2 04/17/17 08:54 Room Air 04/17/17 08:40 87 23 115/69 (84) 95 Room Air 04/17/17 08:00 Room Air 04/17/17 00:00 Room Air 04/16/17 23:06 36.6 80 20 92/57 (69) 95 Room Air 04/16/17 16:07 Room Air 04/16/17 15:17 36.4 73 24 122/74 (90) 97 Room Air 04/16/17 11:42 87 16 96 Room Air (Gris Abebe PA-C) Physical Exam General Appearance: + mild distress (anxious ) Eyes: PERRL ENT: hearing grossly normal Neck: supple Respiratory/Chest: lungs clear, no respiratory distress, + accessory muscle use , + pertinent finding (pursed lip breathing ) Cardiovascular: regular rate, rhythm Abdomen: normal bowel sounds, non tender, soft Extremities: no pedal edema, no calf tenderness Neurologic/Psychiatric: alert, + pertinent finding (anxious appearing; lip smacking; mild restlessness of bilateral legs ) Skin: normal color, warm/dry, no rash (Gris Abebe PA-C) Laboratory Results Last 24 Hours Test 04/17/17 06:21 Sodium Level 143 mmol/L Potassium Level 4.0 mmol/L Chloride Level 110 mmol/L Carbon Dioxide Level 28 mmol/L Anion Gap 5.0 mmol/L Blood Urea Nitrogen 4 mg/dl Creatinine 0.93 mg/dl Est Creatinine Clear Calc Drug Dose 50.5 ml/min Estimated GFR () 73.7 Estimated GFR (Non- 63.6 BUN/Creatinine Ratio 4.6 Random Glucose 90 mg/dl Calcium Level 9.8 mg/dl (Gris Abebe PA-C) Assessment and Plan The patient is a 66-year-old white female admitted to psychiatry unit on 2016 because of worsening psychosis and anxiety. Patient transferred to [facility] on 04/14/17 due to tachypnea, hypotension, and ?irregular heart beat. Tachypnea w/ respiratory alkalosis, likely secondary to anxiety: - Admitted to [facility] for cardiac monitoring- no acute events, sinus tachycardia w / rates 90-100s- transfer to med/surg - Cardiac enzymes negative x1 - O2 protocol - Elevated d-dimer- chest CTA suggesting possible aspiration PNA -- IV Unasyn- started on 04/14- transition to PO Augmentin BID x7 days on -- Speech therapy consulted, appreciate recommendations - DuoNeb QID and PRN for SOB/wheezing - BCx- NGTD - UCx negative on 04/12 - Encouraged breathing techniques - Psychiatry consulted Schizoaffective disorder- depressive type, anxiety, movement disorder- tardive dyskinesia and akathisia: - B12/folate, TSH- WNL; vitamin D pending - Psychiatry consulted, appreciate recommendations -- ?Anticholinergic toxicity and serotonin-like syndrome -- Avoid benzos if possible -- Remeron 15 mg HS, Cymbalta 60 mg QAM, Lamictal 125 mg HS -- Added Seroquel 25 mg TID and q4 hrs PRN for mood, anxiety, psychosis - Ativan 0.5 mg QID PRN for severe anxiety- limit benzo use - Cogentin 0.5 mg BID for possible anticholinergic withdrawal and tardive dyskinesia symptoms - Gabapentin 100 mg BID for extrapyramidal symptoms- titrate PRN - Neurology consulted, appreciate recommendations Hypotension- RESOLVED: Treated w/ IVF Possible left-sided weakness: - Head CT negative for acute findings - No noticeable sensory/motor defects HLD: Zocor 20 mg daily Hypothyroidism- recent TSH 3.63: Synthroid 88 mcg daily GERD: Protonix 40 mg daily DVT prophylaxis: Heparin SQ BID Code Status: LEVEL I, FULL Dispo: Transfer to MHU when medically stable (Gris Abebe ., PA-C) I agree with PA assessment and plan and have seen and examined pt myself Resting comfortably in bed Still having tachypnea noted on exam this AM Breathing fluctuates with anxiety, unlikely to be PE Pt reports "something is inside of me" Cont meds per neurology and psych recs Cont to monitor (Lorenzo Garcia D.O.)
--- NOTE | 2017-04-17 10:43 | NUR ---
ID: Pt awake, alert and oriented today. VSS on room air. Denies pain. Anxiety improved early this am then with more stimulation, pt became more anxious. Student in with patient at this time to encourage deep breathing. OOB with 1 assist, gait unsteady. D/C uncertain at present. Will continue to monitor.
--- NOTE | 2017-04-17 11:08 | Psychiatric Progress Notes ---
Psychiatric Progress Note Date of Service Apr 17, 2017. Notes Shanna Hutson is a 66-year-old female who initially presented for inpatient psychiatric hospitalization from [facility] on 04/12/17 where she was placed for rehab due to unsteady gate. Her spouse brought her to the [facility] ER for worsening psychosis and anxiety and she was admitted on a 201. She was transferred to the medical floor on 04/14/17 following a code purple. CC: Patient nonverbal, with labored breathing Interval history: The patient is known to me from her hospitalization on the behavioral health unit last month, for psychotic, mood, cognitive and anxiety symptoms. Her differential diagnosis has been broad, include schizoaffective disorder depressed type, psychotic depression, organic cause such as body dementia, or other major neurocognitive disorder. Since she was discharged from the [facility] March 07, she was again psychiatrically hospitalized in [place] for 2-1/2 weeks, and despite requesting this records multiple times we have not yet received them. She then apparently went to [facility] for rehabilitation for unsteady gait on 03/29/17, and was sent here from that facility 2 weeks later. We have requested records from them as well, but they only sent an MAR, which reveals that they were giving her clonazepam 0.5 mg 3 times a day, duloxetine 60 mg daily, lamotrigine 125 mg a day (for seizures), mirtazapine 45 mg daily at bedtime, and initially benztropine 1 mg 3 times a day , although this was stopped 04/04/2017. Benztropine 2 mg 3 times a day was started again on 04/10/2017. There is no mention of Artane on the MAR. She was seen today for follow-up, was seated in the bedside chair with heavy, labored breathing, and was not able to participate in a verbal discussion. She was informed that we are still gathering information about the changes made to her medications over the past month. She has been restarted on a low dose of benztropine 0.5 mg twice a day, due to concerns that the discontinuation of benztropine on admission led to cholinergic crisis. She is getting duloxetine 60 mg daily, lamotrigine 125 mg daily, mirtazapine 15 mg daily at bedtime, lorazepam 0.5 mg as needed (received 1 dose yesterday and one dose so far today) , and gabapentin 100 mg twice a day was started last night at neurology's recommendation for tardive dyskinesia and akathisia. She had been getting zolpidem, but that has been discontinued. She has had some benefit when staff assist her with deep breathing exercises. She has been alert only to person, and told staff that she hears a song in her head and at times feels her chair is moving underneath her. She was tachypneic yesterday, has had periods of tachycardia and hypertension. MSE: Elderly white female appearing older than her stated age, dressed in hospital gown, seated in the bedside chair in moderate distress. She is breathing heavily, and is unable to speak due to her distress. She is unable to participate in a full mental status exam, but nodded her head to indicate agreement when recommendations were reviewed with her. Recommendations: 1. Schizoaffective disorder depressed type (although differential also includes a major neurocognitive disorder and psychotic depression with comorbid anxiety) - I have asked the liaison nurse to follow-up on obtaining records from her [facility] admission to determine what changes were made in her medication and why, as we requested the several days ago but still have not received them. In the meantime, continue duloxetine, mirtazapine (dose decreased due to concern for multiple serotonergic agents), and will add back a low dose of quetiapine for mood, psychosis, and anxiety. I will also add a when necessary and would like this to be given prior to benzodiazepines as we are trying to avoid anything that could worsen encephalopathy. - We will need to continue to assess her as she stabilizes medically to determine the need for ongoing psychiatric treatment. Today she is unable to participate in interview due to her level of respiratory distress. She did have very high d-dimer, and her chest CTA was a limited study, wondering whether this needs to be repeated as she certainly appears to be in fairly consistent respiratory distress? It's unclear to me if this could be caused by an aspiration pneumonia, which she is being treated for with antibiotics? 2. Tardive dyskinesia and akathisia: Continue gabapentin as recommended by neurology.
[2017-04-17 11:14] VITALS: BP 94/65; PULSE 73; TEMP 36.5; O2SAT 99
[2017-04-17] MEDS: QUETIAPINE FUMARATE 25 MG TAB PO SCH ×3 (12:26→20:00)
--- NOTE | 2017-04-17 12:56 | NUR ---
PSYCHIATRIC LIAISON NURSE: The patient was recently at [facility] in [place]. Called and left message for return call to request psychiatric progress notes. Also spoke with Lorna this morning who agreed to re-fax records to our HIM department. Confirmed they had the correct fax number
[2017-04-17 14:23] VITALS: BP 109/55; PULSE 90; TEMP 36.9; O2SAT 94
[2017-04-17 14:45] VITALS: BP 115/80; PULSE 104; O2SAT 97
[2017-04-17] MEDS: QUETIAPINE FUMARATE 25 MG TAB PO PRN ×2 (15:00→21:49)
[2017-04-17] MEDS: MIRTAZAPINE TAB 15 MG TAB PO SCH (19:39)
[2017-04-17 21:00] VITALS: O2SAT 97
[2017-04-17 23:50] VITALS: BP 99/62; PULSE 80; TEMP 36.7; O2SAT 96
[2017-04-18 06:26] LABS: CALCIUM 9.6 mg/dl (8.5-10.1); CREATININE 1.15 mg/dl (0.60-1.20); POTASSIUM 3.7 mmol/L (3.5-5.1)
[2017-04-18] MEDS: LEVOTHYROXINE 88 MCG TAB PO SCH (06:36)
[2017-04-18] MEDS: IPRATROPIUM BROMIDE/ALBUTEROL respimat INH INH SCH ×4 (07:29→21:24)
[2017-04-18] MEDS: DULOXETINE HCL 60 MG CAP PO SCH (07:30)
[2017-04-18] MEDS: QUETIAPINE FUMARATE 25 MG TAB PO SCH ×2 (07:30→16:18)
[2017-04-18] MEDS: SIMVASTATIN 20 MG TAB PO SCH (07:30)
[2017-04-18] MEDS: BENZTROPINE MESYLATE 0.5 MG TAB PO SCH ×2 (07:30→21:25)
[2017-04-18] MEDS: AMOXICILLIN/CLAVULANATE TAB 875 MG TAB PO SCH ×2 (07:30→16:18)
[2017-04-18] MEDS: GABAPENTIN 100 MG CAP PO SCH ×2 (07:30→21:25)
[2017-04-18] MEDS: PANTOprazole SOD 40 MG TAB PO SCH (07:30)
[2017-04-18] MEDS: HEPARIN SOD 5000 UNIT/0.5 ML CARP SQ SCH (07:34)
[2017-04-18 07:36] VITALS: BP_SYST 85; BP_SYST 96; BP_DIAS 50; BP_DIAS 52; PULSE 105; TEMP 36.6; O2SAT 92
[2017-04-18 08:00] VITALS: O2SAT 97
--- NOTE | 2017-04-18 08:33 | DIAGNOSTIC IMAGING REPORT ---
CHEST ONE VIEW PORTABLE CLINICAL HISTORY: resp distress dyspnea COMPARISON STUDY: 02/18/2017 FINDINGS: The bones soft tissues and hemidiaphragms are normal. The cardiomediastinal silhouette is normal. The lungs are clear. The pulmonary vasculature is normal. IMPRESSION: Negative chest. The above report was generated using voice recognition software. It may contain grammatical, syntax or spelling errors. Electronically signed by: Abhishek Velazquez M.D. 04/18/2017 8:31 AM Dictated Date/Time: 04/18/2017 8:31 AM
[2017-04-18] MEDS: LORAZEPAM 0.5 MG TAB PO PRN ×2 (08:48→15:02)
[2017-04-18] MEDS ORDERED: OPTIRAY 320 IV PRN (09:30)
[2017-04-18] MEDS: POLYETHYLENE (MIRALAX) 17 GM PACK PO SCH (10:46)
--- NOTE | 2017-04-18 11:13 | DIAGNOSTIC IMAGING REPORT ---
CT ANGIOGRAM OF THE CHEST CLINICAL HISTORY: Dyspnea. COMPARISON STUDY: Chest CT dated 04/14/2017. TECHNIQUE: Following the IV administration of 90 cc of Optiray 320, CT angiogram of the chest was performed from the upper abdomen to the thoracic inlet utilizing the pulmonary embolus protocol. Images are reviewed in the axial, sagittal, and coronal planes. 3-D MIPS images are created and assessed. IV contrast was administered without complication. A dose lowering technique was utilized adhering to the principles of ALARA. The examination is degraded by motion artifact. CT DOSE: 269.87 mGy.cm FINDINGS: Thyroid: Atrophic. Thoracic aorta: The thoracic aorta is normal in caliber and demonstrates standard 3-vessel arch anatomy. No dissection is seen. Pulmonary vasculature: The pulmonary trunk is normal in caliber. There is a questionable central filling defect within a right lower lobe pulmonary artery best seen on image #131. This may represent a small and age indeterminant pulmonary embolus. No additional filling defects are identified in main, lobar, or proximal segmental pulmonary branches. Evaluation of the peripheral branches is significantly compromised by motion artifact. Heart: The heart is normal in size and configuration, and without pericardial effusion. Lungs and pleural spaces: Evaluation of the lung parenchyma is significantly degraded by respiratory motion artifact. The trachea and central airways are clear. There are foci of linear scarring versus atelectasis. Patchy airspace opacities are present at the posterior right lung base seen on image #77 and there is fluid/debris within the right lower lobe airway. There is no significant pleural effusion. Mediastinum: There is no mediastinal lymphadenopathy. [place]onna: Clear. Axillae: There is no axillary lymphadenopathy. Upper abdomen: There is a moderate hiatal hernia. Partially visualized upper abdominal viscera is otherwise within normal limits. Skeletal structures: The skeletal structures are osteopenic. Evaluation of the ribs is significantly degraded by motion artifact. There is a subacute appearing right lateral ninth rib fracture. No lytic or blastic bony lesions are seen. IMPRESSION: 1. Significantly motion compromised examination. 2. There is a small central filling defect identified within a segmental branch of a right lower lobe pulmonary artery. Although this could be artifactual, a small and age indeterminant pulmonary embolus is not excluded. 3. No additional filling defects are identified within the main, lobar, or proximal segmental pulmonary arteries. Evaluation of the peripheral branches is severely degraded by motion artifact. 4. There are dependent patchy airspace opacities at the right lung base. Fluid/secretions are seen within the right lower lobe bronchi. This could represent an infectious/inflammatory pneumonitis, possibly related to aspiration. If there has been a history of right lower lobe pulmonary embolus this could also represent a small pulmonary infarct. Clinical correlation will be required. 5. Although evaluation of the ribs is significantly degraded by motion artifact, a subacute appearing right lateral ninth rib fracture is identified. 6. Moderate hiatal hernia. Electronically signed by: Germain Burton M.D. 04/18/2017 11:11 AM Dictated Date/Time: 04/18/2017 10:53 AM
[2017-04-18] MEDS ORDERED: ENOXAPARIN 1 MG/KG SQ SCH (11:30)
--- NOTE | 2017-04-18 11:44 | Hospitalist Progress Note ---
Hospitalist Progress Note Date of Service Apr 18, 2017. (Gris Abebe ., PA-C) Subjective Pt evaluation today including: conversation w/ patient, physical exam, lab review, review of studies, conversation w/ sediment remediation consultant (Dr. Hahn ), review of inpatient medication list Patient sitting in bed. Appears anxious w/ tachypnea and pursed lip breathing. Stating someone is in the room and keeps talking to her. Cannot understand what they are saying, but they will not go away. States she is not eating because she's not hungry. ROS cannot be obtained secondary to anxiety. (Gris Abebe ., LORNEC) Medications Current Inpatient Medications Medications (Trade) Dose Ordered Sig/Jeison Route Start Time Stop Time Status Last Admin Dose Admin Ioversol (Optiray 320) 100 ml UD PRN IV 04/14/17 16:45 04/18/17 16:44 Heparin Sodium (Porcine) (Heparin Sq 5000 Unit/0.5ml) 5,000 unit Q12 SQ 04/14/17 21:00 05/14/17 20:59 04/18/17 07:34 5,000 UNIT Acetaminophen (Tylenol Tab) 650 mg Q4H PRN PO 04/14/17 17:00 05/14/17 16:59 Al Hydrox/Mg Hydrox/Simethicone (Maalox Max Susp) 15 ml Q4H PRN PO 04/14/17 17:00 05/14/17 16:59 Magnesium Hydroxide (Milk Of Magnesia Susp) 30 ml Q12H PRN PO 04/14/17 17:00 05/14/17 16:59 04/16/17 15:34 30 ML Ondansetron HCl (Zofran Inj) 4 mg Q6H PRN IV 04/14/17 17:00 05/14/17 16:59 Bisacodyl (Dulcolax Supp) 10 mg DAILY PRN RI 04/14/17 17:00 05/14/17 16:59 Duloxetine HCl (Cymbalta Cap) 60 mg QAM PO 04/15/17 09:00 05/15/17 08:59 04/18/17 07:30 60 MG Lamotrigine (Lamictal Tab) 25 mg HS PO 04/14/17 21:00 05/14/17 20:59 04/17/17 19:38 25 MG Lamotrigine (Lamictal Tab) 100 mg HS PO 04/14/17 21:00 05/14/17 20:59 04/17/17 19:38 100 MG Levothyroxine Sodium (Synthroid Tab) 88 mcg DAILYBB PO 04/15/17 06:00 05/15/17 05:59 04/18/17 06:36 88 MCG Simvastatin (Zocor Tab) 20 mg QAM PO 04/15/17 09:00 05/15/17 08:59 04/18/17 07:30 20 MG Pantoprazole Sodium (Protonix Tab) 40 mg DAILY PO 04/15/17 09:00 05/15/17 08:59 04/18/17 07:30 40 MG Amoxicillin/ Clavulanate Potassium (Augmentin Tab) 875 mg BIDM PO 04/15/17 16:45 04/22/17 16:44 04/18/17 07:30 875 MG Benztropine Mesylate (Cogentin Tab) 0.5 mg BID PO 04/15/17 20:00 05/15/17 19:59 04/18/17 07:30 0.5 MG Lorazepam (Ativan Tab) 0.5 mg Q6H PRN PO 04/16/17 09:00 05/16/17 08:59 04/18/17 08:48 0.5 MG Albuterol/ Ipratropium (Combivent Respimat Inh) 1 puffs QID INH 04/16/17 17:00 05/16/17 16:59 04/18/17 07:29 1 PUFFS Gabapentin (Neurontin Cap) 100 mg BID PO 04/16/17 20:00 05/16/17 19:59 04/18/17 07:30 100 MG Quetiapine Fumarate (seroQUEL TAB) 25 mg TID PO 04/17/17 14:00 05/17/17 13:59 04/18/17 07:30 25 MG Quetiapine Fumarate (seroQUEL TAB) 25 mg Q4 PRN PO 04/17/17 11:15 05/17/17 11:14 04/17/17 21:49 25 MG Mirtazapine (Remeron Tab) 15 mg HS PO 04/18/17 21:00 05/18/17 20:59 Ioversol (Optiray 320) 100 ml UD PRN IV 04/18/17 09:30 04/22/17 09:29 Polyethylene (Miralax Powder Packet) 17 gm DAILY PO 04/18/17 10:00 05/14/17 09:59 04/18/17 10:46 17 GM Enoxaparin Sodium (Lovenox 1 Mg/Kg) 1 ea Q12H SQ 04/18/17 11:30 05/18/17 11:29 UNV (Gris Abebe PA-C) Objective Vital Signs Date Time Temp Pulse Resp B/P (MAP) Pulse Ox O2 Delivery O2 Flow Rate FiO2 04/18/17 08:00 97 Room Air 04/18/17 07:36 36.6 105 18 85/52 (63) 92 Room Air 96/50 (65) 04/18/17 00:00 Room Air 04/17/17 23:50 36.7 80 16 99/62 (74) 96 Room Air 04/17/17 21:00 97 Nasal Cannula 2.0 04/17/17 14:45 104 20 115/80 (92) 97 Nasal Cannula 2.0 04/17/17 14:23 36.9 90 24 109/55 (73) 94 (Gris Abebe PA-C) Physical Exam General Appearance: + mild distress Eyes: normal inspection, PERRL ENT: hearing grossly normal Neck: supple Respiratory/Chest: lungs clear, no respiratory distress, + accessory muscle use , + pertinent finding (pursed lip breathing ) Cardiovascular: + tachycardia (mild) Abdomen: normal bowel sounds, non tender, soft Extremities: no pedal edema, no calf tenderness Neurologic/Psychiatric: alert, + pertinent finding (anxious appearing; +lip smacking ) Skin: normal color, warm/dry, no rash (Gris Abebe ., PA-C) Laboratory Results Last 24 Hours Test 04/18/17 05:22 Sodium Level 139 mmol/L Potassium Level 3.7 mmol/L Chloride Level 107 mmol/L Carbon Dioxide Level 28 mmol/L Anion Gap 4.0 mmol/L Blood Urea Nitrogen 12 mg/dl Creatinine 1.15 mg/dl Est Creatinine Clear Calc Drug Dose 40.8 ml/min Estimated GFR () 57.0 Estimated GFR (Non- 49.2 BUN/Creatinine Ratio 10.5 Random Glucose 84 mg/dl Calcium Level 9.6 mg/dl (Gris Abebe, LENCHO) Assessment and Plan The patient is a 66-year-old white female admitted to psychiatry unit on 2016 because of worsening psychosis and anxiety. Patient transferred to tele on 04/14/17 due to tachypnea, hypotension, and ?irregular heart beat. Tachypnea w/ respiratory alkalosis, likely secondary to anxiety vs PE: - Admitted to tele for cardiac monitoring- no acute events, sinus tachycardia w / rates 90-100s- transferred to med/surg - Cardiac enzymes negative x1 - O2 protocol - Elevated d-dimer- chest CTA suggesting possible aspiration PNA -- IV Unasyn- started on 04/14- transition to PO Augmentin BID x7 days on -- Speech therapy consulted, appreciate recommendations - CXR on 04/18- no acute findings - DuoNeb QID and PRN for SOB/wheezing - BCx- NGTD - UCx negative on 04/12 - Encouraged breathing techniques - Psychiatry consulted ?RLL PE on repeat CTA: - Some question given motion artifact but given SOB and elevated d-dimer, will treat- start Lovenox 1 mg/kg BID - Will likely transition to Eliquis 10 mg BID x7 days, then 5 mg BID- CM to check copay Schizoaffective disorder- depressive type, anxiety, movement disorder- tardive dyskinesia and akathisia: - B12/folate, TSH, vitamin D- WNL - Psychiatry consulted, appreciate recommendations -- ?Anticholinergic toxicity and serotonin-like syndrome -- Avoid benzos if possible -- Remeron 15 mg HS, Cymbalta 60 mg QAM, Lamictal 125 mg HS -- Added Seroquel 25 mg TID and q4 hrs PRN for mood, anxiety, psychosis - Ativan 0.5 mg QID PRN for severe anxiety- limit benzo use - Cogentin 0.5 mg BID for possible anticholinergic withdrawal and tardive dyskinesia symptoms - Gabapentin 100 mg BID for extrapyramidal symptoms- titrate PRN - Neurology consulted, appreciate recommendations Constipation: Start MiraLAX daily Hypotension- RESOLVED: Treated w/ IVF Possible left-sided weakness: - Head CT negative for acute findings - No noticeable sensory/motor defects HLD: Zocor 20 mg daily Hypothyroidism- recent TSH 3.63: Synthroid 88 mcg daily GERD: Protonix 40 mg daily DVT prophylaxis: Lovenox SQ Code Status: LEVEL I, FULL Dispo: Discharge once medically stable (Gris Abebe, PA-C) I agree with PA assessment and plan and have seen and examined pt myself Resting comfortably in bed Still having tachypnea noted on exam this AM CTA pos for right lower lobe PE Started on lovenox, will check into xarelto Breathing fluctuates with anxiety Pt reports "something is inside of me" still Cont meds per neurology and psych recs Cont to monitor (Lorenzo Garcia D.O.)
[2017-04-18] MEDS ORDERED: ENOXAPARIN 60 MG/0.6 ML SYR SQ ONE (12:00)
--- NOTE | 2017-04-18 12:44 | NUR ---
[facility]: Per request of Gris Abebe PA-C I contact [facility] and request the pharmacist run a "dummy script" for Eliquis. The pharmacist tells me that this medication requires a prior authorization. Xarelto would also require a prior authorization. I call [employer] ([phone]) w/ ID # [id number] and request an expedited prior authorization for Eliquis 5 mg tabs - take 2 tabs po bid x 7 days followed by 1 tab po bid on an ongoing basis. Dx code for PE is I26.99. The insurance company rep tells me that the process will take 24 hours and they will notify me of their decision by fax. Addendum: 04/18/17 at 1630 by Kirstie Anderson SERV I call the [employer] company and I am told that the Eliquis was approved. I call [facility] and ask them to process the "dummy script" to determine the copay. - $30/month. Addendum: 04/19/17 at 1436 by Basia Enriquez SERV spoke with pt and pts at bedside and made aware of cost of eliquis- $30/mnth and provided them with a discount card for the first month for free
--- NOTE | 2017-04-18 12:56 | Psychiatric Progress Notes ---
Psychiatric Progress Note Date of Service Apr 18, 2017. Notes Shanna Hutson is a 66-year-old female who initially presented for inpatient psychiatric hospitalization from [facility] on 04/12/17 where she was placed for rehab due to unsteady gate. Her spouse brought her to the [facility] ER for worsening psychosis and anxiety and she was admitted on a 201. She was transferred to the medical floor on 04/14/17 following a code purple. CC: "Not so good." Interval history: Yesterday restarted quetiapine for schizoaffective disorder and anxiety. Getting 25mg tid plus two 25mg prn doses yesterday. There are no nursing notes for the past 24 hours, so I am unsure how she did overnight, but the primary team contacted me this morning reporting that she was very anxious, stated she was having auditory hallucinations, and had a negative chest x-ray. They repeated her CTA test today, and there was a question of PE, so she is being treated for that. They are also consulting PT and OT to determine her needs at discharge. At the time of my assessment, she is lying in bed awake, is calm, unable to participate in the assessment. She states that she is improved with respect to mood, and rates it a 5 out of 10. She denies suicidal thoughts or feeling unsafe. She continues to have anxiety and rates it a 4 out of 10, and states it is improved. She thinks the Seroquel is helping. She states that overnight she was hearing a humming sound in her head, and was concerned that she didn't think staff believed her. She denies any auditory hallucinations currently, and denies hearing voices. She states that she does not feel she needs inpatient psychiatric treatment at this time, and plans to follow up as an outpatient with Dr. Bashir, but isn't sure when her next appointment is. Records from [facility] reviewed: Admitted 03/11/2017 for hallucinations (4 days after discharge from our behavioral health unit). Reported hearing noises, but not voices, feeling depressed, anxious, and difficulty functioning, but no suicidality. Their admission medication list was incorrect, and reflected the medication she had been on prior to admission to our behavioral health unit, most of which had been changed (including olanzapine, zolpidem, and clonazepam). She had been discharged from our unit on quetiapine 25 mg every morning, 50 mg at noon, and 300 mg daily at bedtime, mirtazapine 15 mg daily at bedtime, Artane 2 mg twice a day, levothyroxine 88 g daily, lamotrigine 100 mg daily at bedtime, and duloxetine 60 mg daily. She had an otolaryngology Consult due to hearing loss, migraines, and tinnitus. She had a MRI brain that showed no acute processes but a question of mild fluid signal intensity in a portion of the right mastoid air cells. On exam, her external auditory canals were occluded by large amounts of cerumen which was removed. They had no recommendations. They did not send any psychiatric notes other than the admission note, so there is no information about what medications they adjusted her with the discharge plans were. We still have not received the requested psychiatric notes from [facility], where she went for rehabilitation for unsteady gait on 03/29/17, but they sent the MAR, which reveals that they were giving her clonazepam 0.5 mg 3 times a day , duloxetine 60 mg daily, lamotrigine 125 mg a day (for seizures), mirtazapine 45 mg daily at bedtime, and initially benztropine 1 mg 3 times a day, although this was stopped 04/04/2017. Benztropine 2 mg 3 times a day was started again on 04/10/2017. There is no mention of Artane on the MAR. ROS: Denies pain, GI symptoms, congestion. Continues to have episodic shortness of breath. MSE: Elderly white female appearing older than her stated age, lying in bed awake in no acute distress. Good eye contact. Abnormal movements including lip smacking and movement of feet under the blankets. Speech is mildly delayed and slowed. Mood is "kind of down," and affect is restricted to mildly anxious. Denies suicidal thoughts, homicidal thoughts, hallucinations, and paranoia. Does not appear to be responding to internal stimuli. Alert and oriented 3. Insight and judgment are fair. Recommendations: 1. Schizoaffective disorder depressed type (although differential also includes a major neurocognitive disorder and psychotic depression with comorbid anxiety) - continue duloxetine 60mg daily, mirtazapine 15 mg daily at bedtime (dose decreased due to concern for multiple serotonergic agents), and increase quetiapine to 25 mg 3 times a day and 50 mg daily at bedtime. Continue to use prn quetiapine for anxiety prior to benzodiazepines as we are trying to avoid anything that could worsen encephalopathy. - We will need to continue to assess her as she stabilizes medically to determine the need for ongoing psychiatric treatment. Today she is stating she does not feel she needs inpatient psychiatric treatment, and based on her current symptoms she is not committable. 2. Tardive dyskinesia and akathisia: Continue low-dose benztropine for now, with an ultimate goal to discontinue it, and gabapentin as recommended by neurology. It appears that her brought in her brain MRI results (in disks in her paper chart), and the should be scanned in so that they can be reviewed by radiology and neurology. 3. We still do not have complete records from [facility], and if the patient ultimately is willing for a psychiatric admission, we will need to follow-up on getting those. If she is ultimately discharged from the medical service and returns home or to [facility], we will need to arrange follow-up with her outpatient psychiatrist, Dr. Bashir.
[2017-04-18 15:03] VITALS: BP 90/57; PULSE 82; TEMP 36.9; O2SAT 97
[2017-04-18 21:00] VITALS: O2SAT 97
[2017-04-18] MEDS ORDERED: QUETIAPINE FUMARATE 25 MG TAB PO SCH (21:00)
[2017-04-18] MEDS ORDERED: MIRTAZAPINE TAB 15 MG TAB PO SCH (21:00)
--- NOTE | 2017-04-18 21:55 | NUR ---
ID: Patient alert and oriented x4 with periods of confusion and hallucinations. SL RW. One assist with transfers to bathroom. Patient with increased anxiety at times. Medicated with routine medications. SQ Lovenox. VSS on RA. Psych on consult. Anticipated discharge uncertain at present time.
[2017-04-18 23:12] VITALS: BP 87/57; PULSE 78; TEMP 36.8; O2SAT 93
[2017-04-19] MEDS ORDERED: ENOXAPARIN 60 MG/0.6 ML SYR SQ SCH (01:00)
--- NOTE | 2017-04-19 02:40 | NUR ---
A: At approx. 0230 staff heard noise coming from patients room. Staff went into room and found patient sitting on floor, next to trash can in the corner. Pt reported she must have "tripped". Denies hitting head or any injuries being sustained. VSS on room air. Pt was found turning off her bed alarm earlier in shift by REFRIGERATOR CRATER. Educated pt that only staff are allowed to touch those. Nursing shell shop supervisor, clinical coordinator and MD notified. Lowboy bed ordered for patient, and Q15 minute checks now in place. Pt back into bed resting in NAD. Call son within reach and bed alarm on. Will continue to monitor.
[2017-04-19] MEDS: LEVOTHYROXINE 88 MCG TAB PO SCH (05:32)
[2017-04-19 06:04] LABS: HEMATOCRIT 36.9 % (37-47); HEMOGLOBIN 12.1 g/dL (12.0-16.0); MEAN CELL VOLUME 98.1 fL (80-100); MEAN CORPUSCULAR HEMOGLOBIN 32.2 pg (25-34); MEAN CORPUSCULAR HGB CONC 32.8 g/dl (32-36); PLATELET COUNT 236 K/uL (130-400); RED CELL DISTRIBUTION WIDTH CV 14.1 % (11.5-14.5); RED CELL DISTRIBUTION WIDTH SD 50.7 fL (36.4-46.3); WHITE BLOOD COUNT 6.48 K/uL (4.8-10.8)
[2017-04-19 06:34] LABS: CALCIUM 9.7 mg/dl (8.5-10.1); CREATININE 1.06 mg/dl (0.60-1.20); POTASSIUM 3.8 mmol/L (3.5-5.1)
[2017-04-19 07:23] VITALS: BP_SYST 106; BP_SYST 157; BP_DIAS 68; BP_DIAS 74; PULSE 61; PULSE 91; TEMP 36.2; TEMP 36.8; O2SAT 92; O2SAT 98
[2017-04-19 08:00] VITALS: O2SAT 98
[2017-04-19] MEDS: ONDANSETRON INJ 2 MG/ML 2 ML VIAL IV PRN (08:11)
[2017-04-19] MEDS: IPRATROPIUM BROMIDE/ALBUTEROL respimat INH INH SCH ×4 (08:13→20:54)
[2017-04-19] MEDS: QUETIAPINE FUMARATE 25 MG TAB PO SCH ×3 (08:13→16:16)
[2017-04-19] MEDS: SIMVASTATIN 20 MG TAB PO SCH (08:14)
[2017-04-19] MEDS: GABAPENTIN 100 MG CAP PO SCH ×2 (08:14→20:57)
[2017-04-19] MEDS: BENZTROPINE MESYLATE 0.5 MG TAB PO SCH (08:14)
[2017-04-19] MEDS: AMOXICILLIN/CLAVULANATE TAB 875 MG TAB PO SCH (08:14)
[2017-04-19] MEDS: PANTOprazole SOD 40 MG TAB PO SCH (08:14)
[2017-04-19] MEDS: DULOXETINE HCL 60 MG CAP PO SCH (08:14)
[2017-04-19] MEDS: POLYETHYLENE (MIRALAX) 17 GM PACK PO SCH (08:15)
[2017-04-19 14:23] VITALS: BP 164/75; PULSE 84; TEMP 36.7; O2SAT 98
--- NOTE | 2017-04-19 14:54 | Progress Note ---
Subjective Date of Service: Apr 19, 2017. Subjective Pt evaluation today including: conversation w/ patient, conversation w/ family , physical exam, chart review, lab review, review of studies, review of inpatient medication list Resting in bed Stating "please help me" at bedside, concerned he cant taker her home like this Problem List Medical Problems: (1) Hypokalemia Status: Acute (2) UTI (urinary tract infection) Status: Acute Review of Systems Constitutional: No fever, No chills, No sweats, No weight loss Eyes: No worsening of vision, No eye pain, No redness, No discharge Respiratory: + dyspnea at rest, No cough, No sputum, No wheezing, No shortness of breath, No dyspnea on exertion Cardiac: No chest pain, No orthopnea, No PND, No edema Abdomen: No pain, No nausea, No vomiting, No diarrhea, No constipation Musculoskeletal: No joint pain, No muscle pain, No swelling, No calf pain Female : No dysuria, No urinary frequency, No hematuria, No incontinence Neurologic: No memory loss, No paralysis, No weakness, No numbness/tingling Psychiatric: No depression symptoms, No anhedonism, No anxiety, No insomnia Endo: No fatigue, No excessive thirst Skin: No rash, No itch Objective Vital Signs Date Time Temp Pulse Resp B/P (MAP) Pulse Ox O2 Delivery O2 Flow Rate FiO2 04/19/17 14:23 36.7 84 19 164/75 (104) 98 04/19/17 08:00 98 Room Air 04/19/17 07:23 36.2 91 18 106/68 (81) 98 04/19/17 00:00 Room Air 04/18/17 23:12 36.8 78 18 87/57 (67) 93 Room Air 04/18/17 21:00 97 Room Air 04/18/17 15:03 36.9 82 22 90/57 (68) 97 Room Air Physical Exam General Appearance: WD/WN, no apparent distress Eyes: normal inspection, PERRL, EOMI, sclerae normal Neck: supple, no adenopathy, thyroid normal, no JVD Respiratory/Chest: chest non-tender, lungs clear, normal breath sounds, no respiratory distress Cardiovascular: regular rate, rhythm, no edema, no gallop, no JVD Abdomen: normal bowel sounds, non tender, soft, no organomegaly Extremities: normal range of motion, non-tender, normal inspection, no pedal edema Neurologic/Psychiatric: no motor/sensory deficits, alert Skin: normal color, warm/dry, no rash Lymphatic: no adenopathy Laboratory Results Last 24 Hours Test 04/19/17 05:19 White Blood Count 6.48 K/uL Red Blood Count 3.76 M/uL Hemoglobin 12.1 g/dL Hematocrit 36.9 % Mean Corpuscular Volume 98.1 fL Mean Corpuscular Hemoglobin 32.2 pg Mean Corpuscular Hemoglobin Concent 32.8 g/dl RDW Standard Deviation 50.7 fL RDW Coefficient of Variation 14.1 % Platelet Count 236 K/uL Mean Platelet Volume 10.0 fL Sodium Level 139 mmol/L Potassium Level 3.8 mmol/L Chloride Level 108 mmol/L Carbon Dioxide Level 28 mmol/L Anion Gap 3.0 mmol/L Blood Urea Nitrogen 11 mg/dl Creatinine 1.06 mg/dl Est Creatinine Clear Calc Drug Dose 43.7 ml/min Estimated GFR () 62.5 Estimated GFR (Non- 53.9 BUN/Creatinine Ratio 10.3 Random Glucose 100 mg/dl Calcium Level 9.7 mg/dl Assessment and Plan The patient is a 66-year-old white female admitted to psychiatry unit on 2016 because of worsening psychosis and anxiety. Patient transferred to tele on 04/14/17 due to tachypnea, hypotension, and ?irregular heart beat. Tachypnea w/ respiratory alkalosis, likely secondary to anxiety vs PE: - Admitted to tele for cardiac monitoring- no acute events, sinus tachycardia w / rates 90-100s- transferred to med/surg - Cardiac enzymes negative x1 - O2 protocol - Elevated d-dimer- chest CTA suggesting possible aspiration PNA -- IV Unasyn- started on 04/14- transition to PO Augmentin BID x7 day # 5 -- Speech therapy consulted, appreciate recommendations - CXR on 04/18- no acute findings - DuoNeb QID and PRN for SOB/wheezing - BCx- NGTD - UCx negative on 04/12 - Encouraged breathing techniques - Psychiatry consulted ?RLL PE on repeat CTA: - Some question given motion artifact but given SOB and elevated d-dimer, will treat- start Lovenox 1 mg/kg BID - Transition to Eliquis 10 mg BID x 7 days, then 5 mg BID Schizoaffective disorder- depressive type, anxiety, movement disorder- tardive dyskinesia and akathisia: - B12/folate, TSH, vitamin D- WNL - Psychiatry consulted, appreciate recommendations -- ?Anticholinergic toxicity and serotonin-like syndrome -- Avoid benzos if possible -- Remeron 15 mg HS, Cymbalta 60 mg QAM, Lamictal 125 mg HS -- Added Seroquel 25 mg TID and q4 hrs PRN for mood, anxiety, psychosis - Ativan 0.5 mg QID PRN for severe anxiety- limit benzo use - Cogentin 0.5 mg BID for possible anticholinergic withdrawal and tardive dyskinesia symptoms - Gabapentin 100 mg BID for extrapyramidal symptoms- titrate PRN - Neurology consulted, appreciate recommendations Constipation: Start MiraLAX daily Hypotension- RESOLVED: Treated w/ IVF Possible left-sided weakness: - Head CT negative for acute findings - No noticeable sensory/motor defects HLD: Zocor 20 mg daily Hypothyroidism- recent TSH 3.63: Synthroid 88 mcg daily GERD: Protonix 40 mg daily DVT prophylaxis: Lovenox SQ Code Status: LEVEL I, FULL Dispo: SPoke with , spoke to him regarding placement vs home, is unsure whether he can resume care at this time
--- NOTE | 2017-04-19 14:56 | Psychiatric Progress Notes ---
Psychiatric Progress Note Date of Service Apr 19, 2017. Notes Shanna Hutson is a 66-year-old female who initially presented for inpatient psychiatric hospitalization from [facility] on 04/12/17 where she was placed for rehab due to unsteady gate. Her spouse brought her to the [facility] ER for worsening psychosis and anxiety and she was admitted on a 201. She was transferred to the medical floor on 04/14/17 following a code purple. CC: "still can't breathe" Interval history: anxiety remains high with varying reports of gonzalez depending on examiner and shift, apparently found s/p slipping out of bed last pm. Patient has difficulty verbalizing complaint today. I examined patient a second time, appeared calmer with at bedside and less tearful. ROS: Denies pain, GI symptoms, congestion. Continues to have shortness of breath. Current Inpatient Medications Medications (Trade) Dose Ordered Sig/Jeison Route Start Time Stop Time Status Last Admin Dose Admin Acetaminophen (Tylenol Tab) 650 mg Q4H PRN PO 04/14/17 17:00 05/14/17 16:59 Al Hydrox/Mg Hydrox/Simethicone (Maalox Max Susp) 15 ml Q4H PRN PO 04/14/17 17:00 05/14/17 16:59 Magnesium Hydroxide (Milk Of Magnesia Susp) 30 ml Q12H PRN PO 04/14/17 17:00 05/14/17 16:59 04/16/17 15:34 30 ML Ondansetron HCl (Zofran Inj) 4 mg Q6H PRN IV 04/14/17 17:00 05/14/17 16:59 04/19/17 08:11 4 MG Bisacodyl (Dulcolax Supp) 10 mg DAILY PRN HI 04/14/17 17:00 05/14/17 16:59 Duloxetine HCl (Cymbalta Cap) 60 mg QAM PO 04/15/17 09:00 05/15/17 08:59 04/19/17 08:14 60 MG Lamotrigine (Lamictal Tab) 25 mg HS PO 04/14/17 21:00 05/14/17 20:59 04/18/17 21:26 25 MG Lamotrigine (Lamictal Tab) 100 mg HS PO 04/14/17 21:00 05/14/17 20:59 04/18/17 21:26 100 MG Levothyroxine Sodium (Synthroid Tab) 88 mcg DAILYBB PO 04/15/17 06:00 05/15/17 05:59 04/19/17 05:32 88 MCG Simvastatin (Zocor Tab) 20 mg QAM PO 04/15/17 09:00 05/15/17 08:59 04/19/17 08:14 20 MG Pantoprazole Sodium (Protonix Tab) 40 mg DAILY PO 04/15/17 09:00 05/15/17 08:59 04/19/17 08:14 40 MG Amoxicillin/ Clavulanate Potassium (Augmentin Tab) 875 mg BIDM PO 04/15/17 16:45 04/22/17 16:44 04/19/17 08:14 875 MG Benztropine Mesylate (Cogentin Tab) 0.5 mg BID PO 04/15/17 20:00 05/15/17 19:59 04/19/17 08:14 0.5 MG Lorazepam (Ativan Tab) 0.5 mg Q6H PRN PO 04/16/17 09:00 05/16/17 08:59 04/18/17 15:02 0.5 MG Albuterol/ Ipratropium (Combivent Respimat Inh) 1 puffs QID INH 04/16/17 17:00 05/16/17 16:59 04/19/17 13:06 1 PUFFS Quetiapine Fumarate (seroQUEL TAB) 25 mg Q4 PRN PO 04/17/17 11:15 05/17/17 11:14 04/17/17 21:49 25 MG Mirtazapine (Remeron Tab) 15 mg HS PO 04/18/17 21:00 05/18/17 20:59 04/18/17 21:26 15 MG Ioversol (Optiray 320) 100 ml UD PRN IV 04/18/17 09:30 04/22/17 09:29 Polyethylene (Miralax Powder Packet) 17 gm DAILY PO 04/18/17 10:00 05/14/17 09:59 04/19/17 08:15 17 GM Quetiapine Fumarate (seroQUEL TAB) 25 mg TIDM PO 04/18/17 17:00 05/17/17 13:59 04/19/17 13:05 25 MG Apixaban (Eliquis Tab) 10 mg BID PO 04/19/17 20:00 04/26/17 19:59 Gabapentin (Neurontin Cap) 100 mg TID PO 04/19/17 20:00 05/16/17 19:59 Quetiapine Fumarate (seroQUEL TAB) 100 mg HS PO 04/19/17 21:00 05/18/17 20:59 Vital Signs Past 12 Hours Date Time Temp Pulse Resp B/P (MAP) Pulse Ox O2 Delivery O2 Flow Rate FiO2 04/19/17 14:23 36.7 84 19 164/75 (104) 98 04/19/17 08:00 98 Room Air 04/19/17 07:23 36.2 91 18 106/68 (81) 98 MSE: Elderly white female appearing older than her stated age, lying in bed awake in no acute distress. fair eye contact. Abnormal movements including lip smacking and movement of feet under the blankets. Speech is slowed. Mood is "don't leave me" and affect is tearful/anxious. Denies suicidal thoughts, homicidal thoughts. disorganized thoughts, ?paranoia as can't verbalize why doesn't want to be left alone. Oriented to self and day of week. Insight and judgment are more limited. Recommendations: 1. Schizoaffective disorder depressed type (although differential also includes a major neurocognitive disorder and psychotic depression with comorbid anxiety) - continue duloxetine 60mg daily quetiapine to 25 mg 3 times a day and 50 mg daily at bedtime. I was going to increase evening doses due to worsening of symptoms but evidence of hypotension and a recent fall. Will discontinue Remeron to limit combined sedation. prefers to limit polypharm. 2. Tardive dyskinesia and akathisia: titrate Neurontin as may be anxiolytic as well. D/c Cogentin. 3. patient doesn't seem to be doing as well today from a mental status standpoint, as of today would recommend return to inpatient unit when medically cleared. supports this on 201.
--- NOTE | 2017-04-19 17:25 | NUR ---
Chart reviewed. Patient continues with acute care. Will return to inpatient psychiatric unit when medically cleared. Will follow for discharge planning.
[2017-04-19] MEDS: QUETIAPINE FUMARATE 100 MG TAB PO SCH (20:55)
[2017-04-19] MEDS: APIXABAN 2.5 MG TAB PO SCH (20:58)
[2017-04-19] MEDS ORDERED: QUETIAPINE FUMARATE 100 MG TAB PO SCH (21:00)
--- NOTE | 2017-04-19 22:36 | NUR ---
ID: Pt A/Ox2 this shift. VSS. Breath sounds clear on room air. Denies pain. Tolerating regular dental soft diet. SL intact to the right wrist. OOB to bathroom with 1 assist, gait unsteady. Remains in low bed. Bed alarm on for safety. D/C uncertain at this time. Call son and bedside table are within reach. Will continue to monitor.
[2017-04-19 23:02] VITALS: BP 88/51; PULSE 82; TEMP 36.7; O2SAT 93
[2017-04-20] MEDS: LEVOTHYROXINE 88 MCG TAB PO SCH (06:21)
[2017-04-20 06:52] LABS: HEMATOCRIT 36.4 % (37-47); MEAN CELL VOLUME 97.1 fL (80-100); MEAN PLATELET VOLUME 9.9 fL (7.4-10.4); PLATELET COUNT 245 K/uL (130-400); RED CELL DISTRIBUTION WIDTH SD 49.8 fL (36.4-46.3); WHITE BLOOD COUNT 8.57 K/uL (4.8-10.8)
[2017-04-20 07:46] VITALS: BP 96/61; PULSE 92; TEMP 36.7; O2SAT 96
[2017-04-20 08:00] VITALS: O2SAT 96
[2017-04-20] MEDS: QUETIAPINE FUMARATE 25 MG TAB PO SCH ×3 (08:19→16:39)
[2017-04-20] MEDS: IPRATROPIUM BROMIDE/ALBUTEROL respimat INH INH SCH ×4 (08:19→20:41)
[2017-04-20] MEDS: POLYETHYLENE (MIRALAX) 17 GM PACK PO SCH (08:20)
[2017-04-20] MEDS: SIMVASTATIN 20 MG TAB PO SCH (08:20)
[2017-04-20] MEDS: PANTOprazole SOD 40 MG TAB PO SCH (08:20)
[2017-04-20] MEDS: APIXABAN 2.5 MG TAB PO SCH (08:20)
[2017-04-20] MEDS: GABAPENTIN 100 MG CAP PO SCH ×3 (08:20→20:40)
[2017-04-20] MEDS: DULOXETINE HCL 60 MG CAP PO SCH (08:20)
[2017-04-20] MEDS: LORAZEPAM 0.5 MG TAB PO PRN (09:41)
--- NOTE | 2017-04-20 10:23 | Hospitalist Progress Note ---
Hospitalist Progress Note Date of Service Apr 20, 2017. (Gris Abebe, LENCHO) I personally interviewed and examined the patient. I agree with history of present illness and physical exam mentioned above, I also performed my own history taking and examination. Past medical history and review of system has been obtained by myself I reviewed all pertinent labs and studies Reviewed current medications I discussed and formulated of the assessment and plan mentioned above. Please refer to the Summary mentioned by Ms Abebe. General Appearance: not in acute distress, but appears anxious Eyes: normal Sclerae, extraocular muscle intact ENT: hearing grossly normal Neck: supple Respiratory/Chest: normal air entry especially bilateral ,no respiratory distress, no accessory muscle use, despite of being slightly tachypneic Cardiovascular: regular rate, rhythm, no murmur Abdomen: non tender, soft, no masses Extremities: no edema Neurologic/Psychiatric: Awake alert oriented times place and person moves all extremities sensation intact cranial nerves II-12 appear to be intact Skin: normal color, warm/dry, no rash 67 years old female with an anxiety/depression/schizophrenia presented with acute respiratory failure on shortness of breath. D-dimer was elevated and CT angiogram was not helpful in confirming pulmonary embolism. Appropriately the patient received anticoagulation. Patient is currently breathing on room air, appears to be very unsteady on her lower extremities, physical therapy recommended acute rehabilitation Also patient can be unreliable in taking her anticoagulation aside from being significantly fall risk. For these reasons consulted Dr. st and obtain lower extremity ultrasound which was negative Also obtained VQ scan which was low probability. Dr. st and I agree that risks of anticoagulation surpasses benefits Especially that with low probability VQ scan the diagnosis of pulmonary embolism pretty much ruled out Marielle Mckenzie MD, [facility] hospitalist group (Marielle Carrizales MD) Subjective Pt evaluation today including: conversation w/ patient, physical exam, lab review, review of inpatient medication list Patient resting in bed. Mildly distressed. States she is not eating, then states she ate a deer. States her bed won't quit moving. +anxiousness. +SOB. +non-productive cough. Patient denies any fever, chills, sweats, lightheadedness, dizziness, vision changes, CP, palpitations, edema, wheezing, cough, abdominal pain, nausea, vomiting, diarrhea, urinary symptoms, melena, numbness/tingling, weakness, muscle/joint pain, depression, active bleeding, or new skin discoloration/ changes. (Gris Abebe, LENCHO) Medications Current Inpatient Medications Medications (Trade) Dose Ordered Sig/Jeison Route Start Time Stop Time Status Last Admin Dose Admin Acetaminophen (Tylenol Tab) 650 mg Q4H PRN PO 04/14/17 17:00 05/14/17 16:59 Al Hydrox/Mg Hydrox/Simethicone (Maalox Max Susp) 15 ml Q4H PRN PO 04/14/17 17:00 05/14/17 16:59 Magnesium Hydroxide (Milk Of Magnesia Susp) 30 ml Q12H PRN PO 04/14/17 17:00 05/14/17 16:59 04/16/17 15:34 30 ML Ondansetron HCl (Zofran Inj) 4 mg Q6H PRN IV 04/14/17 17:00 05/14/17 16:59 04/19/17 08:11 4 MG Bisacodyl (Dulcolax Supp) 10 mg DAILY PRN [place] 04/14/17 17:00 05/14/17 16:59 Duloxetine HCl (Cymbalta Cap) 60 mg QAM PO 04/15/17 09:00 05/15/17 08:59 04/20/17 08:20 60 MG Lamotrigine (Lamictal Tab) 25 mg HS PO 04/14/17 21:00 05/14/17 20:59 04/19/17 20:58 25 MG Lamotrigine (Lamictal Tab) 100 mg HS PO 04/14/17 21:00 05/14/17 20:59 04/19/17 20:56 100 MG Levothyroxine Sodium (Synthroid Tab) 88 mcg DAILYBB PO 04/15/17 06:00 05/15/17 05:59 04/20/17 06:21 88 MCG Simvastatin (Zocor Tab) 20 mg QAM PO 04/15/17 09:00 05/15/17 08:59 04/20/17 08:20 20 MG Pantoprazole Sodium (Protonix Tab) 40 mg DAILY PO 04/15/17 09:00 05/15/17 08:59 04/20/17 08:20 40 MG Lorazepam (Ativan Tab) 0.5 mg Q6H PRN PO 04/16/17 09:00 05/16/17 08:59 04/20/17 09:41 0.5 MG Albuterol/ Ipratropium (Combivent Respimat Inh) 1 puffs QID INH 04/16/17 17:00 05/16/17 16:59 04/20/17 08:19 1 PUFFS Quetiapine Fumarate (seroQUEL TAB) 25 mg Q4 PRN PO 04/17/17 11:15 05/17/17 11:14 04/17/17 21:49 25 MG Ioversol (Optiray 320) 100 ml UD PRN IV 04/18/17 09:30 04/22/17 09:29 Polyethylene (Miralax Powder Packet) 17 gm DAILY PO 04/18/17 10:00 05/14/17 09:59 04/20/17 08:20 17 GM Quetiapine Fumarate (seroQUEL TAB) 25 mg TIDM PO 04/18/17 17:00 05/17/17 13:59 04/20/17 08:19 25 MG Apixaban (Eliquis Tab) 10 mg BID PO 04/19/17 20:00 04/26/17 19:59 04/20/17 08:20 10 MG Gabapentin (Neurontin Cap) 100 mg TID PO 04/19/17 20:00 05/16/17 19:59 04/20/17 08:20 100 MG Quetiapine Fumarate (seroQUEL TAB) 50 mg HS PO 04/19/17 21:00 05/18/17 20:59 04/19/17 20:55 50 MG (Gris Abebe, PA-C) Objective Vital Signs Date Time Temp Pulse Resp B/P (MAP) Pulse Ox O2 Delivery O2 Flow Rate FiO2 04/20/17 08:00 96 Room Air 04/20/17 07:46 36.7 92 17 96/61 (73) 96 04/20/17 00:05 Room Air 04/19/17 23:02 36.7 82 18 88/51 (63) 93 Room Air 04/19/17 16:20 Room Air 04/19/17 14:23 36.7 84 19 164/75 (104) 98 (Gris Abebe PA-C) Physical Exam General Appearance: + mild distress Eyes: normal inspection, PERRL ENT: hearing grossly normal Neck: supple Respiratory/Chest: lungs clear, no respiratory distress, + accessory muscle use Cardiovascular: regular rate, rhythm Abdomen: normal bowel sounds, non tender, soft Extremities: no pedal edema, no calf tenderness Neurologic/Psychiatric: alert, + disoriented, + pertinent finding (anxious appearing; +hallucinations ) Skin: normal color, warm/dry, no rash (Gris Abebe PA-C) Laboratory Results Last 24 Hours Test 04/20/17 05:43 White Blood Count 8.57 K/uL Red Blood Count 3.75 M/uL Hemoglobin 12.0 g/dL Hematocrit 36.4 % Mean Corpuscular Volume 97.1 fL Mean Corpuscular Hemoglobin 32.0 pg Mean Corpuscular Hemoglobin Concent 33.0 g/dl RDW Standard Deviation 49.8 fL RDW Coefficient of Variation 14.0 % Platelet Count 245 K/uL Mean Platelet Volume 9.9 fL (Gris Abebe PA-C) Assessment and Plan The patient is a 66-year-old white female admitted to psychiatry unit on 2016 because of worsening psychosis and anxiety. Patient transferred to tele on 04/14/17 due to tachypnea, hypotension, and ?irregular heart beat. Tachypnea w/ respiratory alkalosis, likely secondary to anxiety vs PE: - Admitted to tele for cardiac monitoring- no acute events, sinus tachycardia w / rates 90-100s- transferred to med/surg - Cardiac enzymes negative x1 - O2 protocol - Elevated d-dimer- chest CTA suggesting possible aspiration PNA -- IV Unasyn- started on 04/14- transition to PO Augmentin BID x7 days on (last day of treatment on 04/21) -- Speech therapy consulted, appreciate recommendations - CXR on 04/18- no acute findings - DuoNeb QID and PRN for SOB/wheezing - BCx- NGTD - UCx negative on 04/12 - Encouraged breathing techniques - Psychiatry consulted ?RLL PE on repeat CTA: - Some question given motion artifact but given SOB and elevated d-dimer, will treat- Lovenox 1 mg/kg BID- transitioned to Eliquis 10 mg BID x7 days (started 04/19), then 5 mg BID - VQ scan and US Doppler Schizoaffective disorder- depressive type, anxiety, movement disorder- tardive dyskinesia and akathisia: - B12/folate, TSH, vitamin D- WNL - Psychiatry consulted, appreciate recommendations -- ?Anticholinergic toxicity and serotonin-like syndrome -- Avoid benzos if possible -- Remeron 15 mg HS, Cymbalta 60 mg QAM, Lamictal 125 mg HS -- Added Seroquel 25 mg TID and 50 mg HS , and 25 mg q4 hrs PRN - Ativan 0.5 mg QID PRN for severe anxiety- limit benzo use - Cogentin 0.5 mg BID for possible anticholinergic withdrawal and tardive dyskinesia symptoms- d/c'd by psychiatry on 04/19 - Gabapentin 100 mg TID for extrapyramidal symptoms- titrate PRN - Neurology consulted, appreciate recommendations Constipation: Start MiraLAX daily Hypotension, likely secondary to dehydration: Treat w/ IVF @125 ml/hr x1 bag today Possible left-sided weakness: - Head CT negative for acute findings - No noticeable sensory/motor defects HLD: Zocor 20 mg daily Hypothyroidism- recent TSH 3.63: Synthroid 88 mcg daily GERD: Protonix 40 mg daily DVT prophylaxis: Eliquis Code Status: LEVEL I, FULL Dispo: Discharge to [facility]- likely tomorrow- VQ scan and US Doppler today (Gris Abebe ., PAJcC)
[2017-04-20] MEDS ORDERED: SODIUM CHLORIDE 0.9% 1000ML 1,000 ML IV ONE (10:30)
--- NOTE | 2017-04-20 12:25 | DIAGNOSTIC IMAGING REPORT ---
BILATERAL LOWER EXTREMITY VENOUS DOPPLER HISTORY: Pulmonary embolus with concern for possible DVT. suspected PE, elevated d dimer COMPARISON STUDY: CTA of the chest 04/18/2017. FINDINGS: There is normal compressibility, flow, and augmentation within the bilateral lower extremity deep venous systems. IMPRESSION: No sonographic evidence of deep venous thrombosis within the right or left lower extremity. Electronically signed by: Harvinder Browne M.D. 04/20/2017 12:23 PM Dictated Date/Time: 04/20/2017 12:22 PM
[2017-04-20] MEDS: ACETAMINOPHEN 325 MG TAB PO PRN (12:52)
[2017-04-20] MEDS ORDERED: LORAZEPAM 2 MG/ML 1 ML VIAL IV PRN (13:15)
--- NOTE | 2017-04-20 13:51 | NUR ---
PSYCHIATRIC LIAISON NURSE-- Met with patient who upon entering room was tachypneic and also still has constant rhythmic lip smacking. She reports her anxiety level is "domenico high" and rated it a 10 out of 10. She could not provide insight as to why she was anxious, but she was clearly in distress while talking with her. She still endorses tactile hallucinations about her bed "moving" and she states it is her entire body that feels that way. She currently denies auditory/visual hallucinations, denies SI/SIB/HI. She was asked if she feels like she can contract for safety outside of the hospital and she stated "I don't like it here, I can't get out of bed". It was explained to her that she recently had a fall d/t her getting out of bed without assistance and that for her safety, she needs to let staff know when she needs to get out of bed. The question was asked again about edita for safety, and she stated that she felt that she could contract for safety, however, she is still extremely anxious about her medical condition. Will forward information to echo vascular tech.
--- NOTE | 2017-04-20 14:03 | PULMONARY CONSULTATION ---
DATE OF CONSULTATION: 04/20/2017 DATE OF CONSULTATION: 04/20/2017 TIME: 1:05 p.m. REPORT OF CONSULTATION: The patient was seen in room 404 bed 1. Consultation is requested regarding an opinion as to long-term anticoagulation therapy. HISTORY OF PRESENT ILLNESS: She is a 66-year-old female who had been admitted to psychiatry floor on 04/12/2017 with schizoaffective disorder. She also had been hospitalized for mood disorder from 02/18/2017 until 03/07/2017. While she was on psychiatry she was quite tachypneic. Her respiratory rates were in the 30s. The patient does have and acknowledges that she has auditory hallucinations. She tells me that she hears people talking to her. She also says things such as that she can see the bed moving and the chairs moving, etc. even though she realizes that they actually are not or at least other people tell her that they are not. She also has been hospitalized at [facility] fairly recently for psych problems. She had been discharged to [place] for physical rehabilitation due to an unsteady gait. The patient reportedly had worsening of tachypnea on 04/14/2017. The nursing staff had reported that she was having worsening anxiety as well as tachypnea. Respiratory rates were in the 30s. Her whole body was leaning to the left side and was shaky. Her blood pressure was only able to be detected manually, but it was in the 80s. The patient was mildly confused at that time according to the notes. The patient tells me she herself thought it was because she was anxious. She did have a D-dimer study done that was elevated to 1060. She then had a CT angio of the chest done on April 14. This was of suboptimal technical definition. There was quite a bit of motion artifact. The bolus of the contrast did not well outline the vessels. There was no definite pulmonary emboli, although the radiologist acknowledged that anything other than the main pulmonary arteries could not be assessed well due to suboptimal opacification. She did have an opacity at the right lower lobe posteriorly that likely was a small infiltrate or area of atelectasis. She was not having any symptoms of pneumonia at that time reportedly. Four days later, she underwent a repeat CT angio of the chest. This still showed some motion artifact. There was 1 small central filling defect within a segmental branch of the right lower lobe. The radiologist stated this could be artifactual, but a small age indeterminant pulmonary embolus is not excluded. There were no other filling defects seen. To the best of my knowledge, she has not had any hypoxia at any time. She had a blood gas done on the psych floor when her symptoms began and she had a pH of 7.53 with a pCO2 of 21 and a pO2 of 115. This was done on 2 liter nasal cannula. This would reflect a respiratory alkalosis with presumably a fairly low alveolar to arterial gradient. If she had been on room air the AA gradient would have been 9 but obviously it is higher than that. Nonetheless, it was not dramatically abnormal by any means nor was she hypoxic. She has been on Lovenox and then switched to Eliquis. Earlier today she had a venous Doppler of the lower extremities done and this was negative. She is awaiting a VQ scan. There are questions as to whether she should be long-term anticoagulated particularly with the problem of gait problems and balance problems. The patient has told me that she has had falls in the past. The patient is not a good historian at all. She does deny any prior history of blood clots. PAST MEDICAL HISTORY: Hyperlipidemia, reflux, hypothyroidism, childbirth x1, severe anxiety, movement disorder, and schizoaffective disorder. PAST SURGICAL HISTORY: 1. Carpal tunnel surgery. 2. Nasal surgery. 3. Some type of jaw surgery. SOCIAL HISTORY: Tobacco never. ETOH -- no history of alcohol abuse. Travel history -- no long trips or airplane flights according to the patient. Likewise, she denies any trauma to the legs. FAMILY HISTORY: Noncontributory. REVIEW OF SYSTEMS: Extremely difficult to obtain as the patient is a poor historian. PHYSICAL EXAMINATION: GENERAL: The patient is very anxious but pleasant 67-year-old female who looked older than her chronologic age. She was cooperative and alert. She did not appear in any distress. VITAL SIGNS: Temperature is 36.7. HEAD, EYES, EARS, NOSE, AND THROAT: Pupils were reactive. Nares were unremarkable. Mouth exam was unremarkable. NECK: Palpation of the neck reveals no lymph nodes. HEART: Rate was 92 per minute. The rhythm was regular. Blood pressure most recently was 96/61. Her pressure vacillates. Yesterday her pressure was as low as 88/51. However, earlier in the day yesterday it was 164/75. LUNGS: Lung sheikh were clear bilaterally. I had to work hard to get the patient to take deep breaths, but ultimately when she did it was clear. Oxygen saturation on room air is 96%. EXTREMITIES: Showed no cyanosis, clubbing or edema. ABDOMEN: Soft and nontender. Good bowel sounds were heard. LABORATORY DATA: White count today is 8.57. Hemoglobin 12. Platelets 245,000. INR is 1. Electrolytes yesterday showed sodium 139, potassium 3.8, chloride 108, bicarb 28. Blood sugar randomly was 100. IMPRESSIONS: 1. Severe anxiety. 2. Schizoaffective disorder. 3. Tachypnea -- most likely related to #1 and #2 above. COMMENTS: This is a very challenging case. The patient had tachypnea which could be explained by her psychiatric illness. She has had some hypotension intermittently. The source for that is not clear. She has had 2 CAT scans of the chest done. The first one showed no definite PE, but it was of low quality. The second one showed 1 tiny defect. That would not appear to be a significant pulmonary emboli based upon the size and location. It may well not be an emboli at all. It could be artifact or even a chronic small PE. She has never had hypoxia that I could find. Her pO2 at the high point of her symptoms was 115 on just 2 liters of oxygen. Clearly, there is no significant shunt involved. Complicating all this is the patient has a history of balance and gait problems with a history of falling. Considering everything I believe that if the V/Q scan shows high probability of pulmonary emboli I would definitely treat her with long-term anticoagulation. If the VQ scan is low probability or shows no defects at all I likely would not treat her with long-term anticoagulation because of the above-mentioned problems. I discussed this at length on the phone with Dr. Mckenzie. I also had suggested that he should speak with her family regarding all these issues and getting their perspective on her likelihood of falling and so forth. That still could ultimately effective final decision. Thank you very much for asking me to assist in her care.
--- NOTE | 2017-04-20 14:07 | Psychiatric Progress Notes ---
Psychiatric Progress Note Date of Service Apr 20, 2017. Notes Shanna Hutson is a 66-year-old female who initially presented for inpatient psychiatric hospitalization from [facility] on 04/12/17 where she was placed for rehab due to unsteady gate. Her spouse brought her to the [facility] ER for worsening psychosis and anxiety and she was admitted on a 201. She was transferred to the medical floor on 04/14/17 following a code purple. CC: "Not good." Interval history: The patient continues to have shortness of breath and high anxiety, with a sensation that the bed is moving under her and that there is "something in my bottom," which has been a long-standing complaint. She was seen with Sharlene Leroy PA-C, and the psychiatric liaison nurse. She is getting a VQ scan today for further workup of her PE and shortness of breath. She denies suicidal thoughts, no AVH, but feels bed is moving and that there is "something in my bottom." She does not want to stay in the hospital for inpatient psychiatric care, stating "I hate it here." MSE: Elderly white female appearing older than her stated age, lying in bed awake in no acute distress. Fair eye contact. Lip smacking movements. Speech is slowed and delayed. Mood is "not good," and affect is restricted to anxious. Denies suicidal thoughts, homicidal thoughts. Reports sensation of something in bed bottom, unclear if hallucination. Insight and judgment are more limited. Recommendations: 1. Schizoaffective disorder depressed type (although differential also includes a major neurocognitive disorder and psychotic depression with comorbid anxiety) - continue duloxetine 60mg daily quetiapine to 25 mg 3 times a day and 50 mg daily at bedtime. Further titration limited due to ongoing hypotension and recent fall. Remeron has been discontinued to limit combined sedation. 2. Tardive dyskinesia and akathisia: titrate Neurontin as may be anxiolytic as well. D/c Cogentin. 3. Patient has declined voluntary psychiatric admission the last 2 times I've met with her, but asked her to think about it and discuss with her . We will see her again tomorrow and please notify us when she is medically clear.
[2017-04-20 15:05] VITALS: BP 84/52; PULSE 85; TEMP 36.2; O2SAT 93
--- NOTE | 2017-04-20 15:25 | DIAGNOSTIC IMAGING REPORT ---
LUNG IMAGING VQ CLINICAL HISTORY: 67 years-old Female with SOB / abnormal CTA / suspected PE but not confirmed . Acute shortness of breath with negative venous Doppler study. Questioned pulmonary embolus on comparison CTA of the chest 04/18/2017. COMPARISON STUDY: Chest radiographs and CTA chest 04/18/2017. TECHNIQUE: Initially, ventilation images of both lungs are obtained following the inhalation of 33 mCi of aerosolized technetium 99m DTPA. Subsequently, perfusion images of both lungs were obtained following the IV administration of 5.5 mCi of technetium 99m MAA. Ventilation and perfusion images were acquired in the anterior, posterior, and oblique projections. FINDINGS: A chest x-ray performed on 04/18/2017 demonstrated no significant airspace opacities or pleural effusion. There is retention of ventilation radiotracer within the tracheobronchial tree throughout the study. Radiotracer is also noted within the stomach. There is symmetric radiotracer activity on the ventilation images within the bilateral lungs. No segmental perfusion defects are identified on the perfusion imaging. IMPRESSION:Low probability for pulmonary embolus The above report was generated using voice recognition software. It may contain grammatical, syntax or spelling errors. Electronically signed by: Harvinder Browne M.D. 04/20/2017 3:24 PM Dictated Date/Time: 04/20/2017 3:15 PM
[2017-04-20] MEDS: SODIUM CHLORIDE 0.9% 1000ML 1,000 ML IV SCH (19:16)
[2017-04-20] MEDS: QUETIAPINE FUMARATE 100 MG TAB PO SCH (20:38)
[2017-04-20] MEDS: HEPARIN SOD 5000 UNIT/0.5 ML CARP SQ SCH (20:41)
--- NOTE | 2017-04-20 21:13 | NUR ---
ID: Pt A/Ox3, patient much less anxious today than yesterday. VSS. Breath sounds clear on room air. Denies pain. Tolerating regular dental soft diet well. Patient was able to feed herself dinner. NS infusing @150ml/hr through right wrist site. OOB to the bathroom with 1 assist, gait still unsteady. Remains in low bed. Bed alarm on for safety. D/C uncertain at this time. Call son and bedside table are within reach. Will continue to monitor.
[2017-04-20 22:42] VITALS: BP 93/59; PULSE 74; TEMP 36.5; O2SAT 94
[2017-04-21] MEDS: LEVOTHYROXINE 88 MCG TAB PO SCH (06:12)
[2017-04-21] MEDS: HEPARIN SOD 5000 UNIT/0.5 ML CARP SQ SCH ×3 (06:12→21:33)
[2017-04-21 06:40] LABS: BASO % 0.2 %; BASO ABS # 0.01 K/uL (0-0.2); EOS % 4.2 %; EOS ABS # 0.27 K/uL (0-0.5); HEMATOCRIT 35.6 % (37-47); HEMOGLOBIN 11.6 g/dL (12.0-16.0); IG# 0.01 K/uL (0.00-0.02); LYMPH % 22.5 %; LYMPH ABS # 1.44 K/uL (1.2-3.4); MEAN CELL VOLUME 98.6 fL (80-100); MEAN CORPUSCULAR HEMOGLOBIN 32.1 pg (25-34); MEAN CORPUSCULAR HGB CONC 32.6 g/dl (32-36); MEAN PLATELET VOLUME 9.9 fL (7.4-10.4); MONO % 8.1 %; MONO ABS # 0.52 K/uL (0.11-0.59); NEUT % 64.8 %; NEUT ABS # 4.14 K/uL (1.4-6.5); PLATELET COUNT 232 K/uL (130-400); RED CELL DISTRIBUTION WIDTH CV 14.1 % (11.5-14.5); RED CELL DISTRIBUTION WIDTH SD 50.4 fL (36.4-46.3); WHITE BLOOD COUNT 6.39 K/uL (4.8-10.8)
[2017-04-21 07:19] VITALS: BP 87/51; PULSE 85; TEMP 36.6; O2SAT 98
[2017-04-21 07:25] LABS: ALBUMIN 2.7 gm/dl (3.4-5.0); CALCIUM 9.6 mg/dl (8.5-10.1); CREATININE 0.87 mg/dl (0.60-1.20); POTASSIUM 3.9 mmol/L (3.5-5.1)
[2017-04-21 07:28] LABS: TOTAL PROTEIN 6.3 gm/dl (6.4-8.2)
[2017-04-21 08:00] VITALS: O2SAT 98
[2017-04-21] MEDS: POLYETHYLENE (MIRALAX) 17 GM PACK PO SCH (08:06)
[2017-04-21] MEDS: SIMVASTATIN 20 MG TAB PO SCH (08:06)
[2017-04-21] MEDS: DULOXETINE HCL 60 MG CAP PO SCH (08:06)
[2017-04-21] MEDS: PANTOprazole SOD 40 MG TAB PO SCH (08:06)
[2017-04-21] MEDS: QUETIAPINE FUMARATE 25 MG TAB PO SCH ×2 (08:06→13:09)
[2017-04-21] MEDS: GABAPENTIN 100 MG CAP PO SCH ×3 (08:07→21:30)
[2017-04-21] MEDS: IPRATROPIUM BROMIDE/ALBUTEROL respimat INH INH SCH ×4 (08:08→21:31)
[2017-04-21] MEDS ORDERED: COSYNTROPIN INJ 0.25 MCG in SYRINGE 4 ML IV ONE (08:45)
--- NOTE | 2017-04-21 09:48 | Progress Note ---
Progress Note Date of Service Apr 21, 2017. Progress Note I personally interviewed and examined the patient. I agree with history of present illness and physical exam mentioned above, I also performed my own history taking and examination. Past medical history and review of system has been obtained by myself I reviewed all pertinent labs and studies Reviewed current medications I discussed and formulated of the assessment and plan mentioned above. Please refer to the Summary mentioned by Ms Abebe. General Appearance: not in acute distress, but appears anxious Eyes: normal Sclerae, extraocular muscle intact ENT: hearing grossly normal Neck: supple Respiratory/Chest: normal air entry especially bilateral ,no respiratory distress, no accessory muscle use, despite of being slightly tachypneic Cardiovascular: regular rate, rhythm, no murmur Abdomen: non tender, soft, no masses Extremities: no edema Neurologic/Psychiatric: Awake alert oriented times place and person moves all extremities sensation intact cranial nerves II-12 appear to be intact Skin: normal color, warm/dry, no rash 67 years old female with an anxiety/depression/schizophrenia presented with acute respiratory failure on shortness of breath. D-dimer was elevated and CT angiogram was not helpful in confirming pulmonary embolism. Appropriately the patient received anticoagulation. Patient is currently breathing on room air, appears to be very unsteady on her lower extremities, physical therapy recommended acute rehabilitation Also patient can be unreliable in taking her anticoagulation aside from being significantly fall risk. For these reasons consulted Dr. st and obtain lower extremity ultrasound which was negative Also obtained VQ scan which was low probability. Dr. st and I agree that risks of anticoagulation surpasses benefits Especially that with low probability VQ scan the diagnosis of pulmonary embolism pretty much ruled out Anticoagulation was stopped patient remains hypotensive, today MAP is 63, random cortisol is 4.3 in the setting of low BP it is a strong indicator of adrenal insufficiency. I ordered cosyntropin test for conformation also ordered urine legionella Also ordered urine analysis, UA April 12 was normal Discussed adjusting side medications with Miss Berry, psych liaison, hoping to taper down some of her psychiatric medications that might be contributing to the low blood pressure After cosyntropin test tomorrow patient can be started on possible midodrine/ Florinef, medical staff specialist referral might be required if Adrenal insufficiency is confirmed Also I ordered a CT scan abdomen and pelvis with contrast to look at the adrenal glands and rule out any intra-abdominal source of sepsis Marielle Mckenzie MD, [facility] [place] Hospitalist [facility]
--- NOTE | 2017-04-21 11:18 | Hospitalist Progress Note ---
Hospitalist Progress Note Date of Service Apr 21, 2017. (Gris Abebe, LENCHO) I personally interviewed and examined the patient. I agree with history of present illness and physical exam mentioned above, I also performed my own history taking and examination. Past medical history and review of system has been obtained by myself I reviewed all pertinent labs and studies Reviewed current medications I discussed and formulated of the assessment and plan mentioned above. Please refer to the Summary mentioned by Ms Abebe. General Appearance: not in acute distress, but appears anxious Eyes: normal Sclerae, extraocular muscle intact ENT: hearing grossly normal Neck: supple Respiratory/Chest: normal air entry especially bilateral ,no respiratory distress, no accessory muscle use, despite of being slightly tachypneic Cardiovascular: regular rate, rhythm, no murmur Abdomen: non tender, soft, no masses Extremities: no edema Neurologic/Psychiatric: Awake alert oriented times place and person moves all extremities sensation intact cranial nerves II-12 appear to be intact Skin: normal color, warm/dry, no rash 67 years old female with an anxiety/depression/schizophrenia presented with acute respiratory failure on shortness of breath. D-dimer was elevated and CT angiogram was not helpful in confirming pulmonary embolism. Appropriately the patient received anticoagulation. Patient is currently breathing on room air, appears to be very unsteady on her lower extremities, physical therapy recommended acute rehabilitation Also patient can be unreliable in taking her anticoagulation aside from being significantly fall risk. For these reasons consulted Dr. st and obtain lower extremity ultrasound which was negative Also obtained VQ scan which was low probability. Dr. st and I agree that risks of anticoagulation surpasses benefits Especially that with low probability VQ scan the diagnosis of pulmonary embolism pretty much ruled out Anticoagulation was stopped patient remains hypotensive, today MAP is 63, random cortisol is 4.3 in the setting of low BP it is a strong indicator of adrenal insufficiency. I ordered cosyntropin test for conformation also ordered urine legionella Also ordered urine analysis, UA April 12 was normal Discussed adjusting side medications with Miss Berry, psych liaison, hoping to taper down some of her psychiatric medications that might be contributing to the low blood pressure After cosyntropin test tomorrow patient can be started on possible midodrine/ Florinef, humanities professor referral might be required if Adrenal insufficiency is confirmed Also I ordered a CT scan abdomen and pelvis with contrast to look at the adrenal glands and rule out any intra-abdominal source of sepsis Marielle Mckenzie MD, [facility] hospitalist group (Marielle Carrizales MD) Subjective Patient resting in bed. Appeared calm until patient noticed my presence, then started to become tachypneic Admitted to feeling anxious and SOB. +decreased appetite. Patient denies any fever, chills, sweats, lightheadedness, dizziness, vision changes, CP, palpitations, edema, wheezing, cough, abdominal pain, nausea, vomiting, diarrhea, urinary symptoms, melena, numbness/tingling, weakness, muscle/joint pain, depression, active bleeding, or new skin discoloration/ changes. (Gris Abebe PA-C) Objective Vital Signs Date Time Temp Pulse Resp B/P (MAP) Pulse Ox O2 Delivery O2 Flow Rate FiO2 04/21/17 08:00 98 Room Air 04/21/17 07:19 36.6 85 20 87/51 (63) 98 Room Air 04/21/17 00:05 Room Air 04/20/17 22:42 36.5 74 16 93/59 (70) 94 Room Air 04/20/17 16:20 Room Air 04/20/17 15:05 36.2 85 18 84/52 (63) 93 (Gris Abebe, LORNEC) Physical Exam General Appearance: no apparent distress Eyes: normal inspection, PERRL ENT: hearing grossly normal Neck: supple Respiratory/Chest: lungs clear, no respiratory distress, no accessory muscle use, + pertinent finding (pursed lip breathing ) Cardiovascular: regular rate, rhythm Abdomen: normal bowel sounds, non tender, soft Extremities: no pedal edema, no calf tenderness Neurologic/Psychiatric: alert, + disoriented, + pertinent finding (anxious ) Skin: normal color, warm/dry, no rash (Gris Abebe PA-C) Laboratory Results Last 24 Hours Test 04/20/17 20:42 04/21/17 05:48 04/21/17 08:00 04/21/17 09:09 Random Cortisol 4.86 mcg/dl White Blood Count 6.39 K/uL Red Blood Count 3.61 M/uL Hemoglobin 11.6 g/dL Hematocrit 35.6 % Mean Corpuscular Volume 98.6 fL Mean Corpuscular Hemoglobin 32.1 pg Mean Corpuscular Hemoglobin Concent 32.6 g/dl Platelet Count 232 K/uL Mean Platelet Volume 9.9 fL Neutrophils (%) (Auto) 64.8 % Lymphocytes (%) (Auto) 22.5 % Monocytes (%) (Auto) 8.1 % Eosinophils (%) (Auto) 4.2 % Basophils (%) (Auto) 0.2 % Neutrophils # (Auto) 4.14 K/uL Lymphocytes # (Auto) 1.44 K/uL Monocytes # (Auto) 0.52 K/uL Eosinophils # (Auto) 0.27 K/uL Basophils # (Auto) 0.01 K/uL RDW Standard Deviation 50.4 fL RDW Coefficient of Variation 14.1 % Immature Granulocyte % (Auto) 0.2 % Immature Granulocyte # (Auto) 0.01 K/uL Sodium Level 139 mmol/L Potassium Level 3.9 mmol/L Chloride Level 108 mmol/L Carbon Dioxide Level 26 mmol/L Anion Gap 5.0 mmol/L Blood Urea Nitrogen 12 mg/dl Creatinine 0.87 mg/dl Est Creatinine Clear Calc Drug Dose 53.3 ml/min Estimated GFR () 79.3 Estimated GFR (Non- 68.5 BUN/Creatinine Ratio 13.5 Random Glucose 88 mg/dl Calcium Level 9.6 mg/dl Total Bilirubin 0.5 mg/dl Aspartate Amino Transf (AST/SGOT) 45 U/L Alanine Aminotransferase (ALT/SGPT) 30 U/L Alkaline Phosphatase 72 U/L Total Protein 6.3 gm/dl Albumin 2.7 gm/dl Globulin 3.6 gm/dl Albumin/Globulin Ratio 0.8 Test 04/21/17 09:30 Urine Color YELLOW Urine Appearance CLOUDY Urine pH 7.0 Urine Specific [place] 1.016 Urine Protein TRACE Urine Glucose (UA) NEG Urine Ketones TRACE Urine Occult Blood TRACE Urine Nitrite POS Urine Bilirubin NEG Urine Urobilinogen NEG Urine Leukocyte Esterase LARGE Urine WBC (Auto) >30 /hpf Urine RBC (Auto) 0-4 /hpf Urine Hyaline Casts (Auto) 0 /lpf Urine Epithelial Cells (Auto) 0-5 /lpf Urine Bacteria (Auto) NEG (Gris Abebe, LENCHO) Assessment and Plan The patient is a 66-year-old white female admitted to psychiatry unit on 2016 because of worsening psychosis and anxiety. Patient transferred to tele on 04/14/17 due to tachypnea, hypotension, and ?irregular heart beat. Tachypnea w/ respiratory alkalosis, likely secondary to anxiety vs PE: - Admitted to tele for cardiac monitoring- no acute events, sinus tachycardia w / rates 90-100s- transferred to med/surg - Cardiac enzymes negative x1 - O2 protocol - Elevated d-dimer- chest CTA suggesting possible aspiration PNA -- IV Unasyn- started on 04/14- transition to PO Augmentin BID x7 days on (last day of treatment on 04/21) -- Speech therapy consulted, appreciate recommendations - CXR on 04/18- no acute findings - DuoNeb QID and PRN for SOB/wheezing - BCx- NGTD - UCx negative on 04/12; repeat UCx pending - Encouraged breathing techniques - Psychiatry consulted ?RLL PE on repeat CTA: - Some question given motion artifact but given SOB and elevated d-dimer, will treat- Lovenox 1 mg/kg BID- transitioned to Eliquis 10 mg BID x7 days (started 04/19), then 5 mg BID -- VQ scan and US Doppler- negative for acute PE- discussed w/ pulmonary- agree risk outweigh benefits of treating, d/c'd Eliquis Schizoaffective disorder- depressive type, anxiety, movement disorder- tardive dyskinesia and akathisia: - B12/folate, TSH, vitamin D- WNL - Psychiatry consulted, appreciate recommendations -- ?Anticholinergic toxicity and serotonin-like syndrome -- Avoid benzos if possible -- Remeron 15 mg HS, Cymbalta 60 mg QAM, Lamictal 125 mg HS -- Added Seroquel 25 mg TID and 50 mg HS , and 25 mg q4 hrs PRN - Ativan 0.5 mg QID PRN for severe anxiety- limit benzo use - Cogentin 0.5 mg BID for possible anticholinergic withdrawal and tardive dyskinesia symptoms- d/c'd by psychiatry on 04/19 - Gabapentin 100 mg TID for extrapyramidal symptoms- titrate PRN - Neurology consulted, appreciate recommendations Constipation: MiraLAX daily Hypotension, ?secondary to dehydration vs other etiology: - Treated w/ IVF, no significant improvement - UCx pending - Random cortisol low; Cortrosyn stimulation test tomorrow AM, aldosterone and ACTH pending - Abdominal CT pending Possible left-sided weakness: - Head CT negative for acute findings - No noticeable sensory/motor defects HLD: Zocor 20 mg daily Hypothyroidism- recent TSH 3.63: Synthroid 88 mcg daily GERD: Protonix 40 mg daily DVT prophylaxis: Heparin SQ BID Code Status: LEVEL I, FULL Dispo: Discharge to MHU once medically stable (Gris Abebe, PAJcC)
[2017-04-21] MEDS ORDERED: ASPIRIN/ALUM/MAGNES/CAL CARB 325 MG TAB PO STA (12:32)
[2017-04-21] MEDS ORDERED: OPTIRAY 320 IV PRN (13:15)
--- NOTE | 2017-04-21 13:28 | DIAGNOSTIC IMAGING REPORT ---
CT SCAN OF THE ABDOMEN AND PELVIS WITH IV CONTRAST CLINICAL HISTORY: Hypotension. Sepsis. COMPARISON STUDY: No priors. TECHNIQUE: Following the IV administration of 93 cc of Optiray 320, CT scan of the abdomen and pelvis is performed from the lung bases to the proximal femora. Images are reviewed in the axial, sagittal, and coronal planes. IV contrast was administered without complication. A dose lowering technique was utilized adhering to the principles of ALARA. The examination is degraded by motion artifact. CT DOSE: 288.82 mGy.cm FINDINGS: Lung bases: The heart is normal in size and without pericardial effusion. There are trace pleural effusions with dependent atelectasis lung bases are otherwise grossly clear. There is a moderate hiatal hernia. Liver: Evaluation of the liver is degraded by motion artifact. The contrast-enhanced liver is normal in size, contour, and attenuation. There is no intrahepatic biliary ductal dilatation. The hepatic veins and portal veins are patent. Subcentimeter low-attenuation foci are suggested. These may represent cysts but cannot be definitely characterized. Gallbladder: Unremarkable. Spleen: Normal in size and attenuation. Pancreas: Unremarkable. Adrenal glands: Unremarkable. Kidneys: The contrast enhanced kidneys are normal in size and without hydronephrosis. The kidneys enhance symmetrically. There are small bilateral nonobstructing renal calculi. A 2.2 cm cyst arises from the lower pole of the right kidney. Abdominal vasculature: The abdominal aorta is normal in course and caliber noting mild atherosclerotic calcification. The left common iliac vein appears expanded and there is surrounding inflammatory stranding. The iliac veins are not opacified. Bowel: There is mild rectosigmoid fecal impaction. Moderate constipation is observed. No bowel obstruction is seen. The appendix is not identified. Peritoneum: There is no intraperitoneal free air or abdominal ascites. Lymphadenopathy: None. Pelvic viscera: The bladder is markedly distended and otherwise grossly unremarkable. The uterus and adnexa are normal as visualized. Skeletal structures: The skeletal structures are osteopenic. No lytic or blastic lesions are seen. IMPRESSION: 1. Significantly motion degraded examination. 2. The bladder is markedly distended but otherwise grossly unremarkable. Correlate clinically for evidence of urinary retention. 3. The left iliac vein appears heterogeneous and there is surrounding inflammatory stranding. The vessel is not well opacified. Deep venous thrombosis/thrombophlebitis is not excluded. 4. Bilateral nonobstructing renal calculi. 5. Trace pleural effusions. 6. There is rectosigmoid fecal impaction and moderate constipation. No bowel obstruction is seen. 7. Additional findings as above. Electronically signed by: Germain Burton M.D. 04/21/2017 1:26 PM Dictated Date/Time: 04/21/2017 1:16 PM
--- NOTE | 2017-04-21 13:35 | Psychiatric Progress Notes ---
Psychiatric Progress Note Date of Service Apr 21, 2017. Notes Shanna Hutson is a 66-year-old female who initially presented for inpatient psychiatric hospitalization from [facility] on 04/12/17 where she was placed for rehab due to unsteady gate. Her spouse brought her to the [facility] ER for worsening psychosis and anxiety and she was admitted on a 201. She was transferred to the medical floor on 04/14/17 following a code purple. Reviewed case with liaison nurse and reviewed interim records. Undergoing work up for adrenal insufficiency. Continues to be hypotensive and anxious with tachypnea. Is getting quetiapine 25mg tid and 50mg qhs, and further dose escalation was planned but has not occurred due to ongoing hypertension. Is also getting Ativan 0.5 mg 1-2 times a day for severe anxiety. Recommendations: 1. Schizoaffective disorder depressed type (although differential also includes a major neurocognitive disorder and psychotic depression with comorbid anxiety) - continue duloxetine 60mg daily - I will decrease her quetiapine to 25 mg every morning and 50 mg daily at bedtime due to hypotension. Remeron has been discontinued to limit combined sedation. 2. Tardive dyskinesia and akathisia: titrate Neurontin as may be anxiolytic as well. D/c Cogentin. 3. We will continue to follow and assess the need for psychiatric admission once medically cleared.
[2017-04-21 15:17] VITALS: BP 88/58; PULSE 85; TEMP 36.6; O2SAT 94
[2017-04-21] MEDS: SODIUM CHLORIDE 0.9% 1000ML 1,000 ML IV SCH (15:41)
[2017-04-21] MEDS: QUETIAPINE FUMARATE 25 MG TAB PO PRN (16:29)
[2017-04-21] MEDS: LORAZEPAM 0.5 MG TAB PO PRN (17:11)
[2017-04-21] MEDS: QUETIAPINE FUMARATE 100 MG TAB PO SCH (21:30)
[2017-04-22 00:55] VITALS: BP 86/52; PULSE 83; TEMP 36.7; O2SAT 91
[2017-04-22] MEDS: HEPARIN SOD 5000 UNIT/0.5 ML CARP SQ SCH ×3 (06:01→21:03)
[2017-04-22] MEDS: LEVOTHYROXINE 88 MCG TAB PO SCH (06:03)
[2017-04-22] MEDS: SODIUM CHLORIDE 0.9% 1000ML 1,000 ML IV SCH (06:05)
[2017-04-22 06:58] VITALS: BP 99/60; PULSE 92; TEMP 36.7; O2SAT 96
[2017-04-22] MEDS ORDERED: COSYNTROPIN INJ 250 MCG in SYRINGE 4 ML IV SCH (07:00)
[2017-04-22 08:00] VITALS: O2SAT 96
[2017-04-22] MEDS: IPRATROPIUM BROMIDE/ALBUTEROL respimat INH INH SCH ×4 (08:36→21:00)
[2017-04-22] MEDS: SIMVASTATIN 20 MG TAB PO SCH (08:37)
[2017-04-22] MEDS: QUETIAPINE FUMARATE 25 MG TAB PO SCH (08:37)
[2017-04-22] MEDS: GABAPENTIN 100 MG CAP PO SCH ×3 (08:37→20:59)
[2017-04-22] MEDS: POLYETHYLENE (MIRALAX) 17 GM PACK PO SCH (08:37)
[2017-04-22] MEDS: PANTOprazole SOD 40 MG TAB PO SCH (08:37)
[2017-04-22] MEDS: DULOXETINE HCL 60 MG CAP PO SCH (08:37)
[2017-04-22 08:57] LABS: CREATININE 0.77 mg/dl (0.60-1.20)
--- NOTE | 2017-04-22 13:26 | NUR ---
Acute care continues. Patient is followed by Psychiatry for return to [address] [place] [address] when medically stable. Will follow for discharge planning.
--- NOTE | 2017-04-22 14:08 | Psychiatric Progress Notes ---
Psychiatric Progress Note Date of Service Apr 22, 2017. Notes Shanna Hutson is a 66-year-old female who initially presented for inpatient psychiatric hospitalization from [facility] on 04/12/17 where she was placed for rehab due to unsteady gate. Her spouse brought her to the [facility] ER for worsening psychosis and anxiety and she was admitted on a 201. She was transferred to the medical floor on 04/14/17 following a code purple. CC: "Not good." Reviewed interim records and met with the patient. She continues to endorse high anxiety, is breathing heavily and having difficulty answering questions. She denies feeling depressed, thoughts of harming herself or anyone else, and hallucinations. She states that she was hearing music and people talking a few days ago, but cannot give any further detail about that experience. She continues to report odd physical sensations, telling nursing staff that she feels there is a "bump on my butt," but when staff assess her, the only abnormality is a mild bruise. She continues to state that she does not want inpatient psychiatric treatment, stating repeatedly that she just wants to go home and does not want to be in the hospital anymore. Recommendations: 1. Schizoaffective disorder depressed type (although differential also includes a major neurocognitive disorder and psychotic depression with comorbid anxiety) - continue duloxetine 60mg daily - Quetiapine has been decreased to 25 mg every morning and 50 mg daily at bedtime due to hypotension. Remeron has been discontinued to limit combined sedation. 2. Tardive dyskinesia and akathisia: titrate Neurontin as may be anxiolytic as well. D/c Cogentin. 3. We will continue to follow and assess the need for psychiatric admission once medically cleared - she has consistently stated she is not willing for inpatient mental health treatment, and she is not committable. Her case is very complex, and will require ongoing treatment with neurology and psychiatry. She will need to follow up with her outpatient psychiatrist Dr. Bashir after discharge.
--- NOTE | 2017-04-22 14:54 | Progress Note ---
Subjective Date of Service: Apr 22, 2017. Subjective Pt evaluation today including: conversation w/ patient, conversation w/ family , physical exam, chart review As I walked in the room, patient was found sitting upright appearing very anxious with her rubbing her arms. appears very concerned and wants psych to see her. She appears to be very anxious and tachypnic, and does not provide much history Unable to obtain ROS. Problem List Medical Problems: (1) Hypokalemia Status: Acute (2) UTI (urinary tract infection) Status: Acute Review of Systems All Other Systems: Reviewed and Negative Medications Current Inpatient Medications Medications (Trade) Dose Ordered Sig/Jeison Route Start Time Stop Time Status Last Admin Dose Admin Acetaminophen (Tylenol Tab) 650 mg Q4H PRN PO 04/14/17 17:00 05/14/17 16:59 04/20/17 12:52 650 MG Al Hydrox/Mg Hydrox/Simethicone (Maalox Max Susp) 15 ml Q4H PRN PO 04/14/17 17:00 05/14/17 16:59 Magnesium Hydroxide (Milk Of Magnesia Susp) 30 ml Q12H PRN PO 04/14/17 17:00 05/14/17 16:59 04/16/17 15:34 30 ML Ondansetron HCl (Zofran Inj) 4 mg Q6H PRN IV 04/14/17 17:00 05/14/17 16:59 04/19/17 08:11 4 MG Bisacodyl (Dulcolax Supp) 10 mg DAILY PRN [place] 04/14/17 17:00 05/14/17 16:59 Duloxetine HCl (Cymbalta Cap) 60 mg QAM PO 04/15/17 09:00 05/15/17 08:59 04/23/17 08:40 60 MG Lamotrigine (Lamictal Tab) 25 mg HS PO 04/14/17 21:00 05/14/17 20:59 04/22/17 20:59 25 MG Lamotrigine (Lamictal Tab) 100 mg HS PO 04/14/17 21:00 05/14/17 20:59 04/22/17 20:59 100 MG Levothyroxine Sodium (Synthroid Tab) 88 mcg DAILYBB PO 04/15/17 06:00 05/15/17 05:59 04/23/17 06:29 88 MCG Simvastatin (Zocor Tab) 20 mg QAM PO 04/15/17 09:00 05/15/17 08:59 04/23/17 08:40 20 MG Pantoprazole Sodium (Protonix Tab) 40 mg DAILY PO 04/15/17 09:00 05/15/17 08:59 04/23/17 08:40 40 MG Lorazepam (Ativan Tab) 0.5 mg Q6H PRN PO 04/16/17 09:00 05/16/17 08:59 04/22/17 16:40 0.5 MG Albuterol/ Ipratropium (Combivent Respimat Inh) 1 puffs QID INH 04/16/17 17:00 05/16/17 16:59 04/23/17 08:40 1 PUFFS Quetiapine Fumarate (seroQUEL TAB) 25 mg Q4 PRN PO 04/17/17 11:15 05/17/17 11:14 04/21/17 16:29 25 MG Polyethylene (Miralax Powder Packet) 17 gm DAILY PO 04/18/17 10:00 05/14/17 09:59 04/23/17 08:39 17 GM Gabapentin (Neurontin Cap) 100 mg TID PO 04/19/17 20:00 05/16/17 19:59 04/23/17 08:40 100 MG Quetiapine Fumarate (seroQUEL TAB) 50 mg HS PO 04/19/17 21:00 05/18/17 20:59 04/22/17 20:57 50 MG Heparin Sodium (Porcine) (Heparin Sq 5000 Unit/0.5ml) 5,000 unit Q8 SQ 04/20/17 22:00 05/20/17 21:59 04/23/17 06:31 5,000 UNIT Sodium Chloride 1,000 ml @ 50 mls/hr Q20H IV 04/20/17 18:45 05/20/17 18:44 04/22/17 06:05 50 MLS/HR Ioversol (Optiray 320) 100 ml UD PRN IV 04/21/17 13:15 04/25/17 13:14 Quetiapine Fumarate (seroQUEL TAB) 25 mg QAM PO 04/22/17 08:00 05/17/17 13:59 04/23/17 08:40 25 MG Objective Vital Signs Date Time Temp Pulse Resp B/P (MAP) Pulse Ox O2 Delivery O2 Flow Rate FiO2 04/22/17 08:00 96 Room Air 04/22/17 06:58 36.7 92 18 99/60 (73) 96 Room Air 04/22/17 00:55 36.7 83 16 86/52 (63) 91 Room Air 04/22/17 00:00 Room Air 04/21/17 16:10 Room Air 04/21/17 15:17 36.6 85 16 88/58 (68) 94 Room Air Physical Exam General Appearance: WD/WN, + moderate distress Neck: supple, no adenopathy Respiratory/Chest: chest non-tender, lungs clear, normal breath sounds Cardiovascular: regular rate, rhythm, no edema, no JVD Abdomen: normal bowel sounds, non tender, soft Extremities: normal range of motion Neurologic/Psychiatric: dishcloth folder II-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 D/W Dr. Christensen, will hold off anticoagulation given elevated risk vs benefit of treatment. Lower extremity Doppler was also negative, with low probability V/Q scan Hypotension. Unsure of cause. Random cortisol was low However, confirmatory test was negative. Initally wanted to consult Endo, but do not come to the office. Will consider 2-d echo. May consider midodrine if 2-d echo is negative. will obtain orthostatic BP Anxiety Being seen by psych. Continued [facility] stay due to: other Discharge planning: uncertain
[2017-04-22] MEDS ORDERED: LACTULOSE SYRUP 30 GM/45 ML UDP PO STA (15:28)
[2017-04-22 16:01] VITALS: BP 100/65; PULSE 95; TEMP 36.6; O2SAT 96
[2017-04-22] MEDS: LORAZEPAM 0.5 MG TAB PO PRN (16:40)
[2017-04-22] MEDS: QUETIAPINE FUMARATE 100 MG TAB PO SCH (20:57)
--- NOTE | 2017-04-22 21:17 | NUR ---
ID: Pt A/Ox3. VSS. Breath sounds clear on room air. Denies pain. Tolerating regular dental soft diet, patient refused dinner this evening. Patient was able to feed herself dinner. NS infusing @150ml/hr through right wrist site. OOB with 1 assist to the bathroom and around hallway. Remains in low bed. Bed alarm on for safety. D/C uncertain at this time. Call son and bedside table are within reach. Will continue to monitor.
[2017-04-22 23:32] VITALS: BP 78/46; PULSE 82; TEMP 36.5; O2SAT 95
[2017-04-23] MEDS ORDERED: NURSING VERBAL MED ORDER ONE
[2017-04-23] MEDS ORDERED: SODIUM CHLORIDE 0.9% 1000ML 500 ML IV SCH (00:30)
[2017-04-23 03:38] VITALS: BP 91/51
[2017-04-23 06:01] LABS: HEMOGLOBIN 11.4 g/dL (12.0-16.0); MEAN CELL VOLUME 97.8 fL (80-100); MEAN CORPUSCULAR HEMOGLOBIN 31.8 pg (25-34); MEAN CORPUSCULAR HGB CONC 32.6 g/dl (32-36); MEAN PLATELET VOLUME 9.9 fL (7.4-10.4); PLATELET COUNT 260 K/uL (130-400); RED CELL DISTRIBUTION WIDTH CV 14.1 % (11.5-14.5); WHITE BLOOD COUNT 5.28 K/uL (4.8-10.8)
[2017-04-23] MEDS: LEVOTHYROXINE 88 MCG TAB PO SCH (06:29)
[2017-04-23] MEDS: HEPARIN SOD 5000 UNIT/0.5 ML CARP SQ SCH ×3 (06:31→22:14)
[2017-04-23 06:32] LABS: CALCIUM 9.8 mg/dl (8.5-10.1); CREATININE 0.92 mg/dl (0.60-1.20)
[2017-04-23 07:58] VITALS: BP 98/62; PULSE 89; TEMP 36.6; O2SAT 93
[2017-04-23] MEDS: POLYETHYLENE (MIRALAX) 17 GM PACK PO SCH (08:39)
[2017-04-23] MEDS: IPRATROPIUM BROMIDE/ALBUTEROL respimat INH INH SCH ×4 (08:40→19:44)
[2017-04-23] MEDS: PANTOprazole SOD 40 MG TAB PO SCH (08:40)
[2017-04-23] MEDS: DULOXETINE HCL 60 MG CAP PO SCH (08:40)
[2017-04-23] MEDS: SIMVASTATIN 20 MG TAB PO SCH (08:40)
[2017-04-23] MEDS: QUETIAPINE FUMARATE 25 MG TAB PO SCH (08:40)
[2017-04-23] MEDS: GABAPENTIN 100 MG CAP PO SCH ×3 (08:40→19:45)
--- NOTE | 2017-04-23 10:37 | NUR ---
Psychiatric Liaison Nurse - pt denies any needs at this time. She continues to endorse tactile hallucinations that the chair she sits on is moving beneath her, though she is able to verbalize that this is not reality-based. Affect remains anxious and distressed.
[2017-04-23] MEDS: SODIUM CHLORIDE 0.9% 1000ML 1,000 ML IV SCH (14:06)
[2017-04-23 15:32] VITALS: BP 100/64; PULSE 89; TEMP 36.6; O2SAT 99
--- NOTE | 2017-04-23 18:26 | ECHOCARDIOGRAM REPORT ---
*NOTICE TO RECEIVING DEMOCRAT AGENCY This information is strictly Confidential and protected under [place] law. [place] law prohibits you from making any further disclosure of this information unless further disclosure is expressly permitted by the written consent of the person to whom it pertains or is authorized by law. A general authorization for the release of medical or other information is not sufficient for this purpose. Hospital accepts no responsibility if the information is made available to any other person, INCLUDING THE PATIENT. Interpretation Summary * Name: ELYSSA NEVES Study Date: 04/23/2017 02:45 PM BP: 98/62 mmHg * Patient Location: .4E\S\E404\S\1 HR: 89 * : 1950 (M/d/yyyy) Gender: Female Height: 62 in * Age: 67 yrs Ethnicity: [place] Weight: 134 lb * Ordering Physician: Vikash Lucio * Referring Physician: No Doctor, Assigned * Performed By: Mayuri Mcelroy RDCS * * Reason For Study: PALPITATIONS, UNEXPLAINED HYPOTENSION * BSA: 1.6 m2 * -- Conclusions -- * 1. Normal left ventricular size and systolic function. Estimated EF 60-65%. No regional wall motion abnormalities. No left ventricular hypertrophy. Type 1 diastolic dysfunction. * 2. No significant valvular abnormalities visualized. * 3. Normal estimated right ventricular systolic pressure; 28 mmHg. * 4. No prior study available for comparison. Procedure Details * A complete two-dimensional transthoracic echocardiogram was performed (2D, M-mode, Doppler and color flow Doppler). Left Ventricle * Normal left ventricular size and systolic function. Estimated EF 60-65%. No regional wall motion abnormalities. No left ventricular hypertrophy. Type 1 diastolic dysfunction. Right Ventricle * The right ventricle is normal in size and function. * The right ventricular systolic function is normal as assessed by tricuspid annular plane systolic excursion (TAPSE) (normal >1.5 cm). Atria * The left atrial size is normal. * Right atrial size is normal. * There is no evidence of atrial septal defect, but resolution does not allow assessment for a patent foramen ovale. Mitral Valve * The mitral valve is grossly normal. * There is no mitral valve stenosis. * There is trace mitral regurgitation. Tricuspid Valve * The tricuspid valve is not well visualized, but is grossly normal. * There is no tricuspid stenosis. * There is mild tricuspid regurgitation. Aortic Valve * The aortic valve is trileaflet. * No hemodynamically significant valvular aortic stenosis. * No aortic regurgitation is present. Pulmonic Valve * The pulmonary valve is inadequately visualized, but the Doppler data is adequate for interpretation. * There is no pulmonic valvular stenosis. * There is no significant pulmonary regurgitation. Great Vessels * The aortic root is normal size. * Normal pulmonary venous flow pattern. Pericardium/Pleural * There is no pericardial effusion. Great Vessels * Normal inferior vena cava size and collapsability with sniff indicates a normal right atrial pressure of 3 mmHg MMode 2D Measurements and Calculations IVSd 0.91 cm IVSs 1.2 cm LVIDd 4.0 cm LVIDs 2.4 cm LVPWd 0.86 cm LVPWs 1.7 cm IVS/LVPW 1.1 FS 40.5 % EDV(Teich) 68.9 ml ESV(Teich) 19.4 ml EF(Teich) 71.9 % EDV(cubed) 62.7 ml ESV(cubed) 13.2 ml EF(cubed) 79.0 % % IVS thick 36.0 % % LVPW thick 98.4 % LV mass(C)d 106.5 grams LV mass(C)dI 66.1 grams/m\S\2 LV mass(C)s 114.7 grams LV mass(C)sI 71.1 grams/m\S\2 SV(Teich) 49.5 ml SI(Teich) 30.7 ml/m\S\2 SV(cubed) 49.5 ml SI(cubed) 30.7 ml/m\S\2 Ao root diam 2.8 cm Ao root area 6.1 cm\S\2 LA dimension 2.9 cm LA/Ao 1.0 Doppler Measurements and Calculations MV E max shady 96.0 cm/sec MV A max shady 102.5 cm/sec MV E/A 0.94 MV dec time 0.23 sec Ao V2 max 167.2 cm/sec Ao max PG 11.2 mmHg Ao max PG (full) 7.9 mmHg Ao V2 mean 100.8 cm/sec Ao mean PG 4.8 mmHg Ao mean PG (full) 3.2 mmHg Ao V2 VTI 30.3 cm LV V1 max PG 3.3 mmHg LV V1 mean PG 1.6 mmHg LV V1 max 90.4 cm/sec LV V1 mean 58.9 cm/sec LV V1 VTI 19.4 cm SV(Ao) 184.1 ml SI(Ao) 114.2 ml/m\S\2 TR max shady 249.3 cm/sec RVSP(TR) 27.9 mmHg RAP systole 3.0 mmHg
[2017-04-23] MEDS: QUETIAPINE FUMARATE 100 MG TAB PO SCH (19:47)
[2017-04-23] MEDS: LORAZEPAM 0.5 MG TAB PO PRN (19:50)
--- NOTE | 2017-04-23 22:28 | Progress Note ---
Subjective Date of Service: Apr 23, 2017. Subjective Pt evaluation today including: conversation w/ patient, conversation w/ family Patient remians anxious. She does not have any new complaints. She mainly complains of her legs trembling. Problem List Medical Problems: (1) Hypokalemia Status: Acute (2) UTI (urinary tract infection) Status: Acute Review of Systems All Other Systems: Reviewed and Negative Medications Current Inpatient Medications Medications (Trade) Dose Ordered Sig/Jeison Route Start Time Stop Time Status Last Admin Dose Admin Acetaminophen (Tylenol Tab) 650 mg Q4H PRN PO 04/14/17 17:00 05/14/17 16:59 04/20/17 12:52 650 MG Al Hydrox/Mg Hydrox/Simethicone (Maalox Max Susp) 15 ml Q4H PRN PO 04/14/17 17:00 05/14/17 16:59 Magnesium Hydroxide (Milk Of Magnesia Susp) 30 ml Q12H PRN PO 04/14/17 17:00 05/14/17 16:59 04/16/17 15:34 30 ML Ondansetron HCl (Zofran Inj) 4 mg Q6H PRN IV 04/14/17 17:00 05/14/17 16:59 04/19/17 08:11 4 MG Bisacodyl (Dulcolax Supp) 10 mg DAILY PRN MA 04/14/17 17:00 05/14/17 16:59 Duloxetine HCl (Cymbalta Cap) 60 mg QAM PO 04/15/17 09:00 05/15/17 08:59 04/24/17 08:08 60 MG Lamotrigine (Lamictal Tab) 25 mg HS PO 04/14/17 21:00 05/14/17 20:59 04/24/17 19:28 25 MG Lamotrigine (Lamictal Tab) 100 mg HS PO 04/14/17 21:00 05/14/17 20:59 04/24/17 19:28 100 MG Levothyroxine Sodium (Synthroid Tab) 88 mcg DAILYBB PO 04/15/17 06:00 05/15/17 05:59 04/25/17 06:08 88 MCG Simvastatin (Zocor Tab) 20 mg QAM PO 04/15/17 09:00 05/15/17 08:59 04/24/17 08:09 20 MG Pantoprazole Sodium (Protonix Tab) 40 mg DAILY PO 04/15/17 09:00 05/15/17 08:59 04/24/17 08:08 40 MG Lorazepam (Ativan Tab) 0.5 mg Q6H PRN PO 04/16/17 09:00 05/16/17 08:59 04/23/17 06:08 0.5 MG Albuterol/ Ipratropium (Combivent Respimat Inh) 1 puffs QID INH 04/16/17 17:00 05/16/17 16:59 04/23/17 19:29 1 PUFFS Quetiapine Fumarate (seroQUEL TAB) 25 mg Q4 PRN PO 04/17/17 11:15 05/17/17 11:14 04/21/17 16:29 25 MG Polyethylene (Miralax Powder Packet) 17 gm DAILY PO 04/18/17 10:00 05/14/17 09:59 04/23/17 08:48 17 GM Gabapentin (Neurontin Cap) 100 mg TID PO 04/19/17 20:00 05/16/17 19:59 04/23/17 19:28 100 MG Quetiapine Fumarate (seroQUEL TAB) 50 mg HS PO 04/19/17 21:00 05/18/17 20:59 04/23/17 19:28 50 MG Heparin Sodium (Porcine) (Heparin Sq 5000 Unit/0.5ml) 5,000 unit Q8 SQ 04/20/17 22:00 05/20/17 21:59 04/23/17 06:08 5,000 UNIT Sodium Chloride 1,000 ml @ 50 mls/hr Q20H IV 04/20/17 18:45 05/20/17 18:44 04/23/17 06:09 50 MLS/HR Ioversol (Optiray 320) 100 ml UD PRN IV 04/21/17 13:15 04/25/17 13:14 Quetiapine Fumarate (seroQUEL TAB) 25 mg QAM PO 04/22/17 08:00 05/17/17 13:59 04/23/17 08:08 25 MG Objective Vital Signs Date Time Temp Pulse Resp B/P (MAP) Pulse Ox O2 Delivery O2 Flow Rate FiO2 12/5/17 20:00 Room Air 04/23/17 16:13 Room Air 04/23/17 15:32 36.6 89 18 100/64 (76) 99 Nasal Cannula 04/23/17 08:00 Room Air 04/23/17 07:58 36.6 89 18 98/62 (74) 93 Room Air 04/23/17 03:38 91/51 (64) 04/23/17 00:00 Room Air 04/22/17 23:32 36.5 82 18 78/46 (57) 95 Room Air Physical Exam Comments: General Appearance: WD/WN, + moderate distress Neck: supple, no adenopathy Respiratory/Chest: chest non-tender, lungs clear, normal breath sounds Cardiovascular: regular rate, rhythm, no edema, no JVD Abdomen: normal bowel sounds, non tender, soft Extremities: normal range of motion Neurologic/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 as tested Skin: normal color Lymphatic: no adenopathy Laboratory Results Last 24 Hours Test 04/23/17 05:30 White Blood Count 5.28 K/uL Red Blood Count 3.58 M/uL Hemoglobin 11.4 g/dL Hematocrit 35.0 % Mean Corpuscular Volume 97.8 fL Mean Corpuscular Hemoglobin 31.8 pg Mean Corpuscular Hemoglobin Concent 32.6 g/dl RDW Standard Deviation 50.0 fL RDW Coefficient of Variation 14.1 % Platelet Count 260 K/uL Mean Platelet Volume 9.9 fL Sodium Level 141 mmol/L Potassium Level 4.0 mmol/L Chloride Level 111 mmol/L Carbon Dioxide Level 25 mmol/L Anion Gap 5.0 mmol/L Blood Urea Nitrogen 7 mg/dl Creatinine 0.92 mg/dl Est Creatinine Clear Calc Drug Dose 50.4 ml/min Estimated GFR () 74.2 Estimated GFR (Non- 64.0 BUN/Creatinine Ratio 8.0 Random Glucose 83 mg/dl Calcium Level 9.8 mg/dl Assessment and Plan 67 year old female with anxiety, Schizophrenia presented with acute respiratory failure D-dimer elevated with questionable CT-scan of thorax with P/E V/Q scan however was negative. D/W Dr. Christensen, will hold off anticoagulation given elevated risk vs benefit of treatment. Lower extremity Doppler was also negative, with low probability V/Q scan Hypotension. Unsure of cause. Random cortisol was low However, confirmatory test was negative. 2-D echo was negative. Reviewing notes from Psych. May be from medications. Will monitor. Psych meds have been decreased. Anxiety Being seen by psych. Hypothyroidism Stable on Levothyroxine. Asymptomatic bacteriuria Will monitor. Cultures showed pseudomonas. If she becomes symptomatic, will treat, Continued [facility] stay due to: other Discharge planning: uncertain
--- NOTE | 2017-04-23 22:46 | NUR ---
ID: Pt alert to person only at time of assessment, very anxious, was given PRN Ativan. Denies pain. Denies respiratory distress, remains on RA. NSS infusing into peripheral site. BP showing some improvement with hydration. Pt ambulated to bathroom with walker and 1 assist. Plan is for pt to return to [address] [place] [address] when medically cleared.
[2017-04-23 23:25] VITALS: BP 94/59; PULSE 74; TEMP 36.7; O2SAT 95
[2017-04-24 06:30] LABS: HEMOGLOBIN 11.2 g/dL (12.0-16.0); MEAN CELL VOLUME 97.5 fL (80-100); MEAN CORPUSCULAR HEMOGLOBIN 31.2 pg (25-34); PLATELET COUNT 257 K/uL (130-400); RED CELL DISTRIBUTION WIDTH CV 14.3 % (11.5-14.5); RED CELL DISTRIBUTION WIDTH SD 50.9 fL (36.4-46.3); WHITE BLOOD COUNT 5.38 K/uL (4.8-10.8)
[2017-04-24] MEDS: HEPARIN SOD 5000 UNIT/0.5 ML CARP SQ SCH ×3 (06:36→19:30)
[2017-04-24] MEDS: LEVOTHYROXINE 88 MCG TAB PO SCH (06:37)
[2017-04-24] MEDS: IPRATROPIUM BROMIDE/ALBUTEROL respimat INH INH SCH ×4 (07:23→19:29)
[2017-04-24 07:46] VITALS: BP_SYST 106; BP_SYST 112; BP_SYST 113; BP_DIAS 67; BP_DIAS 71; BP_DIAS 74; PULSE 81; PULSE 85; PULSE 87; TEMP 36.3; O2SAT 100
[2017-04-24] MEDS: LORAZEPAM 0.5 MG TAB PO PRN ×2 (07:55→18:44)
[2017-04-24 08:00] VITALS: O2SAT 98
[2017-04-24] MEDS: PANTOprazole SOD 40 MG TAB PO SCH (08:08)
[2017-04-24] MEDS: GABAPENTIN 100 MG CAP PO SCH ×3 (08:08→19:28)
[2017-04-24] MEDS: QUETIAPINE FUMARATE 25 MG TAB PO SCH (08:08)
[2017-04-24] MEDS: DULOXETINE HCL 60 MG CAP PO SCH (08:08)
[2017-04-24] MEDS: SIMVASTATIN 20 MG TAB PO SCH (08:09)
--- NOTE | 2017-04-24 08:15 | NUR ---
A: Alerted by nurses aide at approximately 0730 that patient complaining of chest pain and shortness of breath. Nurses aide had checked vital signs and all were within normal limits. When entered room patient was in bed. Breathing appeared labored, legs were shaking and patient was smacking lips and tongue was moving in and out of mouth. When asked patient if she could say what was wrong patient became agitated and stated "Can't you see?" Patient then stated that she felt like she couldn't breath and that she was having pain in the center of her chest. She described it as dull and a 6 on a scale of 0-10. Patient had difficulty talking. Rechecked O2 sats at 98% on room air. Provided patient with Combivent inhaler. MD then paged and made aware of patient condition. Asked for STAT EKG which was completed. MD came to patient bedside. MD ordered for dose of 0.5mg PO Ativan to be administered. MD also ordered Troponin to be drawn. This nurse called patient's and she spoke with him on the phone. This nurse remained at bedside until breathing calmed. At this time patient appears to be resting comfortably in bed. Leg shaking has stopped. Patient able to take scheduled anxiety pills. Will continue to closely monitor.
[2017-04-24] MEDS: POLYETHYLENE (MIRALAX) 17 GM PACK PO SCH (08:48)
--- NOTE | 2017-04-24 09:06 | NUR ---
PSYCHIATRIC LIAISON NURSE: Met with patient, she remains anxious and had a panic attack this morning. Primary nurse states Ativan seemed to be helpful. She does appear less anxious today, but continues to have lip smacking and is constantly moving her feet while lying in bed. She continues to report poor appetite and okay sleep. She also continues to say she is not interested in obtaining mental health treatment when she is medically cleared. Addendum: 04/24/17 at 1511 by Jayashree Busch RN Met with patient and and they do not feel an inpatient psychiatric stay is what they want. reports he has seen significant improvement with her on the medication adjustments made while on the medical floor. Spoke with Dr. Hahn and she does not feel the patient is committable to an involuntary inpatient psychiatric stay. is concerned that he can not care for her at home and is questioning the next level of care. Dr. Hahn states she will contact Dr. Lucio to discuss this conversation.
[2017-04-24] MEDS: SODIUM CHLORIDE 0.9% 1000ML 1,000 ML IV SCH (10:13)
--- NOTE | 2017-04-24 11:30 | Psychiatric Progress Notes ---
Psychiatric Progress Note Date of Service Apr 24, 2017. Notes Shanna Hutson is a 66-year-old female who initially presented for inpatient psychiatric hospitalization from [facility] on 04/12/17 where she was placed for rehab due to unsteady gate. Her spouse brought her to the [facility] for worsening psychosis and anxiety and she was admitted on a 201. She was transferred to the medical floor on 04/14/17 following a code purple. CC: "Not too bad." Reviewed interim records and met with the patient. She continues to have episodic anxiety, and has received lorazepam 0.5 mg about once a day with good effect. She has had an extensive medical workup for respiratory distress and hypotension. Neurology last saw her 04/16/2017 and started gabapentin for her movement disorder, but has not been further adjusted. It appears that her brought in the disks from her brain MRI done at an outside hospital, and they are in her paper chart, but have not been scanned into the record or reviewed. She states that her mood and anxiety are both better, and that she is frustrated at being stuck in bed all day and wants to be able to walk more. She says mood is "not bad," and that her anxiety is better controlled. She denies suicidal thoughts, homicidal thoughts, paranoia, and hallucinations, including auditory, visual, and tactile. She continues to state that she is not interested in inpatient psychiatric treatment, and just wants to go home. She says her sleep is better, and appetite is fair. Review of systems: Denies pain, GI symptoms. White female appearing stated age. Casually dressed and adequately groomed. Calm and cooperative. Lying in bed in NAD, with fair eye contact and no abnormal movements. Speech is delayed and minimal. Mood is "not bad," and affect is stable and congruent, improved from previous exams. Thoughts are concrete and goal directed. The patient denies suicidal and homicidal ideation , paranoia, delusions, and hallucinations, and did not appear to be responding to internal stimuli. She is alert and oriented to self and place. Intelligence is consistent with level of education. Insight and and judgment are fair. Recommendations: 1. Schizoaffective disorder depressed type (although differential also includes a major neurocognitive disorder and psychotic depression with comorbid anxiety) - continue duloxetine 60mg daily - Quetiapine has been decreased to 25 mg every morning and 50 mg daily at bedtime due to hypotension. Remeron has been discontinued to limit combined sedation. - She has been consistently declining inpatient psychiatric admission for the past week. She does not meet criteria for involuntary commitment. She is willing to follow-up with her outpatient psychiatrist, Dr. Bashir, and would recommend that the psychiatric notes from this hospitalization be sent to him for coordination of care. 2. Tardive dyskinesia and akathisia: titrate Neurontin as may be anxiolytic as well. D/c Debo. - Outside hospital brain MRI disks are in her chart, and should be scanned in and reviewed by neurology. Follow up as an outpatient for dementia and her movement disorder.
--- NOTE | 2017-04-24 14:01 | NUR ---
Pt seen for followup, refer to linked note for full assessment and recommendations. Addendum: 04/24/17 at [address] Amended: Links added.
[2017-04-24 15:21] VITALS: BP 100/68; PULSE 96; TEMP 36.3; O2SAT 94
[2017-04-24] MEDS: QUETIAPINE FUMARATE 100 MG TAB PO SCH (19:28)
[2017-04-24 23:10] VITALS: BP_SYST 101; BP_SYST 106; BP_DIAS 61; BP_DIAS 64; PULSE 76; PULSE 81; TEMP 36.8; O2SAT 94
[2017-04-25] MEDS: HEPARIN SOD 5000 UNIT/0.5 ML CARP SQ SCH ×3 (06:08→20:58)
[2017-04-25] MEDS: LORAZEPAM 0.5 MG TAB PO PRN ×2 (06:08→11:59)
[2017-04-25] MEDS: LEVOTHYROXINE 88 MCG TAB PO SCH (06:08)
[2017-04-25] MEDS: SODIUM CHLORIDE 0.9% 1000ML 1,000 ML IV SCH (06:09)
[2017-04-25 07:00] LABS: CREATININE 0.82 mg/dl (0.60-1.20)
[2017-04-25 07:13] VITALS: BP_SYST 100; BP_SYST 102; BP_SYST 93; BP_DIAS 59; BP_DIAS 62; BP_DIAS 65; PULSE 86; PULSE 88; TEMP 36.5; O2SAT 94
[2017-04-25] MEDS: POLYETHYLENE (MIRALAX) 17 GM PACK PO SCH (08:00)
[2017-04-25] MEDS: DULOXETINE HCL 60 MG CAP PO SCH (08:05)
[2017-04-25] MEDS: IPRATROPIUM BROMIDE/ALBUTEROL respimat INH INH SCH ×4 (08:05→19:57)
[2017-04-25] MEDS: GABAPENTIN 100 MG CAP PO SCH ×3 (08:05→19:57)
[2017-04-25] MEDS: SIMVASTATIN 20 MG TAB PO SCH (08:06)
[2017-04-25] MEDS: PANTOprazole SOD 40 MG TAB PO SCH (08:06)
[2017-04-25] MEDS: QUETIAPINE FUMARATE 25 MG TAB PO SCH (08:06)
[2017-04-25] MEDS: ONDANSETRON INJ 2 MG/ML 2 ML VIAL IV PRN (08:17)
--- NOTE | 2017-04-25 08:26 | Progress Note ---
Subjective Date of Service: Apr 24, 2017. Subjective Patient was seen at 7:30 on Apr. 6 Patient was complaining of anxiety and chest pain this AM. Patient reports this is accompanied by SOB. Patient reports that the chest pain is dull, midsternum and non radiating. Patient denies any diaphoresis. Problem List Medical Problems: (1) Hypokalemia Status: Acute (2) UTI (urinary tract infection) Status: Acute Review of Systems All Other Systems: Reviewed and Negative Medications Current Inpatient Medications Medications (Trade) Dose Ordered Sig/Jeison Route Start Time Stop Time Status Last Admin Dose Admin Acetaminophen (Tylenol Tab) 650 mg Q4H PRN PO 04/14/17 17:00 05/14/17 16:59 04/20/17 12:52 650 MG Al Hydrox/Mg Hydrox/Simethicone (Maalox Max Susp) 15 ml Q4H PRN PO 04/14/17 17:00 05/14/17 16:59 Magnesium Hydroxide (Milk Of Magnesia Susp) 30 ml Q12H PRN PO 04/14/17 17:00 05/14/17 16:59 04/16/17 15:34 30 ML Ondansetron HCl (Zofran Inj) 4 mg Q6H PRN IV 04/14/17 17:00 05/14/17 16:59 04/19/17 08:11 4 MG Bisacodyl (Dulcolax Supp) 10 mg DAILY PRN [place] 04/14/17 17:00 05/14/17 16:59 Duloxetine HCl (Cymbalta Cap) 60 mg QAM PO 04/15/17 09:00 05/15/17 08:59 04/24/17 08:08 60 MG Lamotrigine (Lamictal Tab) 25 mg HS PO 04/14/17 21:00 05/14/17 20:59 04/24/17 19:28 25 MG Lamotrigine (Lamictal Tab) 100 mg HS PO 04/14/17 21:00 05/14/17 20:59 04/24/17 19:28 100 MG Levothyroxine Sodium (Synthroid Tab) 88 mcg DAILYBB PO 04/15/17 06:00 05/15/17 05:59 04/25/17 06:08 88 MCG Simvastatin (Zocor Tab) 20 mg QAM PO 04/15/17 09:00 05/15/17 08:59 04/24/17 08:09 20 MG Pantoprazole Sodium (Protonix Tab) 40 mg DAILY PO 04/15/17 09:00 05/15/17 08:59 04/24/17 08:08 40 MG Lorazepam (Ativan Tab) 0.5 mg Q6H PRN PO 04/16/17 09:00 05/16/17 08:59 04/25/17 06:08 0.5 MG Albuterol/ Ipratropium (Combivent Respimat Inh) 1 puffs QID INH 04/16/17 17:00 05/16/17 16:59 04/24/17 19:29 1 PUFFS Quetiapine Fumarate (seroQUEL TAB) 25 mg Q4 PRN PO 04/17/17 11:15 05/17/17 11:14 04/21/17 16:29 25 MG Polyethylene (Miralax Powder Packet) 17 gm DAILY PO 04/18/17 10:00 05/14/17 09:59 04/24/17 08:48 17 GM Gabapentin (Neurontin Cap) 100 mg TID PO 04/19/17 20:00 05/16/17 19:59 04/24/17 19:28 100 MG Quetiapine Fumarate (seroQUEL TAB) 50 mg HS PO 04/19/17 21:00 05/18/17 20:59 04/24/17 19:28 50 MG Heparin Sodium (Porcine) (Heparin Sq 5000 Unit/0.5ml) 5,000 unit Q8 SQ 04/20/17 22:00 05/20/17 21:59 04/25/17 06:08 5,000 UNIT Sodium Chloride 1,000 ml @ 50 mls/hr Q20H IV 04/20/17 18:45 05/20/17 18:44 04/25/17 06:09 50 MLS/HR Ioversol (Optiray 320) 100 ml UD PRN IV 04/21/17 13:15 04/25/17 13:14 Quetiapine Fumarate (seroQUEL TAB) 25 mg QAM PO 04/22/17 08:00 05/17/17 13:59 04/24/17 08:08 25 MG Objective Vital Signs Date Time Temp Pulse Resp B/P (MAP) Pulse Ox O2 Delivery O2 Flow Rate FiO2 04/25/17 07:13 36.5 88 22 93/59 (70) 94 Room Air 86 100/65 (77) 86 102/62 (75) 04/25/17 00:20 Room Air 04/24/17 23:10 36.8 76 17 101/64 (76) 94 Room Air 81 106/61 (76) 04/24/17 16:00 Room Air 04/24/17 15:21 36.3 96 22 100/68 (79) 94 Room Air Physical Exam Comments: General Appearance: WD/WN, + moderate distress Neck: supple, no adenopathy Respiratory/Chest: chest non-tender, lungs clear, normal breath sounds Cardiovascular: regular rate, rhythm, no edema, no JVD Abdomen: normal bowel sounds, non tender, soft Extremities: normal range of motion 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 D/W Dr. Christensen, will hold off anticoagulation given elevated risk vs benefit of treatment. Lower extremity Doppler was also negative, with low probability V/Q scan Panic Attack EKG was negative (obtained during anxiety attack) 2-echo yesterday was normal Patient was also saturating at 100 percent during this attack Ativan sublingual was given to patient. Patient was seen in the afternoon and felt fine. Hypotension. Unsure of cause. Random cortisol was low However, confirmatory test was negative. 2-D echo was negative. Reviewing notes from Psych. May be from medications. Will monitor. Psych meds have been decreased. Anxiety Being seen by psych. Discussed case with Psych. Does not meet inpatient criteria. was going to talk with psych to discuss outpatient options. If she continues to not meet inpatient criteria. Will refer to home health services. Hypothyroidism Stable on Levothyroxine. Asymptomatic bacteriuria Will monitor. Cultures showed pseudomonas. If she becomes symptomatic, will treat, Continued [facility] stay due to: other Discharge planning: uncertain
[2017-04-25] MEDS ORDERED: PHENAZOPYRIDINE HCL 200 MG TAB PO STA (09:31)
[2017-04-25] MEDS ORDERED: CIPROFLOXACIN 250 MG TAB PO ONE (09:45)
[2017-04-25] MEDS: ACETAMINOPHEN 325 MG TAB PO PRN (09:57)
--- NOTE | 2017-04-25 10:41 | Psychiatric Progress Notes ---
Psychiatric Progress Note Date of Service Apr 25, 2017. Notes Shanna Hutson is a 66-year-old female who initially presented for inpatient psychiatric hospitalization from [facility] on 04/12/17 where she was placed for rehab due to unsteady gate. Her spouse brought her to the [facility] for worsening psychosis and anxiety and she was admitted on a 201. She was transferred to the medical floor on 04/14/17 following a code purple. CC: "Having stomach problems." Reviewed case with psychiatric liaison nurse and interim records, and met with the patient. She continues to have episodic anxiety, and has received lorazepam 0.5 mg about once a day with good effect. She states she is "not good " this morning, as her stomach is upset, and she doesn't feel well. Denies AVH currently, but says she thought she heard a voice say "Fox" this morning, not sure if it was a hallucination or if she was hearing voices from the hallway outside her room. She continues to state she wants to go home, is bored in the hospital, and doesn't like being confined to bed. She does not know what the plan is re: transition home, doesn't seem to recall the conversation she had with her and liaison nurse yesterday. Review of systems: Denies pain, SI, HI, paranoia. White female appearing stated age. Casually dressed and adequately groomed. Calm and cooperative. Lying in bed in NAD, with fair eye contact and no abnormal movements today. Speech is minimal and mildly delayed. Mood is "okay, " and affect is mildly anxious, stable and congruent, improved from previous exams. Thoughts are concrete and goal directed. The patient denies suicidal and homicidal ideation, paranoia, delusions, and hallucinations, and did not appear to be responding to internal stimuli. She is alert and oriented to self and place. Intelligence is consistent with level of education. Insight and and judgment are fair. Recommendations: 1. Schizoaffective disorder depressed type (although differential also includes a major neurocognitive disorder and psychotic depression with comorbid anxiety) - continue duloxetine 60mg daily - Quetiapine has been decreased to 25 mg every morning and 50 mg daily at bedtime due to hypotension. Remeron has been discontinued to limit combined sedation. - She has a prn of quetiapine ordered and this can be given if she reports hallucinations. She has not received it in 4 days. - She has been consistently declining inpatient psychiatric admission for the past week. She does not meet criteria for involuntary commitment. She is willing to follow-up with her outpatient psychiatrist, Dr. Bashir, and would recommend that the psychiatric notes from this hospitalization be sent to him for coordination of care. 2. Tardive dyskinesia and akathisia: titrate Neurontin as may be anxiolytic as well. D/c Debo. - Outside hospital brain MRI disks are in her chart, and should be scanned in and reviewed by neurology. Follow up as an outpatient for dementia and her movement disorder.
--- NOTE | 2017-04-25 13:37 | NUR ---
PSYCHIATRIC LIAISON NURSE: Met with Shanna again today. She looks much improved and also reports feeling good today. She continues to decline wanting inpatient psychiatric treatment and just wants to be with her at home. From the discussion I had with her and her yesterday he is not feeling equipped to manage her anxiety at home. Will attempt to reach out to to either meet with him in person when he visits her today or by phone to talk about safety planning to help him feel more supported as well as discuss management of her anxiety by strategies that can be used such as deep breathing and guided imagery. Will provide him with information sheets and resources that he can refer to when she starts to get anxious and it is feeling out of control. Staff has worked with Shanna over the hospitalization with deep breathing which she states is helpful. Addendum: 04/25/17 at 1425 by Jayashree Busch RN Attempted to reach patient's by phone to inquire when he will be in to visit. Unable to reach him, no answer
--- NOTE | 2017-04-25 14:07 | NUR ---
Case Management Note- Per MD and Psych Liaison RN, patient is able to discharge home. Psych spoke with patient and he agrees with this plan. Patient would benefit from psych home health. Message left for patient to discuss this. Awaiting call back. Psych is also going reach out to patient to talk about safety planning to help him feel more supported as well as discuss management of her anxiety by strategies that can be used such as deep breathing and guided imagery. Will continue to follow. Addendum: 04/25/17 at 1544 by Chrissy Wetzel [employer] Met with patient and at bedside. They both agree that home health would be beneficial. List of agencies provided. Explained to patient and spouse that [facility] had psych home health nurses available for services. They were pleased to hear this. With permission referral faxed to [email or web address]. Addendum: 04/25/17 at 1552 by Chrissy Wetzel SERV Received call from Summer at [facility]. They are able to start nursing/PT/OT services on Saturday, but their psych nurse is out of town and won't be able to see patient until Saturday. Dr. Lucio aware and agrees with plan.
[2017-04-25 14:47] VITALS: BP_SYST 110; BP_SYST 88; BP_SYST 89; BP_DIAS 56; BP_DIAS 59; BP_DIAS 78; PULSE 89; PULSE 91; TEMP 36.7; O2SAT 93
[2017-04-25 16:00] VITALS: O2SAT 93
--- NOTE | 2017-04-25 16:38 | NUR ---
PSYCHIATRIC LIAISON NURSE: Met with patient and her . Patient looks and feels much better. Talked with about plan to discharge home with psychiatric home visiting nurse. We talked about techniques that can be used to assist Shanna with calming her anxiety as well as her medications which will be explained to him in detail when she is discharged. Also provided him with the [facility] crisis number and explained that he can always contact them for assistance as needed 10/12. states he would like to make sure she remains well and is willing to take her home tomorrow if she continues to do well tonight. Primary nurse updated with conversation and she felt Dr. Lucio would be okay with this plan. Will have liaison team contact Dr. Bashir's office in [place] tomorrow to ensure she has a follow up appointment scheduled.
[2017-04-25] MEDS: QUETIAPINE FUMARATE 100 MG TAB PO SCH (19:59)
[2017-04-25] MEDS: CIPROFLOXACIN 250 MG TAB PO SCH (20:58)
--- NOTE | 2017-04-25 22:18 | Progress Note ---
Subjective Date of Service: Apr 25, 2017. Subjective Pt evaluation today including: conversation w/ patient, conversation w/ family , physical exam, chart review Patient reports feeling anxious. Patient denies any anxiety today. Patient did however complain of dysuria today. She states it began late in the evening. Patient denies any chest pain, nausea, vomiting. Problem List Medical Problems: (1) Hypokalemia Status: Acute (2) UTI (urinary tract infection) Status: Acute Review of Systems All Other Systems: Reviewed and Negative Medications Current Inpatient Medications Medications (Trade) Dose Ordered Sig/Jeison Route Start Time Stop Time Status Last Admin Dose Admin Acetaminophen (Tylenol Tab) 650 mg Q4H PRN PO 04/14/17 17:00 05/14/17 16:59 04/25/17 09:57 650 MG Al Hydrox/Mg Hydrox/Simethicone (Maalox Max Susp) 15 ml Q4H PRN PO 04/14/17 17:00 05/14/17 16:59 Magnesium Hydroxide (Milk Of Magnesia Susp) 30 ml Q12H PRN PO 04/14/17 17:00 05/14/17 16:59 04/16/17 15:34 30 ML Ondansetron HCl (Zofran Inj) 4 mg Q6H PRN IV 04/14/17 17:00 05/14/17 16:59 04/25/17 08:17 4 MG Bisacodyl (Dulcolax Supp) 10 mg DAILY PRN [place] 04/14/17 17:00 05/14/17 16:59 Duloxetine HCl (Cymbalta Cap) 60 mg QAM PO 04/15/17 09:00 05/15/17 08:59 04/25/17 08:05 60 MG Lamotrigine (Lamictal Tab) 25 mg HS PO 04/14/17 21:00 05/14/17 20:59 04/25/17 19:58 25 MG Lamotrigine (Lamictal Tab) 100 mg HS PO 04/14/17 21:00 05/14/17 20:59 04/25/17 19:58 100 MG Levothyroxine Sodium (Synthroid Tab) 88 mcg DAILYBB PO 04/15/17 06:00 05/15/17 05:59 04/26/17 06:07 88 MCG Simvastatin (Zocor Tab) 20 mg QAM PO 04/15/17 09:00 05/15/17 08:59 04/25/17 08:06 20 MG Pantoprazole Sodium (Protonix Tab) 40 mg DAILY PO 04/15/17 09:00 05/15/17 08:59 04/25/17 08:06 40 MG Lorazepam (Ativan Tab) 0.5 mg Q6H PRN PO 04/16/17 09:00 05/16/17 08:59 04/25/17 11:59 0.5 MG Albuterol/ Ipratropium (Combivent Respimat Inh) 1 puffs QID INH 04/16/17 17:00 05/16/17 16:59 04/25/17 19:57 1 PUFFS Quetiapine Fumarate (seroQUEL TAB) 25 mg Q4 PRN PO 04/17/17 11:15 05/17/17 11:14 04/21/17 16:29 25 MG Polyethylene (Miralax Powder Packet) 17 gm DAILY PO 04/18/17 10:00 05/14/17 09:59 04/24/17 08:48 17 GM Gabapentin (Neurontin Cap) 100 mg TID PO 04/19/17 20:00 05/16/17 19:59 04/25/17 19:57 100 MG Quetiapine Fumarate (seroQUEL TAB) 50 mg HS PO 04/19/17 21:00 05/18/17 20:59 04/25/17 19:59 50 MG Heparin Sodium (Porcine) (Heparin Sq 5000 Unit/0.5ml) 5,000 unit Q8 SQ 04/20/17 22:00 05/20/17 21:59 04/26/17 06:12 5,000 UNIT Sodium Chloride 1,000 ml @ 50 mls/hr Q20H IV 04/20/17 18:45 05/20/17 18:44 04/26/17 04:15 50 MLS/HR Quetiapine Fumarate (seroQUEL TAB) 25 mg QAM PO 04/22/17 08:00 05/17/17 13:59 04/25/17 08:06 25 MG Ciprofloxacin (Ciprofloxacin Tab) 250 mg Q12 PO 04/25/17 21:00 04/30/17 20:59 04/25/17 20:58 250 MG Objective Vital Signs Date Time Temp Pulse Resp B/P (MAP) Pulse Ox O2 Delivery O2 Flow Rate FiO2 04/25/17 20:00 Room Air 04/25/17 16:00 93 Room Air 04/25/17 14:47 36.7 89 20 89/59 (69) 93 Room Air 89 88/56 (67) 91 110/78 (89) 04/25/17 08:00 Room Air 04/25/17 07:13 36.5 88 22 93/59 (70) 94 Room Air 86 100/65 (77) 86 102/62 (75) 04/25/17 00:20 Room Air 04/24/17 23:10 36.8 76 17 101/64 (76) 94 Room Air 81 106/61 (76) Physical Exam Comments: General Appearance: WD/WN, + moderate distress Neck: supple, no adenopathy Respiratory/Chest: chest non-tender, lungs clear, normal breath sounds Cardiovascular: regular rate, rhythm, no edema, no JVD Abdomen: normal bowel sounds, non tender, soft Extremities: normal range of motion 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 D/W Dr. Christensen, will hold off anticoagulation given elevated risk vs benefit of treatment. Lower extremity Doppler was also negative, with low probability V/Q scan Panic Attack Resolved EKG negative 2D echo negative Hypotension. Improved with med changes Unsure of cause. Random cortisol was low However, confirmatory test was negative. 2-D echo was negative. . Anxiety Being seen by psych. Discussed case with Psych. Does not meet inpatient criteria. was going to talk with psych to discuss outpatient options. If she continues to not meet inpatient criteria. Will refer to home health services. Hypothyroidism Stable on Levothyroxine. Uncomplicated UTI Cultures showed pseudomonas. She became symptomatic and started cipro. Continued [facility] stay due to: other Discharge planning: uncertain
--- NOTE | 2017-04-25 22:30 | NUR ---
ID: Pt A&Ox2. No complaints of pain. No anxiety noted. IVF infusing per MD order. VSS, BP low. 1 assist with walker OOB. Voiding cloudy urine in toilet. To be d/c'd home with home health. Bed alarm on for safety. Hourly rounding maintained.
[2017-04-25 23:57] VITALS: BP 95/61; PULSE 71; TEMP 36.4; O2SAT 92
[2017-04-26 04:00] VITALS: BP_SYST 104; BP_SYST 113; BP_SYST 119; BP_DIAS 63; BP_DIAS 67; BP_DIAS 76; PULSE 85; TEMP 36.7; O2SAT 95
[2017-04-26] MEDS: SODIUM CHLORIDE 0.9% 1000ML 1,000 ML IV SCH (04:15)
[2017-04-26] MEDS: LEVOTHYROXINE 88 MCG TAB PO SCH (06:07)
[2017-04-26] MEDS: HEPARIN SOD 5000 UNIT/0.5 ML CARP SQ SCH (06:12)
[2017-04-26 07:16] VITALS: BP_SYST 110; BP_SYST 113; BP_SYST 97; BP_DIAS 62; BP_DIAS 74; BP_DIAS 85; PULSE 79; PULSE 81; TEMP 36.6; O2SAT 95
[2017-04-26] MEDS: POLYETHYLENE (MIRALAX) 17 GM PACK PO SCH (08:00)
[2017-04-26] MEDS: IPRATROPIUM BROMIDE/ALBUTEROL respimat INH INH SCH ×2 (08:00→12:32)
[2017-04-26] MEDS: SIMVASTATIN 20 MG TAB PO SCH (08:00)
[2017-04-26] MEDS: GABAPENTIN 100 MG CAP PO SCH (08:00)
[2017-04-26] MEDS: DULOXETINE HCL 60 MG CAP PO SCH (08:00)
[2017-04-26] MEDS: QUETIAPINE FUMARATE 25 MG TAB PO SCH (08:00)
[2017-04-26] MEDS: PANTOprazole SOD 40 MG TAB PO SCH (08:00)
[2017-04-26 08:30] VITALS: O2SAT 95
[2017-04-26] MEDS: CIPROFLOXACIN 250 MG TAB PO SCH (09:00)
--- NOTE | 2017-04-26 11:01 | Psychiatric Progress Notes ---
Psychiatric Progress Note Date of Service Apr 26, 2017. Notes Shanna Hutson is a 66-year-old female who initially presented for inpatient psychiatric hospitalization from [facility] on 04/12/17 where she was placed for rehab due to unsteady gate. Her spouse brought her to the [facility] ER for worsening psychosis and anxiety and she was admitted on a 201. She was transferred to the medical floor on 04/14/17 following a code purple. CC: "I'm feeling much better" HPI: has been consistently deny gonzalez and SI. consistent desire to return home , accepting of recommended in home nursing care with support of . Review of systems: Denies pain, SI, HI, paranoia. White female appearing stated age. Casually dressed and adequately groomed. Calm and cooperative. Dair eye contact and no abnormal movements today. Speech is more spontaneous. Mood is "fine" and affect is congruent, improved from previous exams. Thoughts are concrete and goal directed. The patient denies suicidal and homicidal ideation, paranoia, delusions, and hallucinations, and did not appear to be responding to internal stimuli. She is alert and oriented to self and place. Intelligence is consistent with level of education. Insight and and judgment are fair. Recommendations: Schizoaffective disorder depressed type (although differential also includes a major neurocognitive disorder and psychotic depression with comorbid anxiety) - continue duloxetine 60mg daily - Quetiapine has been decreased to 25 mg every morning and 50 mg daily at bedtime due to hypotension. Remeron has been discontinued to limit combined sedation. She no longer meets criteria for inpatient mental health care and she is willing to follow-up with her outpatient psychiatrist, Dr. Bashir, and would recommend that the psychiatric notes from this hospitalization be sent to him for coordination of care.
--- NOTE | 2017-04-26 11:07 | NUR ---
Pastoral Care, initial visit. Pt says, "I was born [employer]," did not mention any current congregation affiliation. Pt appears somewhat withdrawn or reluctant to speak with me. I briefly introduced our service, offered spiritual and emotional support, and assured her of my continuing availability and prayers on her behalf.
[2017-04-26 11:55] VITALS: O2SAT 95
--- NOTE | 2017-04-26 12:17 | Discharge Summary ---
Discharge Summary Date of Service Apr 26, 2017. Discharge Summary Admission Date: Apr 14, 2017 at 15:58 Discharge Disposition: Home with services Principal Diagnosis: Anxiety/ acute respiratory distress Consultations: Psych Medication Reconciliation New Medications: Lamotrigine (Lamotrigine) 100 Mg Tab 1 TAB PO HS for 30 Days, #30 TAB Lamotrigine (Lamotrigine) 25 Mg Tab 1 TAB PO HS for 30 Days, #30 TAB 1 Refill Simvastatin (Zocor) 20 Mg Tab 1 TAB PO HS for 30 Days, #30 TAB 5 Refills Ciprofloxacin (Cipro) 250 Mg Tab 250 MG PO Q12 for 5 Days, #10 TAB Take 1 tablet by mouth twice a day. Lorazepam (Lorazepam) 0.5 Mg Tab 0.5 MG PO Q6H PRN for ANXIETY for 10 Days, #20 TAB Take 1 tablet if needed for anxiety (Do not take every day) Quetiapine Fumarate (Quetiapine Fumarate) 25 Mg Tab 25 MG PO QAM for 30 Days, #30 TAB 1 Refill Take 1 tablet by mouth in AM. Quetiapine Fumarate (Quetiapine Fumarate) 100 Mg Tab 50 MG PO HS for 30 Days, #30 TAB 1 Refill Take half a tablet by mouth at bedtime Continued Medications: Acetaminophen Tab (Tylenol) 325 Mg Tab 650 MG PO Q4 PRN for Pain or Fever for 30 Days, #60 TAB (This prescription has been renewed) NOT TO EXCEED 3000MG/24HR Bisacodyl (Bisac-Evac) 10 Mg Sup 1 SUPP AL UD PRN for Constipation for 30 Days, #30 SUPP (This prescription has been renewed) if no bm within 24 hours of administration of MOM Duloxetine HCl (Duloxetine HCl) 60 Mg Cap 60 MG PO QAM for 30 Days, #30 CAP (This prescription has been renewed) Lamotrigine (Lamictal) 25 Mg Tab 25 MG PO HS, TAB Lamotrigine (Lamictal) 100 Mg Tab 100 MG PO HS, TAB Levothyroxine Sodium (Synthroid) 88 Mcg Tab 1 TAB PO DAILY for 30 Days, #30 TAB Magnesium Hydroxide (Milk Of Magnesia) 30 Ml Susp 30 ML PO UD PRN for Constipation for 30 Days, #900 ML (This prescription has been renewed) if no bm x 3 days Omeprazole (Prilosec) 20 Mg Capcr 20 MG PO DAILY for 30 Days, #30 CAP (This prescription has been renewed) Simvastatin (Zocor) 20 Mg Tab 20 MG PO QAM, TAB Sodium Phosphate/Biphosphate (Fleet Enema) Brittani 1 EA AL DAILY PRN for Constipation for 30 Days, #30 BTL (This prescription has been renewed) if no result from suppository Discontinued Medications: Mirtazapine (Remeron) 45 Mg Tab 1 TAB PO HS for 30 Days, #30 TAB Discharge Exam Review of Systems: Constitutional: No fever, No chills Eyes: No eye pain Respiratory: No cough Cardiovascular: No chest pain, No orthopnea Abdomen: No pain Musculoskeletal: No joint pain Psychiatric: + anxiety Endocrine: + fatigue Hematologic / Lymphatic: No abnormal bleeding/bruising Integumentary: No rash Physical Exam: General Appearance: WD/WN, no apparent distress Neck: supple, no adenopathy Respiratory/Chest: chest non-tender, lungs clear Cardiovascular: regular rate, rhythm, no edema Abdomen / GI: normal bowel sounds, non tender, soft Skin: normal color Lymphatic: no adenopathy Hospital Course 67 year old female with anxiety, Schizophrenia presented with acute respiratory failure Initially was thought patient may have pulmonary emboli as she hadcD-dimer elevated with questionable CT-scan of thorax with P/E V/Q scan however was negative. D/W Dr. Christensen, will hold off anticoagulation given elevated risk vs benefit of treatment. Lower extremity Doppler was also negative, with low probability V/Q scan. Panic Attack During stay, patient had multiple bouts of anxiety. Other medical causes were ruled out including P/E, [place], pulmonary causes, CHF Seen by ngoc, exercises and behavior techniques were provided EKG negative 2D echo negative Hypotension. Improved with med changes Unsure of cause. Random cortisol was low However, confirmatory test was negative. 2-D echo was negative. . Anxiety Being seen by psych. Discussed case with Psych. Does not meet inpatient criteria. was going to talk with psych to discuss outpatient options. Did not meet inpatient criteria. Will refer to home health services. Hypothyroidism Stable on Levothyroxine. Uncomplicated UTI Cultures showed pseudomonas. She became symptomatic and started cipro. Total Time Spent: Greater than 30 minutes This includes examination of the patient, discharge planning, medication reconciliation, and communication with other providers. Discharge Instructions Please refer to the electronic Patient Visit Report (Discharge Instructions) for additional information. Follow-Up As per discharge instructions Additional Copies To Milind Barraza M.D.
[2017-04-26] MEDS ORDERED: SRQ25 PO (12:24)
[2017-04-26] MEDS ORDERED: ATV5 PO (12:24)
[2017-04-26] MEDS ORDERED: CIPR250T3 PO (12:24)
[2017-04-26] MEDS ORDERED: QUET-115 PO ×2 (12:24→13:15)
--- NOTE | 2017-04-26 12:27 | Discharge Instructions ---
Discharge Instructions Date of Service Apr 26, 2017. Admission Reason for Admission: Acute Resp Stress, And Need To R/O Cva Discharge Discharge Diagnosis / Problem: Anxiety related episode Discharge Goals Goal(s): Decrease discomfort, Improve function Activity Recommendations Activity Limitations: resume your previous activity . Instructions / Follow-Up Instructions / Follow-Up Follow up with primary care provide in 1 week. Home Health service with psych nurse. Followup with psychiatrist Patient was in hospital for anxiety worsening. Medical causes of shortness of breath were ruled out such as clots in lungs, heart attacks, heart failure. Patient however was found to have a urinary tract infection. Needs to complete antibiotics for 6 day course Current Hospital Diet Patient's current hospital diet: Regular Diet Discharge Diet Recommended Diet: Regular Diet Pending Studies Studies pending at discharge: no Laboratory Results Lipid Panel Test 02/20/17 07:06 Range/Units Triglycerides Level 79 0-150 mg/dl Cholesterol Level 133 0-200 mg/dl HDL Cholesterol 56 mg/dl Cholesterol/HDL Ratio 2.4 LDL Cholesterol, Calculated 61 mg/dl Medical Emergencies . Who to Call and When: Medical Emergencies: If at any time you feel your situation is an emergency, please call 911 immediately. . Non-Emergent Contact Non-Emergency issues call your: Primary Care Provider Call Non-Emergent contact if: your pain is worsening, you have any medication questions . . "Provider Documentation" section prepared by Vikash Lucio. . VTE Core Measure Inpt VTE Proph given/why not?: Melba Cabral, SCD's
--- NOTE | 2017-04-26 12:38 | NUR ---
As per attending, patient is cleared for discharge to home today. asked for the home health agency's phone number. Gave [facility]'s phone number and the name of the psych nurse with her phone number. Will notify [facility] of the patient's discharge.
[2017-04-26 12:59] VITALS: BP 113/85; PULSE 79; TEMP 36.6; O2SAT 95
--- NOTE | 2017-04-26 13:08 | NUR ---
PSYCHIATRIC LIAISON NURSE-- Called [facility] out of [place] to secure appointment for psychiatrist Dr. Bashir for patient. Patient has a scheduled appointment on May 01 @ 1:00PM. Will notify patient.
--- NOTE | 2017-04-26 13:34 | NUR ---
PSYCHIATRIC LIAISON NURSE-- Informed patient of upcoming psychiatric appointment with Dr. Bashir next SaturdayMay 01 @ 1:00PM. Also faxed records of her current stay to the [facility] office for Dr. Bashir to review.
[2017-04-26] MEDS ORDERED: SIMV20TA5 PO (13:38)
[2017-04-26] MEDS ORDERED: LAMO1TAB21 PO (13:40)
[2017-04-26] MEDS ORDERED: LMC25 PO (13:41)
[2017-04-26] MEDS ORDERED: ACET-1693 PO (13:45)
[2017-04-26] MEDS ORDERED: BISA10SU7 PR (13:45)
[2017-04-26] MEDS ORDERED: CYM60 PO (13:45)
[2017-04-26] MEDS ORDERED: MOML PO (13:45)
[2017-04-26] MEDS ORDERED: PRLSR20 PO (13:45)
[2017-04-26] MEDS ORDERED: SODIENE PR (13:45)
== END 2017-04-26 13:30 | disposition home health service (06) | DRG 177 ==
LOC: C.2T 15:58 → ENRESERV 04-15 12:10 → C.4E 04-15 12:59
PROVIDERS: ADMIT Hospitalist; ATTEND Internal Medicine Sports Medicine
DX: J69.0 Pneumonitis due to inhalation of food and vomit (principal); J96.00 Acute respiratory failure, unspecified whether with hypoxia or hypercapnia; N39.0 Urinary tract infection, site not specified; F25.1 Schizoaffective disorder, depressive type; I95.9 Hypotension, unspecified; E78.5 Hyperlipidemia, unspecified; E03.9 Hypothyroidism, unspecified; K21.9 Gastro-esophageal reflux disease without esophagitis; G24.01 Drug induced subacute dyskinesia; F41.0 Panic disorder [episodic paroxysmal anxiety]; E86.0 Dehydration; G25.71 Drug induced akathisia; T50.905A Adverse effect of unspecified drugs, medicaments and biological substances, initial encounter